=== PATIENT | male | born 1955 | race Caucasian/White ===

== ENCOUNTER → 2016-09-27 | Outpatient (CLI) | payer MEDICARE ==
[~2016-09-27] MED LIST: ALPR.5T PO; AMIT50TA3 PO; ASCO500T20 PO; ASP81CT PO; ASPI-479 PO; CARI350T PO; CEPH500C PO; CLOP75TA PO; CLPD75T PO; CYAN10007 PO; CYCL10TA45 PO; CYCL10TA9 PO; DIAZ5TAB3 PO; DOX10 PO; E400C PO; ESCT10T PO; FISH OIL 1,2001 EAC1 PO; FISH1CAP15 PO; GABA-486 PO; GABA800T2 PO; HYDR-2890 PO; HYDR-2997 PO; HYDR118S10 PO; HYDR1TAB3 PO; HYDR200T PO; LEVO500T69 PO; MECL25TA56 PO; METH4TAB PO; MUCUS RELIEF PO; MULT1CAP27 PO; NAPR-243 PO; OMEG1CAP51 PO; OXYC-464 PO; OXYC1TAB12 PO; POTA99TA7 PO; PROP20TA5 PO; SIMV40TA2 PO
[2016-09-27 10:26] LABS: BASOPHILS % (AUTO) 0 % (0-10); EOSINOPHILS # (AUTO) 0.1 10^3/uL (0.0-0.3); EOSINOPHILS % (AUTO) 2 % (0-10); LYMPHOCYTES # (AUTO) 1.6 X 10^3 (1.0-4.0); LYMPHOCYTES % (AUTO) 28 % (12-44); MEAN CORPUSCULAR HEMOGLOBIN 30 PG (25-34); MEAN CORPUSCULAR HGB CONC 33 G/DL (32-36); MEAN CORPUSCULAR VOLUME 90 FL (80-99); MEAN PLATELET VOLUME 9.1 FL (7.4-10.4); MONOCYTES # (AUTO) 0.5 X 10^3 (0.0-1.0); MONOCYTES % (AUTO) 8 % (0-12); NEUTROPHILS # (AUTO) 3.5 X 10^3 (1.8-7.8); NEUTROPHILS % (AUTO) 62 % (42-75); PLATELET COUNT 191 10^3/uL (130-400); RED BLOOD COUNT 5.23 10^6/uL (4.35-5.85); RED CELL DISTRIBUTION WIDTH 13.5 % (10.0-14.5); WHITE BLOOD COUNT 5.7 10^3/uL (4.3-11.0)
[2016-09-27 10:36] LABS: ALANINE AMINOTRANSFERASE 15 U/L (0-55); ANION GAP 11 MMOL/L (5-14); ASPARTATE AMINO TRANSFERASE 17 U/L (5-34); BILIRUBIN,TOTAL 0.5 MG/DL (0.1-1.0); BLOOD UREA NITROGEN 8 MG/DL (7-18); BUN/CREATININE RATIO 10; CARBON DIOXIDE 26 MMOL/L (21-32); CHLORIDE 101 MMOL/L (98-107); CREATININE SERUM 0.81 MG/DL (0.60-1.30); GFR ESTIMATED > 60; GLUCOSE 128 MG/DL (70-105); POTASSIUM 4.2 MMOL/L (3.6-5.0); SODIUM 138 MMOL/L (135-145); TOTAL PROTEIN 7.5 GM/DL (6.4-8.2)
== END ==
LOC: LAB 10:01
PROVIDERS: ATTEND Nurse Practitioner Family
DX: L93.0 Discoid lupus erythematosus (principal)
CPT/HCPCS: 36415; 80053; 85025

== ENCOUNTER → 2017-04-01 | Outpatient (CLI) | payer MEDICARE ==
[2017-04-01 10:24] LABS: BASOPHILS % (AUTO) 0 % (0-10); EOSINOPHILS # (AUTO) 0.1 10^3/uL (0.0-0.3); EOSINOPHILS % (AUTO) 2 % (0-10); HEMATOCRIT 45 % (40-54); HEMOGLOBIN 15.1 G/DL (13.3-17.7); LYMPHOCYTES # (AUTO) 1.2 X 10^3 (1.0-4.0); LYMPHOCYTES % (AUTO) 20 % (12-44); MEAN CORPUSCULAR HEMOGLOBIN 31 PG (25-34); MEAN CORPUSCULAR HGB CONC 33 G/DL (32-36); MEAN CORPUSCULAR VOLUME 92 FL (80-99); MEAN PLATELET VOLUME 8.9 FL (7.4-10.4); MONOCYTES # (AUTO) 0.7 X 10^3 (0.0-1.0); MONOCYTES % (AUTO) 11 % (0-12); NEUTROPHILS % (AUTO) 67 % (42-75); PLATELET COUNT 220 10^3/uL (130-400); RED BLOOD COUNT 4.89 10^6/uL (4.35-5.85); RED CELL DISTRIBUTION WIDTH 12.9 % (10.0-14.5)
[2017-04-01 10:43] LABS: ALANINE AMINOTRANSFERASE 16 U/L (0-55); ALBUMIN 4.1 GM/DL (3.2-4.5); ALKALINE PHOSPHATASE 69 U/L (40-136); BILIRUBIN,TOTAL 0.5 MG/DL (0.1-1.0); BUN/CREATININE RATIO 8; CALCIUM 9.4 MG/DL (8.5-10.1); CARBON DIOXIDE 27 MMOL/L (21-32); CHLORIDE 101 MMOL/L (98-107); CREATININE SERUM 0.86 MG/DL (0.60-1.30); GFR ESTIMATED > 60; GLUCOSE 97 MG/DL (70-105); POTASSIUM 4.5 MMOL/L (3.6-5.0); SODIUM 137 MMOL/L (135-145)
== END ==
LOC: LAB 10:06
PROVIDERS: ATTEND Nurse Practitioner Family
DX: L90.5 Scar conditions and fibrosis of skin (principal); B86 Scabies; L93.0 Discoid lupus erythematosus
CPT/HCPCS: 36415; 80053; 85025

== ENCOUNTER 2018-04-29 18:05 | Emergency (ER) | payer MEDICARE ==
[~2018-04-29] VITALS: Ht 180.3 cm; Wt 81.6 kg
[~2018-04-29 18:05] MED LIST changes: +GABA800T10 PO; -GABA800T2 PO; -HYDR200T PO; +HYDR200T78 PO
--- OUTSIDE RECORDS SUMMARY | 2018-04-29 18:12 | XMS REPORT ---
Author Author LIDIA DAHL Organization [facility] Address [address] [place] [address] Care Team Providers Care Modeling Manager Name Role Phone LIDIA DAHL Unavailable PROBLEMS Type Condition ICD9-CM Code UNC24-WU Code Onset Dates Condition Status SNOMED Code Problem Systemic lupus erythematosus, unspecified SLE type, unspecified organ involvement status M32.9 Active 32022984 Problem Primary insomnia F51.01 Active 5684072 Problem Tremor, essential G25.0 Active 472376396 Problem Neck pain M54.2 Active 81630719 Problem History of hepatitis C Z86.19 Active 88414157746769 Problem Skin cancer C44.90 Active 062196085 Problem 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 2387591 ALLERGIES No Information ENCOUNTERS Encounter Location Date Diagnosis [facility] [id number] [place] [address] 00087- 9530 Jan, 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 [facility] [id number] [place] [address] 05270- 5348 Jan, Tremor, essential G25.0 [facility] [id number] [place] [address] 19948- 5052 Jan, Tremor, essential G25.0 ; Cervicalgia M54.2 and Primary insomnia F51.01 [facility] [id number] [place] [address] 81976- 8850 Dec, 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 [facility] [id number] [place] [address] 33195- 4610 Nov, 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 [facility] [id number] [place] [address] 37357- 0468 Nov, 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 [facility] [address] [address] 42[address] Oct, Systemic lupus erythematosus, unspecified SLE type, unspecified organ involvement status M32.9 and 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 [facility] [id number] [address] 4266 Sep, 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 [facility] [id number] [place] [address] 38427- 1986 Aug, 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 [facility] [id number] [place] [address] 36145- 6085 Aug, [facility] [id number] [place] [address] 62906- 6065 Aug, Cervicalgia M54.2 and Skin cancer C44.90 [facility] [id number] [place] [address] 37437- 5768 Jul, Neck pain M54.2 [facility] [id number] [place] [address] 41119- 4248 June, Neck pain M54.2 [facility] [id number] [place] [address] 65667- 0595 May, Neck pain M54.2 [facility] [address] [address] 5115 May, Systemic lupus erythematosus, unspecified SLE type, unspecified organ involvement status M32.9 and Neck pain M54.2 [facility] [address] [address] 7701 Apr, Neck pain M54.2 [facility] [id number] [address]- 6276 Apr, Neck pain M54.2 [facility] [id number] [address]- 6716 Mar, Neck pain M54.2 [facility] [id number] [place] [address] 54782- 9834 Feb, Neck pain M54.2 [facility] [id number] [place] [address] 40117- 0814 Feb, Neck pain M54.2 [facility] [id number] [place] [address] 60833- 0046 Feb, [facility] [id number] [place] [address] 44095- 3666 Feb, Cervical neuritis M54.12 [facility] [id number] [place] [address] 25924- 0392 Jan, Cervical neuritis M54.12 [facility] [id number] [place] [address] 91341- 2987 Jan, Cervical neuritis M54.12 [facility] [id number] [place] [address] 17079- 8356 Nov, [facility] [id number] [place] [address] 30277- 9051 Nov, 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 and Neck pain M54.2 [facility] [id number] [place] [address] 92718- 5039 Nov, [facility] [id number] [place] [address] 98496- 4252 Nov, Neck pain M54.2 [facility] [id number] [place] [address] 91880- 8361 Nov, [facility] [id number] [place] [address] 32184- 4265 Oct, Neck pain M54.2 and Cervical vertebral fusion M43.22 [facility] [id number] [place] [address] 79222- 9247 Sep, [facility] [id number] [place] [address] 16415- 3009 Aug, Systemic lupus erythematosus, unspecified SLE type, unspecified organ involvement status M32.9 and Cervical neuritis M54.12 [facility] [id number] [place] [address] 94318- 1656 Jul, [facility] [id number] [place] [address] 59249- 2990 Jul, [facility] [address] 23669- 3116 June, Lupus M32.9 ; Encounter for screening for lipoid disorders Z13.220 and Neck pain M54.2 [facility] [address] 02521- 6365 June, [facility] [id number] [place] [address] 93104- 7881 Apr, History of hepatitis C Z86.19 [facility] [id number] [place] [address] 41049- 8317 Nov, [facility] [id number] [place] [address] 61721- 7016 June, Warts, genital A63.0 [facility] [id number] [place] [address] 96343- 6112 June, Occasional tremors R25.1 ; Systemic lupus M32.9 and Anxiety about health F41.8 [facility] [id number] [place] [address] 94354- 0071 June, Genital warts A63.0 [facility] [id number] [place] [address] 29668- 6005 May, Lupus M32.9 ; Polyneuropathy in diseases classified elsewhere G63 and Occasional tremors R25.1 [facility] [id number] [place] [address] 75450- 2102 May, Genital warts A63.0 [facility] [address] [place] [address]- 9305 Apr, [facility] [id number] [place] [address] 23540- 4470 Mar, [facility] [id number] [place] [address] 27692- 4153 Mar, [facility] [id number] [place] [address] 79368- 5954 Mar, Lupus M32.9 [facility] [id number] [place] [address] 11880- 7004 Mar, Systemic lupus M32.9 and Neck pain M54.2 [facility] [id number] [place] [address] 88850- 4143 Feb, Systemic lupus M32.9 [facility] [id number] [place] [address] 78378- 0532 Feb, Systemic lupus erythematosus, organ or system involvement unspecified M32.10 ; Polyneuropathy in diseases classified elsewhere G63 and Hyperpigmented skin lesion L81.9 [facility] [id number] [place] [address] 83503- 9801 Aug, Genital warts 078.11 [facility] [address] [place] [address] 10691- 0284 Jul, Genital warts 078.11 [facility] [address] [place] [address] 41970- 8481 Jul, [facility] [id number] [place] [address] 47082- 7654 May, [facility] [id number] [place] [address] 62169- 9412 May, [facility] [id number] [place] [address] 84279- 8426 Dec, [facility] [id number] [place] [address] 85013- 4323 Dec, [facility] [place] [facility] [address] [id number] [place] [address]- 3775 Sep, [facility] [place] [facility] [address] [id number] [place] [address]- 9473 Sep, [facility] [place] [facility] [address] [id number] [place] [address]- 4187 Sep, [facility] [place] [facility] [address] [id number] [place] [address]- 4805 Sep, [facility] [place] [facility] [address] [id number] [place] [address]- 5025 Sep, [facility] [place] [facility] [address] [id number] [place] [address]- 0280 Sep, [facility] [place] [facility] [address] [id number] [place] [address]- 4245 Aug, [facility] [place] [facility] [address] [id number] [place] [address]- 3369 Aug, [facility] [place] [facility] [address] [id number] [place] [address]- 2772 Aug, [facility] [place] [facility] [address] [id number] [place] [address]- 8528 Aug, [facility] [place] [facility] [address] [id number] [place] [address]- 1489 Aug, [facility] [place] [facility] [address] [id number] [place] [address]- 6856 Aug, [facility] [place] [facility] [address] [id number] [place] [address]- 0840 Jul, [facility] [place] [facility] [address] [id number] [place] [address]- 1171 Jul, [facility] [place] [facility] [address] [id number] [place] [address]- 5982 Jul, [facility] [place] [facility] [address] [id number] [place] [address]- 9575 16 Jul, 2013 [facility] [place] [facility] [address] [id number] [place] [address]- 5856 Jul, [facility] [place] [facility] [address] [id number] [place] [address]- 0274 Jul, [facility] [place] [facility] [address] [id number] [place] [address]- 6931 Jul, [facility] [place] [facility] [address] [id number] [place] [address]- 4397 Jul, [facility] [place] [facility] [address] [id number] [place] [address]- 0493 Jul, [facility] [place] [facility] [address] [id number] [place] [address]- 0658 Jul, [facility] [place] [facility] [address] [id number] [place] [address]- 2355 Jul, [facility] [place] [facility] [address] [id number] [place] [address]- 5200 Jul, [facility] [place] [facility] [address] [id number] [place] [address]- 5319 Jul, [facility] [place] [facility] [address] [id number] [place] [address]- 1071 Jul, [facility] [place] [facility] [address] [id number] [place] [address]- 8365 Jul, [facility] [place] [facility] [address] [id number] [place] [address]- 1104 Jul, [facility] [place] [facility] [address] [id number] [place] [address]- 7175 Jul, [facility] [place] [facility] [address] [id number] [place] [address]- 4294 Jul, [facility] [place] [facility] [address] [id number] [place] [address]- 4397 June, [facility] [place] [facility] [address] [id number] [place] [address]- 5404 June, [facility] [place] [facility] [address] [id number] [place] [address]- 2858 June, [facility] [place] [facility] [address] [id number] [place] [address]- 0986 June, [facility] [place] [facility] [address] [id number] [place] [address]- 7709 May, [facility] [place] [facility] [address] [id number] [place] [address]- 6330 May, [facility] [place] [facility] [address] [id number] [place] [address]- 0612 May, [facility] [place] [facility] [address] [id number] [place] [address]- 6651 May, [facility] [place] [facility] [address] [id number] [place] [address]- 3378 May, [facility] [place] [facility] [address] [id number] [place] [address]- 3209 May, [facility] [place] [facility] [address] [id number] [place] [address]- 3641 May, [facility] [place] [facility] [address] [id number] [place] [address]- 8522 May, [facility] [place] [facility] [address] [id number] [place] [address]- 1794 May, [facility] [place] [facility] [address] [id number] [place] [address]- 8683 May, [facility] [place] [facility] [address] [id number] [place] [address]- 9842 Apr, [facility] [place] [facility] [address] [id number] [place] [address]- 1842 Apr, [facility] [place] [facility] [address] [id number] [place] [address]- 5837 Apr, [facility] [place] [facility] [address] [id number] [place] [address]- 5935 Apr, [facility] [place] [facility] [address] [id number] [place] [address]- 7892 Apr, [facility] [place] [facility] [address] [id number] [place] [address]- 4002 Apr, [facility] [place] [facility] [address] [id number] [place] [address]- 6348 Mar, [facility] [place] [facility] [address] [id number] [place] [address]- 4746 Mar, [facility] [place] [facility] [address] [id number] [place] [address]- 6655 Mar, [facility] [place] [facility] [address] [id number] [place] [address]- 9596 Mar, [facility] [place] [facility] [address] [id number] [place] [address]- 2743 Mar, [facility] [place] [facility] [address] [id number] [place] [address]- 5536 Mar, [facility] [place] [facility] [address] [facility] [id number] [place] [address]- 3129 Mar, [facility] [place] [facility] [address] [id number] [place] [address]- 3484 Mar, [facility] [place] [facility] [address] [id number] [place] [address]- 3799 Feb, [facility] [place] [facility] [address] [id number] [place] [address]- 2193 Feb, [facility] [place] [facility] [address] [id number] [place] [address]- 7938 Feb, [facility] [place] [facility] [address] [id number] [place] [address]- 4407 Feb, [facility] [address] [id number] [place] [address]- 7691 Feb, [facility] [place] [facility] [address] [id number] [place] [address]- 4122 Feb, [facility] [place] [facility] [address] [id number] [place] [address]- 2329 Feb, [facility] [place] [facility] [address] [id number] [place] [address]- 1051 Feb, [facility] [place] [facility] [address] [id number] [place] [address]- 1637 Feb, [facility] [place] [facility] [address] [id number] [place] [address]- 4097 Feb, [facility] [place] [facility] [address] [id number] [place] [address]- 7056 Feb, [facility] [place] [facility] [address] [id number] [place] [address]- 6403 Feb, [facility] [place] [facility] [address] [id number] [place] [address]- 8623 Feb, [facility] [place] [facility] [address] [id number] [place] [address]- 2343 Feb, [facility] [place] [facility] [address] [id number] [place] [address]- 2501 Feb, [facility] [place] [facility] [address] [id number], [place] [address]- 1280 Jan, [facility] [place] [facility] [address] [id number] [place] [address]- 6674 Jan, [facility] [place] [facility] [address] [id number] [place] [address]- 8397 Jan, [facility] [place] [facility] [address] [id number] [place] [address]- 0654 Jan, [facility] [place] [facility] [address] [id number] [place] [address]- 3774 16 Jan, 2013 [facility] [address] [id number] [place] [address]- 3626 16 Jan, 2013 [facility] [place] [facility] [address] [id number] [place] [address]- 9365 Dec, [facility] [place] [facility] [address] [id number] [place] [address]- 6257 Dec, [facility] [place] [facility] [address] [id number] [place] [address]- 1499 Dec, [facility] [place] [facility] [address] [id number] [place] [address]- 4372 Dec, [facility] [place] [facility] [address] [id number] [place] [address]- 8735 18 Dec, 2012 [facility] [place] [facility] [address] [id number] [place] [address]- 6920 Dec, [facility] [place] [facility] [address] [id number] [place] [address]- 0022 Dec, [facility] [place] [facility] [address] [id number] [place] [address]- 1827 Dec, [facility] [place] [facility] [address] [facility] [id number] [place] [address]- 0075 Dec, [facility] [place] [facility] [address] [id number] [place] [address]- 2225 Dec, [facility] [place] [facility] [address] [id number], [place] [address]- 3164 Dec, [facility] [place] [facility] [address] [id number] [place] [address]- 4864 29 Nov, 2012 [facility] [place] [facility] [address] [id number] [place] [address]- 7893 Nov, [facility] [place] [facility] [address] [id number], [place] [address]- 6002 Nov, [facility] [place] [facility] [address] [id number] [place] [address]- 5828 Nov, 2012 [facility] [place] [facility] [address] [id number] [place] [address]- 0932 Nov, 2012 [facility] [place] [facility] [address] [id number] [place] [address]- 3863 Nov, 2012 [facility] [place] [facility] [address] [id number] [place] [address]- 4789 Nov, 2012 [facility] [place] [facility] [address] [id number] [place] [address]- 6756 Nov, 2012 [facility] [place] [facility] [address] [id number] [place] [address]- 3710 Nov, [facility] [place] [facility] [address] [id number] [place] [address]- 5841 Nov, [facility] [place] [facility] [address] [id number] [place] [address]- 8136 Nov, [facility] [place] [facility] [address] [id number] [place] [address]- 4155 Nov, [facility] [place] [facility] [address] [id number] [place] [address]- 5443 Nov, [facility] [place] [facility] [address] [id number] [place] [address]- 5096 Nov, [facility] [place] [facility] [address] [id number] [place] [address]- 8940 18 Oct, 2012 [facility] [place] [facility] [address] [id number] [place] [address]- 3117 17 Sep, 2012 [facility] [place] [facility] [address] [id number] [place] [address]- 9257 11 Oct, 2012 [facility] [place] [facility] [address] [id number] [place] [address]- 8208 03 Sep, 2012 [facility] [place] [facility] [address] [id number] [place] [address]- 9099 Sep, [facility] [place] [facility] [address] [id number] [place] [address]- 7513 Sep, [facility] [place] [facility] [address] [id number] [place] [address]- 9602 Sep, [facility] [place] [facility] [address] [id number] [place] [address]- 2335 Sep, [facility] [place] [facility] [address] [id number] [place] [address]- 6877 Sep, [facility] [place] [facility] [address] [id number] [place] [address] Sep, [facility] [place] [facility] [address] [id number] [place] [address] Sep, [facility] [place] [facility] [address] [id number] [place] [address] Aug, [facility] [place] [facility] [address] [id number] [place] [address] Aug, [facility] [place] [facility] [address] [id number] [place] [address] Jul, [facility] [place] [facility] [address] [id number] [place] [address] Jul, [facility] [place] [facility] [address] [id number] [place] [address] Jul, [facility] [place] [facility] [address] [id number] [place] [address] Jul, [facility] [place] [facility] [address] [id number] [place] [address] Jul, [facility] [place] [facility] [address] [id number] [place] [address] Jul, [facility] [place] [facility] [address] [id number] [place] [address] Jul, [facility] [place] [facility] [id number] [address] June, [facility] [address] [facility] [id number], [place] [address] June, [facility] [address] [facility] [id number], [place] [address] May, [facility] [id number], [place] [address] May, [facility] [address] [facility] [id number], [place] [address] May, [facility] [id number], [place] [address] May, [facility] [id number], [place] [address] May, [facility] [id number], [place] [address] May, [facility] [id number], [place] [address] 05 May, 2012 [facility] [id number], [place] [address] May, [facility] [id number], [place] [address] May, [facility] [address] [id number], [place] [address] 28 Apr, 2012 [facility] [address] [id number], [place] [address] 27 Apr, 2012 [facility] [address] [id number], [place] [address] 26 Apr, 2012 [facility] [address] [id number], [place] [address] 22 Apr, 2012 IMMUNIZATIONS No Known Immunizations SOCIAL HISTORY Never Assessed REASON FOR VISIT Requests return call PLAN OF CARE VITAL SIGNS MEDICATIONS Medication Instructions Dosage Frequency Start Date End Date Duration Status Percocet 7.5-325 MG Orally 4 times a day 1 tablet as needed 6h Jan, 28 days Active RESULTS No Results PROCEDURES No Known procedures INSTRUCTIONS MEDICATIONS ADMINISTERED No Known Medications MEDICAL (GENERAL) HISTORY Type Description Date Medical History hypertension Medical History neck pain - requires chronic pain management, on chronic narcotics Medical History lupus - 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 Sanchez, plates and prosthetic discs placed in spine ( unsucessful surgery) 09/27/2013 Surgical History internal bone stimulator, 2 rods 6 pins in neck, reattached plate on spine and fixed prosthetic plates; Dr. Britt 01/2014 Surgical History bone stimulator removed; Dr. Britt 06/[address]-scan and mylegram 03/2015 Hospitalization History surgeries
--- OUTSIDE RECORDS SUMMARY | 2018-04-29 18:12 | XMS REPORT ---
Author Author DANTE ALVAREZ Organization [facility] Address [address] [place] [address] Care Team Providers Care [employer] Project Manager Name Role Phone DANTE ALVAREZ Unavailable PROBLEMS Type Condition ICD9-CM Code XMO68-WQ Code Onset Dates Condition Status SNOMED Code Problem Systemic lupus erythematosus, unspecified SLE type, unspecified organ involvement status M32.9 Active 92867754 Problem Primary insomnia F51.01 Active 9820978 Problem Tremor, essential G25.0 Active 394494604 Problem Neck pain M54.2 Active 23038379 Problem History of hepatitis C Z86.19 Active 10690056411115 Problem Skin cancer C44.90 Active 163180134 Problem 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 1062889 ALLERGIES No Known Allergies ENCOUNTERS Encounter Location Date Diagnosis [place] [id number] [place] [address] 49623- 2374 Jan, Tremor, essential G25.0 [place] [id number] [place] [address] 36056- 8277 Jan, Tremor, essential G25.0 ; Cervicalgia M54.2 and Primary insomnia F51.01 [facility] [id number] [place] [address] 84091- 2837 Dec, 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 [facility] [id number] [place] [address] 44089- 7938 Nov, 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 [facility] [id number] [place] [address] 66721- 2654 Nov, 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 [facility] [id number] [place] [address] 48509- 5155 Oct, Systemic lupus erythematosus, unspecified SLE type, unspecified organ involvement status M32.9 and 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 [facility] [address] [address] 9116 Sep, 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 [facility] [address] [address]- 4166 Aug, 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 [facility] [id number] [place] [address] 88529- 6436 Aug, [facility] [id number] [place] [address] 01271- 6478 Aug, Cervicalgia M54.2 and Skin cancer C44.90 [facility] [id number] [place] [address] 70484- 3620 Jul, Neck pain M54.2 [facility] [id number] [place] [address] 56869- 3959 June, Neck pain M54.2 [facility] [id number] [place] [address] 81092- 2871 May, Neck pain M54.2 [facility] [id number] [place] [address] 63687- 8463 May, Systemic lupus erythematosus, unspecified SLE type, unspecified organ involvement status M32.9 and Neck pain M54.2 [facility] [address] [address]- 5186 Apr, Neck pain M54.2 [facility] [id number] [place] [address] 26162- 4446 Apr, Neck pain M54.2 [facility] [id number] [place] [address] 82727- 5186 Mar, Neck pain M54.2 [facility] [address] [address]- 9426 Feb, Neck pain M54.2 [facility] [id number] [place] [address] 75088- 6173 Feb, Neck pain M54.2 [facility] [id number] [place] [address] 19494- 8052 Feb, [facility] [id number] [place] [address] 77968- 7093 Feb, Cervical neuritis M54.12 [facility] [id number] [place] [address] 13429- 9388 Jan, Cervical neuritis M54.12 [facility] [id number] [place] [address] 11035- 8476 Jan, Cervical neuritis M54.12 [facility] [id number] [place] [address] 64263- 2106 Nov, [facility] [id number] [place] [address] 99980- 4259 Nov, 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 and Neck pain M54.2 [facility] [id number] [place] [address] 82918- 4534 Nov, [facility] [id number] [place] [address] 81922- 7460 Nov, Neck pain M54.2 [facility] [id number] [place] [address] 82393- 6852 Nov, [facility] [id number] [place] [address] 91035- 0325 Oct, Neck pain M54.2 and Cervical vertebral fusion M43.22 [facility] [id number] [place] [address] 13650- 9135 Sep, [facility] [id number] [place] [address] 17442- 0423 Aug, Systemic lupus erythematosus, unspecified SLE type, unspecified organ involvement status M32.9 and Cervical neuritis M54.12 [facility] [id number] [place] [address] 81819- 4431 Jul, [facility] [id number] [place] [address] 29287- 5192 Jul, [facility] [id number] [place] [address] 63502- 4577 June, Lupus M32.9 ; Encounter for screening for lipoid disorders Z13.220 and Neck pain M54.2 [place] [id number] [place] [address] 95973- 8424 June, [place] [address] 44691- 0901 Apr, History of hepatitis C Z86.19 [place] [address] 87187- 2942 Nov, [place] [address] 72225- 4486 June, Warts, genital A63.0 [place] [id number] [place] [address] 55712- 2889 June, Occasional tremors R25.1 ; Systemic lupus M32.9 and Anxiety about health F41.8 [place] [id number] [place] [address] 91670- 4969 June, Genital warts A63.0 [place] [id number] [place] [address] 74714- 0938 May, Lupus M32.9 ; Polyneuropathy in diseases classified elsewhere G63 and Occasional tremors R25.1 [place] [id number] [place] [address] 26994- 0190 May, Genital warts A63.0 [place] [id number] [place] [address] 53947- 7918 Apr, [place] [address] 15495- 8669 Mar, [facility] [address] [place] [address] 59321- 4040 Mar, [facility] [address] [place] [address] 70928- 4190 Mar, Lupus M32.9 [facility] [address] [place] [address] 52394- 2360 Mar, Systemic lupus M32.9 and Neck pain M54.2 [facility] [id number] [place] [address] 01440- 3370 Feb, Systemic lupus M32.9 [facility] [id number] [place] [address] 04270- 4297 Feb, Systemic lupus erythematosus, organ or system involvement unspecified M32.10 ; Polyneuropathy in diseases classified elsewhere G63 and Hyperpigmented skin lesion L81.9 [facility] [address] [place] [address] 70927- 9998 Aug, Genital warts 078.11 [facility] [id number] [place] [address] 57237- 7024 Jul, Genital warts 078.11 [facility] [id number] [place] [address] 47944- 0722 Jul, [facility] [address] [place] [address] 93594- 2659 May, [facility] [address] [place] [address] 73837- 1280 May, [facility] [id number] [place] [address] 74912- 0503 Dec, [facility] [id number] [place] [address] 73770- 4259 Dec, [facility] [id number] [place] [address] 50573- 9020 Sep, [facility] [place] [facility] [address] [id number] [place] [address]- 1099 Sep, [facility] [place] [facility] [address] [id number] [place] [address]- 2061 Sep, [facility] [place] [facility] [address] [id number] [place] [address]- 4833 Sep, [facility] [place] [facility] [address] [id number] [place] [address]- 4397 Sep, [facility] [place] [facility] [address] [id number] [place] [address]- 8474 Sep, [facility] [place] [facility] [address] [id number] [place] [address]- 5977 Aug, [facility] [place] [facility] [address] [id number] [place] [address]- 3880 Aug, [facility] [place] [facility] [address] [id number] [place] [address]- 6282 Aug, [facility] [place] [facility] [address] [id number] [place] [address]- 1195 Aug, [facility] [place] [facility] [address] [id number] [place] [address]- 8071 Aug, [facility] [place] [facility] [address] [id number] [place] [address]- 9091 Aug, [facility] [place] [facility] [address] [id number] [place] [address]- 1098 Jul, [facility] [place] [facility] [address] [id number] [place] [address]- 2120 Jul, [facility] [place] [facility] [address] [id number] [place] [address]- 7675 Jul, [facility] [place] [facility] [address] [id number] [place] [address]- 9078 Jul, [facility] [place] [facility] [address] [id number] [place] [address]- 7437 Jul, [facility] [place] [facility] [address] [id number] [place] [address]- 7985 Jul, [facility] [place] [facility] [address] [id number] [place] [address]- 0228 Jul, [facility] [place] [facility] [address] [id number] [place] [address]- 6341 Jul, [facility] [place] [facility] [address] [id number] [place] [address]- 5635 Jul, [facility] [place] [facility] [address] [id number] [place] [address]- 6842 Jul, [facility] [place] [facility] [address] [id number] [place] [address]- 6870 Jul, [facility] [place] [facility] [address] [id number] [place] [address]- 2413 Jul, [facility] [place] [facility] [address] [id number] [place] [address]- 2670 Jul, [facility] [place] [facility] [address] [id number] [place] [address]- 6290 Jul, [facility] [place] [facility] [address] [facility] [id number] [place] [address]- 3154 Jul, [facility] [place] [facility] [address] [id number] [place] [address]- 0579 Jul, [facility] [place] [facility] [address] [id number] [address]- 3647 Jul, [facility] [place] [facility] [address] [id number] [place] [address]- 6925 Jul, [facility] [place] [facility] [address] [id number] [place] [address]- 2074 June, [facility] [place] [facility] [address] [id number] [place] [address]- 8899 June, [facility] [place] [facility] [address] [id number] [place] [address]- 7151 June, [facility] [place] [facility] [address] [id number] [place] [address]- 5295 June, [facility] [place] [facility] [address] [id number] [place] [address]- 2352 May, [facility] [place] [facility] [address] [id number] [place] [address]- 6195 May, [facility] [place] [facility] [address] [id number] [place] [address]- 3920 May, [facility] [place] [facility] [address] [id number] [place] [address]- 0478 May, [facility] [place] [facility] [address] [id number] [place] [address]- 3016 May, [facility] [place] [facility] [address] [id number] [place] [address]- 1837 May, [facility] [place] [facility] [address] [id number] [place] [address]- 3539 May, [facility] [place] [facility] [address] [id number] [place] [address]- 8748 May, [facility] [place] [facility] [address] [id number] [place] [address]- 1890 May, [facility] [place] [facility] [address] [id number] [place] [address]- 2743 May, [facility] [place] [facility] [address] [id number] [place] [address]- 4938 Apr, [facility] [place] [facility] [address] [id number] [place] [address]- 0379 Apr, [facility] [place] [facility] [address] [id number] [place] [address]- 1374 Apr, [facility] [place] [facility] [address] [id number] [place] [address]- 9348 Apr, [facility] [place] [facility] [address] [id number] [place] [address]- 3381 Apr, [facility] [place] [facility] [address] [id number] [place] [address]- 0050 Apr, [facility] [place] [facility] [address] [facility] [id number] [place] [address]- 0131 Mar, [facility] [place] [facility] [address] [id number] [place] [address]- 9640 Mar, [facility] [place] [facility] [address] [id number] [place] [address]- 8624 Mar, [facility] [place] [facility] [address] [facility] [id number] [place] [address]- 1968 Mar, [facility] [place] [facility] [address] [facility] [id number] [place] [address]- 5425 Mar, [facility] [place] [facility] [address] [id number] [place] [address]- 5987 Mar, [facility] [place] [facility] [address] [facility] [id number] [place] [address]- 0809 Mar, [facility] [place] [facility] [address] [facility] [id number] [place] [address]- 7589 Mar, [facility] [place] [facility] [address] [facility] [id number] [place] [address]- 6413 Feb, [facility] [place] [facility] [address] [facility] [id number] [place] [address]- 9389 Feb, [facility] [place] [facility] [address] [id number] [place] [address]- 4725 Feb, [facility] [place] [facility] [address] [facility] [id number] [place] [address]- 7346 Feb, [facility] [place] [facility] [address] [facility] [id number] [place] [address]- 2011 Feb, [facility] [place] [facility] [address] [id number] [place] [address]- 8711 Feb, [facility] [place] [facility] [address] [id number] [place] [address]- 5978 Feb, [facility] [place] [facility] [address] [id number] [place] [address]- 3923 Feb, [facility] [place] [facility] [address] [id number] [place] [address]- 8185 Feb, [facility] [place] [facility] [address] [id number] [place] [address]- 6411 Feb, [facility] [place] [facility] [address] [id number] [place] [address]- 6588 Feb, [facility] [place] [facility] [address] [id number] [place] [address]- 7526 Feb, [facility] [place] [facility] [address] [id number] [place] [address]- 9691 Feb, [facility] [place] [facility] [address] [id number] [place] [address]- 9784 Feb, [facility] [place] [facility] [address] [id number] [place] [address]- 5867 Feb, [facility] [place] [facility] [address] [id number] [place] [address]- 2878 Jan, [facility] [place] [facility] [address] [id number] [place] [address]- 4623 31 Jan, 2013 [facility] [place] [facility] [address] [id number] [place] [address]- 2050 30 Jan, 2013 [facility] [place] [facility] [address] [id number] [place] [address]- 8846 30 Jan, 2013 [facility] [place] [facility] [address] [id number] [place] [address]- 5126 16 Jan, 2013 [facility] [place] [facility] [address] [id number] [place] [address]- 9617 Jan, [facility] [place] [facility] [address] [id number] [place] [address]- 5281 Dec, [facility] [place] [facility] [address] [id number] [place] [address]- 3710 Dec, [facility] [place] [facility] [address] [id number] [place] [address]- 7391 Dec, [facility] [place] [facility] [address] [id number] [address]- 8219 Dec, [facility] [place] [facility] [address] [id number] [place] [address]- 6083 Dec, [facility] [place] [facility] [address] [id number] [address]- 9158 Dec, [facility] [place] [facility] [address] [id number] [place] [address]- 3925 Dec, [facility] [place] [facility] [address] [id number] [place] [address]- 0427 Dec, [facility] [place] [facility] [address] [id number] [place] [address]- 2245 Dec, [facility] [place] [facility] [address] [id number] [place] [address]- 9690 Dec, [facility] [place] [facility] [address] [id number] [address]- 5070 Dec, [facility] [place] [facility] [address] [id number] [address]- 3579 Nov, [facility] [place] [facility] [address] [id number] [address]- 6991 Nov, [facility] [place] [facility] [address] [id number] [address]- 3897 Nov, [facility] [place] [facility] [address] [id number] [place] [address]- 1932 Nov, [facility] [place] [facility] [address] [id number] [place] [address]- 0196 Nov, 2012 [facility] [place] [facility] [address] [id number] [place] [address]- 2809 Nov, 2012 [facility] [place] [facility] [address] [id number] [place] [address]- 7369 Nov, [facility] [place] [facility] [address] [id number] [place] [address]- 2922 Nov, 2012 [facility] [place] [facility] [address] [id number] [place] [address]- 5082 Nov, [facility] [place] [facility] [address] [id number] [place] [address]- 9326 Nov, [facility] [place] [facility] [address] [id number] [place] [address]- 5163 Nov, [facility] [place] [facility] [address] [id number] [place] [address]- 6683 Nov, [facility] [place] [facility] [address] [id number] [place] [address]- 4337 Nov, [facility] [place] [facility] [address] [id number] [place] [address]- 1059 Nov, [facility] [place] [facility] [address] [id number] [place] [address]- 9863 18 Oct, 2012 [facility] [place] [facility] [address] [id number] [place] [address]- 1032 17 Oct, 2012 [facility] [place] [facility] [address] [id number] [place] [address]- 8552 11 Oct, 2012 [facility] [place] [facility] [address] [id number] [place] [address]- 0571 03 Oct, 2012 [facility] [place] [facility] [address] [id number] [place] [address]- 3958 Sep, [facility] [place] [facility] [address] [id number] [place] 7699 Sep, [facility] [place] [facility] [address] [id number] [place] [address]- 3398 Sep, [facility] [address] [id number] [place] [address]- 8718 Sep, [facility] [place] [facility] [address] [id number] [place] [address]- 2796 Sep, [facility] [place] [facility] [address] [id number] [place] [address]- 0112 Sep, [facility] [address] [id number] [place] [address]- 2268 Sep, [facility] [place] [facility] [address] [id number] [place] [address]- 2593 Aug, [facility] [address] [id number] [place] [address]- 2079 Aug, [facility] [place] [facility] [address] [id number] [place] [address] Jul, [facility] [place] [facility] [address] [id number] [place] [address] Jul, [facility] [place] [facility] [address] [id number] [place] [address] Jul, [facility] [place] [facility] [address] [id number] [place] [address] Jul, [facility] [place] [facility] [address] [id number] [place] [address] Jul, [facility] [place] [facility] [address] [id number] [place] [address] Jul, [facility] [place] [facility] [address] [id number] [place] [address] Jul, [facility] [place] [facility] [address] [id number] [place] [address] June, [facility] [place] [facility] [address] [id number] [address] June, [facility] [id number] [id number] May, [facility] [address] [id number] [address] May, [facility] [id number] [id number] May, [facility] [id number] [address] May, [facility] [id number] [address] May, [facility] [address] [id number] [address] May, [facility] [id number] [address] May, [facility] [id number] [address] May, [facility] [id number] [address] May, [facility] [id number] [id number] Apr, [facility] [id number] [address] Apr, [facility] [id number] [id number] Apr, [facility] [address] [id number] [address] Apr, IMMUNIZATIONS Vaccine Route Administration Date Status TORADOL (IM) 60 MG/2ML (UP TO 15 MG) IM Intramuscular Feb 04, 2018 Administered SOCIAL HISTORY Never Assessed REASON FOR VISIT Pain management (chronic), PT reports his neck has been acting up last few days. -Devante TRIVEDI PLAN OF CARE VITAL SIGNS Height 69 in 2018-02-04 Weight 188 lbs 2018-02-04 Temperature 98.1 degrees Fahrenheit 2018-02-04 Heart Rate 90 bpm 2018-02-04 Respiratory Rate 20 2018-02-04 Oximetry 98 % 2018-02-04 BMI 27.76 kg/m2 2018-02-04 Blood pressure systolic 140 mmHg 2018-02-04 Blood pressure diastolic 70 mmHg 2018-02-04 MEDICATIONS Medication Instructions Dosage Frequency Start Date End Date Duration Status Gabapentin 800 MG Orally Three times a day 1 tablet 8h Active Mens Multi Vitamin & Mineral Active Aspirin 81 MG Orally Once a day take 1 tablet (81 mg) by oral route once daily sun,tues,thur,& fri 24h Apr, Active Percocet 7.5-325 MG Orally 4 times a day 1 tablet as needed 6h Dec, 28 days Active Fish Oil Concentrate 1000 mg 1 Capsule by Oral route 1 time per day Apr, Active Nitroglycerin by Sublingual route Apr, Active Plaquenil 200 mg Orally 2 times a day 1 tablet with food or milk 12h Feb 90 days Active Rozerem 8 MG Orally Once a day 1 tablet at bedtime as needed 24h Jan, Active Lipitor 20 mg Orally Once a day 1 tablet 24h Jul, 30 day(s) Active Zanaflex 4 MG Orally Three times a day 1 tablet as needed 8h Jan, Active RESULTS No Results PROCEDURES Procedure Date Ordered Result Body Site TORADOL (IM) 60 MG/2ML (UP TO 15 MG) Feb 04, 2018 THER/PROPH/DIAG INJ, SC/IM Feb 04, 2018 INSTRUCTIONS MEDICATIONS ADMINISTERED No Known Medications MEDICAL (GENERAL) HISTORY Type Description Date Medical History hypertension Medical History neck pain - requires chronic pain management, on chronic narcotics Medical History lupus - 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
--- OUTSIDE RECORDS SUMMARY | 2018-04-29 18:13 | XMS REPORT ---
Author Author DANTE ALVAREZ Organization [facility] Address [address] [place] [address] Care Team Providers Care Sales Recruiting Coordinator Name Role Phone DANTE ALVAREZ Unavailable PROBLEMS Type Condition ICD9-CM Code IMV21-PK Code Onset Dates Condition Status SNOMED Code Problem Systemic lupus erythematosus, unspecified SLE type, unspecified organ involvement status M32.9 Active 90152198 Problem Primary insomnia F51.01 Active 1786719 Problem Tremor, essential G25.0 Active 783265800 Problem Neck pain M54.2 Active 32873653 Problem History of hepatitis C Z86.19 Active 89694743423523 Problem Skin cancer C44.90 Active 402655532 Problem 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 6467414 ALLERGIES No Information ENCOUNTERS Encounter Location Date Diagnosis [place] [id number] [place] [address] 26406- 9696 Jan, Tremor, essential G25.0 [place] [id number] [place] [address] 43140- 4663 Jan, Tremor, essential G25.0 ; Cervicalgia M54.2 and Primary insomnia F51.01 [facility] [id number] [place] [address] 11658- 0476 Dec, 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 [facility] [id number] [place] [address] 26830- 3079 Nov, 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 [facility] [id number] [place] [address] 91107- 6989 Nov, 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 [facility] [id number] [place] [address] 14641- 4593 Oct, Systemic lupus erythematosus, unspecified SLE type, unspecified organ involvement status M32.9 and 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 [facility] [address] [address] 6756 Sep, 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 [facility] [address] [address]- 5956 Aug, 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 [facility] [id number] [place] [address] 27827- 7046 Aug, [facility] [id number] [place] [address] 29188- 7519 Aug, Cervicalgia M54.2 and Skin cancer C44.90 [facility] [id number] [place] [address] 39430- 1186 Jul, Neck pain M54.2 [facility] [id number] [place] [address] 43622- 2484 June, Neck pain M54.2 [facility] [id number] [place] [address] 90448- 1654 May, Neck pain M54.2 [facility] [id number] [place] [address] 95076- 0520 May, Systemic lupus erythematosus, unspecified SLE type, unspecified organ involvement status M32.9 and Neck pain M54.2 [facility] [address], [place] [address] 8813 Apr, Neck pain M54.2 [facility] [id number] [address] 18674- 2516 Apr, Neck pain M54.2 [facility] [id number] [place] [address] 59552- 3806 Mar, Neck pain M54.2 [facility] [id number] [address] 94014- 8146 Feb, Neck pain M54.2 [facility] [id number] [address] 6334 Feb, Neck pain M54.2 [facility] [id number] [address] 44071- 1236 Feb, [facility] [id number] [place] [address] 53553- 3337 Feb, Cervical neuritis M54.12 [facility] [id number] [place] [address] 40433- 3710 Jan, Cervical neuritis M54.12 [facility] [id number] [place] [address] 47039- 0116 Jan, Cervical neuritis M54.12 [facility] [id number] [place] [address] 95707- 8049 Nov, [facility] [id number] [place] [address] 51433- 2757 Nov, 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 and Neck pain M54.2 [facility] [id number] [address] 12633- 4240 Nov, [facility] [id number] [place] [address] 28166- 9072 Nov, Neck pain M54.2 [facility] [id number] [place] [address] 20842- 0326 Nov, [facility] [id number] [place] [address] 71171- 6971 Oct, Neck pain M54.2 and Cervical vertebral fusion M43.22 [facility] [id number] [place] [address] 94645- 4084 Sep, [facility] [id number] [place] [address] 46145- 9027 Aug, Systemic lupus erythematosus, unspecified SLE type, unspecified organ involvement status M32.9 and Cervical neuritis M54.12 [facility] [id number] [place] [address] 81164- 2908 Jul, [facility] [id number] [place] [address] 28985- 5195 Jul, [facility] [id number] [address] 14518- 2686 June, Lupus M32.9 ; Encounter for screening for lipoid disorders Z13.220 and Neck pain M54.2 [facility] [id number] [address] 47139- 9078 June, [facility] [address] 16541- 0539 Apr, History of hepatitis C Z86.19 [place] [id number] [place] [address] 94705- 9634 Nov, [place] [address] 53177- 2347 June, Warts, genital A63.0 [place] [id number] [address] 71038- 7455 June, Occasional tremors R25.1 ; Systemic lupus M32.9 and Anxiety about health F41.8 [place] [id number] [address] 73413- 2547 June, Genital warts A63.0 [place] [id number] [place] [address] 87085- 0276 May, Lupus M32.9 ; Polyneuropathy in diseases classified elsewhere G63 and Occasional tremors R25.1 [place] [id number] [address] 51879- 4056 May, Genital warts A63.0 [facility] [id number] [place] [address] 06784- 5645 Apr, [facility] [address] 40783- 0893 Mar, [facility] [id number] [address] 23230- 6297 Mar, [facility] [id number] [place] [address] 68914- 1908 Mar, Lupus M32.9 [facility] [id number] [place] [address] 11679- 9694 Mar, Systemic lupus M32.9 and Neck pain M54.2 [facility] [id number] [place] [address] 42759- 8258 Feb, Systemic lupus M32.9 [facility] [id number] [address] 91738- 1751 Feb, Systemic lupus erythematosus, organ or system involvement unspecified M32.10 ; Polyneuropathy in diseases classified elsewhere G63 and Hyperpigmented skin lesion L81.9 [facility] [id number] [place] [address] 36184- 8884 Aug, Genital warts 078.11 [facility] [id number] [address] 54099- 4969 Jul, Genital warts 078.11 [facility] [id number] [place] [address] 62334- 0223 Jul, [facility] [id number] [place] [address] 85072- 5500 May, [facility] [id number] [address] 93192- 5069 May, [facility] [id number] [place] [address] 95348- 7034 Dec, [facility] [id number] [place] [address] 19151- 5603 Dec, [facility] [id number] [address] 86399- 2218 Sep, [facility] [place] [facility] [address] [id number] [place] [address]- 7313 Sep, [facility] [place] [facility] [address] [id number] [place] [address]- 9934 Sep, [facility] [place] [facility] [address] [id number] [place] [address]- 3829 Sep, [facility] [place] [facility] [address] [id number] [place] [address]- 5483 Sep, [facility] [place] [facility] [address] [id number] [place] [address]- 7866 Sep, [facility] [place] [facility] [address] [id number] [place] [address]- 6694 Aug, [facility] [place] [facility] [address] [id number] [place] [address]- 8640 Aug, [facility] [place] [facility] [address] [id number] [place] [address]- 2926 Aug, [facility] [place] [facility] [address] [id number] [place] [address]- 3237 Aug, [facility] [place] [facility] [address] [id number] [place] [address]- 3906 Aug, [facility] [place] [facility] [address] [id number] [place] [address]- 5277 Aug, [facility] [place] [facility] [address] [id number] [place] [address]- 3362 Jul, [facility] [place] [facility] [address] [id number] [place] [address]- 7246 Jul, [facility] [place] [facility] [address] [id number] [place] [address]- 9882 Jul, [facility] [place] [facility] [address] [id number] [place] [address]- 1503 Jul, [facility] [place] [facility] [address] [id number] [place] [address]- 8901 Jul, [facility] [place] [facility] [address] [id number] [place] [address]- 8514 Jul, [facility] [place] [facility] [address] [id number] [place] [address]- 7970 Jul, [facility] [place] [facility] [address] [id number] [place] [address]- 5106 Jul, [facility] [place] [facility] [address] [id number] [place] [address]- 5668 Jul, [facility] [place] [facility] [address] [id number] [place] [address]- 0613 Jul, [facility] [place] [facility] [address] [id number] [place] [address]- 3186 Jul, [facility] [place] [facility] [address] [id number] [place] [address]- 1631 Jul, [facility] [place] [facility] [address] [id number] [place] [address]- 1873 Jul, [facility] [place] [facility] [address] [id number] [place] [address]- 9143 Jul, [facility] [place] [facility] [address] [id number] [place] [address]- 2805 Jul, [facility] [place] [facility] [address] [id number] [place] [address]- 9820 Jul, [facility] [place] [facility] [address] [id number] [place] [address]- 4116 Jul, [facility] [place] [facility] [address] [id number] [place] [address]- 7235 Jul, [facility] [place] [facility] [address] [id number] [place] [address]- 6746 June, [facility] [place] [facility] [address] [id number] [place] [address]- 8772 June, [facility] [place] [facility] [address] [id number] [place] [address]- 1307 June, [facility] [place] [facility] [address] [id number] [place] [address]- 7918 June, [facility] [place] [facility] [address] [id number] [place] [address]- 0583 May, [facility] [place] [facility] [address] [id number] [place] [address]- 3590 May, [facility] [place] [facility] [address] [id number] [place] [address]- 0732 May, [facility] [place] [facility] [address] [id number] [place] [address]- 4585 May, [facility] [place] [facility] [address] [id number] [place] [address]- 0136 May, [facility] [place] [facility] [address] [id number] [place] [address]- 0574 May, [facility] [place] [facility] [address] [id number] [place] [address]- 0667 May, [facility] [place] [facility] [address] [id number] [place] [address]- 3479 May, [facility] [place] [facility] [address] [id number] [place] [address]- 6854 May, [facility] [place] [facility] [address] [id number] [place] [address]- 4095 May, [facility] [place] [facility] [address] [id number] [place] [address]- 8387 Apr, [facility] [place] [facility] [address] [id number] [place] [address]- 7267 Apr, [facility] [place] [facility] [address] [id number] [place] [address]- 3436 Apr, [facility] [place] [facility] [address] [id number] [place] [address]- 1310 Apr, [facility] [place] [facility] [address] [id number] [place] [address]- 0056 Apr, [facility] [place] [facility] [address] [id number] [place] [address]- 7896 Apr, [facility] [place] [facility] [address] [facility] [id number] [place] [address]- 7921 Mar, [facility] [place] [facility] [address] [id number] [place] [address]- 8264 Mar, [facility] [place] [facility] [address] [id number] [place] [address]- 0743 Mar, [facility] [place] [facility] [address] [id number] [place] [address]- 2884 Mar, [facility] [place] [facility] [address] [id number] [place] [address]- 0517 Mar, [facility] [place] [facility] [address] [id number] [place] [address]- 0809 Mar, [facility] [place] [facility] [address] [id number] [place] [address]- 8960 Mar, [facility] [place] [facility] [address] [facility] [id number] [place] [address]- 8987 Mar, [facility] [place] [facility] [address] [id number] [place] [address]- 1465 Feb, [facility] [place] [facility] [address] [id number] [place] [address]- 5148 Feb, [facility] [place] [facility] [address] [id number] [place] [address]- 3770 Feb, [facility] [place] [facility] [address] [id number] [place] [address]- 4676 Feb, [facility] [place] [facility] [address] [facility] [id number] [place] [address]- 7148 Feb, [facility] [place] [facility] [address] [id number] [place] [address]- 1989 Feb, [facility] [place] [facility] [address] [id number] [place] [address]- 0954 Feb, [facility] [place] [facility] [address] [id number] [place] [address]- 9925 Feb, [facility] [place] [facility] [address] [id number] [place] [address]- 7997 Feb, [facility] [place] [facility] [address] [id number] [place] [address]- 7570 Feb, [facility] [place] [facility] [address] [id number] [place] [address]- 6812 Feb, [facility] [place] [facility] [address] [id number] [place] [address]- 9823 Feb, [facility] [place] [facility] [address] [id number] [place] [address]- [address] Feb, [facility] [place] [facility] [address] [id number] [place] [address]- 1247 Feb, [facility] [place] [facility] [address] [id number] [place] [address]- 2059 Feb, [facility] [place] [facility] [address] [id number] [place] [address]- 8297 Jan, [facility] [place] [facility] [address] [id number] [place] [address]- 7785 31 Jan, 2013 [facility] [place] [facility] [address] [id number] [place] [address]- 3693 30 Jan, 2013 [facility] [place] [facility] [address] [id number] [place] [address]- 7296 30 Jan, 2013 [facility] [place] [facility] [address] [id number] [place] [address]- 9616 16 Jan, 2013 [facility] [place] [facility] [address] [id number] [place] [address]- 9746 Jan, [facility] [place] [facility] [address] [id number] [place] [address]- 6827 Dec, [facility] [place] [facility] [address] [id number] [place] [address]- 7596 Dec, [facility] [place] [facility] [address] [id number] [place] [address]- 6645 Dec, [facility] [place] [facility] [address] [id number], [place] [address]- 5236 Dec, [facility] [place] [facility] [address] [id number] [place] [address]- 3819 Dec, [facility] [place] [facility] [address] [id number], [place] [address]- 4165 Dec, [facility] [place] [facility] [address] [id number] [place] [address]- 1411 Dec, [facility] [place] [facility] [address] [id number], [place] [address]- 0778 Dec, [facility] [place] [facility] [address] [id number], [place] [address]- 9574 Dec, [facility] [place] [facility] [address] [id number], [place] [address]- 1252 Dec, [facility] [place] [facility] [address] [id number], [place] [address]- 4873 Dec, [facility] [place] [facility] [address] [id number], [place] [address]- 8189 Nov, [facility] [place] [facility] [address] [id number], [place] [address]- 0666 Nov, [facility] [place] [facility] [address] [id number], [place] [address]- 1257 Nov, [facility] [place] [facility] [address] [id number], [place] [address]- 2064 Nov, [facility] [place] [facility] [address] [id number] [place] [address]- 7332 Nov, [facility] [address] [id number] [place] [address]- 1930 Nov, 2012 [facility] [place] [facility] [address] [id number] [place] [address]- 7337 Nov, [facility] [place] [facility] [address] [id number] [place] [address]- 6651 Nov, 2012 [facility] [place] [facility] [address] [id number] [place] [address]- 5231 Nov, [facility] [place] [facility] [address] [id number] [place] [address]- 1809 Nov, [facility] [place] [facility] [address] [id number] [place] [address]- 9012 Nov, [facility] [place] [facility] [address] [id number] [place] [address]- 8696 Nov, [facility] [place] [facility] [address] [id number] [place] [address]- 0590 Nov, [facility] [place] [facility] [address] [id number] [place] [address]- 9337 Nov, [facility] [place] [facility] [address] [id number] [place] [address]- 5273 18 Oct, 2012 [facility] [place] [facility] [address] [id number] [place] [address] 17 Oct, 2012 [facility] [place] [facility] [address] [id number] [place] [address] 11 Oct, 2012 [facility] [place] [facility] [address] [id number] [place] [address] 03 Oct, 2012 [facility] [place] [facility] [address] [id number] [place] [address] Sep, [facility] [place] [facility] [address] [id number] [place] [address] Sep, [facility] [place] [facility] [address] [id number] [place] [address] Sep, [facility] [place] [facility] [address] [id number] [place] [address] Sep, [facility] [place] [facility] [address] [id number] [place] [address] Sep, [facility] [place] [facility] [address] [id number] [place] [address] Sep, [facility] [place] [facility] [address] [id number] [place] [address] Sep, [facility] [place] [facility] [address] [id number] [place] [address] Aug, [facility] [place] [facility] [address] [id number] [place] [address] Aug, [facility] [place] [facility] [address] [id number] [place] [address] Jul, [facility] [place] [facility] [address] [id number] [place] [address] Jul, [facility] [place] [facility] [address] [id number] [place] [address] Jul, [facility] [place] [facility] [address] [id number] [place] [address] Jul, [facility] [place] [facility] [address] [id number] [place] [address] Jul, [facility] [place] [facility] [address] [id number] [place] [address] Jul, [facility] [place] [facility] [address] [id number] [place] [address] Jul, [facility] [place] [facility] [address] [id number] [place] [address] June, [facility] [place] [facility] [address] [id number], [place] [address] June, [facility] [address] [id number] [address] May, [facility] [id number] [place] [address] May, [facility] [id number], [place] [address] May, [facility] [id number] [place] [address] May, [facility] [id number] [place] [address] May, [facility] [id number] [place] [address] May, [facility] [id number] [place] [address] May, [facility] [id number], [place] [address] May, [facility] [id number] [place] [address] May, [facility] [id number], [place] [address] Apr, [facility] [address] [id number], [place] [address] Apr, [facility] [id number] [place] [address] Apr, [facility] [address] [id number], [place] [address] Apr, IMMUNIZATIONS No Known Immunizations SOCIAL HISTORY Never Assessed REASON FOR VISIT Medication question PLAN OF CARE VITAL SIGNS MEDICATIONS Medication Instructions Dosage Frequency Start Date End Date Duration Status Rozerem 8 MG Orally Once a day 1 tablet at bedtime as needed 24h Jan, Active RESULTS No Results PROCEDURES No Known procedures INSTRUCTIONS MEDICATIONS ADMINISTERED No Known Medications MEDICAL (GENERAL) HISTORY Type Description Date Medical History hypertension Medical History neck pain - requires chronic pain management, on chronic narcotics Medical History lupus - sees decatizer in [place] Medical History Chronic HCV, successfully treated by [...]
--- OUTSIDE RECORDS SUMMARY | 2018-04-29 18:13 | XMS REPORT ---
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 0174951 Problem Systemic lupus erythematosus, unspecified SLE type, unspecified organ involvement status M32.9 Active 97325773 Problem Neck pain M54.2 Active 20235289 Problem History of hepatitis C Z86.19 Active [id number] ALLERGIES No Information ENCOUNTERS Encounter Location Date Diagnosis [facility] [id number] [place] [address] 16372- 6792 Jan, [facility] [id number] [place] [address] 29795- 3592 Dec, 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 [facility] [id number] [place] [address] 00190- 7684 Nov, 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 [facility] [id number] [place] [address] 32508- 6709 Nov, 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 [facility] [id number] [place] [address] 74156- 3755 Oct, Systemic lupus erythematosus, unspecified SLE type, unspecified organ involvement status M32.9 and 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 [facility] [id number] [place] [address] 18018- 0873 Sep, 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 [facility] [id number] [place] [address] 26954- 0288 Aug, 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 [facility] [id number] [place] [address] 94461- 6767 Aug, [facility] [id number] [place] [address] 73921- 9946 Aug, Cervicalgia M54.2 and Skin cancer C44.90 [facility] [id number] [place] [address] 17884- 3906 Jul, Neck pain M54.2 [facility] [id number] [place] [address] 13448- 7936 June, Neck pain M54.2 [facility] [id number] [place] [address] 08665- 0886 May, Neck pain M54.2 [facility] [id number] [place] [address] 76317- 6916 May, Systemic lupus erythematosus, unspecified SLE type, unspecified organ involvement status M32.9 and Neck pain M54.2 [facility] [id number] [place] [address] 39151- 3875 Apr, Neck pain M54.2 [facility] [id number] [place] [address] 77151- 6952 Apr, Neck pain M54.2 [facility] [id number] [place] [address] 86186- 5916 Mar, Neck pain M54.2 [facility] [id number] [place] [address] 20444- 7086 Feb, Neck pain M54.2 [facility] [id number] [place] [address] 67985- 0986 Feb, Neck pain M54.2 [facility] [id number] [place] [address] 21238- 8156 Feb, [facility] [id number] [place] [address] 66608- 2058 Feb, Cervical neuritis M54.12 [facility] [id number] [place] [address] 41091- 3538 Jan, Cervical neuritis M54.12 [facility] [id number] [place] [address] 05786- 7848 Jan, Cervical neuritis M54.12 [facility] [id number] [place] [address] 57947- 3107 Nov, [facility] [id number] [place] [address] 60897- 2793 Nov, 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 and Neck pain M54.2 [facility] [id number] [place] [address] 19889- 0861 Nov, [facility] [id number] [place] [address] 79244- 0680 Nov, Neck pain M54.2 [facility] [id number] [place] [address] 23322- 6367 Nov, [facility] [id number] [place] [address] 72764- 6209 Oct, Neck pain M54.2 and Cervical vertebral fusion M43.22 [facility] [id number] [place] [address] 89973- 0644 Sep, [facility] [id number] [place] [address] 50895- 2028 Aug, Systemic lupus erythematosus, unspecified SLE type, unspecified organ involvement status M32.9 and Cervical neuritis M54.12 [facility] [id number] [place] [address] 85446- 0755 Jul, [facility] [id number] [place] [address] 06186- 2510 Jul, [facility] [id number] [place] [address] 46730- 9933 June, Lupus M32.9 ; Encounter for screening for lipoid disorders Z13.220 and Neck pain M54.2 [facility] [address] 65992- 3998 June, [facility] [id number] [place] [address] 15748- 8672 Apr, History of hepatitis C Z86.19 [facility] [address] 45524- 6188 Nov, [facility] [address] 00465- 4560 June, Warts, genital A63.0 [address] [address] 55494- 5652 June, Occasional tremors R25.1 ; Systemic lupus M32.9 and Anxiety about health F41.8 [place] [address] 34147- 6960 June, Genital warts A63.0 [place] [id number] [place] [address] 62018- 5756 May, Lupus M32.9 ; Polyneuropathy in diseases classified elsewhere G63 and Occasional tremors R25.1 [place] [id number] [place] [address] 22726- 0302 May, Genital warts A63.0 [facility] [id number] [place] [address] 95552- 4880 Apr, [facility] [id number] [place] [address] 46597- 6087 Mar, [facility] [id number] [place] [address] 72432- 9392 Mar, [facility] [id number] [place] [address] 50621- 9565 Mar, Lupus M32.9 [place] [address] [address]- 2899 16 Mar, 2015 Systemic lupus M32.9 and Neck pain M54.2 [facility] [id number] [place] [address] 72098- 3199 Feb, Systemic lupus M32.9 [facility] [id number] [place] [address] 16270- 3607 Feb, Systemic lupus erythematosus, organ or system involvement unspecified M32.10 ; Polyneuropathy in diseases classified elsewhere G63 and Hyperpigmented skin lesion L81.9 [facility] [id number] [place] [address] 71573- 6142 Aug, Genital warts 078.11 [facility] [id number] [place] [address] 61972- 5125 Jul, Genital warts 078.11 [facility] [id number] [place] [address] 43065- 4838 Jul, [facility] [id number] [place] [address] 64264- 9552 May, [facility] [id number] [place] [address] 22763- 2651 May, [facility] [address] [address]- 2423 Dec, [facility] [id number] [place] [address] 78050- 0775 Dec, [facility] [id number] [place] [address] 09873- 9532 Sep, [facility] [id number] [place] [address] 73621- 7931 Sep, [facility] [address] [address]- 4944 Sep, [facility] [id number] [place] [address] 83155- 3387 Sep, [facility] [place] [facility] [address] [id number] [place] [address]- 5139 Sep, [facility] [place] [facility] [address] [id number] [place] [address]- 5095 Sep, [facility] [place] [facility] [address] [id number] [place] [address]- 8842 Aug, [facility] [place] [facility] [address] [id number] [place] [address]- 8993 Aug, [facility] [place] [facility] [address] [id number] [place] [address]- 7596 Aug, [facility] [place] [facility] [address] [id number] [place] [address]- 2485 Aug, [facility] [place] [facility] [address] [id number] [place] [address]- 1104 Aug, [facility] [place] [facility] [address] [id number] [place] [address]- 1646 Aug, [facility] [place] [facility] [address] [id number] [place] [address]- 7720 Jul, [facility] [place] [facility] [address] [id number] [place] [address]- 5905 Jul, [facility] [place] [facility] [address] [id number] [place] [address]- 2060 Jul, [facility] [place] [facility] [address] [id number] [place] [address]- 4829 Jul, [facility] [place] [facility] [address] [id number] [place] [address]- 3535 Jul, [facility] [place] [facility] [address] [id number] [place] [address]- 0381 Jul, [facility] [place] [facility] [address] [id number] [place] [address]- 0380 Jul, [facility] [place] [facility] [address] [id number] [place] [address]- 7458 16 Jul, 2013 [facility] [place] [facility] [address] [id number] [place] [address]- 6981 Jul, [facility] [place] [facility] [address] [id number] [place] [address]- 1501 Jul, [facility] [place] [facility] [address] [id number] [place] [address]- 2407 Jul, [facility] [place] [facility] [address] [id number] [place] [address]- 9821 Jul, [facility] [place] [facility] [address] [id number] [place] [address]- 8950 Jul, [facility] [place] [facility] [address] [id number] [place] [address]- 1448 Jul, [facility] [place] [facility] [address] [id number] [place] [address]- 2887 Jul, [facility] [place] [facility] [address] [id number] [place] [address]- 9843 Jul, [facility] [place] [facility] [address] [id number] [place] [address]- 1439 Jul, [facility] [place] [facility] [address] [id number] [place] [address]- 8138 Jul, [facility] [place] [facility] [address] [id number] [place] [address]- 1864 June, [facility] [place] [facility] [address] [id number] [place] [address]- 0344 June, [facility] [place] [facility] [address] [id number] [place] [address]- 4160 June, [facility] [place] [facility] [address] [id number] [place] [address]- 5895 June, [facility] [place] [facility] [address] [id number] [place] [address]- 6511 May, [facility] [place] [facility] [address] [id number] [place] [address]- 3410 May, [facility] [place] [facility] [address] [id number] [place] [address]- 9073 May, [facility] [place] [facility] [address] [id number] [place] [address]- 5017 May, [facility] [place] [facility] [address] [id number] [place] [address]- 9644 May, [facility] [place] [facility] [address] [id number] [place] [address]- 0642 May, [facility] [place] [facility] [address] [id number] [place] [address]- 5965 May, [facility] [place] [facility] [address] [id number] [place] [address]- 6000 May, [facility] [place] [facility] [address] [id number] [place] [address]- 2825 May, [facility] [place] [facility] [address] [id number] [place] [address]- 1144 May, [facility] [place] [facility] [address] [id number] [place] [address]- 9366 Apr, [facility] [place] [facility] [address] [id number] [place] [address]- 8356 Apr, [facility] [place] [facility] [address] [id number], [place] [address]- 0623 Apr, [facility] [place] [facility] [address] [id number] [place] [address]- 5333 Apr, [facility] [place] [facility] [address] [id number] [place] [address]- 2610 Apr, [facility] [place] [facility] [address] [id number] [place] [address]- 7642 Apr, [facility] [place] [facility] [address] [id number] [place] [address]- 9393 Mar, [facility] [place] [facility] [address] [id number] [place] [address]- 0836 Mar, [facility] [place] [facility] [address] [id number] [place] [address] 2546 Mar, [facility] [place] [facility] [address] [id number] [place] [address]- 5986 Mar, [facility] [place] [facility] [address] [id number] [place] [address]- 2546 Mar, [facility] [place] [facility] [address] [id number] [place] [address]- 2796 Mar, [facility] [place] [facility] [address] [facility] [id number] [place] [address]- 2546 Mar, [facility] [place] [facility] [address] [id number] [place] [address]- 2544 Mar, [facility] [place] [facility] [address] [id number] [place] [address]- 4758 Feb, [facility] [place] [facility] [address] [facility] [id number] [place] [address]- 0297 Feb, [facility] [place] [facility] [address] [facility] [id number] [place] [address]- 9042 Feb, [facility] [place] [facility] [address] [id number] [place] [address]- 2511 Feb, [facility] [place] [facility] [address] [id number] [place] [address] 254 Feb, [facility] [place] [facility] [address] [id number] [place] [address] 2546 Feb, [facility] [place] [facility] [address] [facility] [id number] [place] [address]- 2540 Feb, [facility] [place] [facility] [address] [id number] [place] [address]- 0226 Feb, [facility] [place] [facility] [address] [id number] [place] [address]- 3843 Feb, [facility] [place] [facility] [address] [id number] [place] [address]- 3000 Feb, [facility] [place] [facility] [address] [id number] [place] [address]- 2452 Feb, [facility] [place] [facility] [address] [id number] [place] [address]- 6603 Feb, [facility] [place] [facility] [address] [id number] [place] [address]- 8459 Feb, [facility] [place] [facility] [address] [id number] [place] [address]- 0375 Feb, [facility] [place] [facility] [address] [id number] [place] [address]- 1667 Feb, [facility] [place] [facility] [address] [id number] [place] [address]- 2456 Jan, [facility] [place] [facility] [address] [id number] [place] [address]- 3351 Jan, [facility] [place] [facility] [address] [id number] [place] [address]- 1608 Jan, [facility] [place] [facility] [address] [id number] [place] [address]- 0369 Jan, [facility] [place] [facility] [address] [id number], [place] [address]- 8023 Jan, [facility] [place] [facility] [address] [id number] [place] [address]- 4327 Jan, [facility] [place] [facility] [address] [id number] [place] [address]- 4756 Dec, [facility] [place] [facility] [address] [id number] [place] [address]- 7263 Dec, [facility] [place] [facility] [address] [id number] [place] [address]- 7688 19 Dec, 2012 [facility] [place] [facility] [address] [id number] [place] [address]- 8700 19 Dec, 2012 [facility] [place] [facility] [address] [id number] [place] [address]- 6835 18 Dec, 2012 [facility] [place] [facility] [address] [id number] [place] [address]- 7129 Dec, [facility] [place] [facility] [address] [id number] [place] [address]- 4346 Dec, [facility] [place] [facility] [address] [id number] [place] [address]- 9890 Dec, [facility] [place] [facility] [address] [id number] [place] [address]- 5974 Dec, [facility] [place] [facility] [address] [id number] [place] [address]- 3822 Dec, [facility] [place] [facility] [address] [id number] [place] [address]- 9511 Dec, [facility] [place] [facility] [address] [id number] [place] [address]- 6579 Nov, [facility] [place] [facility] [address] [id number] [place] [address]- 5019 Nov, [facility] [place] [facility] [address] [id number] [place] [address]- 7633 Nov, [facility] [place] [facility] [address] [id number], [place] [address]- 7973 Nov, [facility] [place] [facility] [address] [id number] [place] [address]- 1291 Nov, [facility] [place] [facility] [address] [id number] [place] [address] Nov, [facility] [place] [facility] [address] [id number], [place] [address] Nov, [facility] [place] [facility] [address] [id number] [place] [address] Nov, [facility] [place] [facility] [address] [id number] [place] [address] Nov, [facility] [place] [facility] [address] [id number] [place] [address] Nov, [facility] [place] [facility] [address] [id number] [place] [address] Nov, [facility] [place] [facility] [address] [id number] [place] [address] Nov, [facility] [place] [facility] [address] [id number] [place] [address] Nov, [facility] [place] [facility] [address] [id number] [place] [address] Nov, [facility] [place] [facility] [address] [id number] [place] [address] 18 Oct, 2012 [facility] [place] [facility] [address] [id number] [place] [address] 17 Oct, 2012 [facility] [place] [facility] [address] [id number] [place] [address] 11 Oct, 2012 [facility] [place] [facility] [address] [id number] [place] [address] Oct, [facility] [place] [facility] [address] [id number] [place] [address] 28 Sep, 2012 [facility] [place] [facility] [address] [id number] [place] [address] Sep, [facility] [place] [facility] [address] [id number] [place] [address] 22 Sep, 2012 [facility] [place] [facility] [address] [id number] [place] [address] 15 Sep, 2012 [facility] [place] [facility] [address] [id number] [place] [address] Sep, [facility] [place] [facility] [address] [id number] [place] [address] 1007 Sep, [facility] [place] [facility] [address] [id number] [place] [address] 1672 Sep, [facility] [place] [facility] [address] [id number] [place] [address] Aug, [facility] [place] [facility] [address] [id number] [place] [address] Aug, [facility] [place] [facility] [address] [id number] [place] [address] 3828 Jul, [facility] [place] [facility] [address] [id number] [place] [address]99 Jul, [facility] [place] [facility] [address] [id number] [place] [address] 88[address] Jul, [facility] [place] [facility] [address] [id number] [place] [address] Jul, [facility] [place] [facility] [address] [id number] [place] [address] Jul, [facility] [place] [facility] [address] [id number] [place] [address] Jul, [facility] [place] [facility] [address] [id number] [place] [address] Jul, [facility] [place] [facility] [address] [id number] [place] [address] June, [facility] [place] [facility] [address] [id number] [place] [address] June, [facility] [place] [facility] [address] [id number] [place] [address]163 May, [facility] [place] [facility] [address] [id number] [place] [address] May, [facility] [place] [facility] [id number], [place] [address] May, [facility] [place] [id number], [place] [address] May, [facility] [place] [id number], [place] [address] May, [facility] [place] [id number] [place] [address] May, [facility] [place] [id number] [place] [address] May, [facility] [place] [id number] [place] [address]- [address] May, [facility] [place] [id number] [place] [address]- [address] May, [facility] [place] [id number] [place] [address]- [address] Apr, [facility] [place] [id number], [place] [address] Apr, [facility] [place] [id number] [place] [address]- [address] Apr, [facility] [place] [id number], [place] [address] Apr, IMMUNIZATIONS No Known Immunizations SOCIAL HISTORY Never Assessed REASON FOR VISIT Controlled Med Refill PLAN OF CARE VITAL SIGNS MEDICATIONS Medication Instructions Dosage Frequency Start Date End Date Duration Status Percocet 7.5-325 MG Orally 4 times a day 1 tablet as needed Dec, 28 days Active RESULTS No Results PROCEDURES No Known procedures INSTRUCTIONS MEDICATIONS ADMINISTERED No Known Medications MEDICAL (GENERAL) HISTORY Type Description Date Medical History hypertension Medical History neck pain - requires chronic pain management, on chronic narcotics Medical History lupus - sees plug sorter in [place] Medical History Chronic HCV, successfully treated by Dr Barone in 2012 Medical History skin cancer Surgical History Dr. Sanchez, plates and prosthetic discs placed in spine ( unsucessful surgery) 09/27/2013 Surgical History internal bone stimulator, 2 rods 6 pins in neck, reattached plate on spine and fixed prosthetic plates; Dr. Britt 01/2014 Surgical History bone stimulator removed; Dr. rBitt 06/[address]-scan and mylegram 03/2015 Hospitalization History surgeries
--- OUTSIDE RECORDS SUMMARY | 2018-04-29 18:14 | XMS REPORT ---
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 4470951 Problem Systemic lupus erythematosus, unspecified SLE type, unspecified organ involvement status M32.9 Active 93442728 Problem Neck pain M54.2 Active 88656851 Problem History of hepatitis C Z86.19 Active [id number] ALLERGIES No Known Allergies ENCOUNTERS Encounter Location Date Diagnosis [place] [id number] [place] [address] 34425- 6180 Oct, Systemic lupus erythematosus, unspecified SLE type, unspecified organ involvement status M32.9 and 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 [place] [id number] [place] [address] 18721- 3874 Sep, 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 [place] [id number] [place] [address] 09230- 7796 Aug, 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 [facility] [id number] [place] [address] 60509- 1060 Aug, [place] [id number] [place] [address] 27161- 8249 Aug, Cervicalgia M54.2 and Skin cancer C44.90 [facility] [id number] [place] [address] 68505- 5180 Jul, Neck pain M54.2 [place] [id number] [place] [address] 36130- 0593 June, Neck pain M54.2 [facility] [id number] [place] [address] 05540- 7682 May, Neck pain M54.2 [facility] [id number] [place] [address] 41964- 5009 May, Systemic lupus erythematosus, unspecified SLE type, unspecified organ involvement status M32.9 and Neck pain M54.2 [facility] [id number] [place] [address] 28025- 2342 Apr, Neck pain M54.2 [facility] [id number] [place] [address] 26308- 5917 Apr, Neck pain M54.2 [facility] [id number] [place] [address] 42587- 0477 Mar, Neck pain M54.2 [facility] [id number] [place] [address] 12250- 5859 Feb, Neck pain M54.2 [facility] [id number] [place] [address] 34405- 7018 Feb, Neck pain M54.2 [facility] [id number] [place] [address] 85405- 2725 Feb, [facility] [id number] [place] [address] 93773- 5266 Feb, Cervical neuritis M54.12 [facility] [id number] [place] [address] 26336- 9679 Jan, Cervical neuritis M54.12 [facility] [id number] [place] [address] 75317- 6742 Jan, Cervical neuritis M54.12 [facility] [id number] [place] [address] 53216- 8831 Nov, [facility] [id number] [place] [address] 03920- 7840 Nov, 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 and Neck pain M54.2 [facility] [id number] [place] [address] 47314- 8182 Nov, [facility] [id number] [place] [address] 15348- 8587 Nov, Neck pain M54.2 [facility] [address] 02516- 1138 Nov, [facility] [address] 45594- 5660 Oct, Neck pain M54.2 and Cervical vertebral fusion M43.22 [facility] [address] 68690- 9474 Sep, [facility] [address] 88627- 7657 Aug, Systemic lupus erythematosus, unspecified SLE type, unspecified organ involvement status M32.9 and Cervical neuritis M54.12 [facility] [id number] [place] [address] 33222- 4068 Jul, [facility] [address] 07837- 4325 Jul, [facility] [id number] [place] [address] 82309- 3710 June, Lupus M32.9 ; Encounter for screening for lipoid disorders Z13.220 and Neck pain M54.2 [facility] [id number] [place] [address] 34734- 4451 June, [facility] [address] 16384- 1158 Apr, History of hepatitis C Z86.19 [facility] [id number] [place] [address] 75906- 2853 Nov, [facility] [address] [place] [address]- 8071 June, Warts, genital A63.0 [facility] [id number] [place] [address] 21762- 6635 June, Occasional tremors R25.1 ; Systemic lupus M32.9 and Anxiety about health F41.8 [facility] [id number] [place] [address] 17342- 5965 June, Genital warts A63.0 [facility] [id number] [place] [address] 30133- 5772 May, Lupus M32.9 ; Polyneuropathy in diseases classified elsewhere G63 and Occasional tremors R25.1 [facility] [id number] [place] [address] 26971- 3190 May, Genital warts A63.0 [facility] [address] 50623- 6206 Apr, [facility] [id number] [place] [address] 62688- 2919 Mar, [facility] [id number] [place] [address] 54870- 8250 Mar, [facility] [id number] [place] [address] 78486- 3461 Mar, Lupus M32.9 [facility] [id number] [place] [address] 94037- 3857 Mar, Systemic lupus M32.9 and Neck pain M54.2 [facility] [id number] [place] [address] 02785- 0049 Feb, Systemic lupus M32.9 [facility] [id number] [place] [address] 32351- 7303 Feb, Systemic lupus erythematosus, organ or system involvement unspecified M32.10 ; Polyneuropathy in diseases classified elsewhere G63 and Hyperpigmented skin lesion L81.9 [facility] [address] [id number] [place] [address]- 8602 Aug, Genital warts 078.11 [facility] [address] [facility] [id number] [place] [address]- 4312 Jul, Genital warts 078.11 [facility] [address] [facility] [id number] [place] [address]- 4032 Jul, [facility] [address] [facility] [id number] [place] [address]- 5468 May, [facility] [address] [facility] [id number] [place] [address], [place] [address]- 3865 May, [facility] [address] [facility] [id number] [place] [address]- 8087 Dec, [facility] [address] [facility] [id number] [place] [address]- 5576 Dec, [facility] [address] [facility] [id number] [place] [address]- 8388 Sep, [facility] [address] [facility] [id number] [place] [address]- 5007 Sep, [facility] [address] [facility] [id number] [place] [address]- 0826 Sep, [facility] [address] [facility] [id number] [address]- 7190 Sep, [facility] [address] [facility] [id number] [address]- 7112 Sep, [facility] [address] [facility] [id number] [place] [address]- 3109 Sep, [facility] [address] [facility] [id number] [place] [address]- 3808 Aug, [facility] [address] [facility] [id number] [place] [address]- 9821 Aug, [facility] [place] [facility] [address] [id number] [place] [address]- 7225 15 Aug, 2013 [facility] [place] [facility] [address] [id number] [place] [address]- 6253 15 Aug, 2013 [facility] [place] [facility] [address] [id number] [place] [address]- 5420 10 Aug, 2013 [facility] [place] [facility] [address] [id number] [place] [address]- 7374 10 Aug, 2013 [facility] [place] [facility] [address] [id number] [place] [address]- 3041 27 Jul, 2013 [facility] [place] [facility] [address] [id number] [place] [address]- 1680 27 Jul, 2013 [facility] [place] [facility] [address] [id number] [place] [address]- 7249 16 Jul, 2013 [facility] [place] [facility] [address] [id number] [place] [address]- 7138 16 Jul, 2013 [facility] [place] [facility] [address] [id number] [place] [address]- 7155 16 Jul, 2013 [facility] [place] [facility] [address] [id number] [place] [address]- 5663 16 Jul, 2013 [facility] [place] [facility] [address] [id number] [place] [address]- 0526 16 Jul, 2013 [facility] [place] [facility] [address] [id number] [place] [address]- 0637 16 Jul, 2013 [facility] [place] [facility] [address] [id number] [place] [address]- 9781 10 Jul, 2013 [facility] [place] [facility] [address] [id number] [place] [address]- 1608 Jul, [facility] [place] [facility] [address] [id number] [place] [address]- 1922 10 Jul, 2013 [facility] [place] [facility] [address] [id number] [place] [address]- 3848 Jul, [facility] [place] [facility] [address] [id number] [place] [address]- 0705 Jul, [facility] [place] [facility] [address] [id number] [place] [address]- 7552 Jul, [facility] [place] [facility] [address] [id number] [place] [address]- 6616 Jul, [facility] [place] [facility] [address] [id number] [place] [address]- 1186 Jul, [facility] [place] [facility] [address] [id number] [place] [address]- 7458 Jul, [facility] [place] [facility] [address] [id number] [place] [address]- 9869 Jul, [facility] [place] [facility] [address] [id number] [place] [address]- 3673 June, [facility] [place] [facility] [address] [id number] [place] [address]- 2535 June, [facility] [place] [facility] [address] [id number] [place] [address]- 6745 June, [facility] [place] [facility] [address] [id number] [place] [address]- 5757 June, [facility] [place] [facility] [address] [id number] [place] [address]- 5883 May, [facility] [place] [facility] [address] [id number] [place] [address]- 5096 30 May, 2013 [facility] [place] [facility] [address] [id number] [place] [address]- 2894 May, [facility] [place] [facility] [address] [id number] [place] [address]- 7678 May, [facility] [place] [facility] [address] [id number] [place] [address]- 1183 16 May, 2013 [facility] [place] [facility] [address] [id number] [place] [address]- 8351 16 May, 2013 [facility] [place] [facility] [address] [id number] [place] [address]- 2229 May, [facility] [place] [facility] [address] [id number] [place] [address]- 6528 May, [facility] [place] [facility] [address] [id number] [place] [address]- 8569 May, [facility] [place] [facility] [address] [id number] [place] [address]- 4914 May, [facility] [place] [facility] [address] [id number] [place] [address]- 4920 Apr, [facility] [place] [facility] [address] [id number] [place] [address]- 4397 Apr, [facility] [place] [facility] [address] [id number] [place] [address]- 2404 Apr, [facility] [place] [facility] [address] [id number] [place] [address]- 0545 Apr, [facility] [place] [facility] [address] [id number] [place] [address]- 8578 Apr, [facility] [place] [facility] [address] [facility] [id number] [place] [address]- 2520 Apr, [facility] [place] [facility] [address] [id number] [place] [address]- 5487 Mar, [facility] [place] [facility] [address] [id number] [place] [address]- 1341 Mar, [facility] [place] [facility] [address] [id number] [place] [address]- 3470 Mar, [facility] [place] [facility] [address] [id number] [place] [address]- 1259 Mar, [facility] [place] [facility] [address] [id number] [place] [address]- 6408 Mar, [facility] [place] [facility] [address] [id number] [place] [address]- 8446 Mar, [facility] [place] [facility] [address] [id number] [place] [address]- 7607 Mar, [facility] [place] [facility] [address] [id number] [place] [address]- 7804 Mar, [facility] [place] [facility] [address] [id number] [place] [address]- 8566 Feb, [facility] [place] [facility] [address] [id number] [place] [address]- 2950 Feb, [facility] [place] [facility] [address] [id number] [place] [address]- 0713 Feb, [facility] [place] [facility] [address] [id number] [place] [address]- 8588 Feb, [facility] [place] [facility] [address] [id number] [place] [address]- 4236 Feb, [facility] [place] [facility] [address] [id number] [place] [address]- 6305 Feb, [facility] [place] [facility] [address] [id number] [place] [address]- 7089 Feb, [facility] [place] [facility] [address] [id number] [place] [address]- 1730 Feb, [facility] [place] [facility] [address] [id number] [address]- 4775 Feb, [facility] [place] [facility] [address] [id number] [place] [address]- 7801 Feb, [facility] [place] [facility] [address] [id number] [place] [address]- 6159 Feb, [facility] [place] [facility] [address] [id number] [place] [address]- 3983 Feb, [facility] [place] [facility] [address] [id number] [place] [address]- 3135 Feb, [facility] [address] [id number] [place] [address]- 5929 Feb, [facility] [place] [facility] [address] [id number] [place] [address]- 8720 Feb, [facility] [address] [id number] [place] [address]- 8880 Jan, [facility] [place] [facility] [address] [id number] [place] [address]- 5463 Jan, [facility] [address] [id number] [place] [address]- 2498 Jan, [facility] [place] [facility] [address] [id number] [place] [address]- 6471 Jan, [facility] [address] [id number] [place] [address]- 7049 16 Jan, 2013 [facility] [place] [facility] [address] [id number] [place] [address]- 3910 16 Jan, 2013 [facility] [place] [facility] [address] [id number] [place] [address]- 7275 Dec, [facility] [address] [id number] [place] [address]- 5923 Dec, [facility] [place] [facility] [address] [id number] [place] [address]- 9348 Dec, [facility] [place] [facility] [address] [id number] [place] [address]- 0589 19 Dec, 2012 [facility] [place] [facility] [address] [id number] [place] [address]- 2813 18 Dec, 2012 [facility] [place] [facility] [address] [id number] [place] [address]- 2677 13 Dec, 2012 [facility] [place] [facility] [address] [id number] [address]- 1368 Dec, [facility] [place] [facility] [address] [id number] [place] [address]- 0998 Dec, [facility] [place] [facility] [address] [id number] [place] [address]- 8276 Dec, [facility] [place] [facility] [address] [id number] [place] [address]- 6539 Dec, [facility] [place] [facility] [address] [id number] [place] [address]- 1573 Dec, [facility] [place] [facility] [address] [id number] [place] [address]- 3243 Nov, [facility] [place] [facility] [address] [id number] [place] [address]- 1980 Nov, [facility] [place] [facility] [address] [id number] [place] [address]- 9617 Nov, [facility] [place] [facility] [address] [id number] [place] [address]- 4731 Nov, [facility] [place] [facility] [address] [id number] [place] [address]- 8224 Nov, [facility] [place] [facility] [address] [id number] [place] [address]- 0823 Nov, [facility] [place] [facility] [address] [id number] [place] [address]- 3262 Nov, [facility] [place] [facility] [address] [id number] [place] [address]- 4505 Nov, [facility] [place] [facility] [address] [id number] [place] [address]- 3549 Nov, [facility] [place] [facility] [address] [id number] [place] [address]- 4567 Nov, [facility] [place] [facility] [address] [id number] [place] [address]- 2760 Nov, [facility] [place] [facility] [address] [id number] [place] [address]- 4346 Nov, [facility] [place] [facility] [address] [id number] [place] 6856 Nov, [facility] [place] [facility] [address] [id number] [place] [address]- 0666 Nov, [facility] [place] [facility] [address] [id number] [place] [address]- 1007 18 Oct, 2012 [facility] [place] [facility] [address] [id number] [place] [address]- 3335 17 Oct, 2012 [facility] [place] [facility] [address] [id number] [place] [address]- 5016 Oct, [facility] [place] [facility] [address] [id number] [place] [address]- 0944 Oct, [facility] [place] [facility] [address] [id number] [place] [address]- 2274 Sep, [facility] [place] [facility] [address] [id number] [place] [address]- 3282 Sep, [facility] [place] [facility] [address] [id number] [place] [address]- 5208 Sep, [facility] [place] [facility] [address] [id number] [place] [address]- 3290 Sep, [facility] [place] [facility] [address] [id number] [place] [address]- 0431 Sep, [facility] [place] [facility] [address] [id number] [place] [address]- 5419 Sep, [facility] [place] [facility] [address] [id number] [place] [address]- 7097 Sep, [facility] [place] [facility] [address] [id number] [place] [address]- 2284 Aug, [facility] [place] [facility] [address] [id number] [place] [address]- 7834 Aug, [facility] [place] [facility] [address] [id number] [place] [address]- 2691 25 Jul, 2012 [facility] [address] [id number] [place] [address]- 5201 13 Jul, 2012 [facility] [address] [id number] [place] [address]- 6325 10 Jul, 2012 [facility] [address] [id number] [place] [address]- 3082 08 Jul, 2012 [facility] [address] [id number] [place] [address]- 4021 06 Jul, 2012 [facility] [address] [id number] [place] [address]- 3599 04 Jul, 2012 [facility] [address] [id number] [place] [address] Jul, [facility] [address] [id number] [place] [address] June, [facility] [address] [id number] [place] [address] 16 Jun, 2012 [facility] [address] [id number] [place] [address] 29 May, 2012 [facility] [address] [id number] [place] [address] 24 May, 2012 [facility] [address] [id number] [place] [address] 22 May, 2012 [facility] [address] [id number] [place] [address] 19 May, 2012 [facility] [place] [facility] [address] [id number] [place] [address] 10 May, 2012 [facility] [address] [id number] [place] [address] 08 May, 2012 [facility] [address] [id number] [place] [address] May, [facility] [address] [facility] [id number] [address] May, [facility] [address] [id number] [address] May, [facility] [address] [id number], [place] [address] Apr, [facility] [id number] [address] Apr, [facility] [address] [id number], [place] [address] Apr, [facility] [id number] [address] Apr, IMMUNIZATIONS Vaccine Route Administration Date Status TORADOL (IM) 60 MG/2ML (UP TO 15 MG) IM Intramuscular September 18, 2017 Administered SOCIAL HISTORY Never Assessed REASON FOR VISIT Pain management (chronic), PT would like to discuss medication and his insurance approval -[facility] PLAN OF CARE VITAL SIGNS Height 69 in 2017-09-18 Weight 182.3 lbs 2017-09-18 Temperature 97.7 degrees Fahrenheit 2017-09-18 Heart Rate 94 bpm 2017-09-18 Respiratory Rate 20 2017-09-18 Oximetry 96 % 2017-09-18 BMI 26.92 kg/m2 2017-09-18 Blood pressure systolic 130 mmHg 2017-09-18 Blood pressure diastolic 80 mmHg 2017-09-18 MEDICATIONS Medication Instructions Dosage Frequency Start Date End Date Duration Status Baclofen 10 MG Orally Three times a day 1 tablet with food or milk 8h Not-Taking Aspirin 81 MG Orally Once a day take 1 tablet (81 mg) by oral route once daily sun,tues,thur,& fri 24h Apr, Active Percocet 7.5-325 MG Orally 4 times a day 1 tablet as needed 6h Aug, Active Vitamin E 1000 UNIT Orally Once a day 1 capsule 24h Not-Taking Lipitor 20 mg Orally Once a day 1 tablet 24h Jul, 30 day(s) Active Cyclobenzaprine HCl 10 mg Orally 2 times a day 1 tablet as needed 12h Aug, Active Amitriptyline HCl 75 MG Orally Once a day at bedtime 1 tablet 30 days Active Fish Oil Concentrate 1000 mg 1 Capsule by Oral route 1 time per day Apr, Active Nitroglycerin by Sublingual route Apr, Active Mens Multi Vitamin & Mineral Active Plaquenil 200 mg Orally 2 times a day 1 tablet with food or milk 12h 26 Feb 90 days Active Gabapentin 800 MG Orally Three times a day 1 tablet 8h Active RESULTS No Results PROCEDURES Procedure Date Ordered Result Body Site TORADOL (IM) 60 MG/2ML (UP TO 15 MG) September 18, 2017 THER/PROPH/DIAG INJ, SC/IM September 18, 2017 INSTRUCTIONS MEDICATIONS ADMINISTERED No Known Medications MEDICAL (GENERAL) HISTORY Type Description Date Medical History hypertension Medical History neck pain - requires chronic pain management, on chronic narcotics 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
--- OUTSIDE RECORDS SUMMARY | 2018-04-29 18:14 | XMS REPORT ---
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 7755885 Problem Systemic lupus erythematosus, unspecified SLE type, unspecified organ involvement status M32.9 Active 76175579 Problem Neck pain M54.2 Active 83963918 Problem History of hepatitis C Z86.19 Active [id number] ALLERGIES No Information ENCOUNTERS Encounter Location Date Diagnosis [place] [id number] [place] [address] 51405- 4521 Oct, Systemic lupus erythematosus, unspecified SLE type, unspecified organ involvement status M32.9 and 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 [place] [address] 19265- 8335 Sep, 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 [place] [id number] [place] [address] 15709- 5646 Aug, 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 [facility] [id number] [place] [address] 61464- 5223 Aug, [facility] [id number] [place] [address] 18116- 0572 Aug, Cervicalgia M54.2 and Skin cancer C44.90 [facility] [id number] [place] [address] 67453- 2802 Jul, Neck pain M54.2 [place] [address] 09518- 5156 June, Neck pain M54.2 [facility] [id number] [place] [address] 10703- 0237 May, Neck pain M54.2 [facility] [id number] [place] [address] 17390- 9225 May, Systemic lupus erythematosus, unspecified SLE type, unspecified organ involvement status M32.9 and Neck pain M54.2 [facility] [id number] [place] [address] 60678- 1286 Apr, Neck pain M54.2 [facility] [id number] [place] [address] 49180- 4227 Apr, Neck pain M54.2 [facility] [id number] [place] [address] 07151- 5180 Mar, Neck pain M54.2 [facility] [id number] [place] [address] 52689- 4821 Feb, Neck pain M54.2 [facility] [id number] [place] [address] 04169- 9536 Feb, Neck pain M54.2 [facility] [id number] [place] [address] 51911- 0153 Feb, [facility] [id number] [place] [address] 45607- 9998 Feb, Cervical neuritis M54.12 [facility] [id number] [place] [address] 07959- 2645 Jan, Cervical neuritis M54.12 [facility] [id number] [place] [address] 55928- 1697 Jan, Cervical neuritis M54.12 [facility] [id number] [place] [address] 24465- 1860 Nov, [facility] [id number] [place] [address] 58051- 6688 Nov, 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 and Neck pain M54.2 [facility] [id number] [place] [address] 11288- 3016 Nov, [facility] [id number] [place] [address] 74936- 7800 Nov, Neck pain M54.2 [facility] [address] 91283- 7706 Nov, [facility] [id number] [place] [address] 68118- 3882 Oct, Neck pain M54.2 and Cervical vertebral fusion M43.22 [facility] [id number] [place] [address] 22205- 5380 Sep, [facility] [id number] [place] [address] 82724- 7501 Aug, Systemic lupus erythematosus, unspecified SLE type, unspecified organ involvement status M32.9 and Cervical neuritis M54.12 [facility] [id number] [place] [address] 89472- 3959 Jul, [facility] [id number] [place] [address] 97333- 3888 Jul, [facility] [id number] [place] [address] 01513- 7325 June, Lupus M32.9 ; Encounter for screening for lipoid disorders Z13.220 and Neck pain M54.2 [facility] [id number] [place] [address] 71437- 5835 June, [facility] [address] 74936- 3819 Apr, History of hepatitis C Z86.19 [facility] [id number] [place] [address] 24711- 2413 Nov, [facility] [address] [place] [address]- 7638 June, Warts, genital A63.0 [facility] [id number] [place] [address] 65445- 7359 June, Occasional tremors R25.1 ; Systemic lupus M32.9 and Anxiety about health F41.8 [facility] [id number] [place] [address] 35471- 0676 June, Genital warts A63.0 [facility] [id number] [place] [address] 20527- 0130 May, Lupus M32.9 ; Polyneuropathy in diseases classified elsewhere G63 and Occasional tremors R25.1 [facility] [id number] [place] [address] 52308- 2200 May, Genital warts A63.0 [facility] [address] 29853- 5407 Apr, [facility] [id number] [place] [address] 38774- 0064 Mar, [facility] [address] 33082- 7194 Mar, [facility] [id number] [place] [address] 98855- 9238 Mar, Lupus M32.9 [facility] [id number] [place] [address] 43167- 3097 Mar, Systemic lupus M32.9 and Neck pain M54.2 [facility] [id number] [place] [address] 13413- 8715 Feb, Systemic lupus M32.9 [facility] [id number] [place] [address] 88100- 7883 Feb, Systemic lupus erythematosus, organ or system involvement unspecified M32.10 ; Polyneuropathy in diseases classified elsewhere G63 and Hyperpigmented skin lesion L81.9 [facility] [address] [id number] [place] [address]- 4499 Aug, Genital warts 078.11 [facility] [address] [id number] [place] [address]- 1182 Jul, Genital warts 078.11 [facility] [address] [facility] [id number] [place] [address]- 4468 Jul, [facility] [address] [id number] [place] [address]- 6712 May, [facility] [address] [id number] [place] [address]- 9168 May, [facility] [address] [id number] [place] [address]- 1880 Dec, [facility] [address] [facility] [id number] [place] [address]- 4986 Dec, [facility] [address] [id number] [place] [address]- 4590 Sep, [facility] [address] [id number] [place] [address]- 3952 Sep, [facility] [address] [facility] [id number] [place] [address]- 3463 Sep, [facility] [address] [id number] [place] [address]- 6424 Sep, [facility] [address] [facility] [id number] [place] [address]- 7004 Sep, [facility] [address] [id number] [place] [address]- 3684 Sep, [facility] [address] [facility] [id number] [place] [address]- 9859 Aug, [facility] [address] [facility] [id number] [place] [address]- 1894 Aug, [facility] [place] [facility] [address] [id number] [place] [address]- 9202 15 Aug, 2013 [facility] [place] [facility] [address] [id number] [place] [address]- 8068 15 Aug, 2013 [facility] [place] [facility] [address] [id number] [place] [address]- 3305 10 Aug, 2013 [facility] [place] [facility] [address] [id number] [place] [address]- 2266 Aug, [facility] [place] [facility] [address] [id number] [place] [address]- 5315 27 Jul, 2013 [facility] [place] [facility] [address] [id number] [place] [address]- 3831 27 Jul, 2013 [facility] [place] [facility] [address] [id number] [place] [address]- 5330 16 Jul, 2013 [facility] [place] [facility] [address] [id number] [place] [address]- 9147 16 Jul, 2013 [facility] [place] [facility] [address] [id number] [place] [address]- 6583 16 Jul, 2013 [facility] [place] [facility] [address] [id number] [place] [address]- 2291 Jul, [facility] [place] [facility] [address] [id number] [place] [address]- 2777 16 Jul, 2013 [facility] [place] [facility] [address] [id number] [place] [address]- 0076 16 Jul, 2013 [facility] [place] [facility] [address] [id number] [place] [address]- 4138 10 Jul, 2013 [facility] [place] [facility] [address] [id number] [place] [address]- 6927 Jul, [facility] [place] [facility] [address] [id number] [place] [address]- 1976 Jul, [facility] [place] [facility] [address] [id number] [place] [address]- 0779 Jul, [facility] [place] [facility] [address] [id number] [place] [address]- 1138 Jul, [facility] [place] [facility] [address] [id number] [place] [address]- 3646 Jul, [facility] [place] [facility] [address] [id number] [place] [address]- 0099 Jul, [facility] [place] [facility] [address] [id number] [place] [address]- 3861 Jul, [facility] [place] [facility] [address] [id number] [place] [address]- 2539 Jul, [facility] [place] [facility] [address] [id number] [place] [address]- 8046 Jul, [facility] [place] [facility] [address] [id number] [place] [address]- 7770 June, [facility] [place] [facility] [address] [id number] [place] [address]- 4194 June, [facility] [place] [facility] [address] [id number] [place] [address]- 0078 June, [facility] [place] [facility] [address] [id number] [place] [address]- 4399 June, [facility] [place] [facility] [address] [id number] [place] [address]- 7281 May, [facility] [place] [facility] [address] [id number] [place] [address]- 2853 30 May, 2013 [facility] [place] [facility] [address] [id number] [place] [address]- 8944 May, [facility] [place] [facility] [address] [id number] [place] [address]- 5748 May, [facility] [place] [facility] [address] [id number] [place] [address]- 1245 16 May, 2013 [facility] [place] [facility] [address] [id number] [place] [address]- 5721 16 May, 2013 [facility] [place] [facility] [address] [id number] [place] [address]- 7729 May, [facility] [place] [facility] [address] [id number] [place] [address]- 5895 May, [facility] [place] [facility] [address] [id number] [place] [address]- 3846 May, [facility] [place] [facility] [address] [id number] [place] [address]- 5849 May, [facility] [place] [facility] [address] [id number] [place] [address]- 1477 Apr, [facility] [place] [facility] [address] [id number] [place] [address]- 0565 Apr, [facility] [place] [facility] [address] [id number] [place] [address]- 8660 Apr, [facility] [place] [facility] [address] [id number] [place] [address]- 0800 Apr, [facility] [place] [facility] [address] [id number] [place] [address]- 8724 Apr, [facility] [place] [facility] [address] [facility] [id number] [place] [address]- 2620 Apr, [facility] [place] [facility] [address] [id number] [place] [address]- 4030 Mar, [facility] [place] [facility] [address] [id number] [place] [address]- 5166 Mar, [facility] [place] [facility] [address] [id number] [place] [address]- 5158 Mar, [facility] [place] [facility] [address] [id number] [place] [address]- 7618 Mar, [facility] [place] [facility] [address] [id number] [place] [address]- 7624 Mar, [facility] [address] [id number] [place] [address]- 6300 Mar, [facility] [place] [facility] [address] [id number] [place] [address]- 1280 Mar, [facility] [place] [facility] [address] [id number] [place] [address]- 2726 Mar, [facility] [place] [facility] [address] [id number] [place] [address]- 2447 Feb, [facility] [place] [facility] [address] [id number] [place] [address]- 0460 Feb, [facility] [place] [facility] [address] [id number] [place] [address]- 1138 Feb, [facility] [place] [facility] [address] [id number] [place] [address]- 6538 Feb, [facility] [place] [facility] [address] [id number] [place] [address]- 9100 Feb, [facility] [place] [facility] [address] [id number] [place] [address]- 9718 Feb, [facility] [place] [facility] [address] [id number] [place] [address]- 9238 Feb, [facility] [place] [facility] [address] [id number] [place] [address]- 6958 Feb, [facility] [place] [facility] [address] [id number] [place] [address]- 7934 Feb, [facility] [place] [facility] [address] [id number] [place] [address]- 9066 Feb, [facility] [place] [facility] [address] [id number] [place] [address]- 6809 Feb, [facility] [place] [facility] [address] [id number] [place] [address]- 5199 Feb, [facility] [place] [facility] [address] [id number] [place] [address]- 9841 Feb, [facility] [address] [id number] [place] [address]- 4829 Feb, [facility] [place] [facility] [address] [id number] [place] [address]- 0062 Feb, [facility] [address] [id number] [place] [address]- 6529 Jan, [facility] [place] [facility] [address] [id number] [place] [address]- 1411 Jan, [facility] [place] [facility] [address] [id number] [place] [address]- 0800 Jan, [facility] [place] [facility] [address] [id number] [place] [address]- 1212 Jan, [facility] [address] [id number] [place] [address]- 3801 Jan, [facility] [place] [facility] [address] [id number] [place] [address]- 6426 Jan, [facility] [place] [facility] [address] [id number] [place] [address]- 0598 Dec, [facility] [place] [facility] [address] [facility] [id number] [place] [address]- 1423 Dec, [facility] [place] [facility] [address] [id number] [place] [address]- 0003 Dec, [facility] [place] [facility] [address] [id number] [place] [address]- 4686 19 Dec, 2012 [facility] [place] [facility] [address] [id number] [place] [address]- 4858 18 Dec, 2012 [facility] [place] [facility] [address] [id number] [place] [address]- 5846 13 Dec, 2012 [facility] [place] [facility] [address] [facility] [id number] [place] [address]- 5151 Dec, [facility] [place] [facility] [address] [id number] [place] [address]- 6063 Dec, [facility] [place] [facility] [address] [id number] [place] [address]- 9441 Dec, [facility] [place] [facility] [address] [id number] [place] [address]- 2105 Dec, [facility] [place] [facility] [address] [id number] [place] [address]- 3122 Dec, [facility] [place] [facility] [address] [id number] [place] [address]- 2660 Nov, [facility] [place] [facility] [address] [id number] [place] [address]- 4800 Nov, [facility] [place] [facility] [address] [id number] [place] [address]- 1521 Nov, [facility] [place] [facility] [address] [id number] [place] [address]- 7247 Nov, [facility] [place] [facility] [address] [id number] [place] [address]- 8266 Nov, [facility] [place] [facility] [address] [id number] [place] [address]- 5277 Nov, [facility] [place] [facility] [address] [id number] [place] [address]- 0801 Nov, [facility] [place] [facility] [address] [id number] [place] [address]- 5037 Nov, [facility] [place] [facility] [address] [id number] [place] [address]- 5752 Nov, [facility] [place] [facility] [address] [id number] [place] [address]- 0512 Nov, [facility] [place] [facility] [address] [id number] [place] [address]- 1249 Nov, [facility] [place] [facility] [address] [id number] [place] [address]- 3661 Nov, [facility] [place] [facility] [address] [id number] [place] [address]- 8289 Nov, [facility] [place] [facility] [address] [id number] [place] [address]- 3509 Nov, [facility] [place] [facility] [address] [id number] [place] [address]- 7483 18 Oct, 2012 [facility] [place] [facility] [address] [id number] [place] [address]- 1512 17 Oct, 2012 [facility] [place] [facility] [address] [id number] [place] [address]- 4243 Oct, [facility] [place] [facility] [address] [id number] [place] [address]- 9045 Oct, [facility] [place] [facility] [address] [id number] [place] [address]- 9136 Sep, [facility] [place] [facility] [address] [id number] [place] [address]- 0668 Sep, [facility] [place] [facility] [address] [id number] [place] [address]- 7115 Sep, [facility] [place] [facility] [address] [id number] [place] [address]- 8746 Sep, [facility] [place] [facility] [address] [id number] [place] [address]- 6429 Sep, [facility] [place] [facility] [address] [id number] [place] [address]- 1994 Sep, [facility] [place] [facility] [address] [id number] [place] [address]- 7611 Sep, [facility] [place] [facility] [address] [id number] [place] [address]- 4359 Aug, [facility] [place] [facility] [address] [id number] [place] [address]- 5279 Aug, [facility] [place] [facility] [address] [id number] [place] [address]- 6829 25 Jul, 2012 [facility] [address] [id number] [place] [address]- 6343 13 Jul, 2012 [facility] [address] [id number] [place] [address]- 9948 10 Jul, 2012 [facility] [address] [id number] [place] [address]- 6954 08 Jul, 2012 [facility] [address] [id number] [place] [address]- 6225 06 Jul, 2012 [facility] [address] [id number] [place] [address]- 2432 04 Jul, 2012 [facility] [address] [id number] [place] [address]- 5338 Jul, [facility] [address] [id number] [place] [address] June, [facility] [address] [id number] [place] [address] 16 Jun, 2012 [facility] [address] [id number] [place] [address] 29 May, 2012 [facility] [address] [id number] [place] [address] 24 May, 2012 [facility] [address] [id number] [place] [address] 22 May, 2012 [facility] [address] [id number] [place] [address] 19 May, 2012 [facility] [address] [id number] [place] [address] 10 May, 2012 [facility] [address] [id number] [place] [address] 08 May, 2012 [facility] [address] [id number] [place] [address] May, [facility] [address] [facility] [id number] [address] May, [facility] [address] [id number] [address] May, [facility] [address] [id number] [address] Apr, [facility] [id number] [address] Apr, [facility] [address] [id number] [address] Apr, [facility] [id number] [address] Apr, IMMUNIZATIONS No Known Immunizations SOCIAL HISTORY Never Assessed REASON FOR VISIT Controlled Med Refill 10/01/17 PLAN OF CARE VITAL SIGNS MEDICATIONS Medication Instructions Dosage Frequency Start Date End Date Duration Status Percocet 7.5-325 MG Orally 4 times a day 1 tablet as needed 6h Sep, 28 days Active RESULTS No Results PROCEDURES No Known procedures INSTRUCTIONS MEDICATIONS ADMINISTERED No Known Medications MEDICAL (GENERAL) HISTORY Type Description Date Medical History hypertension Medical History neck pain - requires chronic pain management, on chronic narcotics Medical History lupus - sees flotation tender in [place] Medical History Chronic HCV, successfully treated by [...]
--- OUTSIDE RECORDS SUMMARY | 2018-04-29 18:14 | XMS REPORT ---
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 1284056 Problem Systemic lupus erythematosus, unspecified SLE type, unspecified organ involvement status M32.9 Active [id number] Problem Neck pain M54.2 Active 13907324 Problem History of hepatitis C Z86.19 Active [id number] ALLERGIES No Information ENCOUNTERS Encounter Location Date Diagnosis [place] [id number] [place] [address] 21100- 3298 Nov, 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 [facility] [id number] [place] [address] 14056- 8338 Nov, 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 [place] [id number] [place] [address] 65549- 4050 Oct, Systemic lupus erythematosus, unspecified SLE type, unspecified organ involvement status M32.9 and 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 [facility] [id number] [place] [address] 88228- 7632 Sep, 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 [facility] [id number] [place] [address] 77012- 4135 Aug, 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 [facility] [id number] [place] [address] 02425- 0025 Aug, [facility] [id number] [place] [address] 00617- 7448 Aug, Cervicalgia M54.2 and Skin cancer C44.90 [facility] [id number] [place] [address] 13951- 7146 Jul, Neck pain M54.2 [facility] [id number] [place] [address] 42706- 9036 June, Neck pain M54.2 [facility] [id number] [place] [address] 29248- 0786 May, Neck pain M54.2 [facility] [id number] [place] [address] 78198- 2014 May, Systemic lupus erythematosus, unspecified SLE type, unspecified organ involvement status M32.9 and Neck pain M54.2 [facility] [id number] [place] [address] 70873- 3304 Apr, Neck pain M54.2 [facility] [id number] [place] [address] 13017- 4733 Apr, Neck pain M54.2 [facility] [id number] [place] [address] 15945- 1161 Mar, Neck pain M54.2 [facility] [id number] [place] [address] 45939- 5126 Feb, Neck pain M54.2 [facility] [id number] [place] [address] 73718- 5606 Feb, Neck pain M54.2 [facility] [id number] [place] [address] 28436- 2937 Feb, [facility] [id number] [place] [address] 46734- 3986 Feb, Cervical neuritis M54.12 [facility] [id number] [place] [address] 52605- 7136 Jan, Cervical neuritis M54.12 [facility] [id number] [place] [address] 27785- 1896 Jan, Cervical neuritis M54.12 [facility] [id number] [place] [address] 19162- 8766 Nov, [facility] [id number] [place] [address] 81623- 7527 Nov, 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 and Neck pain M54.2 [facility] [id number] [place] [address] 13837- 3525 Nov, [facility] [id number] [place] [address] 29543- 2613 Nov, Neck pain M54.2 [facility] [id number] [place] [address] 23837- 0455 Nov, [facility] [id number] [place] [address] 08925- 0283 Oct, Neck pain M54.2 and Cervical vertebral fusion M43.22 [facility] [id number] [place] [address] 85885- 5219 Sep, [facility] [id number] [place] [address] 22101- 4650 Aug, Systemic lupus erythematosus, unspecified SLE type, unspecified organ involvement status M32.9 and Cervical neuritis M54.12 [facility] [id number] [place] [address] 46004- 3321 Jul, [facility] [id number] [place] [address] 84071- 1585 Jul, [facility] [id number] [place] [address] 42740- 7184 June, Lupus M32.9 ; Encounter for screening for lipoid disorders Z13.220 and Neck pain M54.2 [facility] [address] [address]- 8308 June, [facility] [id number] [place] [address] 78908- 8351 Apr, History of hepatitis C Z86.19 [facility] [address] 34416- 6780 Nov, [facility] [address] 44388- 8955 June, Warts, genital A63.0 [facility] [address] 54999- 9826 June, Occasional tremors R25.1 ; Systemic lupus M32.9 and Anxiety about health F41.8 [place] [address] 23603- 8849 June, Genital warts A63.0 [place] [address] 60647- 4974 May, Lupus M32.9 ; Polyneuropathy in diseases classified elsewhere G63 and Occasional tremors R25.1 [facility] [id number] [place] [address] 88604- 7363 May, Genital warts A63.0 [facility] [address] 64727- 2352 Apr, [facility] [id number] [place] [address] 12886- 3381 Mar, [facility] [id number] [place] [address] 16128- 3868 Mar, [facility] [id number] [place] [address] 20380- 1277 Mar, Lupus M32.9 [facility] [id number] [place] [address] 26927- 3076 Mar, Systemic lupus M32.9 and Neck pain M54.2 [facility] [address] 83090- 6416 Feb, Systemic lupus M32.9 [facility] [address] [facility] [id number], [place] [address]- 3975 Feb, Systemic lupus erythematosus, organ or system involvement unspecified M32.10 ; Polyneuropathy in diseases classified elsewhere G63 and Hyperpigmented skin lesion L81.9 [facility] [address] [facility] [id number] [place] [address]- 6746 Aug, Genital warts 078.11 [facility] [address] [facility] [id number] [place] [address]- 2642 Jul, Genital warts 078.11 [facility] [id number] [place] [address], [place] [address]- 1881 Jul, [facility] [address] [facility] [id number], [place] [address]- 8138 May, [facility] [id number] [address]- 7843 May, [facility] [address] [address]- 5737 Dec, [facility] [address] [address]- 9118 Dec, [facility] [address] [address]- 4621 Sep, [facility] [address] [address]- 4689 Sep, [facility] [address] [facility] [id number], [place] [address]- 7095 Sep, [facility] [address], [place] [address]- 2369 Sep, [facility] [address] [facility] [id number], [place] [address]- 0573 Sep, [facility] [address], [place] [address]- 3926 Sep, [facility] [place] [facility] [address] [id number] [place] [address]- 5549 Aug, [facility] [place] [facility] [address] [id number] [place] [address]- 8380 Aug, [facility] [place] [facility] [address] [id number] [place] [address]- 6430 Aug, [facility] [place] [facility] [address] [id number] [place] [address]- 2679 Aug, [facility] [place] [facility] [address] [id number] [place] [address]- 0030 Aug, [facility] [place] [facility] [address] [id number] [place] [address]- 8328 Aug, [facility] [place] [facility] [address] [id number] [place] [address]- 8190 Jul, [facility] [place] [facility] [address] [id number] [place] [address]- 4789 Jul, [facility] [place] [facility] [address] [id number] [place] [address]- 1079 Jul, [facility] [place] [facility] [address] [id number] [place] [address]- 3277 Jul, [facility] [place] [facility] [address] [id number] [place] [address]- 7727 Jul, [facility] [place] [facility] [address] [id number] [place] [address]- 7402 Jul, [facility] [place] [facility] [address] [id number] [place] [address]- 5298 Jul, [facility] [place] [facility] [address] [id number] [place] [address]- 0673 Jul, [facility] [place] [facility] [address] [id number] [place] [address]- 8124 Jul, [facility] [place] [facility] [address] [id number] [place] [address]- 4023 Jul, [facility] [place] [facility] [address] [id number] [place] [address]- 0921 Jul, [facility] [place] [facility] [address] [id number] [place] [address]- 9807 Jul, [facility] [place] [facility] [address] [id number] [place] [address]- 5792 Jul, [facility] [place] [facility] [address] [id number] [place] [address]- 5911 Jul, [facility] [place] [facility] [address] [id number] [place] [address]- 8571 Jul, [facility] [place] [facility] [address] [id number] [place] [address]- 3765 Jul, [facility] [place] [facility] [address] [id number] [place] [address]- 4381 Jul, [facility] [place] [facility] [address] [id number] [place] [address]- 0818 Jul, [facility] [place] [facility] [address] [id number] [place] [address]- 6235 June, [facility] [place] [facility] [address] [id number] [place] [address]- 6751 June, [facility] [place] [facility] [address] [id number] [place] [address]- 8426 June, [facility] [place] [facility] [address] [id number] [place] [address]- 3776 June, [facility] [place] [facility] [address] [id number] [place] [address]- 1134 May, [facility] [place] [facility] [address] [id number] [place] [address]- 0301 May, [facility] [place] [facility] [address] [id number] [place] [address]- 0477 May, [facility] [place] [facility] [address] [id number] [place] [address]- 3225 May, [facility] [place] [facility] [address] [id number] [place] [address]- 2126 May, [facility] [place] [facility] [address] [id number] [place] 4152 May, [facility] [place] [facility] [address] [id number] [place] [address]- 7746 May, [facility] [place] [facility] [address] [id number] [place] [address]- 0742 May, [facility] [place] [facility] [address] [id number] [place] [address]- 2506 May, [facility] [place] [facility] [address] [id number] [place] [address]- 0440 May, [facility] [place] [facility] [address] [id number] [place] [address]- 6232 Apr, [facility] [place] [facility] [address] [id number] [place] [address]- 4248 Apr, [facility] [place] [facility] [address] [id number] [place] [address]- 9574 Apr, [facility] [place] [facility] [address] [id number] [place] [address]- 5808 Apr, [facility] [place] [facility] [address] [id number] [place] [address]- 2601 Apr, [facility] [place] [facility] [address] [id number] [place] [address]- 2919 Apr, [facility] [place] [facility] [address] [id number] [place] [address]- 3990 Mar, [facility] [place] [facility] [address] [id number] [place] [address]- 6069 Mar, [facility] [place] [facility] [address] [id number] [place] [address]- 2674 Mar, [facility] [place] [facility] [address] [id number] [place] [address]- 2736 Mar, [facility] [place] [facility] [address] [id number] [place] [address]- 1446 Mar, [facility] [place] [facility] [address] [id number] [place] [address]- 4866 Mar, [facility] [place] [facility] [address] [id number] [place] [address]- 8903 Mar, [facility] [place] [facility] [address] [id number] [place] [address]- 1546 Mar, [facility] [place] [facility] [address] [id number] [place] [address]- 1710 Feb, [facility] [place] [facility] [address] [id number] [place] [address]- 6027 Feb, [facility] [place] [facility] [address] [id number] [place] [address]- 7114 Feb, [facility] [place] [facility] [address] [id number] [place] [address]- 3481 Feb, [facility] [place] [facility] [address] [id number] [place] [address]- 2112 Feb, [facility] [place] [facility] [address] [id number] [place] [address]- 2079 Feb, [facility] [place] [facility] [address] [id number] [place] [address]- 9405 Feb, [facility] [place] [facility] [address] [id number] [place] [address]- 6880 Feb, [facility] [place] [facility] [address] [id number] [place] [address]- 7738 Feb, [facility] [place] [facility] [address] [id number] [place] [address]- 8186 Feb, [facility] [place] [facility] [address] [id number] [place] [address]- 2612 Feb, [facility] [address] [id number] [place] [address]- 3806 Feb, [facility] [address] [id number] [place] [address]- 2669 Feb, [facility] [address] [id number] [place] [address]- 0680 Feb, [facility] [address] [id number] [place] [address]- 2282 Feb, [facility] [address] [id number] [place] [address]- 2110 Jan, [facility] [address] [id number] [place] [address]- 6002 Jan, [facility] [address] [id number] [place] [address]- 5815 Jan, [facility] [address] [id number] [place] [address]- 4300 Jan, [facility] [address] [id number] [place] [address]- 4782 Jan, [facility] [address] [id number] [place] [address]- 1165 Jan, [facility] [address] [id number] [place] [address]- 2746 Dec, [facility] [place] [facility] [address] [id number] [place] [address]- 9658 Dec, [facility] [place] [facility] [address] [id number] [place] [address]- 6210 Dec, [facility] [place] [facility] [address] [id number] [place] [address]- 2840 Dec, [facility] [place] [facility] [address] [id number] [place] [address]- 9839 Dec, [facility] [place] [facility] [address] [id number] [place] [address]- 2357 Dec, [facility] [place] [facility] [address] [id number] [place] [address]- 3998 Dec, [facility] [place] [facility] [address] [id number] [place] [address]- 4370 Dec, [facility] [place] [facility] [address] [id number] [place] [address]- 4864 Dec, [facility] [place] [facility] [address] [id number] [place] [address]- 1125 Dec, [facility] [place] [facility] [address] [id number] [place] [address]- 8136 Dec, [facility] [place] [facility] [address] [id number] [place] [address]- 8149 Nov, [facility] [place] [facility] [address] [id number], [place] [address]- 1729 Nov, [facility] [place] [facility] [address] [id number] [place] [address]- 0906 Nov, [facility] [place] [facility] [address] [id number] [place] [address]- 7412 Nov, [facility] [place] [facility] [address] [id number], [place] [address]- 0025 Nov, [facility] [place] [facility] [address] [id number], [place] [address]- 3075 Nov, [facility] [place] [facility] [address] [id number] [place] [address]- 7006 Nov, [facility] [place] [facility] [address] [id number], [place] [address]- 9806 Nov, [facility] [place] [facility] [address] [id number], [place] [address]- 8900 Nov, [facility] [place] [facility] [address] [id number] [place] [address]- 8290 Nov, [facility] [address] [id number] [place] [address]- 0494 Nov, [facility] [place] [facility] [address] [id number] [place] [address]- 1249 Nov, [facility] [address] [id number] [place] [address]- 4189 Nov, [facility] [place] [facility] [address] [id number] [place] [address]- 7162 04 Nov, 2012 [facility] [address] [id number] [place] [address]- 5018 18 Oct, 2012 [facility] [place] [facility] [address] [id number] [place] [address]- 3533 17 Oct, 2012 [facility] [place] [facility] [address] [id number] [place] [address]- 6900 Oct, [facility] [address] [id number] [place] [address]- 5091 Oct, [facility] [place] [facility] [address] [id number] [place] [address]- 6918 Sep, [facility] [address] [id number] [place] [address]- 6563 Sep, [facility] [place] [facility] [address] [id number] [place] [address]- 4109 Sep, [facility] [place] [facility] [address] [id number] [place] [address]- 4721 15 Sep, 2012 [facility] [place] [facility] [address] [id number] [place] [address]- 1534 14 Sep, 2012 [facility] [place] [facility] [address] [id number] [place] [address]- 8858 Sep, [facility] [place] [facility] [address] [id number] [place] [address]- 9584 Sep, [facility] [address] [id number] [place] [address]- 0575 Aug, [facility] [place] [facility] [address] [id number] [place] [address]- 4620 Aug, [facility] [place] [facility] [address] [id number] [place] [address]- 5669 Jul, [facility] [place] [facility] [address] [id number] [place] [address] Jul, [facility] [place] [facility] [address] [id number] [place] [address] Jul, [facility] [place] [facility] [address] [id number] [place] [address] Jul, [facility] [place] [facility] [address] [id number] [place] [address] Jul, [facility] [place] [facility] [address] [id number] [place] [address] Jul, [facility] [place] [facility] [address] [id number] [place] [address] Jul, [facility] [place] [facility] [address] [id number] [place] [address] June, [facility] [place] [facility] [address] [id number] [place] [address] June, [facility] [place] [facility] [address] [id number], [place] [address] 29 May, 2012 [facility] [place] [facility] [address] [id number] [place] [address] May, [facility] [place] [facility] [address] [id number] [place] [address] May, [facility] [place] [facility] [address] [id number] [place] [address] May, [facility] [place] [facility] [address] [id number], [place] [address] 10 May, 2012 [facility] [id number] [address] 08 May, 2012 [facility] [id number] [address] May, [facility] [id number], [place] [address] May, [facility] [id number] [place] [address] May, [facility] [id number] [place] [address] Apr, [facility] [id number] [address] Apr, [facility] [id number] [address] Apr, [facility] [id number] [address] Apr, IMMUNIZATIONS No Known Immunizations SOCIAL HISTORY Never Assessed REASON FOR VISIT Medication Refill Request PLAN OF CARE VITAL SIGNS MEDICATIONS Medication Instructions Dosage Frequency Start Date End Date Duration Status Percocet 7.5-325 MG Orally 4 times a day 1 tablet as needed Nov, 28 days Active RESULTS No Results PROCEDURES No Known procedures INSTRUCTIONS MEDICATIONS ADMINISTERED No Known Medications MEDICAL (GENERAL) HISTORY Type Description Date Medical History hypertension Medical History neck pain - requires chronic pain management, on chronic narcotics Medical History lupus - sees quill machine tender in [place] Medical History Chronic HCV, successfully treated by [...]
--- OUTSIDE RECORDS SUMMARY | 2018-04-29 18:15 | XMS REPORT ---
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 6839958 Problem Systemic lupus erythematosus, unspecified SLE type, unspecified organ involvement status M32.9 Active 71489666 Problem Neck pain M54.2 Active 19902072 Problem History of hepatitis C Z86.19 Active [id number] ALLERGIES No Information ENCOUNTERS Encounter Location Date Diagnosis [place] [id number] [place] [address] 65172- 1217 Oct, Systemic lupus erythematosus, unspecified SLE type, unspecified organ involvement status M32.9 and 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 [place] [address] 32435- 8397 Sep, 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 [facility] [place] [id number] [place] [address] 83825- 5055 Aug, 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 [facility] [id number] [place] [address] 54294- 1312 Aug, [facility] [id number] [place] [address] 24610- 9787 Aug, Cervicalgia M54.2 and Skin cancer C44.90 [facility] [id number] [place] [address] 50413- 0331 Jul, Neck pain M54.2 [place] [address] 44567- 3758 June, Neck pain M54.2 [facility] [id number] [place] [address] 97921- 8391 May, Neck pain M54.2 [facility] [id number] [place] [address] 14687- 2929 May, Systemic lupus erythematosus, unspecified SLE type, unspecified organ involvement status M32.9 and Neck pain M54.2 [facility] [id number] [place] [address] 48007- 9010 Apr, Neck pain M54.2 [facility] [id number] [place] [address] 97515- 4801 Apr, Neck pain M54.2 [facility] [id number] [place] [address] 93080- 1147 Mar, Neck pain M54.2 [facility] [id number] [place] [address] 81188- 7060 Feb, Neck pain M54.2 [facility] [id number] [place] [address] 25690- 7828 Feb, Neck pain M54.2 [facility] [id number] [place] [address] 38116- 5983 Feb, [facility] [id number] [place] [address] 45005- 0021 Feb, Cervical neuritis M54.12 [facility] [id number] [place] [address] 70975- 0148 Jan, Cervical neuritis M54.12 [facility] [id number] [place] [address] 29034- 5174 Jan, Cervical neuritis M54.12 [facility] [id number] [place] [address] 63343- 1798 Nov, [facility] [id number] [place] [address] 99521- 5769 Nov, 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 and Neck pain M54.2 [facility] [id number] [place] [address] 72844- 2070 Nov, [facility] [id number] [place] [address] 98876- 0597 Nov, Neck pain M54.2 [facility] [address] 83165- 2999 Nov, [facility] [id number] [place] [address] 04352- 7705 Oct, Neck pain M54.2 and Cervical vertebral fusion M43.22 [facility] [id number] [place] [address] 86520- 8827 Sep, [facility] [id number] [place] [address] 98855- 5992 Aug, Systemic lupus erythematosus, unspecified SLE type, unspecified organ involvement status M32.9 and Cervical neuritis M54.12 [facility] [id number] [place] [address] 48302- 1532 Jul, [facility] [id number] [place] [address] 29770- 7415 Jul, [facility] [id number] [place] [address] 93197- 7607 June, Lupus M32.9 ; Encounter for screening for lipoid disorders Z13.220 and Neck pain M54.2 [facility] [id number] [place] [address] 38577- 1416 June, [facility] [address] 02235- 2706 Apr, History of hepatitis C Z86.19 [facility] [id number] [place] [address] 69331- 0141 Nov, [facility] [address] [place] [address]- 8409 June, Warts, genital A63.0 [facility] [id number] [place] [address] 71487- 3057 June, Occasional tremors R25.1 ; Systemic lupus M32.9 and Anxiety about health F41.8 [facility] [id number] [place] [address] 48575- 3971 June, Genital warts A63.0 [facility] [id number] [place] [address] 58423- 2131 May, Lupus M32.9 ; Polyneuropathy in diseases classified elsewhere G63 and Occasional tremors R25.1 [facility] [id number] [place] [address] 46234- 8763 May, Genital warts A63.0 [facility] [address] 74776- 4880 Apr, [facility] [id number] [place] [address] 47911- 1294 Mar, [facility] [address] 95239- 5458 Mar, [facility] [id number] [place] [address] 49956- 9184 Mar, Lupus M32.9 [facility] [id number] [place] [address] 63167- 9885 Mar, Systemic lupus M32.9 and Neck pain M54.2 [facility] [id number] [place] [address] 09852- 7750 Feb, Systemic lupus M32.9 [facility] [id number] [place] [address] 22406- 1093 Feb, Systemic lupus erythematosus, organ or system involvement unspecified M32.10 ; Polyneuropathy in diseases classified elsewhere G63 and Hyperpigmented skin lesion L81.9 [facility] [address] [id number] [place] [address]- 9773 Aug, Genital warts 078.11 [facility] [address] [id number] [place] [address]- 8565 Jul, Genital warts 078.11 [facility] [address] [facility] [id number] [place] [address]- 0607 Jul, [facility] [address] [id number] [place] [address]- 4395 May, [facility] [address] [id number] [place] [address]- 9034 May, [facility] [address] [id number] [place] [address]- 8924 Dec, [facility] [address] [facility] [id number] [place] [address]- 6675 Dec, [facility] [address] [id number] [place] [address]- 2159 Sep, [facility] [address] [id number] [place] [address]- 8789 Sep, [facility] [address] [facility] [id number] [place] [address]- 8472 Sep, [facility] [address] [id number] [place] [address]- 8432 Sep, [facility] [address] [facility] [id number] [place] [address]- 1161 Sep, [facility] [address] [id number] [place] [address]- 1315 Sep, [facility] [address] [facility] [id number] [place] [address]- 2598 Aug, [facility] [address] [facility] [id number] [place] [address]- 7262 Aug, [facility] [place] [facility] [address] [id number] [place] [address]- 4157 15 Aug, 2013 [facility] [place] [facility] [address] [id number] [place] [address]- 0728 15 Aug, 2013 [facility] [place] [facility] [address] [id number] [place] [address]- 7674 10 Aug, 2013 [facility] [place] [facility] [address] [id number] [place] [address]- 8487 Aug, [facility] [place] [facility] [address] [id number] [place] [address]- 6045 27 Jul, 2013 [facility] [place] [facility] [address] [id number] [place] [address]- 3486 27 Jul, 2013 [facility] [place] [facility] [address] [id number] [place] [address]- 0187 16 Jul, 2013 [facility] [place] [facility] [address] [id number] [place] [address]- 1819 16 Jul, 2013 [facility] [place] [facility] [address] [id number] [place] [address]- 7542 16 Jul, 2013 [facility] [place] [facility] [address] [id number] [place] [address]- 6676 Jul, [facility] [place] [facility] [address] [id number] [place] [address]- 3340 16 Jul, 2013 [facility] [place] [facility] [address] [id number] [place] [address]- 1578 16 Jul, 2013 [facility] [place] [facility] [address] [id number] [place] [address]- 2526 10 Jul, 2013 [facility] [place] [facility] [address] [id number] [place] [address]- 7121 Jul, [facility] [place] [facility] [address] [id number] [place] [address]- 1363 Jul, [facility] [place] [facility] [address] [id number] [place] [address]- 9015 Jul, [facility] [place] [facility] [address] [id number] [place] [address]- 6256 Jul, [facility] [place] [facility] [address] [id number] [place] [address]- 8421 Jul, [facility] [place] [facility] [address] [id number] [place] [address]- 1106 Jul, [facility] [place] [facility] [address] [id number] [place] [address]- 0754 Jul, [facility] [place] [facility] [address] [id number] [place] [address]- 8866 Jul, [facility] [place] [facility] [address] [id number] [place] [address]- 9030 Jul, [facility] [place] [facility] [address] [id number] [place] [address]- 5193 June, [facility] [place] [facility] [address] [id number] [place] [address]- 6164 June, [facility] [place] [facility] [address] [id number] [place] [address]- 3331 June, [facility] [place] [facility] [address] [id number] [place] [address]- 9777 June, [facility] [place] [facility] [address] [id number] [place] [address]- 3523 May, [facility] [place] [facility] [address] [id number] [place] [address]- 7122 30 May, 2013 [facility] [place] [facility] [address] [id number] [place] [address]- 4710 May, [facility] [place] [facility] [address] [id number] [place] [address]- 7816 May, [facility] [place] [facility] [address] [id number] [place] [address]- 8446 16 May, 2013 [facility] [place] [facility] [address] [id number] [place] [address]- 9502 16 May, 2013 [facility] [place] [facility] [address] [id number] [place] [address]- 4908 May, [facility] [place] [facility] [address] [id number] [place] [address]- 6509 May, [facility] [place] [facility] [address] [id number] [place] [address]- 2103 May, [facility] [place] [facility] [address] [id number] [place] [address]- 3090 May, [facility] [place] [facility] [address] [id number] [place] [address]- 3880 Apr, [facility] [place] [facility] [address] [id number] [place] [address]- 0462 Apr, [facility] [place] [facility] [address] [id number] [place] [address]- 8097 Apr, [facility] [place] [facility] [address] [id number] [place] [address]- 8345 Apr, [facility] [place] [facility] [address] [id number] [place] [address]- 1058 Apr, [facility] [place] [facility] [address] [facility] [id number] [place] [address]- 2184 Apr, [facility] [place] [facility] [address] [id number] [place] [address]- 5284 Mar, [facility] [place] [facility] [address] [id number] [place] [address]- 4899 Mar, [facility] [place] [facility] [address] [id number] [place] [address]- 6229 Mar, [facility] [place] [facility] [address] [id number] [place] [address]- 8861 Mar, [facility] [place] [facility] [address] [id number] [place] [address]- 5112 Mar, [facility] [address] [id number] [place] [address]- 2577 Mar, [facility] [place] [facility] [address] [id number] [place] [address]- 6859 Mar, [facility] [place] [facility] [address] [id number] [place] [address]- 4434 Mar, [facility] [place] [facility] [address] [id number] [place] [address]- 0704 Feb, [facility] [place] [facility] [address] [id number] [place] [address]- 3554 Feb, [facility] [place] [facility] [address] [id number] [place] [address]- 4929 Feb, [facility] [place] [facility] [address] [id number] [place] [address]- 4730 Feb, [facility] [place] [facility] [address] [id number] [place] [address]- 0625 Feb, [facility] [place] [facility] [address] [id number] [place] [address]- 8807 Feb, [facility] [place] [facility] [address] [id number] [place] [address]- 2803 Feb, [facility] [place] [facility] [address] [id number] [place] [address]- 3951 Feb, [facility] [place] [facility] [address] [id number] [place] [address]- 9586 Feb, [facility] [place] [facility] [address] [id number] [place] [address]- 4850 Feb, [facility] [place] [facility] [address] [id number] [place] [address]- 9249 Feb, [facility] [place] [facility] [address] [id number] [place] [address]- 4875 Feb, [facility] [place] [facility] [address] [id number] [place] [address]- 0758 Feb, [facility] [address] [id number] [place] [address]- 5223 Feb, [facility] [place] [facility] [address] [id number] [place] [address]- 9721 Feb, [facility] [address] [id number] [place] [address]- 7860 Jan, [facility] [place] [facility] [address] [id number] [place] [address]- 3106 Jan, [facility] [place] [facility] [address] [id number] [place] [address]- 4806 Jan, [facility] [place] [facility] [address] [id number] [place] [address]- 5374 Jan, [facility] [address] [id number] [place] [address]- 1514 Jan, [facility] [place] [facility] [address] [id number] [place] [address]- 1114 Jan, [facility] [place] [facility] [address] [id number] [place] [address]- 7550 Dec, [facility] [place] [facility] [address] [facility] [id number] [place] [address]- 0597 Dec, [facility] [place] [facility] [address] [id number] [place] [address]- 7084 Dec, [facility] [place] [facility] [address] [id number] [place] [address]- 0817 19 Dec, 2012 [facility] [place] [facility] [address] [id number] [place] [address]- 2892 18 Dec, 2012 [facility] [place] [facility] [address] [id number] [place] [address]- 1830 13 Dec, 2012 [facility] [place] [facility] [address] [facility] [id number] [place] [address]- 4242 Dec, [facility] [place] [facility] [address] [id number] [place] [address]- 1829 Dec, [facility] [place] [facility] [address] [id number] [place] [address]- 0080 Dec, [facility] [place] [facility] [address] [id number] [place] [address]- 3967 Dec, [facility] [place] [facility] [address] [id number] [place] [address]- 8790 Dec, [facility] [place] [facility] [address] [id number] [place] [address]- 2197 Nov, [facility] [place] [facility] [address] [id number] [place] [address]- 9554 Nov, [facility] [place] [facility] [address] [id number] [place] [address]- 0660 Nov, [facility] [place] [facility] [address] [id number] [place] [address]- 4920 Nov, [facility] [place] [facility] [address] [id number] [place] [address]- 0730 Nov, [facility] [place] [facility] [address] [id number] [place] [address]- 0248 Nov, [facility] [place] [facility] [address] [id number] [place] [address]- 6588 Nov, [facility] [place] [facility] [address] [id number] [place] [address]- 1703 Nov, [facility] [place] [facility] [address] [id number] [place] [address]- 4240 Nov, [facility] [place] [facility] [address] [id number] [place] [address]- 9544 Nov, [facility] [place] [facility] [address] [id number] [place] [address]- 0987 Nov, [facility] [place] [facility] [address] [id number] [place] [address]- 7186 Nov, [facility] [place] [facility] [address] [id number] [place] [address]- 5016 Nov, [facility] [place] [facility] [address] [id number] [place] [address]- 1882 Nov, [facility] [place] [facility] [address] [id number] [place] [address]- 9141 18 Oct, 2012 [facility] [place] [facility] [address] [id number] [place] [address]- 5050 17 Oct, 2012 [facility] [place] [facility] [address] [id number] [place] [address]- 3363 Oct, [facility] [place] [facility] [address] [id number] [place] [address]- 5786 Oct, [facility] [place] [facility] [address] [id number] [place] [address]- 8979 Sep, [facility] [place] [facility] [address] [id number] [place] [address]- 7364 Sep, [facility] [place] [facility] [address] [id number] [place] [address]- 0729 Sep, [facility] [place] [facility] [address] [id number] [place] [address]- 4450 Sep, [facility] [place] [facility] [address] [id number] [place] [address]- 3890 Sep, [facility] [place] [facility] [address] [id number] [place] [address]- 0328 Sep, [facility] [place] [facility] [address] [id number] [place] [address]- 7589 Sep, [facility] [place] [facility] [address] [id number] [place] [address]- 8710 Aug, [facility] [place] [facility] [address] [id number] [place] [address]- 8024 Aug, [facility] [place] [facility] [address] [id number] [place] [address]- 1274 25 Jul, 2012 [facility] [address] [id number] [place] [address]- 3103 13 Jul, 2012 [facility] [address] [id number] [place] [address]- 5852 10 Jul, 2012 [facility] [address] [id number] [place] [address]- 5248 08 Jul, 2012 [facility] [address] [id number] [place] [address]- 7416 06 Jul, 2012 [facility] [address] [id number] [place] [address]- 6328 04 Jul, 2012 [facility] [address] [id number] [place] [address]- 0553 Jul, [facility] [address] [id number] [place] [address] June, [facility] [address] [id number] [place] [address] 16 Jun, 2012 [facility] [address] [id number] [place] [address] 29 May, 2012 [facility] [address] [id number] [place] [address] 24 May, 2012 [facility] [address] [id number] [place] [address] 22 May, 2012 [facility] [address] [id number] [place] [address] 19 May, 2012 [facility] [address] [id number] [place] [address] 10 May, 2012 [facility] [address] [id number] [place] [address] 08 May, 2012 [facility] [address] [id number] [place] [address] May, [facility] [address] [facility] [id number], [place] [address] May, [facility] [address] [id number], [place] [address] May, [facility] [address] [id number], [place] [address] Apr, [facility] [id number], [place] [address] Apr, [facility] [address] [id number], [place] [address] Apr, [facility] [id number], [place] [address] Apr, IMMUNIZATIONS No Known Immunizations SOCIAL HISTORY Never Assessed REASON FOR VISIT Requests return call PLAN OF CARE VITAL SIGNS MEDICATIONS Unknown Medications RESULTS No Results PROCEDURES No Known procedures INSTRUCTIONS MEDICATIONS ADMINISTERED No Known Medications MEDICAL (GENERAL) HISTORY Type Description Date Medical History hypertension Medical History neck pain - requires chronic pain management, on chronic narcotics Medical History lupus - sees digital sales manager in [place] Medical History Chronic HCV, successfully treated by [...]
--- OUTSIDE RECORDS SUMMARY | 2018-04-29 18:15 | XMS REPORT ---
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 7022575 Problem Systemic lupus erythematosus, unspecified SLE type, unspecified organ involvement status M32.9 Active [id number] Problem Neck pain M54.2 Active 50901457 Problem History of hepatitis C Z86.19 Active [id number] ALLERGIES No Information ENCOUNTERS Encounter Location Date Diagnosis [facility] [id number] [place] [address] 43282- 8307 Sep, 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 [facility] [id number] [place] [address] 33300- 9122 Aug, 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 [facility] [id number] [place] [address] 17059- 2676 Aug, [facility] [id number] [place] [address] 12672- 1828 Aug, Cervicalgia M54.2 and Skin cancer C44.90 [facility] [id number] [place] [address] 42769- 5042 Jul, Neck pain M54.2 [facility] [id number] [place] [address] 88324- 3947 June, Neck pain M54.2 [facility] [id number] [place] [address] 65145- 4046 May, Neck pain M54.2 [facility] [id number] [place] [address] 39087- 9645 May, Systemic lupus erythematosus, unspecified SLE type, unspecified organ involvement status M32.9 and Neck pain M54.2 [facility] [id number] [place] [address] 30927- 9594 Apr, Neck pain M54.2 [facility] [id number] [place] [address] 43869- 5105 Apr, Neck pain M54.2 [facility] [id number] [place] [address] 51490- 3229 Mar, Neck pain M54.2 [facility] [id number] [place] [address] 00312- 0327 Feb, Neck pain M54.2 [facility] [id number] [place] [address] 62760- 7101 Feb, Neck pain M54.2 [facility] [id number] [place] [address] 91720- 1581 Feb, [facility] [id number] [place] [address] 07424- 7198 Feb, Cervical neuritis M54.12 [facility] [id number] [place] [address] 76472- 9602 Jan, Cervical neuritis M54.12 [facility] [id number] [place] [address] 70829- 6573 Jan, Cervical neuritis M54.12 [facility] [id number] [place] [address] 73574- 7628 Nov, [facility] [id number] [place] [address] 30302- 7601 Nov, 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 and Neck pain M54.2 [facility] [id number] [place] [address] 00271- 2180 Nov, [facility] [id number] [place] [address] 74270- 8745 Nov, Neck pain M54.2 [facility] [id number] [place] [address] 85461- 2305 Nov, [facility] [id number] [place] [address] 84053- 3688 Oct, Neck pain M54.2 and Cervical vertebral fusion M43.22 [facility] [facility] [id number] [place] [address] 20548- 2848 Sep, [place] [id number] [place] [address] 38279- 7180 Aug, Systemic lupus erythematosus, unspecified SLE type, unspecified organ involvement status M32.9 and Cervical neuritis M54.12 [place] [id number] [place] [address] 95660- 7465 Jul, [place] [id number] [place] [address] 25505- 4866 Jul, [place] [id number] [place] [address] 44358- 0663 June, Lupus M32.9 ; Encounter for screening for lipoid disorders Z13.220 and Neck pain M54.2 [place] [id number] [place] [address] 94436- 8606 June, [place] [id number] [place] [address] 24838- 9842 Apr, History of hepatitis C Z86.19 [place] [id number] [place] [address] 38370- 0784 Nov, [place] [id number] [place] [address] 61563- 5794 June, Warts, genital A63.0 [place] [id number] [place] [address] 24807- 2737 June, Occasional tremors R25.1 ; Systemic lupus M32.9 and Anxiety about health F41.8 [facility] [id number] [place] [address] 19561- 8844 June, Genital warts A63.0 [facility] [id number] [place] [address] 54210- 5050 May, Lupus M32.9 ; Polyneuropathy in diseases classified elsewhere G63 and Occasional tremors R25.1 [facility] [id number] [place] [address] 12684- 2130 May, Genital warts A63.0 [facility] [id number] [place] [address] 03955- 9719 Apr, [facility] [id number] [place] [address] 80213- 7875 Mar, [facility] [id number] [place] [address] 29308- 6282 Mar, [facility] [id number] [place] [address] 05415- 5116 Mar, Lupus M32.9 [facility] [id number] [place] [address] 54994- 9923 Mar, Systemic lupus M32.9 and Neck pain M54.2 [facility] [id number] [place] [address] 79411- 2811 Feb, Systemic lupus M32.9 [facility] [id number] [place] [address] 81139- 8378 Feb, Systemic lupus erythematosus, organ or system involvement unspecified M32.10 ; Polyneuropathy in diseases classified elsewhere G63 and Hyperpigmented skin lesion L81.9 [facility] [id number] [place] [address] 34049- 3863 Aug, Genital warts 078.11 [facility] [id number] [place] [address] 43870- 9442 Jul, Genital warts 078.11 [facility] [address] [id number] [place] [address]- 6662 Jul, [facility] [place] [facility] [address] [id number] [place] [address]- 9184 May, [facility] [address] [id number] [place] [address]- 5584 May, [facility] [place] [facility] [address] [id number] [place] [address]- 8478 Dec, [facility] [place] [facility] [address] [id number] [place] [address]- 2041 Dec, [facility] [place] [facility] [address] [id number] [place] [address]- 4658 Sep, [facility] [address] [id number] [place] [address]- 5438 Sep, [facility] [place] [facility] [address] [id number] [place] [address]- 2304 Sep, [facility] [place] [facility] [address] [id number] [place] [address]- 4179 Sep, [facility] [place] [facility] [address] [facility] [id number] [place] [address]- 6969 Sep, [facility] [place] [facility] [address] [id number] [place] [address]- 8508 Sep, [facility] [place] [facility] [address] [id number] [place] [address]- 2210 Aug, [facility] [place] [facility] [address] [id number] [place] [address]- 3716 Aug, [facility] [place] [facility] [address] [id number] [place] [address]- 1938 Aug, [facility] [place] [facility] [address] [id number] [place] [address]- 0550 Aug, [facility] [place] [facility] [address] [id number] [place] [address]- 7241 Aug, [facility] [place] [facility] [address] [id number] [place] [address]- 3584 Aug, [facility] [place] [facility] [address] [id number] [place] [address]- 1763 27 Jul, 2013 [facility] [place] [facility] [address] [id number] [place] [address]- 0566 27 Jul, 2013 [facility] [place] [facility] [address] [id number] [place] [address]- 4653 16 Jul, 2013 [facility] [place] [facility] [address] [id number] [place] [address]- 2419 Jul, [facility] [place] [facility] [address] [id number] [place] [address]- 5590 Jul, [facility] [place] [facility] [address] [id number] [place] [address]- 0963 Jul, [facility] [place] [facility] [address] [id number] [place] [address]- 3375 Jul, [facility] [place] [facility] [address] [id number] [place] [address]- 2862 Jul, [facility] [place] [facility] [address] [id number] [place] [address]- 5511 Jul, [facility] [place] [facility] [address] [id number] [place] [address]- 7877 Jul, [facility] [place] [facility] [address] [id number] [place] [address]- 9584 Jul, [facility] [place] [facility] [address] [id number] [place] [address]- 4429 Jul, [facility] [place] [facility] [address] [id number] [place] [address]- 3096 05 Jul, 2013 [facility] [place] [facility] [address] [id number] [place] [address]- 0954 Jul, [facility] [place] [facility] [address] [id number] [place] [address]- 3797 Jul, [facility] [place] [facility] [address] [id number] [place] [address]- 8850 Jul, [facility] [place] [facility] [address] [id number] [place] [address]- 3815 Jul, [facility] [place] [facility] [address] [id number] [place] [address]- 3121 Jul, [facility] [place] [facility] [address] [id number] [place] [address]- 6894 June, [facility] [place] [facility] [address] [id number] [place] [address]- 5081 June, [facility] [place] [facility] [address] [id number] [place] [address]- 4704 June, [facility] [place] [facility] [address] [id number] [place] [address]- 2390 June, [facility] [place] [facility] [address] [id number] [place] [address]- 7036 May, [facility] [place] [facility] [address] [id number] [place] [address]- 9759 May, [facility] [place] [facility] [address] [id number] [place] [address]- 7197 May, [facility] [place] [facility] [address] [id number] [place] [address]- 8359 May, [facility] [place] [facility] [address] [id number] [place] [address]- 1732 May, [facility] [place] [facility] [address] [id number] [place] [address]- 4892 May, [facility] [place] [facility] [address] [id number] [place] [address]- 5033 May, [facility] [place] [facility] [address] [id number] [place] [address]- 8793 16 May, 2013 [facility] [place] [facility] [address] [id number] [place] [address]- 8931 May, [facility] [place] [facility] [address] [id number] [place] [address]- 3882 May, [facility] [place] [facility] [address] [id number] [place] [address]- 7971 Apr, [facility] [place] [facility] [address] [id number] [place] [address]- 2438 Apr, [facility] [place] [facility] [address] [id number] [place] [address]- 7529 Apr, [facility] [place] [facility] [address] [facility] [id number] [place] [address]- 1616 Apr, [facility] [place] [facility] [address] [id number] [place] [address]- 9210 Apr, [facility] [place] [facility] [address] [id number] [place] [address]- 5700 Apr, [facility] [place] [facility] [address] [id number] [place] [address]- 2386 Mar, [facility] [place] [facility] [address] [facility] [id number] [place] [address]- 8977 Mar, [facility] [place] [facility] [address] [id number] [place] [address]- 9090 Mar, [facility] [place] [facility] [address] [id number] [place] [address]- 4880 Mar, [facility] [place] [facility] [address] [id number] [place] [address]- 3612 Mar, [facility] [place] [facility] [address] [id number] [place] [address]- 0357 Mar, [facility] [place] [facility] [address] [id number] [place] [address]- 1288 Mar, [facility] [place] [facility] [address] [id number] [place] [address]- 7807 Mar, [facility] [place] [facility] [address] [id number] [place] [address]- 5176 Feb, [facility] [place] [facility] [address] [id number] [place] [address]- 6745 Feb, [facility] [place] [facility] [address] [id number] [place] [address]- 9551 Feb, [facility] [place] [facility] [address] [id number] [place] [address]- 8371 Feb, [facility] [place] [facility] [address] [id number] [place] [address]- 5904 Feb, [facility] [place] [facility] [address] [id number] [place] [address]- 6030 Feb, [facility] [place] [facility] [address] [id number] [place] [address]- 5637 Feb, [facility] [place] [facility] [address] [id number] [place] [address]- 5615 Feb, [facility] [place] [facility] [address] [id number] [place] [address]- 3512 Feb, [facility] [place] [facility] [address] [id number] [place] [address]- 5444 Feb, [facility] [place] [facility] [address] [id number] [place] [address]- 9542 Feb, [facility] [place] [facility] [address] [id number] [place] [address]- 5417 Feb, [facility] [place] [facility] [address] [id number] [place] [address]- 9062 Feb, [facility] [place] [facility] [address] [id number] [place] [address]- 7476 Feb, [facility] [place] [facility] [address] [id number] [place] [address]- 0033 Feb, [facility] [address] [id number] [place] [address]- 2216 Jan, [facility] [address] [id number] [place] 5088 Jan, [facility] [address] [id number] [place] [address]- 4309 Jan, [facility] [address] [id number] [place] [address]- 8184 Jan, [facility] [address] [id number] [place] 4973 Jan, [facility] [address] [id number] [place] [address]- 2868 Jan, [facility] [address] [id number] [place] [address]- 6799 Dec, [facility] [address] [id number] [place] [address]- 7731 Dec, [facility] [address] [id number] [place] [address]- 0379 Dec, [facility] [address] [id number] [place] [address]- 3934 Dec, [facility] [address] [id number] [place] [address]- 5305 18 Dec, 2012 [facility] [address] [id number] [place] [address]- 8029 Dec, [facility] [place] [facility] [address] [id number] [place]- 2002 Dec, [facility] [address] [id number] [place] [address]- 5805 Dec, [facility] [address] [id number] [place] [address]- 1095 Dec, [facility] [place] [facility] [address] [id number] [place] [address]- 3759 Dec, [facility] [place] [facility] [address] [id number] [place] [address]- 1065 Dec, [facility] [place] [facility] [address] [id number] [place] [address]- 1173 Nov, [facility] [place] [facility] [address] [id number] [place] [address]- 2325 Nov, [facility] [place] [facility] [address] [id number] [place] [address]- 9192 Nov, [facility] [place] [facility] [address] [id number] [place] [address]- 8009 Nov, [facility] [place] [facility] [address] [id number] [place] [address]- 9399 Nov, [facility] [place] [facility] [address] [id number] [address]- 5090 Nov, [facility] [place] [facility] [address] [id number], [place] [address]- 9946 Nov, [facility] [place] [facility] [address] [id number], [place] [address]- 0645 Nov, [facility] [place] [facility] [address] [id number], [place] [address]- 4797 Nov, [facility] [place] [facility] [address] [id number], [place] [address]- 3737 Nov, [facility] [place] [facility] [address] [id number], [place] [address]- 5130 Nov, [facility] [place] [facility] [address] [id number], [place] [address]- 6127 Nov, [facility] [place] [facility] [address] [id number], [place] [address]- 6145 Nov, [facility] [place] [facility] [address] [id number], [place] [address]- 9165 04 Nov, 2012 [facility] [address] [id number] [place] [address]- 4554 18 Oct, 2012 [facility] [place] [facility] [address] [id number] [place] [address]- 3335 17 Oct, 2012 [facility] [place] [facility] [address] [id number] [place] [address]- 1031 11 Oct, 2012 [facility] [place] [facility] [address] [id number] [place] [address]- 2648 03 Oct, 2012 [facility] [place] [facility] [address] [id number] [place] [address]- 8118 Sep, [facility] [place] [facility] [address] [id number] [place] [address]- 9428 Sep, [facility] [address] [id number] [place] [address]- 1165 Sep, [facility] [place] [facility] [address] [id number] [place] [address]- 2847 Sep, [facility] [place] [facility] [address] [id number] [place] [address] Sep, [facility] [place] [facility] [address] [id number] [place] [address] Sep, [facility] [place] [facility] [address] [id number] [place] [address] Sep, [facility] [place] [facility] [address] [id number] [place] [address] Aug, [facility] [place] [facility] [address] [id number] [place] [address] Aug, [facility] [place] [facility] [address] [id number] [place] [address] Jul, [facility] [place] [facility] [address] [id number] [place] [address] Jul, [facility] [place] [facility] [address] [id number] [place] [address] 10 Jul, 2012 [facility] [place] [facility] [address] [id number] [place] [address] 08 Jul, 2012 [facility] [place] [facility] [address] [id number] [place] [address] 06 Jul, 2012 [facility] [place] [facility] [address] [id number] [place] [address] 04 Jul, 2012 [facility] [place] [facility] [address] [id number] [place] [address] Jul, [facility] [place] [facility] [address] [id number] [place] [address] June, [facility] [place] [facility] [address] [id number] [place] [address] June, [facility] [place] [facility] [address] [id number] [place] [address] 29 May, 2012 [facility] [place] [facility] [address] [id number] [place] [address] 24 May, 2012 [facility] [place] [facility] [address] [id number] [place] [address] May, [facility] [place] [facility] [address] [id number] [place] [address] May, [facility] [place] [facility] [address] [id number] [place] [address] 10 May, 2012 [facility] [place] [facility] [address] [id number] [place] [address] 08 May, 2012 [facility] [place] [facility] [address] [id number] [place] [address] 05 May, 2012 [facility] [place] [facility] [address] [id number] [place] [address] 03 May, 2012 [facility] [place] [facility] [address] [id number] [place] [address] May, [facility] [address] [facility] [id number] [address] Apr, [facility] [address] [facility] [id number], [place] [address] Apr, [facility] [address] [facility] [id number], [place] [address] Apr, [facility] [address] [facility] [id number], [place] [address] Apr, IMMUNIZATIONS No Known Immunizations SOCIAL HISTORY Never Assessed REASON FOR VISIT Controlled refill request PLAN OF CARE VITAL SIGNS MEDICATIONS Medication Instructions Dosage Frequency Start Date End Date Duration Status Percocet 7.5-325 MG Orally every 4 hours 1 tablet as needed 4h Jul, 28 days Active RESULTS No Results PROCEDURES No Known procedures INSTRUCTIONS MEDICATIONS ADMINISTERED No Known Medications MEDICAL (GENERAL) HISTORY Type Description Date Medical History hypertension Medical History neck pain - requires chronic pain management, on chronic narcotics Medical History lupus - sees cutch cleaner in [place] Medical History Chronic HCV, successfully treated by [...]
--- OUTSIDE RECORDS SUMMARY | 2018-04-29 18:15 | XMS REPORT ---
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 2419645 Problem Systemic lupus erythematosus, unspecified SLE type, unspecified organ involvement status M32.9 Active 45433673 Problem Neck pain M54.2 Active 35813406 Problem History of hepatitis C Z86.19 Active [id number] ALLERGIES No Known Allergies ENCOUNTERS Encounter Location Date Diagnosis [place] [id number] [place] [address] 83829- 0893 Oct, Systemic lupus erythematosus, unspecified SLE type, unspecified organ involvement status M32.9 and 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 [place] [id number] [place] [address] 22582- 2907 Sep, 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 [place] [id number] [place] [address] 96602- 1317 Aug, 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 [place] [id number] [place] [address] 18321- 1589 Aug, [place] [id number] [place] [address] 69930- 7281 Aug, Cervicalgia M54.2 and Skin cancer C44.90 [facility] [id number] [place] [address] 88510- 7806 Jul, Neck pain M54.2 [place] [id number] [place] [address] 31808- 6531 June, Neck pain M54.2 [facility] [id number] [place] [address] 49345- 1409 May, Neck pain M54.2 [facility] [id number] [place] [address] 81486- 5721 May, Systemic lupus erythematosus, unspecified SLE type, unspecified organ involvement status M32.9 and Neck pain M54.2 [facility] [id number] [place] [address] 97876- 6762 Apr, Neck pain M54.2 [facility] [id number] [place] [address] 13604- 1478 Apr, Neck pain M54.2 [facility] [id number] [place] [address] 74714- 1160 Mar, Neck pain M54.2 [facility] [id number] [place] [address] 91142- 2264 Feb, Neck pain M54.2 [facility] [id number] [place] [address] 32579- 9515 Feb, Neck pain M54.2 [facility] [id number] [place] [address] 83374- 5949 Feb, [facility] [id number] [place] [address] 65813- 0854 Feb, Cervical neuritis M54.12 [facility] [id number] [place] [address] 43851- 8927 Jan, Cervical neuritis M54.12 [facility] [id number] [place] [address] 78842- 3239 Jan, Cervical neuritis M54.12 [facility] [id number] [place] [address] 21057- 5429 Nov, [facility] [id number] [place] [address] 68625- 2365 Nov, 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 and Neck pain M54.2 [facility] [id number] [place] [address] 28286- 0906 Nov, [facility] [id number] [place] [address] 50152- 0552 Nov, Neck pain M54.2 [facility] [address] 51936- 8276 Nov, [facility] [address] 20326- 6393 Oct, Neck pain M54.2 and Cervical vertebral fusion M43.22 [facility] [address] 28252- 1928 Sep, [facility] [address] 69121- 5545 Aug, Systemic lupus erythematosus, unspecified SLE type, unspecified organ involvement status M32.9 and Cervical neuritis M54.12 [facility] [id number] [place] [address] 62980- 7128 Jul, [facility] [address] 25639- 7932 Jul, [facility] [id number] [place] [address] 01517- 5800 June, Lupus M32.9 ; Encounter for screening for lipoid disorders Z13.220 and Neck pain M54.2 [facility] [id number] [place] [address] 52744- 0378 June, [facility] [address] 31887- 1514 Apr, History of hepatitis C Z86.19 [facility] [id number] [place] [address] 34594- 1476 Nov, [facility] [address] [place] [address]- 8996 June, Warts, genital A63.0 [facility] [id number] [place] [address] 81140- 0017 June, Occasional tremors R25.1 ; Systemic lupus M32.9 and Anxiety about health F41.8 [facility] [id number] [place] [address] 49185- 7972 June, Genital warts A63.0 [facility] [id number] [place] [address] 18718- 0216 May, Lupus M32.9 ; Polyneuropathy in diseases classified elsewhere G63 and Occasional tremors R25.1 [facility] [id number] [place] [address] 40859- 0536 May, Genital warts A63.0 [facility] [address] 92282- 5665 Apr, [facility] [id number] [place] [address] 55739- 0532 Mar, [facility] [id number] [place] [address] 66121- 0339 Mar, [facility] [id number] [place] [address] 56297- 3043 Mar, Lupus M32.9 [facility] [id number] [place] [address] 02102- 2357 Mar, Systemic lupus M32.9 and Neck pain M54.2 [facility] [id number] [place] [address] 61416- 9811 Feb, Systemic lupus M32.9 [facility] [id number] [place] [address] 61192- 9365 Feb, Systemic lupus erythematosus, organ or system involvement unspecified M32.10 ; Polyneuropathy in diseases classified elsewhere G63 and Hyperpigmented skin lesion L81.9 [facility] [address] [id number] [place] [address]- 8336 Aug, Genital warts [facility] [address] [facility] [id number] [place] [address]- 7424 Jul, Genital warts [facility] [address] [facility] [id number] [place] [address]- 9756 Jul, [facility] [address] [facility] [id number] [place] [address]- 3920 May, [facility] [address] [facility] [id number] [place] [address], [place] [address]- 8141 May, [facility] [address] [facility] [id number] [place] [address]- 1152 Dec, [facility] [address] [facility] [id number] [place] [address]- 7073 Dec, [facility] [address] [facility] [id number] [place] [address]- 3111 Sep, [facility] [address] [facility] [id number] [place] [address]- 5129 Sep, [facility] [address] [facility] [id number] [place] [address]- 7497 Sep, [facility] [address] [facility] [id number], [place] [address]- 1302 Sep, [facility] [address] [facility] [id number] [address]- 5360 Sep, [facility] [address] [facility] [id number] [place] [address]- 3236 Sep, [facility] [address] [facility] [id number] [place] [address]- 3094 Aug, [facility] [address] [facility] [id number] [place] [address]- 2804 Aug, [facility] [place] [facility] [address] [id number] [place] [address]- 5358 15 Aug, 2013 [facility] [place] [facility] [address] [id number] [place] [address]- 3749 15 Aug, 2013 [facility] [place] [facility] [address] [id number] [place] [address]- 4771 10 Aug, 2013 [facility] [place] [facility] [address] [id number] [place] [address]- 4860 10 Aug, 2013 [facility] [place] [facility] [address] [id number] [place] [address]- 2750 27 Jul, 2013 [facility] [place] [facility] [address] [id number] [place] [address]- 2550 27 Jul, 2013 [facility] [place] [facility] [address] [id number] [place] [address]- 9715 16 Jul, 2013 [facility] [place] [facility] [address] [id number] [place] [address]- 6448 16 Jul, 2013 [facility] [place] [facility] [address] [id number] [place] [address]- 5352 16 Jul, 2013 [facility] [place] [facility] [address] [id number] [place] [address]- 8461 16 Jul, 2013 [facility] [place] [facility] [address] [id number] [place] [address]- 5823 16 Jul, 2013 [facility] [place] [facility] [address] [id number] [place] [address]- 5336 16 Jul, 2013 [facility] [place] [facility] [address] [id number] [place] [address]- 6036 10 Jul, 2013 [facility] [place] [facility] [address] [id number] [place] [address]- 3784 Jul, [facility] [place] [facility] [address] [id number] [place] [address]- 5683 10 Jul, 2013 [facility] [place] [facility] [address] [id number] [place] [address]- 2240 Jul, [facility] [place] [facility] [address] [id number] [place] [address]- 8116 Jul, [facility] [place] [facility] [address] [id number] [place] [address]- 1592 Jul, [facility] [place] [facility] [address] [id number] [place] [address]- 1948 Jul, [facility] [place] [facility] [address] [id number] [place] [address]- 5153 Jul, [facility] [place] [facility] [address] [id number] [place] [address]- 1653 Jul, [facility] [place] [facility] [address] [id number] [place] [address]- 3469 Jul, [facility] [place] [facility] [address] [id number] [place] [address]- 0637 June, [facility] [place] [facility] [address] [id number] [place] [address]- 7347 June, [facility] [place] [facility] [address] [id number] [place] [address]- 0853 June, [facility] [place] [facility] [address] [id number] [place] [address]- 5845 June, [facility] [place] [facility] [address] [id number] [place] [address]- 3562 May, [facility] [place] [facility] [address] [id number] [place] [address]- 4762 30 May, 2013 [facility] [place] [facility] [address] [id number] [place] [address]- 4459 May, [facility] [place] [facility] [address] [id number] [place] [address]- 1882 May, [facility] [place] [facility] [address] [id number] [place] [address]- 9726 16 May, 2013 [facility] [place] [facility] [address] [id number] [place] [address]- 8323 16 May, 2013 [facility] [place] [facility] [address] [id number] [place] [address]- 4710 May, [facility] [place] [facility] [address] [id number] [place] [address]- 0173 May, [facility] [place] [facility] [address] [id number] [place] [address]- 7035 May, [facility] [place] [facility] [address] [id number] [place] [address]- 9456 May, [facility] [place] [facility] [address] [id number] [place] [address]- 0332 Apr, [facility] [place] [facility] [address] [id number] [place] [address]- 2660 Apr, [facility] [place] [facility] [address] [id number] [place] [address]- 0819 Apr, [facility] [place] [facility] [address] [id number] [place] [address]- 0971 Apr, [facility] [place] [facility] [address] [id number] [place] [address]- 2363 Apr, [facility] [place] [facility] [address] [facility] [id number] [place] [address]- 5811 Apr, [facility] [place] [facility] [address] [id number] [place] [address]- 2609 Mar, [facility] [place] [facility] [address] [id number] [place] [address]- 7394 Mar, [facility] [place] [facility] [address] [id number] [place] [address]- 7283 Mar, [facility] [place] [facility] [address] [id number] [place] [address]- 6606 Mar, [facility] [place] [facility] [address] [id number] [place] [address]- 9588 Mar, [facility] [place] [facility] [address] [id number] [place] [address]- 1257 Mar, [facility] [place] [facility] [address] [id number] [place] [address]- 4873 Mar, [facility] [place] [facility] [address] [id number] [place] [address]- 2782 Mar, [facility] [place] [facility] [address] [id number] [place] [address]- 4915 Feb, [facility] [place] [facility] [address] [id number] [place] [address]- 6301 Feb, [facility] [place] [facility] [address] [id number] [place] [address]- 9585 Feb, [facility] [place] [facility] [address] [id number] [place] [address]- 2045 Feb, [facility] [place] [facility] [address] [id number] [place] [address]- 3857 Feb, [facility] [place] [facility] [address] [id number] [place] [address]- 3485 Feb, [facility] [place] [facility] [address] [id number] [place] [address]- 3117 Feb, [facility] [place] [facility] [address] [id number] [place] [address]- 0548 Feb, [facility] [place] [facility] [address] [id number], [place] [address]- 2064 Feb, [facility] [place] [facility] [address] [id number] [place] [address]- 4539 Feb, [facility] [place] [facility] [address] [id number] [place] [address]- 9256 Feb, [facility] [place] [facility] [address] [id number] [place] [address]- 3797 Feb, [facility] [place] [facility] [address] [id number] [place] [address]- 0957 Feb, [facility] [address] [id number] [place] [address]- 4898 Feb, [facility] [place] [facility] [address] [id number] [place] [address]- 2483 Feb, [facility] [address] [id number] [place] [address]- 9934 Jan, [facility] [place] [facility] [address] [id number] [place] [address]- 9423 Jan, [facility] [address] [id number] [place] [address]- 4553 Jan, [facility] [place] [facility] [address] [id number] [place] [address]- 3083 Jan, [facility] [address] [id number] [place] [address]- 5075 16 Jan, 2013 [facility] [place] [facility] [address] [id number] [place] [address]- 6944 16 Jan, 2013 [facility] [place] [facility] [address] [id number] [place] [address]- 3714 Dec, [facility] [address] [id number] [place] [address]- 4293 Dec, [facility] [place] [facility] [address] [id number] [place] [address]- 2228 Dec, [facility] [place] [facility] [address] [id number] [place] [address]- 4122 19 Dec, 2012 [facility] [place] [facility] [address] [id number] [place] [address]- 5076 18 Dec, 2012 [facility] [place] [facility] [address] [id number] [place] [address]- 8438 13 Dec, 2012 [facility] [place] [facility] [address] [id number], [place] [address]- 4385 Dec, [facility] [place] [facility] [address] [id number] [place] [address]- 5072 Dec, [facility] [place] [facility] [address] [id number] [place] [address]- 5541 Dec, [facility] [place] [facility] [address] [id number] [place] [address]- 6951 Dec, [facility] [place] [facility] [address] [id number] [place] [address]- 9117 Dec, [facility] [place] [facility] [address] [id number] [place] [address]- 0258 Nov, [facility] [place] [facility] [address] [id number] [place] [address]- 9854 Nov, [facility] [place] [facility] [address] [id number] [place] [address]- 4739 Nov, [facility] [place] [facility] [address] [id number] [place] [address]- 3570 Nov, [facility] [place] [facility] [address] [id number] [place] [address]- 0616 Nov, [facility] [place] [facility] [address] [id number] [place] [address]- 5509 Nov, [facility] [place] [facility] [address] [id number] [place] [address]- 4901 Nov, [facility] [place] [facility] [address] [id number] [place] [address]- 7214 Nov, [facility] [place] [facility] [address] [id number] [place] [address]- 2269 Nov, [facility] [place] [facility] [address] [id number] [place] [address]- 1825 Nov, [facility] [place] [facility] [address] [id number] [place] [address]- 3061 Nov, [facility] [place] [facility] [address] [id number] [place] [address]- 6446 Nov, [facility] [place] [facility] [address] [id number] [place] 7880 Nov, [facility] [place] [facility] [address] [id number] [place] [address]- 1434 Nov, [facility] [place] [facility] [address] [id number] [place] [address]- 9172 18 Oct, 2012 [facility] [place] [facility] [address] [id number] [place] [address]- 8453 17 Oct, 2012 [facility] [place] [facility] [address] [id number] [place] [address]- 2833 Oct, [facility] [place] [facility] [address] [id number] [place] [address]- 7727 Oct, [facility] [place] [facility] [address] [id number] [place] [address]- 6856 Sep, [facility] [place] [facility] [address] [id number] [place] [address]- 3075 Sep, [facility] [place] [facility] [address] [id number] [place] [address]- 5098 Sep, [facility] [place] [facility] [address] [id number] [place] [address]- 8316 Sep, [facility] [place] [facility] [address] [id number] [place] [address]- 1859 Sep, [facility] [place] [facility] [address] [id number] [place] [address]- 8748 Sep, [facility] [place] [facility] [address] [id number] [place] [address]- 1310 Sep, [facility] [place] [facility] [address] [id number] [place] [address]- 5887 Aug, [facility] [place] [facility] [address] [id number] [place] [address]- 6071 Aug, [facility] [place] [facility] [address] [id number] [place] [address]- 2073 25 Jul, 2012 [facility] [address] [id number] [place] [address]- 2931 13 Jul, 2012 [facility] [address] [id number] [place] [address]- 0452 10 Jul, 2012 [facility] [address] [id number] [place] [address]- 7035 08 Jul, 2012 [facility] [address] [id number] [place] [address]- 9683 06 Jul, 2012 [facility] [address] [id number] [place] [address]- 3078 04 Jul, 2012 [facility] [address] [id number] [place] [address]- 1461 Jul, [facility] [address] [id number] [place] [address]- 9375 June, [facility] [address] [id number] [place] [address]- 6376 16 Jun, 2012 [facility] [address] [id number] [place] [address]- 5417 29 May, 2012 [facility] [address] [id number] [place] [address] 24 May, 2012 [facility] [address] [id number] [place] [address] 22 May, 2012 [facility] [address] [id number] [place] [address] 19 May, 2012 [facility] [place] [facility] [address] [id number] [place] [address] 10 May, 2012 [facility] [address] [id number] [place] [address] 08 May, 2012 [facility] [address] [id number] [place] [address] May, [facility] [address] [facility] [id number] [address] May, [facility] [address] [id number] [id number] May, [facility] [address] [facility] [id number] [address] Apr, [facility] [id number], [place] [address] Apr, [facility] [address] [facility] [id number], [place] [address] Apr, [facility] [id number] [address] Apr, IMMUNIZATIONS No Known Immunizations SOCIAL HISTORY Never Assessed REASON FOR VISIT Pain management (chronic)----DBclairettDAVID PLAN OF CARE VITAL SIGNS Height 69 in 2017-09-03 Weight 179 lbs 2017-09-03 Temperature 98.0 degrees Fahrenheit 2017-09-03 Heart Rate 90 bpm 2017-09-03 Respiratory Rate 20 2017-09-03 BMI 26.43 kg/m2 2017-09-03 Blood pressure systolic 118 mmHg 2017-09-03 Blood pressure diastolic 76 mmHg 2017-09-03 MEDICATIONS Medication Instructions Dosage Frequency Start Date End Date Duration Status Amitriptyline HCl 75 MG Orally Once a day at bedtime 1 tablet 30 days Active Percocet 7.5-325 MG Orally every 4 hours 1 tablet as needed 4h Aug, 28 days Active Baclofen 10 MG Orally Three times a day 1 tablet with food or milk 8h Not-Taking Nitroglycerin by Sublingual route Apr, Active Fish Oil Concentrate 1000 mg 1 Capsule by Oral route 1 time per day Apr, Active Lipitor 20 mg Orally Once a day 1 tablet 24h Jul, 30 day(s) Active Plaquenil 200 mg Orally 2 times a day 1 tablet with food or milk 12h Feb 90 days Active Vitamin E 1000 UNIT Orally Once a day 1 capsule 24h Not-Taking Cyclobenzaprine HCl 10 mg Orally 2 times a day 1 tablet as needed 12h Aug, Active Gabapentin 800 MG Orally Three times a day 1 tablet 8h Active Mens Multi Vitamin & Mineral Active Aspirin 81 MG Orally Once a day take 1 tablet (81 mg) by oral route once daily sun,tues,,& fri 24h Apr, Active RESULTS No Results PROCEDURES No Known procedures INSTRUCTIONS MEDICATIONS ADMINISTERED No Known Medications MEDICAL (GENERAL) HISTORY Type Description Date Medical History hypertension Medical History neck pain - requires chronic pain management, on chronic narcotics Medical History lupus - sees [facility] specialist in [place] Medical History Chronic HCV, successfully treated by [...]
--- OUTSIDE RECORDS SUMMARY | 2018-04-29 18:16 | XMS REPORT ---
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 9225072 Problem Systemic lupus erythematosus, unspecified SLE type, unspecified organ involvement status M32.9 Active 10257657 Problem Neck pain M54.2 Active 50023675 Problem History of hepatitis C Z86.19 Active [id number] ALLERGIES No Known Allergies ENCOUNTERS Encounter Location Date Diagnosis [facility] [facility] [id number] [place] [address] 98471- 6192 Aug, 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 [facility] [facility] [id number] [place] [address] 70803- 4448 Aug, [facility] [id number] [place] [address] 78643- 4535 Aug, Cervicalgia M54.2 and Skin cancer C44.90 [facility] [facility] [id number] [place] [address] 93551- 8911 Jul, Neck pain M54.2 [facility] [id number] [place] [address] 83488- 3267 June, Neck pain M54.2 [facility] [id number] [place] [address] 85543- 1471 May, Neck pain M54.2 [facility] [id number] [place] [address] 46747- 9704 May, Systemic lupus erythematosus, unspecified SLE type, unspecified organ involvement status M32.9 and Neck pain M54.2 [facility] [id number] [place] [address] 27964- 4074 Apr, Neck pain M54.2 [facility] [id number] [place] [address] 57088- 9297 Apr, Neck pain M54.2 [facility] [id number] [place] [address] 43017- 4549 Mar, Neck pain M54.2 [facility] [id number] [place] [address] 53756- 6504 Feb, Neck pain M54.2 [facility] [id number] [place] [address] 21497- 5189 Feb, Neck pain M54.2 [facility] [id number] [place] [address] 18623- 4993 Feb, [facility] [id number] [place] [address] 92159- 7019 Feb, Cervical neuritis M54.12 [facility] [id number] [place] [address] 33515- 4759 Jan, Cervical neuritis M54.12 [facility] [id number] [place] [address] 32979- 5949 Jan, Cervical neuritis M54.12 [facility] [id number] [place] [address] 69691- 8120 Nov, [facility] [id number] [place] [address] 34175- 8957 Nov, 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 and Neck pain M54.2 [facility] [id number] [place] [address] 55463- 6986 Nov, [facility] [id number] [place] [address] 43126- 0402 Nov, Neck pain M54.2 [place] [id number] [place] [address] 72318- 8446 Nov, [place] [address] 08785- 3242 Oct, Neck pain M54.2 and Cervical vertebral fusion M43.22 [place] [address] 08273- 8049 Sep, [place] [address] 89454- 7518 Aug, Systemic lupus erythematosus, unspecified SLE type, unspecified organ involvement status M32.9 and Cervical neuritis M54.12 [facility] [address] 49467- 5045 Jul, [place] [address] 77838- 2616 Jul, [place] [address] 88909- 7473 June, Lupus M32.9 ; Encounter for screening for lipoid disorders Z13.220 and Neck pain M54.2 [place] [address] 80337- 6882 June, [place] [address] 65684- 9896 Apr, History of hepatitis C Z86.19 [place] [id number] [place] [address] 12077- 5355 Nov, [place] [address] 11176- 3786 June, Warts, genital A63.0 [place] [id number] [place] [address] 53728- 5244 June, Occasional tremors R25.1 ; Systemic lupus M32.9 and Anxiety about health F41.8 [place] [address] 36542- 0658 June, Genital warts A63.0 [facility] [id number] [place] [address] 03512- 0128 May, Lupus M32.9 ; Polyneuropathy in diseases classified elsewhere G63 and Occasional tremors R25.1 [facility] [id number] [place] [address] 56762- 4332 May, Genital warts A63.0 [facility] [id number] [place] [address] 57141- 5920 Apr, [facility] [id number] [place] [address] 06604- 0590 Mar, [facility] [id number] [place] [address] 48559- 8545 Mar, [facility] [id number] [place] [address] 90976- 5640 Mar, Lupus M32.9 [facility] [id number] [place] [address] 22898- 6315 Mar, Systemic lupus M32.9 and Neck pain M54.2 [facility] [id number] [place] [address] 23624- 6087 Feb, Systemic lupus M32.9 [facility] [id number] [place] [address] 93620- 0059 Feb, Systemic lupus erythematosus, organ or system involvement unspecified M32.10 ; Polyneuropathy in diseases classified elsewhere G63 and Hyperpigmented skin lesion L81.9 [facility] [address] [place] [address] 37723- 0640 Aug, Genital warts 078.11 [facility] [address] [place] [address] 71577- 5240 Jul, Genital warts 078.11 [facility] [id number] [place] [address] 64010- 8102 Jul, [facility] [place] [facility] [address] [id number] [place] [address]- 6405 May, [facility] [place] [facility] [address] [id number] [place] [address]- 8815 May, [facility] [place] [facility] [address] [id number] [place] [address]- 5123 Dec, [facility] [place] [facility] [address] [id number] [place] [address]- 0073 Dec, [facility] [place] [facility] [address] [id number] [place] [address]- 1815 Sep, [facility] [place] [facility] [address] [id number] [place] [address]- 3297 Sep, [facility] [place] [facility] [address] [id number] [place] [address]- 4483 Sep, [facility] [place] [facility] [address] [id number] [place] [address]- 0949 Sep, [facility] [place] [facility] [address] [id number] [place] [address]- 1881 Sep, [facility] [place] [facility] [address] [id number] [place] [address]- 7732 Sep, [facility] [place] [facility] [address] [id number] [place] [address]- 4557 Aug, [facility] [place] [facility] [address] [id number] [place] [address]- 3985 Aug, [facility] [place] [facility] [address] [id number] [place] [address]- 5439 Aug, [facility] [place] [facility] [address] [id number] [place] [address]- 1269 Aug, [facility] [place] [facility] [address] [id number] [place] [address]- 4950 Aug, [facility] [place] [facility] [address] [id number] [place] [address]- 6923 Aug, [facility] [place] [facility] [address] [id number] [place] [address]- 4999 Jul, [facility] [place] [facility] [address] [id number] [place] [address]- 2238 Jul, [facility] [place] [facility] [address] [id number] [place] [address]- 1498 Jul, [facility] [place] [facility] [address] [id number] [place] [address]- 2972 Jul, [facility] [place] [facility] [address] [id number] [place] [address]- 7130 Jul, [facility] [place] [facility] [address] [id number] [place] [address]- 3911 Jul, [facility] [place] [facility] [address] [id number] [place] [address]- 7734 Jul, [facility] [place] [facility] [address] [id number] [place] [address]- 4419 Jul, [facility] [place] [facility] [address] [id number] [place] [address]- 4840 Jul, [facility] [place] [facility] [address] [id number] [place] [address]- 6275 Jul, [facility] [place] [facility] [address] [id number] [place] [address]- 7840 Jul, [facility] [place] [facility] [address] [id number] [place] [address]- 2851 Jul, [facility] [place] [facility] [address] [id number] [place] [address]- 5181 Jul, [facility] [place] [facility] [address] [id number] [place] [address]- 6402 Jul, [facility] [place] [facility] [address] [id number] [place] [address]- 9107 Jul, [facility] [place] [facility] [address] [id number] [place] [address]- 5718 Jul, [facility] [place] [facility] [address] [id number] [place] [address]- 5088 Jul, [facility] [place] [facility] [address] [id number] [place] [address]- 4825 Jul, [facility] [place] [facility] [address] [id number] [place] [address]- 6733 June, [facility] [place] [facility] [address] [id number] [place] [address]- 6210 June, [facility] [place] [facility] [address] [id number] [place] [address]- 3971 June, [facility] [place] [facility] [address] [id number] [place] [address]- 8016 June, [facility] [place] [facility] [address] [id number] [place] [address]- 6972 May, [facility] [place] [facility] [address] [id number] [place] [address]- 6529 May, [facility] [place] [facility] [address] [id number] [place] [address]- 6370 May, [facility] [place] [facility] [address] [id number] [place] [address]- 5213 May, [facility] [place] [facility] [address] [id number] [place] [address]- 8849 May, [facility] [place] [facility] [address] [id number] [place] [address]- 8135 May, [facility] [place] [facility] [address] [id number] [place] [address]- 6763 May, [facility] [place] [facility] [address] [id number] [place] [address]- 7242 May, [facility] [place] [facility] [address] [id number] [place] [address]- 1009 May, [facility] [place] [facility] [address] [id number] [place] [address]- 1684 May, [facility] [place] [facility] [address] [facility] [id number] [place] [address]- 0802 Apr, [facility] [place] [facility] [address] [facility] [id number] [place] [address]- 8415 Apr, [facility] [place] [facility] [address] [id number] [place] [address]- 5003 Apr, [facility] [place] [facility] [address] [id number] [place] [address]- 3379 Apr, [facility] [place] [facility] [address] [facility] [id number] [place] [address]- 0262 Apr, [facility] [place] [facility] [address] [facility] [id number] [place] [address]- 1366 Apr, [facility] [place] [facility] [address] [facility] [id number] [place] [address]- 2202 Mar, [facility] [place] [facility] [address] [facility] [id number] [place] [address]- 9944 Mar, [facility] [place] [facility] [address] [facility] [id number] [place] [address]- 4948 Mar, [facility] [place] [facility] [address] [facility] [id number] [place] [address]- 6649 Mar, [facility] [place] [facility] [address] [facility] [id number] [place] [address]- 0183 Mar, [facility] [place] [facility] [address] [facility] [id number] [place] [address]- 9622 Mar, [facility] [place] [facility] [address] [facility] [id number] [place] [address]- 7092 Mar, [facility] [place] [facility] [address] [facility] [id number] [place] [address]- 5433 Mar, [facility] [place] [facility] [address] [id number] [place] [address]- 0000 Feb, [facility] [place] [facility] [address] [id number] [place] [address]- 3901 Feb, [facility] [place] [facility] [address] [id number] [place] [address]- 3434 Feb, [facility] [place] [facility] [address] [id number] [place] [address]- 7887 Feb, [facility] [place] [facility] [address] [id number] [place] [address]- 9710 Feb, [facility] [place] [facility] [address] [id number] [place] [address]- 1160 Feb, [facility] [place] [facility] [address] [id number] [place] [address]- 6582 Feb, [facility] [place] [facility] [address] [id number] [place] [address]- 2691 Feb, [facility] [place] [facility] [address] [id number] [place] [address]- 0329 Feb, [facility] [place] [facility] [address] [id number] [place] [address]- 4769 Feb, [facility] [place] [facility] [address] [id number] [place] [address]- 4455 Feb, [facility] [place] [facility] [address] [id number] [place] [address]- 0081 Feb, [facility] [place] [facility] [address] [id number] [place] [address]- 1988 Feb, [facility] [place] [facility] [address] [id number] [place] [address]- 6376 Feb, [facility] [place] [facility] [address] [id number] [place] [address]- 2382 Feb, [facility] [place] [facility] [address] [id number] [place] [address]- 8679 31 Jan, 2013 [facility] [address] [id number] [place] [address]- 9006 31 Jan, 2013 [facility] [place] [facility] [address] [id number] [place] [address]- 3333 30 Jan, 2013 [facility] [address] [id number] [place] [address]- 8624 30 Jan, 2013 [facility] [place] [facility] [address] [id number] [place] [address]- 0356 16 Jan, 2013 [facility] [place] [facility] [address] [id number] [place] [address]- 3797 16 Jan, 2013 [facility] [place] [facility] [address] [id number] [place] [address]- 2284 Dec, [facility] [address] [id number] [place] [address]- 5981 25 Dec, 2012 [facility] [place] [facility] [address] [id number] [place] [address]- 0591 Dec, [facility] [place] [facility] [address] [id number] [place] [address]- 3817 19 Dec, 2012 [facility] [place] [facility] [address] [facility] [id number] [place] [address]- 8815 18 Dec, 2012 [facility] [place] [facility] [address] [id number] [place] [address]- 3576 13 Dec, 2012 [facility] [place] [facility] [address] [id number] [address]- 7034 13 Dec, 2012 [facility] [place] [facility] [address] [id number] [place] [address]- 5100 12 Dec, 2012 [facility] [place] [facility] [address] [id number] [place] [address]- 0319 12 Dec, 2012 [facility] [place] [facility] [address] [id number][place] [address]- 0766 11 Dec, 2012 [facility] [place] [facility] [address] [id number] [place] [address]- 6365 Dec, [facility] [place] [facility] [address] [id number] [place] [address]- 9466 Nov, [facility] [place] [facility] [address] [id number] [place] [address]- 1803 Nov, [facility] [place] [facility] [address] [id number] [place] [address]- 3799 Nov, [facility] [place] [facility] [address] [id number] [place] [address]- 0997 Nov, [facility] [place] [facility] [address] [id number] [place] [address]- 6435 Nov, [facility] [place] [facility] [address] [id number] [place] [address]- 1714 Nov, [facility] [place] [facility] [address] [id number] [place] [address]- 5688 Nov, [facility] [place] [facility] [address] [id number] [place] [address]- 3299 Nov, [facility] [place] [facility] [address] [id number] [place] [address]- 3503 Nov, [facility] [place] [facility] [address] [id number] [place] [address]- 1698 Nov, [facility] [place] [facility] [address] [id number] [place] [address]- 7418 Nov, [facility] [place] [facility] [address] [id number] [place] [address]- 1365 Nov, [facility] [place] [facility] [address] [id number] [place] [address]- 7708 Nov, [facility] [place] [facility] [address] [id number] [place] [address]- 4260 Nov, [facility] [place] [facility] [address] [id number] [place] [address]- 8766 18 Oct, 2012 [facility] [place] [facility] [address] [id number] [place] [address]- 0761 17 Oct, 2012 [facility] [place] [facility] [address] [id number] [place] [address]- 4190 11 Oct, 2012 [facility] [place] [facility] [address] [id number] [place] [address]- 5322 Oct, [facility] [place] [facility] [address] [id number] [place] [address]- 8631 Sep, [facility] [place] [facility] [address] [id number] [place] [address]- 3748 Sep, [facility] [place] [facility] [address] [id number] [place] [address]- 5615 Sep, [facility] [place] [facility] [address] [id number] [place] [address]- 8465 Sep, [facility] [place] [facility] [address] [id number] [place] [address]- 7463 Sep, [facility] [place] [facility] [address] [id number] [place] [address]- 1243 Sep, [facility] [place] [facility] [address] [id number] [place] [address]- 7518 Sep, [facility] [place] [facility] [address] [id number] [place] [address]- 8917 Aug, [facility] [place] [facility] [address] [id number] [place] [address]- 6039 Aug, [facility] [place] [facility] [address] [id number] [place] [address]- 2535 Jul, [facility] [place] [facility] [address] [id number] [place] [address]- 3625 Jul, [facility] [place] [facility] [address] [id number] [place] [address]- 5977 Jul, [facility] [place] [facility] [address] [id number] [place] [address]- 5423 08 Jul, 2012 [facility] [address] [id number] [place] [address]- 5855 06 Jul, [address] [facility] [address] [id number] [place] [address]- 4472 Jul, [facility] [address] [id number] [place] [address]- 8840 Jul, [facility] [address] [id number] [place] [address]- [address]574 June, [facility] [address] [id number] [place] [address]- 9057 June, [facility] [address] [id number] [place] [address]- 5954 May, [facility] [address] [id number] [place] [address]- 9512 24 May, 2012 [facility] [address] [id number] [place] [address]- 5723 May, [facility] [address] [id number] [place] [address] May, [facility] [address] [id number] [place] [address] 10 May, [address] [facility] [address] [id number] [place] [address] 08 May, 2012 [facility] [address] [id number] [place] [address] 05 May, 2012 [facility] [address] [id number] [place] [address] May, [facility] [address] [id number] [place] [address] May, [facility] [address] [id number] [place] [address] Apr, [facility] [address] [facility] [id number] [place] [address] Apr, [facility] [address] [facility] [id number] [place] [address] Apr, [facility] [address] [facility] [id number] [place] [address] Apr, IMMUNIZATIONS No Known Immunizations SOCIAL HISTORY Never Assessed REASON FOR VISIT Pain management (chronic) PLAN OF CARE VITAL SIGNS Height 69 in 2017-06-05 Weight 182 lbs 2017-06-05 Temperature 98 degrees Fahrenheit 2017-06-05 Heart Rate 90 bpm 2017-06-05 Respiratory Rate 18 2017-06-05 BMI 26.87 kg/m2 2017-06-05 Blood pressure systolic 128 mmHg 2017-06-05 Blood pressure diastolic 78 mmHg 2017-06-05 MEDICATIONS Medication Instructions Dosage Frequency Start Date End Date Duration Status Nitroglycerin by Sublingual route Apr, Active Lipitor 20 mg Orally Once a day 1 tablet 24h Jul, 30 day(s) Active Gabapentin 800 MG Orally Three times a day 1 tablet 8h Active Fish Oil Concentrate 1000 mg 1 Capsule by Oral route 1 time per day Apr, Active Baclofen 10 MG Orally Three times a day 1 tablet with food or milk 8h Not-Taking Vitamin E 1000 UNIT Orally Once a day 1 capsule 24h Active Amitriptyline HCl 75 MG Orally Once a day at bedtime 1 tablet 30 days Active Percocet 7.5-325 MG Orally every 4 hours 1 tablet as needed 4h Apr, 28 days Active PredniSONE 10 MG Orally Once a day 1 tablet 24h Active Plaquenil 200 mg Orally 2 times a day 1 tablet with food or milk 12h Feb 90 days Active Mens Multi Vitamin & Mineral Active Aspirin 81 MG Orally Once a day take 1 tablet (81 mg) by oral route once daily sun,tues,thur,& fri 24h Apr, Active RESULTS No Results PROCEDURES Procedure Date Ordered Result Body Site [facility] VISIT ESTABLISHED PATIENT June 05, 2017 INSTRUCTIONS MEDICATIONS ADMINISTERED No Known Medications MEDICAL (GENERAL) HISTORY Type Description Date Medical History hypertension Medical History neck pain - requires chronic pain management, on chronic narcotics Medical 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
--- OUTSIDE RECORDS SUMMARY | 2018-04-29 18:16 | XMS REPORT ---
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 7003006 Problem Systemic lupus erythematosus, unspecified SLE type, unspecified organ involvement status M32.9 Active 20811102 Problem Neck pain M54.2 Active 66075975 Problem History of hepatitis C Z86.19 Active [id number] ALLERGIES No Information ENCOUNTERS Encounter Location Date Diagnosis [facility] [id number] [place] [address] 17452- 8205 Aug, 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 [facility] [id number] [place] [address] 06402- 6823 Aug, [facility] [id number] [place] [address] 99153- 3616 Aug, Cervicalgia M54.2 and Skin cancer C44.90 [facility] [id number] [place] [address] 13784- 2048 Jul, Neck pain M54.2 [facility] [id number] [place] [address] 15799- 6272 June, Neck pain M54.2 [facility] [id number] [place] [address] 05835- 5068 May, Neck pain M54.2 [facility] [id number] [place] [address] 70521- 7306 May, Systemic lupus erythematosus, unspecified SLE type, unspecified organ involvement status M32.9 and Neck pain M54.2 [facility] [address] [address] 0322 Apr, Neck pain M54.2 [facility] [id number] [place] [address] 84066- 9397 Apr, Neck pain M54.2 [facility] [id number] [place] [address] 20192- 2786 Mar, Neck pain M54.2 [facility] [id number] [place] [address] 79983- 5745 Feb, Neck pain M54.2 [facility] [id number] [place] [address] 96740- 2414 Feb, Neck pain M54.2 [facility] [id number] [place] [address] 48475- 2578 Feb, [facility] [id number] [place] [address] 79528- 7267 Feb, Cervical neuritis M54.12 [facility] [id number] [place] [address] 44892- 6069 Jan, Cervical neuritis M54.12 [facility] [id number] [place] [address] 79858- 9000 Jan, Cervical neuritis M54.12 [facility] [id number] [place] [address] 90254- 8801 Nov, [facility] [id number] [place] [address] 11954- 6971 Nov, 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 and Neck pain M54.2 [facility] [id number] [place] [address] 22795- 0195 Nov, [facility] [id number] [place] [address] 01696- 2997 Nov, Neck pain M54.2 [facility] [place] [id number] [place] [address] 85200- 3282 Nov, [facility] [address] 55859- 2353 Oct, Neck pain M54.2 and Cervical vertebral fusion M43.22 [facility] [address] 56101- 2609 Sep, [facility] [address] 12498- 1635 Aug, Systemic lupus erythematosus, unspecified SLE type, unspecified organ involvement status M32.9 and Cervical neuritis M54.12 [facility] [address] 81390- 7658 Jul, [facility] [address] 42022- 3859 Jul, [facility] [address] 24124- 3378 June, Lupus M32.9 ; Encounter for screening for lipoid disorders Z13.220 and Neck pain M54.2 [facility] [address] 79319- 3036 June, [facility] [id number] [place] [address] 97383- 5881 Apr, History of hepatitis C Z86.19 [facility] [id number] [place] [address] 30842- 8741 Nov, [facility] [address] 82278- 9329 June, Warts, genital A63.0 [facility] [place] [id number] [place] [address] 83820- 0454 June, Occasional tremors R25.1 ; Systemic lupus M32.9 and Anxiety about health F41.8 [facility] [address] 78207- 5620 June, Genital warts A63.0 [facility] [id number] [place] [address] 02720- 1384 May, Lupus M32.9 ; Polyneuropathy in diseases classified elsewhere G63 and Occasional tremors R25.1 [facility] [id number] [place] [address] 55650- 7770 May, Genital warts A63.0 [facility] [id number] [place] [address] 29602- 3994 Apr, [facility] [id number] [place] [address] 60743- 9613 Mar, [facility] [id number] [place] [address] 14858- 0254 Mar, [facility] [id number] [place] [address] 72362- 1652 Mar, Lupus M32.9 [facility] [id number] [place] [address] 69851- 4540 Mar, Systemic lupus M32.9 and Neck pain M54.2 [facility] [id number] [place] [address] 68807- 5842 Feb, Systemic lupus M32.9 [facility] [id number] [place] [address] 27966- 6400 Feb, Systemic lupus erythematosus, organ or system involvement unspecified M32.10 ; Polyneuropathy in diseases classified elsewhere G63 and Hyperpigmented skin lesion L81.9 [facility] [address] [place] [address] 26326- 1009 Aug, Genital warts 078.11 [facility] [id number] [place] [address] 86593- 3177 Jul, Genital warts 078.11 [facility] [id number] [place] [address] 31941- 2003 Jul, [facility] [place] [facility] [address] [id number] [place] [address]- 5993 May, [facility] [place] [facility] [address] [id number] [place] [address]- 7474 May, [facility] [place] [facility] [address] [id number] [place] [address]- 8239 Dec, [facility] [place] [facility] [address] [id number] [place] [address]- 6782 Dec, [facility] [place] [facility] [address] [id number] [place] [address]- 0157 Sep, [facility] [place] [facility] [address] [id number] [place] [address]- 8466 Sep, [facility] [place] [facility] [address] [id number] [place] [address]- 2123 Sep, [facility] [place] [facility] [address] [id number] [place] [address]- 9160 Sep, [facility] [place] [facility] [address] [id number] [place] [address]- 9348 Sep, [facility] [place] [facility] [address] [id number] [place] [address]- 1590 Sep, [facility] [place] [facility] [address] [id number] [place] [address]- 1297 Aug, [facility] [place] [facility] [address] [id number] [place] [address]- 3083 Aug, [facility] [place] [facility] [address] [id number] [place] [address]- 2356 Aug, [facility] [place] [facility] [address] [id number] [place] [address]- 3162 Aug, [facility] [place] [facility] [address] [id number] [place] [address]- 1120 Aug, [facility] [place] [facility] [address] [id number] [place] [address]- 9981 10 Aug, 2013 [facility] [place] [facility] [address] [id number] [place] [address]- 2279 Jul, [facility] [place] [facility] [address] [id number] [place] [address]- 2707 Jul, [facility] [place] [facility] [address] [id number] [place] [address]- 8073 Jul, [facility] [place] [facility] [address] [id number] [place] [address]- 5314 Jul, [facility] [place] [facility] [address] [id number] [place] [address]- 1585 Jul, [facility] [place] [facility] [address] [id number] [place] [address]- 1981 Jul, [facility] [place] [facility] [address] [id number] [place] [address]- 7915 Jul, [facility] [place] [facility] [address] [id number] [place] [address]- 6563 Jul, [facility] [place] [facility] [address] [id number] [place] [address]- 6860 Jul, [facility] [place] [facility] [address] [id number] [place] [address]- 5812 Jul, [facility] [place] [facility] [address] [id number] [place] [address]- 6454 Jul, [facility] [place] [facility] [address] [id number] [place] [address]- 0610 Jul, [facility] [place] [facility] [address] [id number] [place] [address]- 0685 05 Jul, 2013 [facility] [place] [facility] [address] [id number] [place] [address]- 5712 05 Jul, 2013 [facility] [place] [facility] [address] [id number] [place] [address]- 8326 Jul, [facility] [place] [facility] [address] [id number] [place] [address]- 2850 Jul, [facility] [place] [facility] [address] [id number] [place] [address]- 4602 Jul, [facility] [place] [facility] [address] [id number] [place] [address]- 0128 Jul, [facility] [place] [facility] [address] [id number] [place] [address]- 0086 June, [facility] [place] [facility] [address] [id number] [place] [address]- 8828 June, [facility] [place] [facility] [address] [id number] [place] [address]- 3335 June, [facility] [place] [facility] [address] [id number] [place] [address]- 5016 June, [facility] [place] [facility] [address] [id number] [place] [address]- 2252 May, [facility] [place] [facility] [address] [id number] [place] [address]- 0816 May, [facility] [place] [facility] [address] [id number] [place] [address]- 5476 May, [facility] [place] [facility] [address] [id number] [place] [address]- 4707 May, [facility] [place] [facility] [address] [id number] [place] [address]- 1771 May, [facility] [place] [facility] [address] [id number] [place] [address]- 2390 May, [facility] [place] [facility] [address] [id number] [place] [address]- 0285 May, [facility] [place] [facility] [address] [id number] [place] [address]- 9176 May, [facility] [place] [facility] [address] [id number] [place] [address]- 1488 May, [facility] [place] [facility] [address] [id number] [place] [address]- 7944 May, [facility] [place] [facility] [address] [facility] [id number] [place] [address]- 6854 Apr, [facility] [place] [facility] [address] [facility] [id number] [place] [address]- 9886 Apr, [facility] [place] [facility] [address] [id number] [place] [address]- 2496 Apr, [facility] [place] [facility] [address] [id number] [place] [address]- 7744 Apr, [facility] [place] [facility] [address] [facility] [id number] [place] [address]- 0438 Apr, [facility] [place] [facility] [address] [facility] [id number] [place] [address]- 5672 Apr, [facility] [place] [facility] [address] [facility] [id number] [place] [address]- 5022 Mar, [facility] [place] [facility] [address] [facility] [id number] [place] [address]- 2630 Mar, [facility] [place] [facility] [address] [facility] [id number] [place] [address]- 4594 Mar, [facility] [place] [facility] [id number] [place] [address]- 4636 Mar, [facility] [place] [facility] [address] [facility] [id number] [place] [address]- 5157 Mar, [facility] [place] [facility] [address] [facility] [id number] [place] [address]- 6269 Mar, [facility] [place] [facility] [address] [facility] [id number] [place] [address]- 1542 Mar, [facility] [place] [facility] [id number] [place] [address]- 4234 Mar, [facility] [place] [facility] [address] [id number] [place] [address]- 7595 Feb, [facility] [place] [facility] [address] [id number] [place] [address]- 5484 Feb, [facility] [place] [facility] [address] [id number] [place] [address]- 5693 Feb, [facility] [place] [facility] [address] [id number] [place] [address]- 8182 Feb, [facility] [place] [facility] [address] [id number] [place] [address]- 5733 Feb, [facility] [place] [facility] [address] [id number] [place] [address]- 6722 Feb, [facility] [place] [facility] [address] [id number] [place] [address]- 4576 Feb, [facility] [place] [facility] [address] [id number] [place] [address]- 6302 Feb, [facility] [place] [facility] [address] [id number] [place] [address]- 7910 Feb, [facility] [place] [facility] [address] [id number] [place] [address]- 7205 Feb, [facility] [place] [facility] [address] [id number] [place] [address]- 3334 Feb, [facility] [place] [facility] [address] [id number] [place] [address]- 4277 Feb, [facility] [place] [facility] [address] [id number] [place] [address]- 4834 Feb, [facility] [place] [facility] [address] [id number] [place] [address]- 3702 Feb, [facility] [place] [facility] [address] [id number] [place] [address]- 4668 Feb, [facility] [place] [facility] [address] [id number] [place] [address]- 3232 31 Jan, 2013 [facility] [address] [id number] [place] [address]- 6845 31 Jan, 2013 [facility] [place] [facility] [address] [id number] [place] [address]- 8228 30 Jan, 2013 [facility] [address] [id number] [place] [address]- 8316 30 Jan, 2013 [facility] [place] [facility] [address] [id number] [place] [address]- 5398 16 Jan, 2013 [facility] [address] [id number] [place] [address]- 2337 16 Jan, 2013 [facility] [place] [facility] [address] [id number] [place] [address]- 3696 Dec, [facility] [address] [id number] [address]- 0137 Dec, [facility] [place] [facility] [address] [id number] [place] [address]- 1379 Dec, [facility] [address] [id number] [place] [address]- 4139 19 Dec, 2012 [facility] [place] [facility] [address] [id number] [place] [address]- 5201 18 Dec, 2012 [facility] [address] [id number] [address]- 6111 Dec, [facility] [place] [facility] [address] [id number] [address]- 7966 13 Dec, 2012 [facility] [place] [facility] [address] [id number] [address]- 9762 12 Dec, 2012 [facility] [place] [facility] [address] [id number] [place] [address]- 0243 12 Dec, 2012 [facility] [place] [facility] [address] [id number] [place] [address]- 4551 11 Dec, 2012 [facility] [place] [facility] [address] [id number] [place] [address]- 1031 Dec, [facility] [place] [facility] [address] [id number] [place] [address]- 3962 Nov, [facility] [place] [facility] [address] [id number] [place] [address]- 2595 Nov, [facility] [place] [facility] [address] [id number] [place] [address]- 5534 Nov, [facility] [place] [facility] [address] [id number] [place] [address]- 7258 Nov, [facility] [place] [facility] [address] [id number] [place] [address]- 3465 Nov, [facility] [place] [facility] [address] [id number] [place] [address]- 4556 Nov, [facility] [place] [facility] [address] [id number] [place] [address]- 0878 Nov, [facility] [place] [facility] [address] [id number] [place] [address]- 6875 Nov, [facility] [place] [facility] [address] [id number] [place] [address]- 5170 Nov, [facility] [place] [facility] [address] [id number] [place] [address]- 4933 Nov, [facility] [place] [facility] [address] [id number] [place] [address]- 1230 Nov, [facility] [place] [facility] [address] [id number] [place] [address]- 1895 Nov, [facility] [place] [facility] [address] [id number] [place] [address]- 3356 Nov, [facility] [place] [facility] [address] [id number] [place] 4251 Nov, [facility] [place] [facility] [address] [id number] [place] [address]- 9032 18 Oct, 2012 [facility] [place] [facility] [address] [id number] [place] [address]- 7755 17 Oct, 2012 [facility] [place] [facility] [address] [id number] [place] [address]- 4237 11 Oct, 2012 [facility] [place] [facility] [address] [id number] [place] [address]- 8433 Oct, [facility] [place] [facility] [address] [id number] [place] [address]- 5299 Sep, [facility] [place] [facility] [address] [id number] [place] [address]- 4953 Sep, [facility] [place] [facility] [address] [id number] [place] [address]- 0504 Sep, [facility] [place] [facility] [address] [id number] [place] [address]- 0588 Sep, [facility] [place] [facility] [address] [id number] [place] [address]- 4837 Sep, [facility] [place] [facility] [address] [id number] [place] [address]- 3203 Sep, [facility] [place] [facility] [address] [id number] [place] [address]- 4139 Sep, [facility] [place] [facility] [address] [id number] [address]- 4423 Aug, [facility] [place] [facility] [address] [id number] [place] [address]- 3635 Aug, [facility] [place] [facility] [address] [id number] [place] [address]- 4367 Jul, [facility] [place] [facility] [address] [id number] [place] [address]- 5339 Jul, [facility] [place] [facility] [address] [id number] [place] [address]- 8027 Jul, [facility] [place] [facility] [address] [id number] [place] [address]- 7495 08 Jul, 2012 [facility] [address] [id number] [place] [address]- 8356 06 Jul, 2012 [facility] [address] [id number] [place] [address]- 7750 Jul, [facility] [address] [id number] [place] [address]- 4185 Jul, [facility] [address] [id number] [place] [address]- 4733 June, [facility] [address] [id number] [place] [address]- 3893 June, [facility] [address] [id number] [place] [address]- 8208 May, [facility] [address] [id number] [place] [address]- 3609 24 May, 2012 [facility] [address] [id number] [place] [address]- 4991 May, [facility] [address] [id number] [place] [address]- 2040 May, [facility] [address] [id number] [place] [address]- 1540 May, [facility] [address] [id number] [place] [address]- 1115 08 May, 2012 [facility] [address] [id number] [place] [address]- 1651 05 May, 2012 [facility] [place] [facility] [address] [id number] [place] [address]- 5347 May, [facility] [place] [facility] [address] [id number] [place] [address]- 2159 May, [facility] [address] [id number] [place] [address]- 5127 Apr, [facility] [address] [facility] [id number] [place] [address]- 7727 Apr, [facility] [address] [facility] [id number] [place] [address] Apr, [facility] [address] [facility] [id number] [place] [address] Apr, IMMUNIZATIONS No Known Immunizations SOCIAL HISTORY Never Assessed REASON FOR VISIT Controlled Med Refill PLAN OF CARE VITAL SIGNS MEDICATIONS Medication Instructions Dosage Frequency Start Date End Date Duration Status Percocet 7.5-325 MG Orally every 4 hours 1 tablet as needed 4h May, 28 days Active RESULTS No Results PROCEDURES No Known procedures INSTRUCTIONS MEDICATIONS ADMINISTERED No Known Medications MEDICAL (GENERAL) HISTORY Type Description Date Medical History hypertension Medical History neck pain - requires chronic pain management, on chronic narcotics 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
--- OUTSIDE RECORDS SUMMARY | 2018-04-29 18:16 | XMS REPORT ---
Author Author DANTE ALVAREZ Organization 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 [id number] [place] [address] 67236- 0431 Sep, 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 [facility] [id number] [place] [address] 88543- 3446 Aug, 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 [facility] [id number] [place] [address] 61253- 4512 Aug, [facility] [id number] [place] [address] 76623- 2320 Aug, Cervicalgia M54.[address]90 [facility] [id number] [place] [address] 40496- 8554 Jul, Neck pain M54.2 [facility] [id number] [place] [address] 99346- 6724 June, Neck pain M54.2 [facility] [id number] [place] [address] 41931- 3205 May, Neck pain M54.2 [facility] [id number] [place] [address] 37096- 3511 May, Systemic lupus erythematosus, unspecified SLE type, unspecified organ involvement status M32.[address]54.2 [facility] [id number] [place] [address] 70586- 2140 Apr, Neck pain M54.2 [facility] [id number] [place] [address] 04011- 7277 Apr, Neck pain M54.2 [facility] [id number] [place] [address] 77184- 8084 Mar, Neck pain M54.2 [facility] [id number] [place] [address] 97620- 8758 Feb, Neck pain M54.2 [facility] [id number] [place] [address] 19070- 6450 Feb, Neck pain M54.2 [facility] [id number] [place] [address] 08099- 6576 Feb, [facility] [id number] [place] [address] 67573- 1760 Feb, Cervical neuritis M54.12 [facility] [id number] [place] [address] 01236- 9217 Jan, Cervical neuritis M54.12 [facility] [id number] [place] [address] 60967- 6157 Jan, Cervical neuritis M54.12 [facility] [id number] [place] [address] 05493- 3612 Nov, [facility] [id number] [place] [address] 13670- 0753 Nov, 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54.2 [facility] [id number] [place] [address] 40024- 8215 Nov, [facility] [id number] [place] [address] 49676- 0709 Nov, Neck pain M54.2 [facility] [id number] [place] [address] 58159- 1064 Nov, [facility] [id number] [place] [address] 28184- 1237 Oct, Neck pain M54.2 and Cervical vertebral fusion M43.22 [facility] [id number] [place] [address] 57492- 8492 Sep, [facility] [id number] [place] [address] 58332- 6945 Aug, Systemic lupus erythematosus, unspecified SLE type, unspecified organ involvement status M32.9 and Cervical neuritis M54.12 [facility] [id number] [place] [address] 40274- 5619 Jul, [facility] [id number] [place] [address] 97421- 9865 Jul, [facility] [id number] [place] [address] 76906- 5014 June, Lupus M32.9 ; Encounter for screening for lipoid disorders Z13.220 and Neck pain M54.2 [facility] [id number] [place] [address] 09678- 8198 June, [facility] [id number] [place] [address] 01188- 8449 Apr, History of hepatitis C Z86.19 [facility] [id number] [place] [address] 05175- 3874 Nov, [facility] [id number] [place] [address] 05867- 3221 June, Warts, genital A63.0 [facility] [id number] [place] [address] 04597- 8813 June, Occasional tremors R25.1 ; Systemic lupus M32.9 and Anxiety about health F41.8 [facility] [id number] [place] [address] 57644- 6771 June, Genital warts A63.0 [facility] [id number] [place] [address] 22430- 6783 May, Lupus M32.9 ; Polyneuropathy in diseases classified elsewhere G63 and Occasional tremors R25.1 [facility] [id number] [place] [address] 15100- 3820 May, Genital warts A63.0 [facility] [id number] [place] [address] 86074- 5944 Apr, [facility] [id number] [place] [address] 70416- 9871 Mar, [facility] [id number] [place] [address] 68938- 9026 Mar, [facility] [id number] [place] [address] 72724- 3258 Mar, Lupus M32.9 [facility] [id number] [place] [address] 82539- 9508 Mar, Systemic lupus M32.[address] [facility] [id number] [place] [address] 11149- 7466 Feb, Systemic lupus M32.9 [facility] [id number] [place] [address] 92162- 7163 Feb, Systemic lupus erythematosus, organ or system involvement unspecified M32.10 ; Polyneuropathy in diseases classified elsewhere G63 and Hyperpigmented skin lesion L81.9 [facility] [id number] [place] [address] 09031- 3283 Aug, Genital warts 078.11 [facility] [id number] [place] [address] 91596- 3004 Jul, Genital warts 078.11 [facility] [address] [id number] [place] [address]- 7684 Jul, [facility] [place] [facility] [address] [id number] [place] [address]- 0118 May, [facility] [address] [id number] [place] [address]- 7909 May, [facility] [place] [facility] [address] [id number] [place] [address]- 6333 Dec, [facility] [place] [facility] [address] [id number] [place] [address]- 0807 Dec, [facility] [place] [facility] [address] [id number] [place] [address]- 1501 Sep, [facility] [address] [id number] [place] [address]- 3664 Sep, [facility] [place] [facility] [address] [id number] [place] [address]- 3593 Sep, [facility] [place] [facility] [address] [id number] [place] [address]- 8659 Sep, [facility] [place] [facility] [address] [facility] [id number] [place] [address]- 8949 Sep, [facility] [place] [facility] [address] [id number] [place] [address]- 3319 Sep, [facility] [place] [facility] [address] [id number] [place] [address]- 6627 Aug, [facility] [place] [facility] [address] [id number] [place] [address]- 4169 Aug, [facility] [place] [facility] [address] [id number] [place] [address]- 8851 Aug, [facility] [place] [facility] [address] [id number] [place] [address]- 6048 Aug, [facility] [place] [facility] [address] [id number] [place] [address]- 0297 Aug, [facility] [place] [facility] [address] [id number] [place] [address]- 9150 Aug, [facility] [place] [facility] [address] [id number] [place] [address]- 6505 27 Jul, 2013 [facility] [place] [facility] [address] [id number] [place] [address]- 5201 27 Jul, 2013 [facility] [place] [facility] [address] [id number] [place] [address]- 8588 16 Jul, 2013 [facility] [place] [facility] [address] [id number] [place] [address]- 5437 Jul, [facility] [place] [facility] [address] [id number] [place] [address]- 4409 Jul, [facility] [place] [facility] [address] [id number] [place] [address]- 4730 Jul, [facility] [place] [facility] [address] [id number] [place] [address]- 7219 Jul, [facility] [place] [facility] [address] [id number] [place] [address]- 0033 Jul, [facility] [place] [facility] [address] [id number] [place] [address]- 1034 Jul, [facility] [place] [facility] [address] [id number] [place] [address]- 7399 Jul, [facility] [place] [facility] [address] [id number] [place] [address]- 6265 Jul, [facility] [place] [facility] [address] [id number] [place] [address]- 0198 Jul, [facility] [place] [facility] [address] [id number] [place] [address]- 8879 05 Jul, 2013 [facility] [place] [facility] [address] [id number] [place] [address]- 7566 Jul, [facility] [place] [facility] [address] [id number] [place] [address]- 2547 Jul, [facility] [place] [facility] [address] [id number] [place] [address]- 6841 Jul, [facility] [place] [facility] [address] [id number] [place] [address]- 1070 Jul, [facility] [place] [facility] [address] [id number] [place] [address]- 6921 Jul, [facility] [place] [facility] [address] [id number] [place] [address]- 8212 June, [facility] [place] [facility] [address] [id number] [place] [address]- 8593 June, [facility] [place] [facility] [address] [id number] [place] [address]- 9481 June, [facility] [place] [facility] [address] [id number] [place] [address]- 5342 June, [facility] [place] [facility] [address] [id number] [place] [address]- 0464 May, [facility] [place] [facility] [address] [id number] [place] [address]- 0042 May, [facility] [place] [facility] [address] [id number] [place] [address]- 8367 May, [facility] [place] [facility] [address] [id number] [place] [address]- 6409 May, [facility] [place] [facility] [address] [id number] [place] [address]- 2476 May, [facility] [place] [facility] [address] [id number] [place] [address]- 0273 May, [facility] [place] [facility] [address] [id number] [place] [address]- 8166 May, [facility] [place] [facility] [address] [id number] [place] [address]- 3636 16 May, 2013 [facility] [place] [facility] [address] [id number] [place] [address]- 9905 May, [facility] [place] [facility] [address] [id number] [place] [address]- 9638 May, [facility] [place] [facility] [address] [id number] [place] [address]- 3810 Apr, [facility] [place] [facility] [address] [id number] [place] [address]- 6126 Apr, [facility] [place] [facility] [address] [id number] [place] [address]- 2650 Apr, [facility] [place] [facility] [address] [facility] [id number] [place] [address]- 1610 Apr, [facility] [place] [facility] [address] [id number] [place] [address]- 3465 Apr, [facility] [place] [facility] [address] [id number] [place] [address]- 9457 Apr, [facility] [place] [facility] [address] [id number] [place] [address]- 8739 Mar, [facility] [place] [facility] [address] [facility] [id number] [place] [address]- 1511 Mar, [facility] [place] [facility] [address] [id number] [place] [address]- 3892 Mar, [facility] [place] [facility] [address] [id number] [place] [address]- 3887 Mar, [facility] [place] [facility] [address] [id number] [place] [address]- 1077 Mar, [facility] [place] [facility] [address] [id number] [place] [address]- 9361 Mar, [facility] [place] [facility] [address] [id number] [place] [address]- 8083 Mar, [facility] [place] [facility] [address] [id number] [place] [address]- 7005 Mar, [facility] [place] [facility] [address] [id number] [place] [address]- 4163 Feb, [facility] [place] [facility] [address] [id number] [place] [address]- 7643 Feb, [facility] [place] [facility] [address] [id number] [place] [address]- 9858 Feb, [facility] [place] [facility] [address] [id number] [place] [address]- 4874 Feb, [facility] [place] [facility] [address] [id number] [place] [address]- 4552 Feb, [facility] [place] [facility] [address] [id number] [place] [address]- 1274 Feb, [facility] [place] [facility] [address] [id number] [place] [address]- 3829 Feb, [facility] [place] [facility] [address] [id number] [place] [address]- 5949 Feb, [facility] [place] [facility] [address] [id number] [place] [address]- 8664 Feb, [facility] [place] [facility] [address] [id number] [place] [address]- 0958 Feb, [facility] [place] [facility] [address] [id number] [place] [address]- 2355 Feb, [facility] [place] [facility] [address] [id number] [place] [address]- 3895 Feb, [facility] [place] [facility] [address] [id number] [place] [address]- 7214 Feb, [facility] [place] [facility] [address] [id number] [place] [address]- 0408 Feb, [facility] [place] [facility] [address] [id number] [place] [address]- 9276 Feb, [facility] [address] [id number] [place] [address]- 2143 Jan, [facility] [address] [id number] [place] 1115 Jan, [facility] [address] [id number] [place] [address]- 4501 Jan, [facility] [address] [id number] [place] [address]- 2152 Jan, [facility] [address] [id number] [place] 8992 Jan, [facility] [address] [id number] [place] [address]- 0042 Jan, [facility] [address] [id number] [place] [address]- 6934 Dec, [facility] [address] [id number] [place] [address]- 7990 Dec, [facility] [address] [id number] [place] [address]- 5213 Dec, [facility] [address] [id number] [place] [address]- 5323 Dec, [facility] [address] [id number] [place] [address]- 3476 18 Dec, 2012 [facility] [address] [id number] [place] [address]- 8502 Dec, [facility] [place] [facility] [address] [id number] [place]- 6645 Dec, [facility] [address] [id number] [place] [address]- 7639 Dec, [facility] [address] [id number] [place] [address]- 8609 Dec, [facility] [place] [facility] [address] [id number] [place] [address]- 8837 Dec, [facility] [place] [facility] [address] [id number] [place] [address]- 9902 Dec, [facility] [place] [facility] [address] [id number] [place] [address]- 1608 Nov, [facility] [place] [facility] [address] [id number] [place] [address]- 1039 Nov, [facility] [place] [facility] [address] [id number] [place] [address]- 9519 Nov, [facility] [place] [facility] [address] [id number] [place] [address]- 8627 Nov, [facility] [place] [facility] [address] [id number] [place] [address]- 4508 Nov, [facility] [place] [facility] [address] [id number] [address]- 8192 Nov, [facility] [place] [facility] [address] [id number] [address]- 9988 Nov, [facility] [place] [facility] [address] [id number] [place] [address]- 1321 Nov, [facility] [place] [facility] [address] [id number] [place] [address]- 1500 Nov, [facility] [place] [facility] [address] [id number] [place] [address]- 2878 Nov, [facility] [place] [facility] [address] [id number] [place] [address]- 8459 Nov, [facility] [place] [facility] [address] [id number] [place] [address]- 5569 Nov, [facility] [place] [facility] [address] [id number] [place] [address]- 9096 Nov, [facility] [place] [facility] [address] [id number] [address]- 3983 04 Nov, 2012 [facility] [address] [id number] [place] [address]- 9844 18 Oct, 2012 [facility] [place] [facility] [address] [id number] [place] [address]- 8620 17 Oct, 2012 [facility] [place] [facility] [address] [id number] [place] [address]- 5057 11 Oct, 2012 [facility] [place] [facility] [address] [id number] [place] [address]- 3764 03 Oct, 2012 [facility] [place] [facility] [address] [id number] [place] [address]- 3925 Sep, [facility] [place] [facility] [address] [id number] [place] [address]- 0197 Sep, [facility] [address] [id number] [place] [address]- 8621 Sep, [facility] [place] [facility] [address] [id number] [place] [address]- 1989 Sep, [facility] [place] [facility] [address] [id number] [place] [address]- 7253 Sep, [facility] [place] [facility] [address] [id number] [place] [address]- 9693 Sep, [facility] [place] [facility] [address] [id number] [place] [address]- 7484 Sep, [facility] [place] [facility] [address] [id number] [place] [address]- 2587 Aug, [facility] [place] [facility] [address] [id number] [place] [address]- 1595 Aug, [facility] [place] [facility] [address] [id number] [place] [address]- 2462 Jul, [facility] [place] [facility] [address] [id number] [place] [address]- 6936 Jul, [facility] [place] [facility] [address] [id number] [place] [address] 10 Jul, 2012 [facility] [place] [facility] [address] [id number] [place] [address] 08 Jul, 2012 [facility] [place] [facility] [address] [id number] [place] [address]- 2018 06 Jul, 2012 [facility] [place] [facility] [address] [id number] [place] [address] 04 Jul, 2012 [facility] [place] [facility] [address] [id number] [place] [address] Jul, [facility] [place] [facility] [address] [id number] [place] [address] June, [facility] [place] [facility] [address] [id number] [place] [address] June, [facility] [place] [facility] [address] [id number] [place] [address] 29 May, 2012 [facility] [place] [facility] [address] [id number] [place] [address] 24 May, 2012 [facility] [place] [facility] [address] [id number] [place] [address] May, [facility] [place] [facility] [address] [id number] [place] [address] May, [facility] [place] [facility] [address] [id number] [place] [address] 10 May, 2012 [facility] [place] [facility] [address] [id number] [place] [address] 08 May, 2012 [facility] [place] [facility] [address] [id number] [place] [address] 05 May, 2012 [facility] [place] [facility] [address] [id number] [place] [address] 03 May, 2012 [facility] [place] [facility] [address] [id number] [place] [address] May, [facility] [address] [facility] [id number] [address] Apr, [facility] [address] [facility] [id number] [address] Apr, [facility] [address] [facility] [id number] [address] Apr, [facility] [address] [facility] [id number] [address] Apr, IMMUNIZATIONS No Known Immunizations SOCIAL HISTORY Never Assessed REASON FOR VISIT Controlled Med Refill PLAN OF CARE VITAL SIGNS MEDICATIONS Medication Instructions Dosage Frequency Start Date End Date Duration Status Percocet 7.5-325 MG Orally every 4 hours 1 tablet as needed 4h June, 28 days Active RESULTS No Results PROCEDURES No Known procedures INSTRUCTIONS MEDICATIONS ADMINISTERED No Known Medications MEDICAL (GENERAL) HISTORY Type Description Date Medical History hypertension Medical History neck pain - requires chronic pain management, on chronic narcotics Medical History lupus - sees tableau analyst in [place] Medical History Chronic HCV, successfully treated by [...]
--- OUTSIDE RECORDS SUMMARY | 2018-04-29 18:17 | XMS REPORT ---
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 9845324 Problem Neck pain M54.2 Active 78927867 Problem History of hepatitis C Z86.19 Active 76857635210321 Problem Systemic lupus erythematosus, unspecified SLE type, unspecified organ involvement status M32.9 Active [id number] ALLERGIES No Known Allergies SOCIAL HISTORY Never Assessed PLAN OF CARE Activity Details Follow Up 3 Months Reason: VITAL SIGNS Height 69 in 2016-07-23 Weight 182.4 lbs 2016-07-23 Temperature 97.7 degrees Fahrenheit 2016-07-23 Heart Rate 80 bpm 2016-07-23 Respiratory Rate 22 2016-07-23 BMI 26.93 kg/m2 2016-07-23 Blood pressure systolic 120 mmHg 2016-07-23 Blood pressure diastolic 72 mmHg 2016-07-23 MEDICATIONS Medication Instructions Dosage Frequency Start Date End Date Duration Status Fish Oil Concentrate 1000 mg 1 Capsule by Oral route 1 time per day Apr, Active Aspirin 81 MG Orally Once a day take 1 tablet (81 mg) by oral route once daily sun,tues,thur,& fri 24h Apr, Active Gabapentin 800 MG Orally Three times a day 1 tablet 8h Active Baclofen 10 MG Orally Three times a day 1 tablet with food or milk 8h Active Plaquenil 200 MG Orally 2 times a day 1 tablet with food or milk 12h Feb Active Mens Multi Vitamin & Mineral Active Percocet 7.5-500 MG Orally every 4 hrs 1 tablet as needed 4h Active Amitriptyline HCl 75 MG Orally Once a day at bedtime 1 tablet Active Vitamin E 1000 UNIT Orally Once a day 1 capsule 24h Active RESULTS Name Result Date Reference Range TSH 2016-07-23 TSH 3.050 0.450-4.500 CBC 2016-07-23 WBC 8.8 3.4-10.8 RBC 5.45 4.14-5.80 Hemoglobin 16.1 12.6-17.7 Hematocrit 47.9 37.5-51.0 MCV 88 79-97 MCH 29.5 26.6-33.0 MCHC 33.6 31.5-35.7 RDW 13.5 12.3-15.4 Platelets 240 150-379 Neutrophils 75 Lymphs 17 Monocytes 7 Eos 1 Basos 0 Neutrophils (Absolute) 6.6 1.4-7.0 Lymphs (Absolute) 1.5 0.7-3.1 Monocytes(Absolute) 0.6 0.1-0.9 Eos (Absolute) 0.1 0.0-0.4 Baso (Absolute) 0.0 0.0-0.2 Immature Granulocytes 0 Immature Grans (Abs) 0.0 0.0-0.1 ESR/SED RATE 2016-07-23 Sedimentation Rate-Westergren 10 0-30 CRP 2016-07-23 C-Reactive Protein, Quant 10.7 0.0-4.9 LIPID PANEL 2016-07-23 Cholesterol, Total 187 100-199 Triglycerides 149 0-149 HDL Cholesterol 28 >39 VLDL Cholesterol Bertrand 30 5-40 LDL Cholesterol Calc 129 0-99 CMP 2016-07-23 Glucose, Serum 88 65-99 BUN 8 8-27 Creatinine, Serum 0.93 0.76-1.27 eGFR If NonAfricn Am 88 >59 eGFR If Africn Am 102 >59 BUN/Creatinine Ratio 9 10-24 Sodium, Serum 137 134-144 Potassium, Serum 4.8 3.5-5.2 Chloride, Serum 96 96-106 Carbon Dioxide, Total 22 18-29 Calcium, Serum 9.1 8.6-10.2 Protein, Total, Serum 8.2 6.0-8.5 Albumin, Serum 4.9 3.6-4.8 Globulin, Total 3.3 1.5-4.5 A/G Ratio 1.5 1.2-2.2 Bilirubin, Total 0.6 0.0-1.2 Alkaline Phosphatase, S 96 39-117 AST (SGOT) 20 0-40 ALT (SGPT) 18 0-44 PROCEDURES Procedure Date Ordered Result Body Site LAB NOT BILLED BY [facility] July 23, 2016 VENIPUNCT, ROUTINE* July 23, 2016 [facility] VISIT ESTABLISHED PATIENT July 23, 2016 IMMUNIZATIONS No Known Immunizations MEDICAL (GENERAL) HISTORY Type Description Date Medical History hypertension Medical History neck pain - requires chronic pain management, on chronic narcotics Medical History lupus - 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 Sanchez, plates and prosthetic discs placed in spine ( unsucessful surgery) 09/27/2013 Surgical History internal bone stimulator, 2 rods 6 pins in neck, reattached plate on spine and fixed prosthetic plates; Dr. Britt 01/2014 Surgical History bone stimulator removed; Dr. Britt 06/[address]-scan and mylegram 03/2015 Hospitalization History surgeries
--- OUTSIDE RECORDS SUMMARY | 2018-04-29 18:17 | XMS REPORT ---
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 5389539 Problem Systemic lupus erythematosus, unspecified SLE type, unspecified organ involvement status M32.9 Active 87026258 Problem Neck pain M54.2 Active 30717808 Problem History of hepatitis C Z86.19 Active [id number] ALLERGIES No Information ENCOUNTERS Encounter Location Date Diagnosis [place] [id number] [place] [address] 98557- 3958 Aug, Cervicalgia M54.2 and Skin cancer C44.90 [place] [id number] [place] [address] 64827- 2949 Jul, Neck pain M54.2 [place] [id number] [place] [address] 76845- 1823 June, Neck pain M54.2 [facility] [id number] [place] [address] 75694- 3490 May, Neck pain M54.2 [facility] [id number] [place] [address] 34446- 3391 May, Systemic lupus erythematosus, unspecified SLE type, unspecified organ involvement status M32.9 and Neck pain M54.2 [facility] [id number] [place] [address] 96713- 3039 Apr, Neck pain M54.2 [place] [id number] [place] [address] 39217- 9160 Apr, Neck pain M54.2 [facility] [id number] [place] [address] 95091- 9996 Mar, Neck pain M54.2 [facility] [id number] [place] [address] 56887- 8646 Feb, Neck pain M54.2 [facility] [id number] [place] [address] 86185- 6906 Feb, Neck pain M54.2 [facility] [id number] [place] [address] 46961- 2522 Feb, [facility] [id number] [place] [address] 50997- 8361 Feb, Cervical neuritis M54.12 [facility] [id number] [place] [address] 50348- 6851 Jan, Cervical neuritis M54.12 [facility] [id number] [place] [address] 38479- 6517 Jan, Cervical neuritis M54.12 [facility] [id number] [place] [address] 51718- 6807 Nov, [facility] [id number] [place] [address] 06880- 1020 Nov, 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 and Neck pain M54.2 [facility] [id number] [place] [address] 84181- 8604 Nov, [facility] [id number] [place] [address] 13775- 4603 Nov, Neck pain M54.2 [facility] [id number] [place] [address] 85667- 6666 Nov, [facility] [id number] [address]- 4216 Oct, Neck pain M54.2 and Cervical vertebral fusion M43.22 [place] [id number] [place] [address] 72949- 5304 Sep, [place] [id number] [place] [address] 88312- 2471 Aug, Systemic lupus erythematosus, unspecified SLE type, unspecified organ involvement status M32.9 and Cervical neuritis M54.12 [place] [address] 52372- 8700 Jul, [place] [address] 87131- 5430 Jul, [place] [address] 37091- 7021 June, Lupus M32.9 ; Encounter for screening for lipoid disorders Z13.220 and Neck pain M54.2 [place] [address] 52702- 0440 June, [place] [address] 16498- 2874 Apr, History of hepatitis C Z86.19 [place] [id number] [place] [address] 19387- 0647 Nov, [place] [id number] [place] [address] 81777- 9773 June, Warts, genital A63.0 [place] [id number] [place] [address] 66633- 2181 June, Occasional tremors R25.1 ; Systemic lupus M32.9 and Anxiety about health F41.8 [place] [id number] [place] [address] 33675- 0783 June, Genital warts A63.0 [place] [id number] [place] [address] 03848- 0042 May, Lupus M32.9 ; Polyneuropathy in diseases classified elsewhere G63 and Occasional tremors R25.1 [facility] [id number] [place] [address] 29379- 9002 May, Genital warts A63.0 [facility] [id number] [place] [address] 62122- 2247 Apr, [facility] [id number] [place] [address] 39437- 1748 Mar, [facility] [id number] [place] [address] 03414- 1683 Mar, [facility] [id number] [place] [address] 06236- 1018 Mar, Lupus M32.9 [facility] [id number] [place] [address] 70205- 6106 Mar, Systemic lupus M32.9 and Neck pain M54.2 [facility] [id number] [place] [address] 39796- 6138 Feb, Systemic lupus M32.9 [facility] [id number] [place] [address] 17772- 2052 Feb, Systemic lupus erythematosus, organ or system involvement unspecified M32.10 ; Polyneuropathy in diseases classified elsewhere G63 and Hyperpigmented skin lesion L81.9 [facility] [id number] [place] [address] 86933- 4988 Aug, Genital warts 078.11 [facility] [id number] [place] [address] 50403- 7715 05 Jul, 2014 Genital warts 078.11 [facility] [id number] [place] [address] 17561- 3623 Jul, [facility] [id number] [place] [address] 22489- 7309 14 May, 2014 [facility] [id number] [place] [address] 04330- 6880 May, [facility] [place] [facility] [address] [id number] [place] [address]- 4181 Dec, [facility] [place] [facility] [address] [id number] [place] [address]- 2088 Dec, [facility] [place] [facility] [address] [id number] [place] [address]- 4572 Sep, [facility] [place] [facility] [address] [id number] [place] [address]- 4945 Sep, [facility] [place] [facility] [address] [id number] [place] [address]- 3027 Sep, [facility] [place] [facility] [address] [id number] [place] [address]- 9815 Sep, [facility] [place] [facility] [address] [id number] [place] [address]- 3831 Sep, [facility] [place] [facility] [address] [id number] [place] [address]- 2995 Sep, [facility] [place] [facility] [address] [id number] [place] [address]- 5171 Aug, [facility] [place] [facility] [address] [id number] [place] [address]- 3175 Aug, [facility] [place] [facility] [address] [id number] [place] [address]- 9217 Aug, [facility] [place] [facility] [address] [id number] [place] [address]- 5308 Aug, [facility] [place] [facility] [address] [id number] [place] [address]- 8273 Aug, [facility] [place] [facility] [address] [id number] [place] [address]- 6824 Aug, [facility] [place] [facility] [address] [id number] [place] [address]- 1090 Jul, [facility] [place] [facility] [address] [id number] [place] [address]- 3536 27 Jul, 2013 [facility] [place] [facility] [address] [id number] [place] [address]- 2615 16 Jul, 2013 [facility] [place] [facility] [address] [id number] [place] [address]- 2855 16 Jul, 2013 [facility] [place] [facility] [address] [id number] [place] [address]- 3371 Jul, [facility] [place] [facility] [address] [id number] [place] [address]- 0537 Jul, [facility] [place] [facility] [address] [id number] [place] [address]- 9436 Jul, [facility] [place] [facility] [address] [id number] [place] [address]- 9741 Jul, [facility] [place] [facility] [address] [id number] [place] [address]- 3712 Jul, [facility] [place] [facility] [address] [id number] [place] [address]- 4693 Jul, [facility] [place] [facility] [address] [id number] [place] [address]- 0972 Jul, [facility] [place] [facility] [address] [id number] [place] [address]- 7790 Jul, [facility] [place] [facility] [address] [id number] [place] [address]- 2939 05 Jul, 2013 [facility] [place] [facility] [address] [id number] [place] [address]- 9307 05 Jul, 2013 [facility] [place] [facility] [address] [id number] [place] [address]- 6090 05 Jul, 2013 [facility] [place] [facility] [address] [id number] [place] [address]- 9725 05 Jul, 2013 [facility] [place] [facility] [address] [id number] [place] [address]- 8678 04 Jul, 2013 [facility] [place] [facility] [address] [id number] [place] [address]- 2506 Jul, [facility] [place] [facility] [address] [id number] [place] [address]- 7255 June, [facility] [place] [facility] [address] [id number] [place] [address]- 8852 June, [facility] [place] [facility] [address] [id number] [place] [address]- 0165 June, [facility] [place] [facility] [address] [id number] [place] [address]- 6946 June, [facility] [place] [facility] [address] [id number] [place] [address]- 1077 May, [facility] [place] [facility] [address] [id number] [place] [address]- 6922 May, [facility] [place] [facility] [address] [id number] [place] [address]- 5557 May, [facility] [place] [facility] [address] [id number] [place] [address]- 6908 May, [facility] [place] [facility] [address] [id number] [place] [address]- 7733 May, [facility] [place] [facility] [address] [id number] [place] [address]- 7918 May, [facility] [place] [facility] [address] [id number] [place] [address]- 6328 May, [facility] [place] [facility] [address] [id number] [place] [address]- 1837 May, [facility] [place] [facility] [address] [id number] [place] [address]- 3521 May, [facility] [place] [facility] [address] [id number] [place] [address]- 4241 May, [facility] [place] [facility] [address] [id number] [place] [address]- 3437 Apr, [facility] [place] [facility] [address] [id number] [place] [address]- 0294 Apr, [facility] [place] [facility] [address] [id number] [place] [address]- 5747 Apr, [facility] [place] [facility] [address] [facility] [id number] [place] [address]- 9360 Apr, [facility] [place] [facility] [address] [id number] [place] [address]- 5443 Apr, [facility] [place] [facility] [address] [id number] [place] [address]- 7526 Apr, [facility] [place] [facility] [address] [facility] [id number] [place] [address]- 0919 Mar, [facility] [place] [facility] [address] [facility] [id number] [place] [address]- 3995 Mar, [facility] [place] [facility] [address] [id number] [place] [address]- 8721 Mar, [facility] [place] [facility] [address] [id number] [place] [address]- 6335 Mar, [facility] [place] [facility] [address] [facility] [id number] [place] [address]- 8544 Mar, [facility] [place] [facility] [address] [facility] [id number] [place] [address]- 6663 Mar, [facility] [place] [facility] [address] [facility] [id number] [address]- 9878 Mar, [facility] [place] [facility] [address] [id number] [place] [address]- 3871 Mar, [facility] [place] [facility] [address] [facility] [id number] [place] [address]- 9844 Feb, [facility] [place] [facility] [address] [facility] [id number] [address]- 9779 Feb, [facility] [place] [facility] [address] [id number] [place] [address]- 1852 Feb, [facility] [place] [facility] [address] [id number] [place] [address]- 4754 Feb, [facility] [place] [facility] [address] [id number] [place] [address]- 3214 Feb, [facility] [place] [facility] [address] [id number] [place] [address]- 3514 Feb, [facility] [place] [facility] [address] [id number] [place] [address]- 3385 Feb, [facility] [place] [facility] [address] [id number] [place] [address]- 2380 Feb, [facility] [place] [facility] [address] [id number] [place] [address]- 7960 Feb, [facility] [place] [facility] [address] [id number] [place] [address]- 2955 Feb, [facility] [place] [facility] [address] [id number] [place] [address]- 9577 Feb, [facility] [place] [facility] [address] [id number] [place] [address]- 0080 Feb, [facility] [place] [facility] [address] [id number] [place] [address]- 6033 Feb, [facility] [place] [facility] [address] [id number] [place] [address]- 7903 Feb, [facility] [place] [facility] [address] [id number] [place] [address]- 7722 Feb, [facility] [place] [facility] [address] [id number] [place] [address]- 4716 Jan, [facility] [place] [facility] [address] [id number] [place] [address]- 3159 Jan, [facility] [place] [facility] [address] [id number] [place] [address]- 8822 30 Jan, 2013 [facility] [place] [facility] [address] [id number] [place] [address]- 5067 30 Jan, 2013 [facility] [place] [facility] [address] [id number] [place] [address]- 3046 16 Jan, 2013 [facility] [place] [facility] [address] [id number] [place] [address]- 5467 Jan, [facility] [place] [facility] [address] [id number], [place] [address]- 0529 Dec, [facility] [place] [facility] [address] [id number] [place] [address]- 7099 Dec, [facility] [place] [facility] [address] [id number], [place] [address]- 1587 Dec, [facility] [place] [facility] [address] [id number], [place] [address]- 5553 Dec, [facility] [place] [facility] [address] [id number], [place] [address]- 7152 18 Dec, 2012 [facility] [place] [facility] [address] [id number], [place] [address]- 7603 Dec, [facility] [place] [facility] [address] [id number], [place] [address]- 0490 Dec, [facility] [place] [facility] [address] [id number], [place] [address]- 3554 Dec, [facility] [place] [facility] [address] [id number], [place] [address]- 6847 Dec, [facility] [place] [facility] [address] [id number], [place] [address]- 4883 Dec, [facility] [place] [facility] [address] [id number], [place] [address]- 0674 Dec, [facility] [place] [facility] [address] [id number][place] [address]- 4862 29 Nov, 2012 [facility] [place] [facility] [address] [id number] [place] [address]- 1700 Nov, 2012 [facility] [address] [id number] [place] [address]- 7646 Nov, 2012 [facility] [place] [facility] [address] [id number] [place] [address]- 6258 Nov, 2012 [facility] [address] [id number] [place] [address]- 3554 Nov, 2012 [facility] [place] [facility] [address] [id number] [place] [address]- 1193 Nov, 2012 [facility] [address] [id number] [place] [address]- 6739 Nov, 2012 [facility] [address] [id number] [place] [address]- 2809 Nov, [facility] [address] [id number] [place] [address]- 3431 Nov, [facility] [address] [id number] [place] [address]- 1454 Nov, [facility] [place] [facility] [address] [id number] [place] [address]- 7925 Nov, [facility] [address] [id number] [place] [address]- 8983 Nov, [facility] [place] [facility] [address] [id number] [place] [address]- 6019 Nov, [facility] [place] [facility] [address] [id number] [place] [address]- 4619 Nov, [facility] [place] [facility] [address] [id number] [place] 7630 18 Oct, 2012 [facility] [place] [facility] [address] [id number] [place] [address]- 1182 17 Sep, 2012 [facility] [place] [facility] [address] [id number] [place] [address]- 7566 Oct, [facility] [place] [facility] [address] [id number] [place] [address]- 4400 Oct, [facility] [place] [facility] [address] [id number] [place] [address]- 5753 Sep, [facility] [place] [facility] [address] [id number] [place] [address]- 6366 Sep, [facility] [place] [facility] [address] [id number] [place] [address]- 0780 Sep, [facility] [place] [facility] [address] [id number] [place] [address]- 7327 Sep, [facility] [place] [facility] [address] [id number] [place] [address]- 8660 Sep, [facility] [place] [facility] [address] [id number] [place] [address]- 0317 Sep, [facility] [place] [facility] [address] [id number] [place] [address]- 9298 Sep, [facility] [place] [facility] [address] [id number] [place] [address]- 2101 Aug, [facility] [place] [facility] [address] [id number] [place] [address]- 0146 Aug, [facility] [place] [facility] [address] [id number] [place] [address]- 6537 Jul, [facility] [place] [facility] [address] [id number] [place] [address]- 3133 Jul, [facility] [place] [facility] [address] [id number] [place] [address]- 1548 Jul, [facility] [place] [facility] [address] [id number] [place] [address]- 7907 Jul, [facility] [place] [facility] [address] [id number] [place] [address]- 1450 Jul, [facility] [place] [facility] [address] [id number] [place] [address]- 4478 Jul, [facility] [address] [id number] [place] [address]- 3792 Jul, [facility] [address] [id number] [place] [address]- 6390 June, [facility] [address] [id number] [place] [address]- 3922 June, [facility] [address] [id number] [place] [address]- 5348 29 May, 2012 [facility] [address] [id number] [place] [address]- 7352 24 May, 2012 [facility] [address] [id number] [place] [address]- 4863 May, [facility] [address] [id number] [place] [address]- 4299 May, [facility] [address] [id number] [place] [address] May, [facility] [address] [id number] [place] [address] 08 May, 2012 [facility] [address] [id number] [place] [address] 05 May, 2012 [facility] [address] [id number] [place] [address] May, [facility] [place] [facility] [address] [id number] [place] [address] May, [facility] [place] [facility] [address] [id number] [place] [address] 28 Apr, 2012 [facility] [place] [facility] [address] [id number] [place] [address] Apr, [facility] [place] [facility] [address] [id number] [place] [address] Apr, [facility] [place] [facility] [address] [id number] [place] [address] Apr, IMMUNIZATIONS No Known Immunizations SOCIAL HISTORY Never Assessed REASON FOR VISIT Refill request PLAN OF CARE VITAL SIGNS MEDICATIONS Medication Instructions Dosage Frequency Start Date End Date Duration Status Amitriptyline HCl 75 MG Orally Once a day at bedtime 1 tablet 30 days Active RESULTS No Results PROCEDURES No Known procedures INSTRUCTIONS MEDICATIONS ADMINISTERED No Known Medications MEDICAL (GENERAL) HISTORY Type Description Date Medical History hypertension Medical History neck pain - requires chronic pain management, on chronic narcotics Medical History lupus - sees [facility] hand in [place] Medical History Chronic HCV, successfully treated by Dr Barone in 2012 Medical History skin cancer Surgical History Dr. aSnchez, plates and prosthetic discs placed in spine ( unsucessful surgery) 09/27/2013 Surgical History internal bone stimulator, 2 rods 6 pins in neck, reattached plate on spine and fixed prosthetic plates; Dr. Britt 01/2014 Surgical History bone stimulator removed; Dr. Britt 06/[address]-scan and mylegram 03/2015 Hospitalization History surgeries
--- OUTSIDE RECORDS SUMMARY | 2018-04-29 18:17 | XMS REPORT ---
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 0823203 Problem Systemic lupus erythematosus, unspecified SLE type, unspecified organ involvement status M32.9 Active 04059189 Problem Neck pain M54.2 Active 46842139 Problem History of hepatitis C Z86.19 Active [id number] ALLERGIES No Information ENCOUNTERS Encounter Location Date Diagnosis [place] [id number] [place] [address] 22528- 2650 Aug, Cervicalgia M54.2 and Skin cancer C44.90 [place] [address] 19782- 0901 Jul, Neck pain M54.2 [place] [id number] [place] [address] 80552- 7828 June, Neck pain M54.2 [place] [id number] [place] [address] 22233- 6390 May, Neck pain M54.2 [place] [id number] [place] [address] 91681- 6447 May, Systemic lupus erythematosus, unspecified SLE type, unspecified organ involvement status M32.9 and Neck pain M54.2 [facility] [id number] [place] [address] 73550- 1843 Apr, Neck pain M54.2 [place] [address] 26744- 5043 Apr, Neck pain M54.2 [facility] [id number] [place] [address] 37269- 7186 Mar, Neck pain M54.2 [facility] [id number] [place] [address] 35302- 1076 Feb, Neck pain M54.2 [facility] [id number] [place] [address] 59702- 4407 Feb, Neck pain M54.2 [facility] [id number] [place] [address] 79219- 4069 Feb, [facility] [id number] [place] [address] 09180- 1014 Feb, Cervical neuritis M54.12 [facility] [id number] [place] [address] 21419- 2677 Jan, Cervical neuritis M54.12 [facility] [id number] [place] [address] 46207- 1426 Jan, Cervical neuritis M54.12 [facility] [id number] [place] [address] 29452- 7977 Nov, [facility] [id number] [place] [address] 83999- 2231 Nov, 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 and Neck pain M54.2 [facility] [id number] [place] [address] 47576- 9595 Nov, [facility] [id number] [place] [address] 28288- 6083 Nov, Neck pain M54.2 [facility] [address] [id number] [place] [address] 56337- 1396 Nov, [facility] [id number] [place] [address] 83020- 5744 Oct, Neck pain M54.2 and Cervical vertebral fusion M43.22 [place] [id number] [place] [address] 33027- 2364 Sep, [place] [id number] [place] [address] 27709- 0278 Aug, Systemic lupus erythematosus, unspecified SLE type, unspecified organ involvement status M32.9 and Cervical neuritis M54.12 [place] [address] 07095- 5518 Jul, [place] [id number] [place] [address] 86128- 5488 Jul, [place] [address] 72084- 0662 June, Lupus M32.9 ; Encounter for screening for lipoid disorders Z13.220 and Neck pain M54.2 [place] [address] 76498- 2007 June, [place] [id number] [place] [address] 36055- 8727 Apr, History of hepatitis C Z86.19 [place] [id number] [place] [address] 61477- 4594 Nov, [place] [id number] [place] [address] 28323- 7478 June, Warts, genital A63.0 [place] [id number] [place] [address] 95087- 3789 June, Occasional tremors R25.1 ; Systemic lupus M32.9 and Anxiety about health F41.8 [place] [id number] [place] [address] 96401- 1100 June, Genital warts A63.0 [place] [id number] [place] [address] 94967- 3229 May, Lupus M32.9 ; Polyneuropathy in diseases classified elsewhere G63 and Occasional tremors R25.1 [facility] [id number] [place] [address] 31011- 3176 May, Genital warts A63.0 [facility] [id number] [place] [address] 12726- 9753 Apr, [facility] [id number] [place] [address] 01764- 6486 Mar, [facility] [id number] [place] [address] 79236- 3213 Mar, [facility] [id number] [place] [address] 19918- 2697 Mar, Lupus M32.9 [facility] [id number] [place] [address] 04264- 6604 Mar, Systemic lupus M32.9 and Neck pain M54.2 [facility] [id number] [place] [address] 82359- 6772 Feb, Systemic lupus M32.9 [facility] [id number] [place] [address] 04636- 6507 Feb, Systemic lupus erythematosus, organ or system involvement unspecified M32.10 ; Polyneuropathy in diseases classified elsewhere G63 and Hyperpigmented skin lesion L81.9 [facility] [id number] [place] [address] 33336- 1049 Aug, Genital warts 078.11 [facility] [id number] [place] [address] 43424- 8737 Jul, Genital warts 078.11 [facility] [id number] [place] [address] 98250- 3772 Jul, [facility] [id number] [place] [address] 78140- 6351 14 May, 2014 [facility] [id number] [place] [address] 97213- 2758 May, [facility] [place] [facility] [address] [id number] [place] [address]- 2073 Dec, [facility] [place] [facility] [address] [id number] [place] [address]- 2555 Dec, [facility] [place] [facility] [address] [id number] [place] [address]- 4441 Sep, [facility] [place] [facility] [address] [id number] [place] [address]- 9745 Sep, [facility] [place] [facility] [address] [id number] [place] [address]- 5378 Sep, [facility] [place] [facility] [address] [id number] [place] [address]- 9929 Sep, [facility] [place] [facility] [address] [id number] [place] [address]- 9464 Sep, [facility] [place] [facility] [address] [id number] [place] [address]- 9229 Sep, [facility] [place] [facility] [address] [id number] [place] [address]- 9327 Aug, [facility] [place] [facility] [address] [id number] [place] [address]- 1654 Aug, [facility] [place] [facility] [address] [id number] [place] [address]- 7793 Aug, [facility] [place] [facility] [address] [id number] [place] [address]- 4708 Aug, [facility] [place] [facility] [address] [id number] [place] [address]- 3753 Aug, [facility] [place] [facility] [address] [id number] [place] [address]- 0947 Aug, [facility] [place] [facility] [address] [id number] [place] [address]- 7307 Jul, [facility] [place] [facility] [address] [id number] [place] [address]- 8490 27 Jul, 2013 [facility] [place] [facility] [address] [id number] [place] [address]- 2331 Jul, [facility] [place] [facility] [address] [id number] [place] [address]- 6722 16 Jul, 2013 [facility] [place] [facility] [address] [id number] [place] [address]- 4466 Jul, [facility] [place] [facility] [address] [id number] [place] [address]- 2211 Jul, [facility] [place] [facility] [address] [id number] [place] [address]- 0718 Jul, [facility] [place] [facility] [address] [id number] [place] [address]- 9670 Jul, [facility] [place] [facility] [address] [id number] [place] [address]- 1436 Jul, [facility] [place] [facility] [address] [id number] [place] [address]- 2768 Jul, [facility] [place] [facility] [address] [id number] [place] [address]- 9151 Jul, [facility] [place] [facility] [address] [id number] [place] [address]- 6342 Jul, [facility] [place] [facility] [address] [id number] [place] [address]- 0369 Jul, [facility] [place] [facility] [address] [id number] [place] [address]- 5976 05 Jul, 2013 [facility] [place] [facility] [address] [id number] [place] [address]- 1154 05 Jul, 2013 [facility] [place] [facility] [address] [id number] [place] [address]- 5241 05 Jul, 2013 [facility] [place] [facility] [address] [id number] [place] [address]- 2343 Jul, [facility] [place] [facility] [address] [id number] [place] [address]- 8640 Jul, [facility] [place] [facility] [address] [id number] [place] [address]- 3437 June, [facility] [place] [facility] [address] [id number] [place] [address]- 5160 June, [facility] [place] [facility] [address] [id number] [place] [address]- 6685 June, [facility] [place] [facility] [address] [id number] [place] [address]- 9693 June, [facility] [place] [facility] [address] [id number] [place] [address]- 1485 May, [facility] [place] [facility] [address] [id number] [place] [address]- 8437 May, [facility] [place] [facility] [address] [id number] [place] [address]- 5102 May, [facility] [place] [facility] [address] [id number] [place] [address]- 7557 May, [facility] [place] [facility] [address] [id number] [place] [address]- 0077 May, [facility] [place] [facility] [address] [id number] [place] [address]- 8810 May, [facility] [place] [facility] [address] [id number] [place] [address]- 9687 May, [facility] [place] [facility] [address] [id number] [place] [address]- 6822 May, [facility] [place] [facility] [address] [id number] [place] [address]- 3181 May, [facility] [place] [facility] [address] [id number] [place] 0648 May, [facility] [place] [facility] [address] [id number] [place] [address]- 9661 Apr, [facility] [place] [facility] [address] [id number] [place] [address]- 2312 Apr, [facility] [place] [facility] [address] [id number] [place] [address]- 9975 Apr, [facility] [place] [facility] [address] [facility] [id number] [place] [address]- 6235 Apr, [facility] [place] [facility] [address] [id number] [place] [address]- 6321 Apr, [facility] [place] [facility] [address] [id number] [place] [address]- 2714 Apr, [facility] [place] [facility] [address] [id number] [place] [address]- 5885 Mar, [facility] [place] [facility] [address] [facility] [id number] [place] [address]- 4146 Mar, [facility] [place] [facility] [address] [facility] [id number] [place] [address]- 7592 Mar, [facility] [place] [facility] [address] [facility] [id number] [place] [address]- 0537 Mar, [facility] [place] [facility] [address] [facility] [id number] [place] [address]- 8730 Mar, [facility] [place] [facility] [address] [facility] [id number] [place] [address]- 9870 Mar, [facility] [place] [facility] [address] [facility] [id number] [place] [address]- 6480 Mar, [facility] [place] [facility] [address] [id number] [place] [address]- 6038 Mar, [facility] [place] [facility] [address] [facility] [id number] [place] [address]- 9721 Feb, [facility] [place] [facility] [address] [facility] [id number] [place] [address]- 9921 Feb, [facility] [place] [facility] [address] [id number] [place] [address]- 8264 Feb, [facility] [place] [facility] [address] [id number] [place] [address]- 3330 Feb, [facility] [place] [facility] [address] [id number] [place] [address]- 3333 Feb, [facility] [place] [facility] [address] [id number] [place] [address]- 1049 Feb, [facility] [place] [facility] [address] [id number] [place] [address]- 6700 Feb, [facility] [place] [facility] [address] [id number] [place] [address]- 8720 Feb, [facility] [place] [facility] [address] [id number] [place] [address]- 1327 Feb, [facility] [place] [facility] [address] [id number] [place] [address]- 6799 Feb, [facility] [place] [facility] [address] [id number] [place] [address]- 5316 Feb, [facility] [place] [facility] [address] [id number] [place] [address]- 5782 Feb, [facility] [place] [facility] [address] [id number] [place] [address]- 1882 Feb, [facility] [place] [facility] [address] [id number] [place] [address]- 9939 Feb, [facility] [place] [facility] [address] [id number] [place] [address]- 2753 Feb, [facility] [place] [facility] [address] [id number] [place] [address]- 1733 Jan, [facility] [place] [facility] [address] [id number] [place] [address]- 1679 Jan, [facility] [place] [facility] [address] [id number], [place] [address]- 6561 30 Jan, 2013 [facility] [address] [id number] [place] [address]- 8233 30 Jan, 2013 [facility] [place] [facility] [address] [id number], [place] [address]- 6452 16 Jan, 2013 [facility] [place] [facility] [address] [id number] [place] [address]- 5926 Jan, [facility] [place] [facility] [address] [id number], [place] [address]- 5553 Dec, [facility] [place] [facility] [address] [id number] [place] [address]- 4899 Dec, [facility] [place] [facility] [address] [id number] [place] [address]- 2588 Dec, [facility] [place] [facility] [address] [id number], [place] [address]- 7118 Dec, [facility] [place] [facility] [address] [id number] [place] [address]- 4431 18 Dec, 2012 [facility] [place] [facility] [address] [id number], [place] [address]- 4726 Dec, [facility] [place] [facility] [address] [id number], [place] [address]- 4748 Dec, [facility] [place] [facility] [address] [id number], [place] [address]- 7054 Dec, [facility] [place] [facility] [address] [id number], [place] [address]- 3696 Dec, [facility] [place] [facility] [address] [id number], [place] [address]- 6171 Dec, [facility] [place] [facility] [address] [id number], [place] [address]- 0729 Dec, [facility] [place] [facility] [address] [id number] [place] [address]- 1484 29 Nov, 2012 [facility] [place] [facility] [address] [id number] [place] [address]- 6726 Nov, 2012 [facility] [place] [facility] [address] [id number] [place] [address]- 3162 Nov, 2012 [facility] [place] [facility] [address] [id number] [place] [address]- 1541 Nov, 2012 [facility] [place] [facility] [address] [id number] [place] [address]- 7532 Nov, 2012 [facility] [place] [facility] [address] [id number] [place] [address]- 8360 Nov, 2012 [facility] [place] [facility] [address] [id number] [place] [address]- 0176 Nov, 2012 [facility] [place] [facility] [address] [id number] [place] [address]- 0410 Nov, 2012 [facility] [place] [facility] [address] [id number] [place] [address]- 7168 Nov, 2012 [facility] [place] [facility] [address] [id number] [place] [address]- 8428 Nov, [facility] [place] [facility] [address] [id number] [place] [address]- 9311 Nov, [facility] [place] [facility] [address] [id number] [place] [address]- 5919 Nov, [facility] [place] [facility] [address] [id number] [place] [address]- 6904 Nov, [facility] [place] [facility] [address] [id number] [place] 4185 Nov, [facility] [place] [facility] [address] [id number] [place] [address]- 5628 18 Oct, 2012 [facility] [place] [facility] [address] [id number] [place] [address] 2546 17 Oct, 2012 [facility] [place] [facility] [address] [id number] [place] [address]- 1527 Oct, [facility] [place] [facility] [address] [id number] [place] [address]- 4019 Oct, [facility] [place] [facility] [address] [id number] [place] [address]- 8341 Sep, [facility] [place] [facility] [address] [id number] [place] [address]- 4183 Sep, [facility] [place] [facility] [address] [id number] [place] [address]- 9761 Sep, [facility] [place] [facility] [address] [id number] [place] [address]- 6006 Sep, [facility] [place] [facility] [address] [id number] [place] [address]- 7937 Sep, [facility] [place] [facility] [address] [id number] [place] [address]- 1094 Sep, [facility] [place] [facility] [address] [id number] [place] [address]- 9694 Sep, [facility] [place] [facility] [address] [id number] [place] [address]- 4533 Aug, [facility] [place] [facility] [address] [id number] [place] [address]- 9921 Aug, [facility] [place] [facility] [address] [id number] [place] [address]- 1739 Jul, [facility] [place] [facility] [address] [id number] [place] [address]- 4951 Jul, [facility] [place] [facility] [address] [id number] [place] [address]- 6970 Jul, [facility] [place] [facility] [address] [id number] [place] [address]- 8479 Jul, [facility] [place] [facility] [address] [id number] [place] [address]- 2704 Jul, [facility] [place] [facility] [address] [id number] [place] [address]- 7655 04 Jul, 2012 [facility] [address] [id number] [place] [address]- 2123 Jul, [facility] [address] [id number] [place] [address]- 2031 June, [facility] [address] [id number] [place] [address]- 0514 June, [facility] [address] [id number] [place] [address]- 0118 29 May, 2012 [facility] [address] [id number] [place] [address]- 5028 24 May, 2012 [facility] [address] [id number] [place] [address]- 1096 May, [facility] [address] [id number] [place] [address]- 2857 May, [facility] [address] [id number] [place] [address] May, [facility] [address] [id number] [place] [address] 08 May, 2012 [facility] [address] [id number] [place] [address] 05 May, 2012 [facility] [address] [id number] [place] [address] May, [facility] [place] [facility] [address] [id number] [place] [address] May, [facility] [place] [facility] [address] [id number] [place] [address] 28 Apr, 2012 [facility] [place] [facility] [address] [id number] [place] [address] Apr, [facility] [address] [id number] [place] [address] Apr, [facility] [address] [facility] [id number] [place] [address] Apr, IMMUNIZATIONS No Known Immunizations SOCIAL HISTORY Never Assessed REASON FOR VISIT Refill request PLAN OF CARE VITAL SIGNS MEDICATIONS Medication Instructions Dosage Frequency Start Date End Date Duration Status Percocet 7.5-325 MG Orally every 4 hours 1 tablet as needed 4h Apr, 28 days Active RESULTS No Results PROCEDURES No Known procedures INSTRUCTIONS MEDICATIONS ADMINISTERED No Known Medications MEDICAL (GENERAL) HISTORY Type Description Date Medical History hypertension Medical History neck pain - requires chronic pain management, on chronic narcotics Medical History lupus - sees test grader in [place] Medical History Chronic HCV, successfully treated by [...]
--- OUTSIDE RECORDS SUMMARY | 2018-04-29 18:18 | XMS REPORT ---
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 4558976 Problem Neck pain M54.2 Active 93358066 Problem History of hepatitis C Z86.19 Active [id number] Problem Systemic lupus erythematosus, unspecified SLE type, unspecified organ involvement status M32.9 Active [id number] ALLERGIES No Information ENCOUNTERS Encounter Location Date Diagnosis [place] [id number] [place] [address] 80597- 4564 Aug, [facility] [id number] [place] [address] 92644- 9723 Jul, Neck pain M54.2 [facility] [id number] [place] [address] 90414- 3677 June, Neck pain M54.2 [facility] [id number] [place] [address] 60166- 3254 May, Neck pain M54.2 [facility] [id number] [place] [address] 16257- 4816 May, Systemic lupus erythematosus, unspecified SLE type, unspecified organ involvement status M32.9 and Neck pain M54.2 [facility] [id number] [place] [address] 48652- 6269 Apr, Neck pain M54.2 [facility] [id number] [place] [address] 20731- 4455 Apr, Neck pain M54.2 [facility] [id number] [place] [address] 48208- 8195 Mar, Neck pain M54.2 [facility] [id number] [place] [address] 12698- 8946 Feb, Neck pain M54.2 [facility] [id number] [place] [address] 82793- 4583 Feb, Neck pain M54.2 [facility] [id number] [place] [address] 66635- 5734 Feb, [facility] [id number] [place] [address] 61883- 4199 Feb, Cervical neuritis M54.12 [facility] [id number] [place] [address] 78133- 4488 Jan, Cervical neuritis M54.12 [facility] [id number] [place] [address] 86098- 2314 Jan, Cervical neuritis M54.12 [facility] [id number] [place] [address] 93840- 6022 Nov, [facility] [id number] [place] [address] 81216- 6612 Nov, 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 and Neck pain M54.2 [facility] [id number] [place] [address] 89404- 4687 Nov, [facility] [id number] [place] [address] 24254- 0316 Nov, Neck pain M54.2 [facility] [id number] [place] [address] 15225- 4225 Nov, [facility] [id number] [place] [address] 25399- 9556 Oct, Neck pain M54.2 and Cervical vertebral fusion M43.22 [facility] [id number] [place] [address] 54180- 6186 Sep, [place] [id number] [place] [address] 54739- 9053 Aug, Systemic lupus erythematosus, unspecified SLE type, unspecified organ involvement status M32.9 and Cervical neuritis M54.12 [place] [id number] [place] [address] 28837- 0070 Jul, [place] [address] 08741- 0767 Jul, [place] [id number] [place] [address] 08093- 3828 June, Lupus M32.9 ; Encounter for screening for lipoid disorders Z13.220 and Neck pain M54.2 [place] [id number] [place] [address] 60454- 4762 June, [place] [address] 72416- 5588 Apr, History of hepatitis C Z86.19 [place] [id number] [place] [address] 40988- 5328 Nov, [place] [id number] [place] [address] 62039- 7829 June, Warts, genital A63.0 [place] [id number] [place] [address] 60748- 7106 June, Occasional tremors R25.1 ; Systemic lupus M32.9 and Anxiety about health F41.8 [place] [id number] [place] [address] 50092- 7859 June, Genital warts A63.0 [place] [id number] [place] [address] 52894- 3151 May, Lupus M32.9 ; Polyneuropathy in diseases classified elsewhere G63 and Occasional tremors R25.1 [place] [id number] [place] [address] 90603- 0914 May, Genital warts A63.0 [facility] [id number] [place] [address] 42597- 5254 Apr, [facility] [id number] [place] [address] 14533- 7272 Mar, [facility] [id number] [place] [address] 31367- 2663 Mar, [facility] [id number] [place] [address] 17117- 6054 Mar, Lupus M32.9 [facility] [id number] [place] [address] 32846- 4506 Mar, Systemic lupus M32.9 and Neck pain M54.2 [facility] [id number] [place] [address] 18182- 5589 Feb, Systemic lupus M32.9 [facility] [id number] [place] [address] 53197- 7346 Feb, Systemic lupus erythematosus, organ or system involvement unspecified M32.10 ; Polyneuropathy in diseases classified elsewhere G63 and Hyperpigmented skin lesion L81.9 [facility] [address] [address]- 1348 Aug, Genital warts 078.11 [facility] [id number] [place] [address] 60792- 6518 05 Jul, 2014 Genital warts 078.11 [facility] [id number] [place] [address] 95100- 7071 Jul, [facility] [id number] [place] [address] 64156- 5605 14 May, 2014 [facility] [id number] [place] [address] 82718- 5700 13 May, 2014 [facility] [id number] [place] [address] 28987- 8449 Dec, [facility] [place] [facility] [address] [id number] [place] [address]- 4016 Dec, [facility] [place] [facility] [address] [id number] [place] [address]- 2218 Sep, [facility] [place] [facility] [address] [id number] [place] [address]- 1122 Sep, [facility] [place] [facility] [address] [id number] [place] [address]- 3595 Sep, [facility] [place] [facility] [address] [id number] [place] [address]- 7311 Sep, [facility] [place] [facility] [address] [id number] [place] [address]- 4185 Sep, [facility] [place] [facility] [address] [id number] [place] [address]- 6551 Sep, [facility] [place] [facility] [address] [id number] [place] [address]- 1039 Aug, [facility] [place] [facility] [address] [id number] [place] [address]- 3942 Aug, [facility] [place] [facility] [address] [id number] [place] [address]- 1813 Aug, [facility] [place] [facility] [address] [id number] [place] [address]- 0023 Aug, [facility] [place] [facility] [address] [id number] [place] [address]- 0286 Aug, [facility] [place] [facility] [address] [id number] [place] [address]- 4927 Aug, [facility] [place] [facility] [address] [id number] [place] [address]- 9133 Jul, [facility] [place] [facility] [address] [id number] [place] [address]- 5656 Jul, [facility] [place] [facility] [address] [id number] [place] [address]- 8844 16 Jul, 2013 [facility] [place] [facility] [address] [id number] [place] [address]- 7378 16 Jul, 2013 [facility] [place] [facility] [address] [id number] [place] [address]- 3060 16 Jul, 2013 [facility] [place] [facility] [address] [id number] [place] [address]- 2460 Jul, [facility] [place] [facility] [address] [id number] [place] [address]- 2821 Jul, [facility] [place] [facility] [address] [id number] [place] [address]- 2040 Jul, [facility] [place] [facility] [address] [id number] [place] [address]- 5796 Jul, [facility] [place] [facility] [address] [id number] [place] [address]- 5578 Jul, [facility] [place] [facility] [address] [id number] [place] [address]- 4520 Jul, [facility] [place] [facility] [address] [id number] [place] [address]- 6609 Jul, [facility] [place] [facility] [address] [id number] [place] [address]- 0479 05 Jul, 2013 [facility] [place] [facility] [address] [id number] [place] [address]- 8958 Jul, [facility] [place] [facility] [address] [id number] [place] [address]- 3422 05 Jul, 2013 [facility] [place] [facility] [address] [id number] [place] [address]- 5108 Jul, [facility] [place] [facility] [address] [id number] [place] [address]- 8945 04 Jul, 2013 [facility] [place] [facility] [address] [id number] [place] [address]- 5522 Jul, [facility] [place] [facility] [address] [id number] [place] [address]- 1913 June, [facility] [place] [facility] [address] [id number] [place] [address]- 2801 June, [facility] [place] [facility] [address] [id number] [place] [address]- 3429 June, [facility] [place] [facility] [address] [id number] [place] [address]- 9148 June, [facility] [place] [facility] [address] [id number] [place] [address]- 7395 May, [facility] [place] [facility] [address] [id number] [place] [address]- 5791 May, [facility] [place] [facility] [address] [id number] [place] [address]- 5977 May, [facility] [place] [facility] [address] [id number] [place] [address]- 0574 May, [facility] [place] [facility] [address] [id number] [place] [address]- 7989 May, [facility] [place] [facility] [address] [id number] [place] [address]- 8746 May, [facility] [place] [facility] [address] [id number] [place] [address]- 7384 May, [facility] [place] [facility] [address] [id number] [place] [address]- 5710 May, [facility] [place] [facility] [address] [id number] [place] [address]- 5956 May, [facility] [place] [facility] [address] [id number] [place] [address]- 2738 May, [facility] [place] [facility] [address] [id number] [place] [address]- 0787 Apr, [facility] [place] [facility] [address] [id number] [place] [address]- 2804 Apr, [facility] [place] [facility] [address] [id number] [place] [address]- 2892 Apr, [facility] [place] [facility] [address] [id number] [place] [address]- 9511 Apr, [facility] [place] [facility] [address] [id number] [place] [address]- 3934 Apr, [facility] [place] [facility] [address] [id number] [place] [address]- 0894 Apr, [facility] [place] [facility] [address] [id number] [place] [address]- 5607 Mar, [facility] [place] [facility] [address] [id number] [place] [address]- 1457 Mar, [facility] [place] [facility] [address] [id number] [place] [address]- 9748 Mar, [facility] [place] [facility] [address] [id number] [place] [address]- 6934 Mar, [facility] [place] [facility] [address] [id number] [place] [address]- 0566 Mar, [facility] [place] [facility] [address] [id number] [place] [address]- 3411 Mar, [facility] [place] [facility] [address] [id number] [place] [address]- 3430 Mar, [facility] [place] [facility] [address] [id number] [place] [address]- 3763 Mar, [facility] [place] [facility] [address] [id number] [place] 7245 Feb, [facility] [place] [facility] [address] [id number] [place] 3254 Feb, [facility] [place] [facility] [address] [id number] [place] [address]- 1012 Feb, [facility] [address] [id number] [place] [address]- 1263 Feb, [facility] [place] [facility] [address] [id number] [place] [address]- 4292 Feb, [facility] [place] [facility] [address] [id number] [place] [address]- 4442 Feb, [facility] [place] [facility] [address] [id number] [place] [address]- 4223 Feb, [facility] [place] [facility] [address] [id number] [place] [address]- 7722 Feb, [facility] [place] [facility] [address] [id number] [place] [address]- 8204 Feb, [facility] [place] [facility] [address] [id number] [place] [address]- 7250 Feb, [facility] [place] [facility] [address] [id number] [place] [address]- 5190 Feb, [facility] [place] [facility] [address] [id number] [place] [address]- 7544 Feb, [facility] [place] [facility] [address] [id number] [place] [address]- 4915 Feb, [facility] [place] [facility] [address] [id number] [place] [address]- 6462 Feb, [facility] [place] [facility] [address] [id number] [place] [address]- 6262 Feb, [facility] [place] [facility] [address] [id number] [place] [address]- 5062 Jan, [facility] [place] [facility] [address] [id number] [place] [address]- 1505 Jan, [facility] [place] [facility] [address] [id number] [place] [address]- 8534 Jan, [facility] [place] [facility] [address] [id number] [place] [address]- 9337 30 Jan, 2013 [facility] [address] [id number] [place] [address]- 2360 16 Jan, 2013 [facility] [place] [facility] [address] [id number] [place] [address]- 2439 16 Jan, 2013 [facility] [place] [facility] [address] [id number] [place] [address]- 4602 Dec, [facility] [place] [facility] [address] [id number] [place] [address]- 8702 Dec, [facility] [place] [facility] [address] [id number] [place] [address]- 8005 Dec, [facility] [place] [facility] [address] [id number] [place] [address]- 1924 Dec, [facility] [place] [facility] [address] [id number] [place] [address]- 0801 18 Dec, 2012 [facility] [place] [facility] [address] [id number] [place] [address]- 5657 Dec, [facility] [place] [facility] [address] [id number] [place] [address]- 8245 Dec, [facility] [place] [facility] [address] [facility] [id number] [place] [address]- 4518 Dec, [facility] [place] [facility] [address] [id number] [place] [address]- 1193 Dec, [facility] [place] [facility] [address] [id number], [place] [address]- 9752 Dec, [facility] [place] [facility] [address] [id number] [place] [address]- 9420 Dec, [facility] [place] [facility] [address] [id number] [place] [address]- 5258 29 Nov, 2012 [facility] [place] [facility] [address] [id number] [address]- 9680 28 Nov, 2012 [facility] [place] [facility] [address] [id number] [place] [address]- 0373 Nov, [facility] [place] [facility] [address] [id number] [place] [address]- 7528 Nov, [facility] [place] [facility] [address] [id number] [place] [address]- 9388 Nov, [facility] [place] [facility] [address] [id number] [place] [address]- 4670 Nov, [facility] [place] [facility] [address] [id number] [place] [address]- 2087 Nov, [facility] [place] [facility] [address] [id number] [place] [address]- 7554 Nov, [facility] [place] [facility] [address] [id number] [place] [address]- 0665 Nov, [facility] [place] [facility] [address] [id number] [place] [address]- 5638 Nov, [facility] [place] [facility] [address] [id number] [place] [address]- 8419 Nov, [facility] [place] [facility] [address] [id number] [place] [address]- 4805 Nov, [facility] [place] [facility] [address] [id number] [place] [address]- 7134 Nov, [facility] [place] [facility] [address] [id number] [place] [address]- 6116 Nov, [facility] [place] [facility] [address] [id number] [place] [address]- 7473 18 Oct, 2012 [facility] [place] [facility] [address] [id number] [place] [address]- 0671 17 Sep2012 [facility] [place] [facility] [address] [id number] [place] [address]- 9080 11 Oct, 2012 [facility] [place] [facility] [address] [id number] [place] [address]- 7696 Oct, [facility] [place] [facility] [address] [id number] [place] [address]- 0219 Sep, [facility] [place] [facility] [address] [id number] [place] [address]- 8043 Sep, [facility] [place] [facility] [address] [id number] [place] [address]- 3089 Sep, [facility] [place] [facility] [address] [id number] [place] [address]- 3978 Sep, [facility] [place] [facility] [address] [id number] [place] [address]- 0614 Sep, [facility] [place] [facility] [address] [id number] [place] [address]- 7697 Sep, [facility] [place] [facility] [address] [id number] [place] [address]- 1865 Sep, [facility] [place] [facility] [address] [id number] [place] [address]- 2442 Aug, [facility] [place] [facility] [address] [id number] [place] [address]- 9677 Aug, [facility] [place] [facility] [address] [id number] [place] [address]- 7740 Jul, [facility] [place] [facility] [address] [id number] [place] [address]- 9295 Jul, [facility] [place] [facility] [address] [id number] [place] [address]- 0877 Jul, [facility] [place] [facility] [address] [id number] [place] [address]- 2317 Jul, [facility] [place] [facility] [address] [id number] [place] [address]- 9618 Jul, [facility] [place] [facility] [address] [id number] [place] [address]- 4117 Jul, [facility] [place] [facility] [address] [id number] [place] [address]- 6746 Jul, [facility] [address] [id number] [place] [address]- 0188 June, [facility] [address] [id number] [place] [address]- 0282 June, [facility] [address] [id number] [place] [address]- 2202 29 May, 2012 [facility] [address] [id number] [place] [address]- 5355 24 May, 2012 [facility] [address] [id number] [place] [address] May, [facility] [address] [id number] [place] [address] May, [facility] [address] [facility] [id number] [place] [address] May, [facility] [address] [id number] [place] [address] 08 May, 2012 [facility] [address] [id number] [place] [address] 05 May, 2012 [facility] [address] [facility] [id number] [place] [address] May, [facility] [address] [id number] [place] [address] May, [facility] [address] [id number] [place] [address] Apr, [facility] [address] [id number] [place] [address] 27 Apr, 2012 [facility] [address] [facility] [id number] [place] [address] Apr, [facility] [address] [id number] [place] [address] Apr, IMMUNIZATIONS No Known Immunizations SOCIAL HISTORY Never Assessed REASON FOR VISIT Controlled Med Refill 04/17/17 PLAN OF CARE VITAL SIGNS MEDICATIONS Medication Instructions Dosage Frequency Start Date End Date Duration Status Percocet 7.5-325 MG Orally every 4 hours 1 tablet as needed 4h Mar, Apr, 28 days Active RESULTS No Results PROCEDURES No Known procedures INSTRUCTIONS MEDICATIONS ADMINISTERED No Known Medications MEDICAL (GENERAL) HISTORY Type Description Date Medical History hypertension Medical History neck pain - requires chronic pain management, on chronic narcotics Medical History lupus - 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
--- OUTSIDE RECORDS SUMMARY | 2018-04-29 18:18 | XMS REPORT ---
Author Author DONNA OGLESBY Organization [facility] Address [address] 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 3003379 Problem Neck pain M54.2 Active 40604083 Problem History of hepatitis C Z86.19 Active [id number] Problem Systemic lupus erythematosus, unspecified SLE type, unspecified organ involvement status M32.9 Active [id number] ALLERGIES No Information ENCOUNTERS Encounter Location Date Diagnosis [facility] [id number] [place] [address] 01625- 3928 May, Neck pain M54.2 [facility] [id number] [place] [address] 72005- 8510 May, Systemic lupus erythematosus, unspecified SLE type, unspecified organ involvement status M32.9 and Neck pain M54.2 [facility] [id number] [place] [address] 25810- 2764 Apr, Neck pain M54.2 [facility] [id number] [place] [address] 68981- 6640 Apr, Neck pain M54.2 [facility] [id number] [place] [address] 03841- 4686 Mar, Neck pain M54.2 [facility] [id number] [place] [address] 00603- 3810 Feb, Neck pain M54.2 [facility] [id number] [place] [address] 92578- 3263 Feb, Neck pain M54.2 [facility] [id number] [place] [address] 29898- 6927 Feb, [facility] [id number] [place] [address] 44571- 1061 Feb, Cervical neuritis M54.12 [facility] [id number] [place] [address] 79316- 4283 Jan, Cervical neuritis M54.12 [facility] [id number] [place] [address] 63851- 4299 Jan, Cervical neuritis M54.12 [facility] [id number] [place] [address] 68107- 1649 Nov, [facility] [id number] [place] [address] 52947- 1533 Nov, 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 and Neck pain M54.2 [facility] [id number] [place] [address] 09628- 7987 Nov, [facility] [id number] [place] [address] 46525- 1456 Nov, Neck pain M54.2 [facility] [id number] [place] [address] 51918- 8852 Nov, [facility] [id number] [place] [address] 83771- 2460 Oct, Neck pain M54.2 and Cervical vertebral fusion M43.22 [facility] [id number] [place] [address] 17240- 9319 Sep, [facility] [id number] [place] [address] 69210- 5207 Aug, Systemic lupus erythematosus, unspecified SLE type, unspecified organ involvement status M32.9 and Cervical neuritis M54.12 [facility] [id number] [place] [address] 12924- 8938 Jul, [facility] [id number] [place] [address] 21365- 5974 Jul, [facility] [address] 15404- 1519 June, Lupus M32.9 ; Encounter for screening for lipoid disorders Z13.220 and Neck pain M54.2 [place] [address] 31367- 4344 June, [facility] [address] 88576- 6346 Apr, History of hepatitis C Z86.19 [place] [address] 55335- 9437 Nov, [place] [address] 32620- 2433 June, Warts, genital A63.0 [place] [address] 71204- 1666 June, Occasional tremors R25.1 ; Systemic lupus M32.9 and Anxiety about health F41.8 [facility] [id number] [place] [address] 27065- 1929 June, Genital warts A63.0 [facility] [id number] [place] [address] 68911- 6829 May, Lupus M32.9 ; Polyneuropathy in diseases classified elsewhere G63 and Occasional tremors R25.1 [facility] [id number] [place] [address] 03604- 1693 May, Genital warts A63.0 [facility] [id number] [place] [address] 77847- 3464 Apr, [facility] [place] [id number] [place] [address] 74477- 9253 Mar, [facility] [address] 90483- 0591 Mar, [facility] [address] [address]- 7339 Mar, Lupus M32.9 [facility] [address] [address]- 2856 16 Mar, 2015 Systemic lupus M32.9 and Neck pain M54.2 [facility] [id number] [place] [address] 69513- 4077 Feb, Systemic lupus M32.9 [facility] [id number] [place] [address] 39711- 7495 Feb, Systemic lupus erythematosus, organ or system involvement unspecified M32.10 ; Polyneuropathy in diseases classified elsewhere G63 and Hyperpigmented skin lesion L81.9 [facility] [id number] [place] [address] 42260- 3164 Aug, Genital warts 078.11 [facility] [id number] [place] [address] 32997- 1105 Jul, Genital warts 078.11 [facility] [id number] [place] [address] 25346- 9711 Jul, [facility] [address] [address]- 6684 May, [facility] [address] [address]- 2095 May, [facility] [address] [address]- 2466 Dec, [facility] [id number] [place] [address] 87800- 8133 Dec, [facility] [address] [address]- 2610 Sep, [facility] [address] [address]- 6121 Sep, [facility] [place] [facility] [address] [id number] [place] [address]- 3528 Sep, [facility] [place] [facility] [address] [id number] [place] [address]- 1168 Sep, [facility] [place] [facility] [address] [id number] [place] [address]- 0595 Sep, [facility] [place] [facility] [address] [id number] [place] [address]- 4709 Sep, [facility] [place] [facility] [address] [id number] [place] [address]- 8743 Aug, [facility] [place] [facility] [address] [id number] [place] [address]- 8175 Aug, [facility] [place] [facility] [address] [id number] [place] [address]- 7614 Aug, [facility] [place] [facility] [address] [id number] [place] [address]- 4409 Aug, [facility] [place] [facility] [address] [id number] [place] [address]- 3167 Aug, [facility] [place] [facility] [address] [id number] [place] [address]- 4209 Aug, [facility] [place] [facility] [address] [id number] [place] [address]- 6054 Jul, [facility] [place] [facility] [address] [id number] [place] [address]- 3960 Jul, [facility] [place] [facility] [address] [id number] [place] [address]- 4952 Jul, [facility] [place] [facility] [address] [id number] [place] [address]- 6274 Jul, [facility] [place] [facility] [address] [id number] [place] [address]- 7278 Jul, [facility] [place] [facility] [address] [id number] [place] [address]- 8813 Jul, [facility] [place] [facility] [address] [id number] [place] [address]- 5655 Jul, [facility] [place] [facility] [address] [id number] [place] [address]- 4380 Jul, [facility] [place] [facility] [address] [id number] [place] [address]- 3621 Jul, [facility] [place] [facility] [address] [id number] [place] [address]- 7311 Jul, [facility] [place] [facility] [address] [id number] [place] [address]- 4998 Jul, [facility] [place] [facility] [address] [id number] [place] [address]- 9976 Jul, [facility] [place] [facility] [address] [id number] [place] [address]- 9035 Jul, [facility] [place] [facility] [address] [id number] [place] [address]- 4493 Jul, [facility] [place] [facility] [address] [id number] [place] [address]- 4575 Jul, [facility] [place] [facility] [address] [id number] [place] [address]- 8797 Jul, [facility] [place] [facility] [address] [id number] [place] [address]- 1924 Jul, [facility] [place] [facility] [address] [id number] [place] [address]- 1423 Jul, [facility] [place] [facility] [address] [id number] [place] [address]- 6040 June, [facility] [place] [facility] [address] [id number] [place] [address]- 8679 June, [facility] [place] [facility] [address] [id number] [place] [address]- 3690 June, [facility] [place] [facility] [address] [id number] [place] [address]- 9285 June, [facility] [place] [facility] [address] [id number] [place] [address]- 2071 May, [facility] [place] [facility] [address] [id number] [place] [address]- 4860 May, [facility] [place] [facility] [address] [id number] [place] [address]- 9326 May, [facility] [place] [facility] [address] [id number] [place] [address]- 1180 May, [facility] [place] [facility] [address] [id number] [place] [address]- 1691 May, [facility] [place] [facility] [address] [id number] [place] [address]- 8264 May, [facility] [place] [facility] [address] [id number] [place] [address]- 0025 May, [facility] [place] [facility] [address] [id number] [place] [address]- 5166 May, [facility] [place] [facility] [address] [id number] [place] [address]- 0060 May, [facility] [place] [facility] [address] [id number] [place] [address]- 5020 May, [facility] [place] [facility] [address] [id number] [place] [address]- 5707 Apr, [facility] [place] [facility] [address] [id number] [place] [address]- 7982 Apr, [facility] [place] [facility] [address] [id number] [place] [address]- 9559 Apr, [facility] [place] [facility] [address] [id number] [place] [address]- 1542 Apr, [facility] [place] [facility] [address] [id number] [place] [address]- 4635 Apr, [facility] [place] [facility] [address] [id number] [place] [address]- 6064 Apr, [facility] [place] [facility] [address] [facility] [id number] [place] [address]- 1440 Mar, [facility] [place] [facility] [address] [facility] [id number] [place] [address]- 9290 Mar, [facility] [place] [facility] [address] [id number] [place] [address]- 0190 Mar, [facility] [place] [facility] [address] [id number] [place] [address]- 6820 Mar, [facility] [place] [facility] [address] [facility] [id number] [place] [address]- 0319 Mar, [facility] [place] [facility] [address] [facility] [id number] [place] [address]- 1914 Mar, [facility] [place] [facility] [address] [facility] [id number] [place] [address]- 9191 Mar, [facility] [place] [facility] [address] [facility] [id number] [place] [address]- 7342 Mar, [facility] [place] [facility] [address] [facility] [id number] [place] [address]- 5402 Feb, [facility] [place] [facility] [address] [facility] [id number] [place] [address]- 5154 Feb, [facility] [place] [facility] [address] [facility] [id number] [place] [address]- 8587 Feb, [facility] [place] [facility] [address] [id number] [place] [address]- 5961 Feb, [facility] [place] [facility] [address] [facility] [id number] [place] [address]- 6095 Feb, [facility] [place] [facility] [address] [facility] [id number] [place] [address]- 7645 Feb, [facility] [place] [facility] [address] [id number] [place] [address]- 2776 Feb, [facility] [place] [facility] [address] [id number] [place] [address]- 9136 Feb, [facility] [place] [facility] [address] [id number] [place] [address]- 1739 Feb, [facility] [place] [facility] [address] [id number] [place] [address]- 0153 Feb, [facility] [place] [facility] [address] [id number] [place] [address]- 9626 Feb, [facility] [place] [facility] [address] [id number] [place] [address]- 8223 Feb, [facility] [place] [facility] [address] [id number] [place] [address]- 1458 Feb, [facility] [place] [facility] [address] [id number] [place] [address]- 7837 Feb, [facility] [place] [facility] [address] [id number] [place] [address]- 6821 Feb, [facility] [place] [facility] [address] [id number] [place] [address]- 7572 Jan, [facility] [place] [facility] [address] [id number] [place] [address]- 3347 31 Jan, 2013 [facility] [place] [facility] [address] [id number] [place] [address]- 1151 30 Jan, 2013 [facility] [place] [facility] [address] [id number] [place] [address]- 0598 30 Jan, 2013 [facility] [place] [facility] [address] [id number] [place] [address]- 5296 16 Jan, 2013 [facility] [place] [facility] [address] [id number] [place] [address]- 6372 16 Jan, 2013 [facility] [place] [facility] [address] [id number] [place] [address]- 7076 Dec, [facility] [place] [facility] [address] [id number] [place] [address]- 5468 Dec, [facility] [place] [facility] [address] [id number], [place] [address]- 9927 Dec, [facility] [place] [facility] [address] [id number], [place] [address]- 8783 Dec, [facility] [place] [facility] [address] [id number], [place] [address]- 6059 Dec, [facility] [place] [facility] [address] [id number] [place] [address]- 1281 Dec, [facility] [place] [facility] [address] [id number], [place] [address]- 1944 Dec, [facility] [place] [facility] [address] [id number], [place] [address]- 4696 Dec, [facility] [place] [facility] [address] [id number], [place] [address]- 5920 Dec, [facility] [place] [facility] [address] [id number], [place] [address]- 8945 Dec, [facility] [place] [facility] [address] [id number], [place] [address]- 8519 Dec, [facility] [place] [facility] [address] [id number], [place] [address]- 2126 Nov, [facility] [place] [facility] [address] [id number], [place] [address]- 0743 Nov, [facility] [place] [facility] [address] [id number], [place] [address]- 0099 Nov, [facility] [place] [facility] [address] [id number], [place] [address]- 1745 Nov, [facility] [place] [facility] [address] [id number], [place] [address]- 7325 Nov, [facility] [place] [facility] [address] [id number] [place] [address]- 8403 Nov, [facility] [place] [facility] [address] [id number] [place] [address]- 7886 Nov, [facility] [place] [facility] [address] [id number] [place] [address]- 8750 Nov, [facility] [place] [facility] [address] [id number] [place] [address]- 2673 Nov, [facility] [place] [facility] [address] [id number] [place] [address]- 9420 Nov, [facility] [place] [facility] [address] [id number] [place] [address]- 9252 Nov, [facility] [place] [facility] [address] [id number] [place] [address]- 1395 Nov, [facility] [place] [facility] [address] [id number] [place] [address]- 7267 Nov, [facility] [place] [facility] [address] [id number] [place] [address]- 9970 Nov, [facility] [place] [facility] [address] [id number] [place] [address]- 7751 18 Oct, 2012 [facility] [place] [facility] [address] [id number] [place] [address]- 5692 17 Oct, 2012 [facility] [place] [facility] [address] [id number] [place] [address]- 1223 11 Oct, 2012 [facility] [place] [facility] [address] [id number] [place] [address]- 2040 Oct, [facility] [place] [facility] [address] [id number] [place] [address]- 5020 Sep, [facility] [place] [facility] [address] [id number] [place] [address]- 2649 Sep, [facility] [place] [facility] [address] [id number] [place] [address]- 8330 Sep, [facility] [place] [facility] [address] [id number] [place] [address]- 1948 Sep, [facility] [address] [id number] [place] [address]- 0051 Sep, [facility] [place] [facility] [address] [id number] [place] [address]- 4453 Sep, [facility] [place] [facility] [address] [id number] [place] [address]- 8624 Sep, [facility] [address] [id number] [place] [address]- 8635 Aug, [facility] [place] [facility] [address] [id number] [place] [address]- 2435 Aug, [facility] [address] [id number] [place] [address]- 9303 Jul, [facility] [address] [id number] [place] [address]- 6674 Jul, [facility] [place] [facility] [address] [id number] [place] [address]- 5035 Jul, [facility] [place] [facility] [address] [id number] [place] [address]- 3058 Jul, [facility] [place] [facility] [address] [id number] [place] [address]- 1511 Jul, [facility] [place] [facility] [address] [id number] [place] [address]- 9298 Jul, [facility] [place] [facility] [address] [id number] [place] [address]- 8351 Jul, [facility] [place] [facility] [address] [id number] [place] [address]- 0360 June, [facility] [place] [facility] [address] [id number] [place] [address]- 9377 June, [facility] [place] [facility] [address] [id number], [place] [address]- 6297 May, [facility] [address], [place] [address]- 8020 May, [facility] [address], [place] [address]- 5600 May, [facility] [address], [place] [address]- 4193 May, [facility] [address], [place] [address]- 8897 May, [facility] [address], [place] [address]- 5795 May, [facility] [address], [place] [address]- 7078 May, [facility] [address], [place] [address]- 8432 May, [facility] [address], [place] [address]- 1845 May, [facility] [address], [place] [address]- 6807 Apr, [facility] [address], [place] [address]- 8096 Apr, [facility] [address] [place] [address]- 9981 Apr, [facility] [address] [place] [address]- 4261 Apr, IMMUNIZATIONS No Known Immunizations SOCIAL HISTORY Never Assessed REASON FOR VISIT PLAN OF CARE VITAL SIGNS MEDICATIONS Unknown Medications RESULTS No Results PROCEDURES No Known procedures INSTRUCTIONS MEDICATIONS ADMINISTERED No Known Medications MEDICAL (GENERAL) HISTORY Type Description Date Medical History hypertension Medical History neck pain - requires chronic pain management, on chronic narcotics Medical History lupus - sees manager personnel selection in [place] Medical History Chronic HCV, successfully treated by [...]
--- OUTSIDE RECORDS SUMMARY | 2018-04-29 18:19 | XMS REPORT ---
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 0258465 Problem Neck pain M54.2 Active 00302152 Problem History of hepatitis C Z86.19 Active 86082455413234 Problem Systemic lupus erythematosus, unspecified SLE type, unspecified organ involvement status M32.9 Active [id number] ALLERGIES No Known Allergies SOCIAL HISTORY Never Assessed PLAN OF CARE VITAL SIGNS MEDICATIONS Medication Instructions Dosage Frequency Start Date End Date Duration Status Amitriptyline HCl 75 MG Orally Once a day at bedtime 1 tablet Active Plaquenil 200 MG Orally 2 times a day 1 tablet with food or milk 12h Feb Active Mometasone Furoate 0.1 % Externally Once a day 1 application to affected area 24h Active Mens Multi Vitamin & Mineral Active Vitamin E 1000 UNIT Orally Once a day 1 capsule 24h Active Fish Oil Concentrate 1000 mg 1 Capsule by Oral route 1 time per day Apr, Active Gabapentin 800 MG Orally Three times a day 1 tablet 8h Active Baclofen 10 MG Orally Three times a day 1 tablet with food or milk 8h Active Percocet 7.5-500 MG Orally every 4 hrs 1 tablet as needed 4h Active Aspirin 81 MG Orally Once a day take 1 tablet (81 mg) by oral route once daily sun,tues,thur,& fri 24h Apr, Active RESULTS No Results PROCEDURES No Known procedures IMMUNIZATIONS No Known Immunizations MEDICAL (GENERAL) HISTORY Type Description Date Medical History hypertension Medical History neck pain - requires chronic pain management, on chronic narcotics Medical History lupus - sees research manager in [place] Medical History Chronic HCV, successfully treated by [...]
--- OUTSIDE RECORDS SUMMARY | 2018-04-29 18:19 | XMS REPORT ---
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 2796171 Problem Neck pain M54.2 Active 83295155 Problem History of hepatitis C Z86.19 Active [id number] Problem Systemic lupus erythematosus, unspecified SLE type, unspecified organ involvement status M32.9 Active [id number] ALLERGIES No Information ENCOUNTERS Encounter Location Date Diagnosis [facility] [id number] [place] [address] 29088- 3253 Jul, [facility] [id number] [place] [address] 27890- 3113 June, Neck pain M54.2 [facility] [id number] [place] [address] 29650- 0547 May, Neck pain M54.2 [facility] [id number] [place] [address] 37199- 1412 May, Systemic lupus erythematosus, unspecified SLE type, unspecified organ involvement status M32.9 and Neck pain M54.2 [facility] [id number] [place] [address] 52188- 2136 Apr, Neck pain M54.2 [facility] [id number] [place] [address] 79113- 8013 Apr, Neck pain M54.2 [facility] [id number] [place] [address] 96518- 5816 Mar, Neck pain M54.2 [facility] [id number] [address] 4191 Feb, Neck pain M54.2 [facility] [id number] [place] [address] 13430- 4526 Feb, Neck pain M54.2 [facility] [id number] [place] [address] 00403- 9366 Feb, [facility] [id number] [place] [address] 07468- 1452 Feb, Cervical neuritis M54.12 [facility] [id number] [place] [address] 26003- 6206 Jan, Cervical neuritis M54.12 [facility] [id number] [place] [address] 53167- 1448 Jan, Cervical neuritis M54.12 [facility] [id number] [place] [address] 56643- 5909 Nov, [facility] [id number] [place] [address] 78710- 3559 Nov, 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 and Neck pain M54.2 [facility] [id number] [place] [address] 71861- 3987 Nov, [facility] [id number] [place] [address] 70436- 1124 Nov, Neck pain M54.2 [facility] [id number] [place] [address] 39696- 8321 Nov, [facility] [id number] [place] [address] 47220- 1496 Oct, Neck pain M54.2 and Cervical vertebral fusion M43.22 [facility] [id number] [address] 7816 Sep, [facility] [id number] [place] [address] 03256- 7193 Aug, Systemic lupus erythematosus, unspecified SLE type, unspecified organ involvement status M32.9 and Cervical neuritis M54.12 [facility] [id number] [place] [address] 96142- 8630 Jul, [facility] [id number] [place] [address] 53998- 7583 Jul, [facility] [address] 04245- 6326 June, Lupus M32.9 ; Encounter for screening for lipoid disorders Z13.220 and Neck pain M54.2 [facility] [address] 32890- 6369 June, [facility] [address] 74356- 1714 Apr, History of hepatitis C Z86.19 [facility] [id number] [place] [address] 83467- 6262 Nov, [facility] [id number] [place] [address] 19605- 5066 June, Warts, genital A63.0 [facility] [id number] [place] [address] 20496- 4476 June, Occasional tremors R25.1 ; Systemic lupus M32.9 and Anxiety about health F41.8 [facility] [id number] [place] [address] 36371- 5835 June, Genital warts A63.0 [facility] [id number] [place] [address] 38843- 9190 May, Lupus M32.9 ; Polyneuropathy in diseases classified elsewhere G63 and Occasional tremors R25.1 [facility] [id number] [place] [address] 33340- 6208 May, Genital warts A63.0 [facility] [id number] [place] [address] 33761- 3857 Apr, [facility] [id number] [place] [address] 74452- 5688 Mar, [facility] [id number] [place] [address] 41489- 9953 Mar, [facility] [id number] [place] [address] 66508- 5660 Mar, Lupus M32.9 [facility] [id number] [place] [address] 35382- 8949 Mar, Systemic lupus M32.9 and Neck pain M54.2 [facility] [id number] [place] [address] 59748- 8239 Feb, Systemic lupus M32.9 [facility] [id number] [place] [address] 55154- 4288 Feb, Systemic lupus erythematosus, organ or system involvement unspecified M32.10 ; Polyneuropathy in diseases classified elsewhere G63 and Hyperpigmented skin lesion L81.9 [facility] [id number] [place] [address] 06016- 4193 Aug, Genital warts 078.11 [facility] [id number] [place] [address] 57267- 7429 Jul, Genital warts 078.11 [facility] [id number] [place] [address] 06508- 9037 Jul, [facility] [id number] [place] [address] 08035- 4015 May, [facility] [id number] [place] [address] 29669- 3380 May, [facility] [id number] [place] [address] 90915- 6810 Dec, [facility] [id number] [place] [address] 40776- 4140 Dec, [facility] [place] [facility] [address] [id number] [place] [address]- 2046 Sep, [facility] [place] [facility] [address] [id number] [place] [address]- 4393 Sep, [facility] [place] [facility] [address] [id number] [place] [address]- 9351 Sep, [facility] [place] [facility] [address] [id number] [place] [address]- 2158 Sep, [facility] [place] [facility] [address] [id number] [place] [address]- 6642 Sep, [facility] [place] [facility] [address] [id number] [place] [address]- 3818 Sep, [facility] [place] [facility] [address] [id number] [place] [address]- 3521 Aug, [facility] [place] [facility] [address] [id number] [place] [address]- 3889 Aug, [facility] [place] [facility] [address] [id number] [place] [address]- 6740 Aug, [facility] [place] [facility] [address] [id number] [place] [address]- 8209 Aug, [facility] [place] [facility] [address] [id number] [place] [address]- 5570 Aug, [facility] [place] [facility] [address] [id number] [place] [address]- 9889 Aug, [facility] [place] [facility] [address] [id number] [place] [address]- 6408 Jul, [facility] [place] [facility] [address] [id number] [place] [address]- 4901 Jul, [facility] [place] [facility] [address] [id number] [place] [address]- 4315 Jul, [facility] [place] [facility] [address] [id number] [place] [address]- 5545 16 Jul, 2013 [facility] [place] [facility] [address] [id number] [place] [address]- 9353 Jul, [facility] [place] [facility] [address] [id number] [place] [address]- 1860 Jul, [facility] [place] [facility] [address] [id number] [place] [address]- 2598 Jul, [facility] [place] [facility] [address] [id number] [place] [address]- 8151 Jul, [facility] [place] [facility] [address] [id number] [place] [address]- 4656 Jul, [facility] [place] [facility] [address] [id number] [place] [address]- 4256 Jul, [facility] [place] [facility] [address] [id number] [place] [address]- 2529 Jul, [facility] [place] [facility] [address] [id number] [place] [address]- 4586 Jul, [facility] [place] [facility] [address] [id number] [place] [address]- 0816 Jul, [facility] [place] [facility] [address] [facility] [id number] [place] [address]- 9985 Jul, [facility] [place] [facility] [address] [id number] [place] [address]- 2302 Jul, [facility] [place] [facility] [address] [id number] [place] [address]- 3805 Jul, [facility] [place] [facility] [address] [id number] [place] [address]- 8995 Jul, [facility] [place] [facility] [address] [id number] [place] [address]- 4388 Jul, [facility] [place] [facility] [address] [id number] [place] [address]- 2744 June, [facility] [place] [facility] [address] [id number] [place] [address]- 2529 June, [facility] [place] [facility] [address] [id number] [place] [address]- 6457 June, [facility] [place] [facility] [address] [id number] [place] [address]- 6677 June, [facility] [place] [facility] [address] [id number] [place] [address]- 9447 May, [facility] [place] [facility] [address] [id number] [place] [address]- 2033 May, [facility] [place] [facility] [address] [id number] [place] [address]- 3092 May, [facility] [place] [facility] [address] [id number] [place] [address]- 2610 May, [facility] [place] [facility] [address] [id number] [place] [address]- 5940 May, [facility] [place] [facility] [address] [id number] [place] [address]- 7334 May, [facility] [place] [facility] [address] [id number] [place] [address]- 8394 May, [facility] [place] [facility] [address] [id number] [place] [address]- 5644 May, [facility] [place] [facility] [address] [id number] [place] [address]- 7828 May, [facility] [place] [facility] [address] [id number] [place] [address]- 0542 May, [facility] [place] [facility] [address] [id number] [place] [address]- 3794 Apr, [facility] [place] [facility] [address] [id number] [place] [address]- 4738 Apr, [facility] [place] [facility] [address] [id number] [place] [address]- 1618 Apr, [facility] [place] [facility] [address] [id number] [place] [address]- 0178 Apr, [facility] [place] [facility] [address] [id number] [place] [address]- 3966 Apr, [facility] [place] [facility] [address] [facility] [id number] [place] [address]- 5365 Apr, [facility] [place] [facility] [address] [id number] [place] [address]- 3945 Mar, [facility] [place] [facility] [address] [id number] [place] [address]- 3615 Mar, [facility] [place] [facility] [address] [id number] [place] [address]- 3940 Mar, [facility] [place] [facility] [address] [facility] [id number] [place] [address]- 3277 Mar, [facility] [place] [facility] [address] [facility] [id number] [place] [address]- 5469 Mar, [facility] [place] [facility] [address] [facility] [id number] [place] [address]- 0919 Mar, [facility] [place] [facility] [address] [facility] [id number] [place] [address]- 2843 Mar, [facility] [place] [facility] [address] [facility] [id number] [place] [address]- 2788 Mar, [facility] [place] [facility] [address] [facility] [id number] [place] [address]- 5696 Feb, [facility] [place] [facility] [address] [id number] [place] [address]- 8050 Feb, [facility] [place] [facility] [address] [facility] [id number] [place] [address]- 2520 Feb, [facility] [place] [facility] [address] [facility] [id number] [place] [address]- 8871 Feb, [facility] [place] [facility] [address] [id number] [place] [address]- 1519 Feb, [facility] [address] [id number] [place] [address]- 2096 Feb, [facility] [place] [facility] [address] [id number] [place] [address]- 8651 Feb, [facility] [address] [id number] [place] [address]- 3332 Feb, [facility] [address] [id number] [place] [address]- 2888 Feb, [facility] [address] [id number] [place] [address]- 1009 Feb, [facility] [address] [id number] [place] [address]- 4855 Feb, [facility] [address] [id number] [place] [address]- 4255 Feb, [facility] [address] [id number] [place] [address]- 9711 Feb, [facility] [address] [id number] [place] [address]- 7383 Feb, [facility] [place] [facility] [address] [id number] [place] [address]- 1950 Feb, [facility] [address] [id number] [place] [address]- 1205 Jan, [facility] [place] [facility] [address] [id number] [place] [address]- 1316 Jan, [facility] [place] [facility] [address] [id number] [place] [address]- 4262 Jan, [facility] [place] [facility] [address] [id number] [place] [address]- 6836 Jan, [facility] [place] [facility] [address] [id number] [place] [address]- 0476 16 Jan, 2013 [facility] [place] [facility] [address] [id number] [place] [address]- 3052 16 Jan, 2013 [facility] [place] [facility] [address] [id number] [address]- 8242 Dec, [facility] [place] [facility] [address] [id number] [place] [address]- 9587 Dec, [facility] [place] [facility] [address] [id number] [address]- 0904 Dec, [facility] [place] [facility] [address] [id number] [place] [address]- 7001 Dec, [facility] [place] [facility] [address] [id number] [place] [address]- 5401 18 Dec, 2012 [facility] [place] [facility] [address] [id number] [address]- 6293 Dec, [facility] [place] [facility] [address] [id number] [address]- 4677 Dec, [facility] [place] [facility] [address] [id number] [address]- 0363 Dec, [facility] [place] [facility] [address] [id number] [address]- 2942 Dec, [facility] [place] [facility] [address] [id number] [address]- 6974 Dec, [facility] [place] [facility] [address] [id number] [address]- 9173 Dec, [facility] [place] [facility] [address] [id number] [address]- 4121 29 Nov, 2012 [facility] [place] [facility] [address] [id number] [address]- 7183 Nov, [facility] [place] [facility] [address] [id number] [address]- 5812 Nov, [facility] [place] [facility] [address] [id number] [place] [address]- 9992 Nov, 2012 [facility] [address] [id number] [place] [address]- 6156 Nov, 2012 [facility] [place] [facility] [address] [id number] [place] [address]- 6478 Nov, 2012 [facility] [address] [id number] [place] [address]- 4230 Nov, 2012 [facility] [place] [facility] [address] [id number] [place] [address]- 0415 Nov, 2012 [facility] [address] [id number] [place] [address]- 8525 Nov, [facility] [address] [id number] [place] [address]- 1104 Nov, [facility] [place] [facility] [address] [id number] [place] [address]- 7463 Nov, [facility] [address] [id number] [place] [address]- 2097 Nov, [facility] [place] [facility] [address] [id number] [place] [address]- 6456 Nov, [facility] [address] [id number] [place] [address]- 6311 Nov, [facility] [place] [facility] [address] [id number] [place] [address]- 3749 18 Oct, 2012 [facility] [place] [facility] [address] [id number] [place] [address]- 5145 17 Oct, 2012 [facility] [place] [facility] [address] [id number] [place] 4643 11 Oct, 2012 [facility] [place] [facility] [address] [id number] [place] [address]- 9004 03 Oct, 2012 [facility] [place] [facility] [address] [id number] [place] [address]- 7085 Sep, [facility] [place] [facility] [address] [id number] [place] [address]- 7520 Sep, [facility] [place] [facility] [address] [id number] [place] [address]- 2454 Sep, [facility] [place] [facility] [address] [id number] [place] [address]- 3062 Sep, [facility] [place] [facility] [address] [id number] [place] [address]- 9106 Sep, [facility] [place] [facility] [address] [id number] [place] [address]- 4924 Sep, [facility] [place] [facility] [address] [id number] [place] [address]- 2074 Sep, [facility] [place] [facility] [address] [id number] [place] [address]- 0357 Aug, [facility] [place] [facility] [address] [id number] [place] [address]- 7957 Aug, [facility] [place] [facility] [address] [id number] [place] [address]- 6174 Jul, [facility] [place] [facility] [address] [id number] [place] [address]- 1937 Jul, [facility] [place] [facility] [address] [id number] [place] [address]- 1610 Jul, [facility] [place] [facility] [address] [id number] [address]- 8869 Jul, [facility] [place] [facility] [address] [id number] [place] [address]- 7816 Jul, [facility] [place] [facility] [address] [id number] [place] [address]- 5879 Jul, [facility] [place] [facility] [address] [id number] [address]- 2356 Jul, [facility] [place] [facility] [address] [id number] [address]- 0987 June, [facility] [address] [address]- 9142 June, [facility] [id number] [address]- 4764 May, [facility] [address] [address]- 1672 May, [facility] [id number] [address]- 7611 May, [facility] [id number] [address]- 1204 May, [facility] [id number] [address]- 0350 May, [facility] [id number] [address]- 7019 May, [facility] [address] [address] May, [facility] [id number] [address] May, [facility] [id number] [address] May, [facility] [id number] [address] Apr, [facility] [id number] [address] Apr, [facility] [id number] [address] Apr, [facility] [id number] [address] Apr, IMMUNIZATIONS No Known Immunizations SOCIAL HISTORY Never Assessed REASON FOR VISIT Controlled Refill Request PLAN OF CARE VITAL SIGNS MEDICATIONS Medication Instructions Dosage Frequency Start Date End Date Duration Status Percocet 7.5-325 MG Orally every 4 hours 1 tablet as needed 4h Feb, 28 days Active RESULTS No Results PROCEDURES No Known procedures INSTRUCTIONS MEDICATIONS ADMINISTERED No Known Medications MEDICAL (GENERAL) HISTORY Type Description Date Medical History hypertension Medical History neck pain - requires chronic pain management, on chronic narcotics 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
--- OUTSIDE RECORDS SUMMARY | 2018-04-29 18:19 | XMS REPORT ---
Author Author DANTE ALVAREZ Organization 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 [id number] [place] [address] 26073- 3447 May, Neck pain M54.2 [facility] [id number] [place] [address] 75979- 1707 May, Systemic lupus erythematosus, unspecified SLE type, unspecified organ involvement status M32.9 [address]54[address]2 [facility] [id number] [place] [address] 37023- 8075 Apr, Neck pain M54.2 [facility] [id number] [place] [address] 51157- 1925 Apr, Neck pain M54.2 [facility] [id number] [place] [address] 54703- 0472 Mar, Neck pain M54.2 [facility] [id number] [place] [address] 44954- 7993 Feb, Neck pain M54.2 [facility] [id number] [place] [address] 28554- 0508 Feb, Neck pain M54.2 [facility] [address] [address] 7573 Feb, [facility] [id number] [place] [address] 37936- 7759 Feb, Cervical neuritis M54.12 [facility] [id number] [place] [address] 85627- 8258 Jan, Cervical neuritis M54.12 [facility] [id number] [place] [address] 49868- 6526 Jan, Cervical neuritis M54.12 [facility] [id number] [place] [address] 46640- 2117 Nov, [facility] [id number] [place] [address] 12178- 5985 Nov, 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2 [facility] [id number] [place] [address] 82954- 2832 Nov, [facility] [id number] [place] [address] 17563- 8500 Nov, Neck pain M54.2 [facility] [id number] [place] [address] 75857- 9980 Nov, [facility] [address] [place] [address] 33061- 0061 Oct, Neck pain M54.2 and Cervical vertebral fusion M43.22 [facility] [address], [place] [address]- 9328 Sep, [facility] [id number] [place] [address] 22043- 4842 Aug, Systemic lupus erythematosus, unspecified SLE type, unspecified organ involvement status M32.9 and Cervical neuritis M54.12 [facility] [address], [place] [address]- 4949 Jul, [facility] [id number] [place] [address] 39254- 8423 Jul, [place] [address] 93739- 7803 June, Lupus M32.9 ; Encounter for screening for lipoid disorders Z13.220 and Neck pain M54.2 [place] [address] 97466- 8424 June, [place] [address] 74672- 9979 Apr, History of hepatitis C Z86.19 [place] [address] 23901- 4515 Nov, [place] [address] 60202- 2699 June, Warts, genital A63.0 [place] [address] 49240- 4695 June, Occasional tremors R25.1 ; Systemic lupus M32.9 and Anxiety about health F41.8 [place] [address] 13286- 7315 June, Genital warts A63.0 [place] [id number] [place] [address] 32388- 8903 May, Lupus M32.9 ; Polyneuropathy in diseases classified elsewhere G63 and Occasional tremors R25.1 [place] [id number] [place] [address] 75294- 6833 May, Genital warts A63.0 [place] [id number] [place] [address] 91902- 5143 Apr, [place] [id number] [place] [address] 42223- 3484 Mar, [place] [address] 54146- 9119 Mar, [facility] [address], [place] [address]- 3524 Mar, Lupus M32.9 [facility] [address] [place] [address] 48940- 1991 Mar, Systemic lupus M32.[address]2 [facility] [id number] [place] [address] 72313- 8476 Feb, Systemic lupus M32.9 [facility] [address] [place] [address] 09071- 3967 Feb, Systemic lupus erythematosus, organ or system involvement unspecified M32.10 ; Polyneuropathy in diseases classified elsewhere G63 and Hyperpigmented skin lesion L81.9 [facility] [id number] [place] [address] 49057- 3208 Aug, Genital warts 078.11 [facility] [id number] [place] [address] 94358- 8115 Jul, Genital warts 078.11 [facility] [id number] [place] [address] 28314- 8857 Jul, [facility] [address] [place] [address] 44466- 3361 May, [facility] [address] [place] [address] 15870- 5495 May, [facility] [address] [place] [address] 88898- 4940 Dec, [facility] [id number] [place] [address] 56009- 5362 Dec, [facility] [address] [address]- 3763 Sep, [facility] [address] [place] [address] 52422- 5084 Sep, [facility] [place] [facility] [address] [id number] [place] [address]- 0141 Sep, [facility] [place] [facility] [address] [id number] [place] [address]- 5338 Sep, [facility] [place] [facility] [address] [id number] [place] [address]- 9961 Sep, [facility] [place] [facility] [address] [id number] [place] [address]- 1440 Sep, [facility] [place] [facility] [address] [id number] [place] [address]- 9027 Aug, [facility] [place] [facility] [address] [id number] [place] [address]- 2821 Aug, [facility] [place] [facility] [address] [id number] [place] [address]- 3676 Aug, [facility] [place] [facility] [address] [id number] [place] [address]- 1425 Aug, [facility] [place] [facility] [address] [id number] [place] [address]- 5748 Aug, [facility] [place] [facility] [address] [id number] [place] [address]- 7716 Aug, [facility] [place] [facility] [address] [id number] [place] [address]- 7923 Jul, [facility] [place] [facility] [address] [id number] [place] [address]- 9642 Jul, [facility] [place] [facility] [address] [id number] [place] [address]- 4054 Jul, [facility] [place] [facility] [address] [id number] [place] [address]- 0377 Jul, [facility] [place] [facility] [address] [id number] [place] 3279 Jul, [facility] [place] [facility] [address] [id number] [place] [address]- 3605 Jul, [facility] [place] [facility] [address] [id number] [place] [address]- 5621 Jul, [facility] [place] [facility] [address] [id number] [place] [address]- 8468 Jul, [facility] [place] [facility] [address] [id number] [place] [address]- 8371 Jul, [facility] [place] [facility] [address] [id number] [place] [address]- 6266 Jul, [facility] [place] [facility] [address] [id number] [place] [address]- 1501 Jul, [facility] [place] [facility] [address] [id number] [place] [address]- 5833 Jul, [facility] [place] [facility] [address] [id number] [place] [address]- 9767 Jul, [facility] [place] [facility] [address] [id number] [place] [address]- 2425 Jul, [facility] [place] [facility] [address] [id number] [place] [address]- 9830 Jul, [facility] [place] [facility] [address] [id number] [place] [address]- 5202 Jul, [facility] [place] [facility] [address] [id number] [place] [address]- 4544 Jul, [facility] [place] [facility] [address] [id number] [place] [address]- 5941 Jul, [facility] [place] [facility] [address] [id number] [place] [address]- 1271 June, [facility] [place] [facility] [address] [id number] [place] [address]- 6938 June, [facility] [place] [facility] [address] [id number] [place] [address]- 4874 June, [facility] [place] [facility] [address] [id number] [place] [address]- 8437 June, [facility] [place] [facility] [address] [id number] [place] [address]- 3681 May, [facility] [place] [facility] [address] [id number] [place] [address]- 3217 May, [facility] [place] [facility] [address] [id number] [place] [address]- 5742 May, [facility] [place] [facility] [address] [id number] [place] [address]- 8795 May, [facility] [place] [facility] [address] [id number] [place] [address]- 7149 May, [facility] [place] [facility] [address] [id number] [place] [address]- 6530 May, [facility] [place] [facility] [address] [id number] [place] [address]- 8194 May, [facility] [place] [facility] [address] [id number] [place] [address]- 9711 May, [facility] [place] [facility] [address] [id number] [place] [address]- 5301 May, [facility] [place] [facility] [address] [id number] [place] [address]- 9486 May, [facility] [place] [facility] [address] [id number] [place] [address]- 4489 Apr, [facility] [place] [facility] [address] [id number] [place] [address]- 5589 Apr, [facility] [place] [facility] [address] [id number] [place] [address]- 4177 Apr, [facility] [place] [facility] [address] [id number] [place] [address]- 5052 Apr, [facility] [place] [facility] [address] [id number] [place] [address]- 2808 Apr, [facility] [place] [facility] [address] [id number] [place] [address]- 6896 Apr, [facility] [place] [facility] [address] [id number] [place] [address]- 5742 Mar, [facility] [place] [facility] [address] [id number] [place] [address]- 9514 Mar, [facility] [place] [facility] [address] [id number] [place] [address]- 0425 Mar, [facility] [place] [facility] [address] [id number] [place] [address]- 7642 Mar, [facility] [place] [facility] [address] [id number] [place] [address]- 1043 Mar, [facility] [place] [facility] [address] [id number] [place] [address]- 5750 Mar, [facility] [place] [facility] [address] [id number] [place] [address]- 1481 Mar, [facility] [place] [facility] [address] [id number] [place] [address]- 8834 Mar, [facility] [place] [facility] [address] [id number] [place] [address]- 4315 Feb, [facility] [place] [facility] [address] [id number] [place] [address]- 4437 Feb, [facility] [place] [facility] [address] [id number] [place] [address]- 6815 Feb, [facility] [place] [facility] [address] [id number] [place] [address]- 1317 Feb, [facility] [place] [facility] [address] [id number] [place] [address]- 3123 Feb, [facility] [place] [facility] [address] [id number] [place] [address]- 1275 Feb, [facility] [place] [facility] [address] [id number] [place] [address]- 5314 Feb, [facility] [address] [id number] [place] [address]- 5412 Feb, [facility] [place] [facility] [address] [id number] [place] [address]- 9168 Feb, [facility] [address] [id number] [place] [address]- 9846 Feb, [facility] [place] [facility] [address] [id number] [place] [address]- 3736 Feb, [facility] [address] [id number] [place] [address]- 7106 Feb, [facility] [address] [id number] [place] [address]- 4091 Feb, [facility] [address] [id number] [place] [address]- 5040 Feb, [facility] [address] [id number] [place] [address]- 6927 Feb, [facility] [address] [id number] [place] [address]- 6377 Jan, [facility] [address] [id number] [place] [address]- 1812 31 Jan, 2013 [facility] [place] [facility] [address] [id number] [place] [address]- 8560 30 Jan, 2013 [facility] [place] [facility] [address] [id number] [place] [address]- 0176 30 Jan, 2013 [facility] [place] [facility] [address] [id number] [place] [address]- 1356 Jan, [facility] [place] [facility] [address] [id number] [place] [address]- 1876 Jan, [facility] [place] [facility] [address] [id number] [place] [address]- 6502 Dec, [facility] [place] [facility] [address] [id number] [place] [address]- 7428 Dec, [facility] [place] [facility] [address] [id number] [place] [address]- 9602 Dec, [facility] [place] [facility] [address] [id number] [place] [address]- 0255 Dec, [facility] [place] [facility] [address] [id number] [place] [address]- 0846 Dec, [facility] [place] [facility] [address] [id number] [place] [address]- 9772 Dec, [facility] [place] [facility] [address] [id number], [place] [address]- 2822 Dec, [facility] [place] [facility] [address] [id number] [place] [address]- 1913 Dec, [facility] [place] [facility] [address] [id number], [place] [address]- 2727 Dec, [facility] [place] [facility] [address] [id number] [place] [address]- 6791 Dec, [facility] [place] [facility] [address] [id number], [place] [address]- 1142 Dec, [facility] [place] [facility] [address] [id number], [place] [address]- 7641 Nov, [facility] [place] [facility] [address] [id number], [place] [address]- 0972 Nov, [facility] [place] [facility] [address] [id number], [place] [address]- 6561 Nov, [facility] [place] [facility] [address] [id number], [place] [address]- 3306 Nov, [facility] [place] [facility] [address] [id number], [place] [address]- 5337 Nov, [facility] [place] [facility] [address] [id number] [place] [address]- 4846 Nov, [facility] [place] [facility] [address] [id number] [place] [address]- 1671 Nov, [facility] [place] [facility] [address] [id number] [place] [address]- 5983 Nov, [facility] [place] [facility] [address] [id number] [place] [address]- 8570 Nov, [facility] [place] [facility] [address] [id number] [place] [address]- 1894 Nov, [facility] [place] [facility] [address] [id number] [place] [address]- 2900 Nov, [facility] [place] [facility] [address] [id number] [place] [address]- 0215 Nov, [facility] [place] [facility] [address] [id number] [place] [address]- 1963 Nov, [facility] [place] [facility] [address] [id number] [place] [address]- 5501 Nov, [facility] [place] [facility] [address] [id number] [place] [address]- 3684 18 Oct, 2012 [facility] [place] [facility] [address] [id number] [place] [address]- 8634 17 Oct, 2012 [facility] [place] [facility] [address] [id number] [place] [address]- 2545 11 Oct, 2012 [facility] [place] [facility] [address] [id number] [place] [address]- 7447 Oct, [facility] [place] [facility] [address] [id number] [place] [address]- 7625 Sep, [facility] [place] [facility] [address] [id number] [place] [address]- 9295 Sep, [facility] [place] [facility] [address] [id number] [place] [address]- 8857 Sep, [facility] [place] [facility] [address] [id number] [place] [address]- 0863 Sep, [facility] [place] [facility] [address] [id number] [place] [address]- 5027 Sep, [facility] [place] [facility] [address] [id number] [place] [address]- 0871 Sep, [facility] [place] [facility] [address] [id number] [place] [address]- 9147 Sep, [facility] [place] [facility] [address] [id number] [place] [address]- 4241 Aug, [facility] [place] [facility] [address] [id number] [place] [address]- 3745 Aug, [facility] [place] [facility] [address] [id number] [place] [address]- 1572 Jul, [facility] [place] [facility] [address] [id number] [place] [address]- 0367 Jul, [facility] [place] [facility] [address] [id number] [place] [address]- 6553 Jul, [facility] [place] [facility] [address] [id number] [place] [address]- 9033 Jul, [facility] [place] [facility] [address] [id number] [place] [address]- 0594 Jul, [facility] [place] [facility] [address] [id number] [place] [address]- 2163 Jul, [facility] [place] [facility] [address] [id number] [place] [address]- 0352 Jul, [facility] [place] [facility] [address] [id number] [place] [address]- 3222 June, [facility] [place] [facility] [address] [id number] [place] [address]- 6025 June, [facility] [place] [facility] [address] [id number] [place] [address]- 6366 May, [facility] [address] [address] 4392 May, [facility] [address] [address] 4236 May, [facility] [address] [address]- 4448 May, [facility] [id number] [place] [address]83- 7603 May, [facility] [address], [place] [address]- 0852 May, [facility] [id number] [place] [address] 34563- [address] May, [facility] [id number] [place] [address] 17231- 6933 May, [facility] [id number] [place] [address] 89566- 3050 May, [facility] [address] [place] [address] 29581- 2691 Apr, [facility] [address] [address]- 0289 Apr, [facility] [address], [place] [address]- 9297 Apr, 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
--- OUTSIDE RECORDS SUMMARY | 2018-04-29 18:20 | XMS REPORT ---
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 4118527 Problem Neck pain M54.2 Active 45281800 Problem History of hepatitis C Z86.19 Active [id number] Problem Systemic lupus erythematosus, unspecified SLE type, unspecified organ involvement status M32.9 Active [id number] ALLERGIES No Information SOCIAL HISTORY Never Assessed PLAN OF CARE VITAL SIGNS MEDICATIONS Medication Instructions Dosage Frequency Start Date End Date Duration Status Percocet 7.5-325 mg Orally twice a day 1 tablet as needed 12h Jul, 18 days Active RESULTS No Results PROCEDURES No Known procedures IMMUNIZATIONS No Known Immunizations MEDICAL (GENERAL) HISTORY Type Description Date Medical History hypertension Medical History neck pain - requires chronic pain management, on chronic narcotics Medical 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
--- OUTSIDE RECORDS SUMMARY | 2018-04-29 18:20 | XMS REPORT ---
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 9583078 Problem Neck pain M54.2 Active 48856645 Problem History of hepatitis C Z86.19 Active 13811709683146 Problem Systemic lupus erythematosus, unspecified SLE type, unspecified organ involvement status M32.9 Active [id number] ALLERGIES No Information ENCOUNTERS Encounter Location Date Diagnosis [place] [id number] [place] [address] 72770- 3008 May, Systemic lupus erythematosus, unspecified SLE type, unspecified organ involvement status M32.9 and Neck pain M54.2 [facility] [id number] [place] [address] 40484- 0644 Apr, Neck pain M54.2 [facility] [id number] [place] [address] 39868- 6331 Apr, Neck pain M54.2 [facility] [id number] [place] [address] 08128- 4672 Mar, Neck pain M54.2 [facility] [id number] [place] [address] 81473- 0967 Feb, Neck pain M54.2 [facility] [id number] [place] [address] 76325- 8487 Feb, Neck pain M54.2 [facility] [id number] [place] [address] 95299- 5130 Feb, [facility] [id number] [address]- 8192 Feb, Cervical neuritis M54.12 [facility] [id number] [place] [address] 93446- 7259 Jan, Cervical neuritis M54.12 [facility] [id number] [place] [address] 00462- 1583 Jan, Cervical neuritis M54.12 [facility] [id number] [place] [address] 36882- 2428 Nov, [facility] [id number] [place] [address] 03721- 5690 Nov, 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 and Neck pain M54.2 [facility] [id number] [place] [address] 98299- 5331 Nov, [facility] [id number] [place] [address] 96866- 4631 Nov, Neck pain M54.2 [facility] [id number] [place] [address] 09856- 7753 Nov, [facility] [id number] [place] [address] 24066- 8728 Oct, Neck pain M54.2 and Cervical vertebral fusion M43.22 [facility] [address] [address]- 5310 Sep, [facility] [id number] [place] [address] 98953- 6075 Aug, Systemic lupus erythematosus, unspecified SLE type, unspecified organ involvement status M32.9 and Cervical neuritis M54.12 [facility] [id number] [place] [address] 93809- 0259 Jul, [facility] [address] [place] [address]- 6349 Jul, [facility] [id number] [place] [address] 40612- 6112 June, Lupus M32.9 ; Encounter for screening for lipoid disorders Z13.220 and Neck pain M54.2 [facility] [id number] [place] [address] 48619- 4062 June, [facility] [id number] [place] [address] 36035- 9286 Apr, History of hepatitis C Z86.19 [facility] [id number] [place] [address] 55476- 7616 Nov, [facility] [address] 35879- 4301 June, Warts, genital A63.0 [facility] [id number] [place] [address] 84185- 9658 June, Occasional tremors R25.1 ; Systemic lupus M32.9 and Anxiety about health F41.8 [facility] [id number] [place] [address] 29902- 1575 June, Genital warts A63.0 [facility] [id number] [place] [address] 73204- 6964 May, Lupus M32.9 ; Polyneuropathy in diseases classified elsewhere G63 and Occasional tremors R25.1 [facility] [id number] [place] [address] 08452- 2689 May, Genital warts A63.0 [facility] [id number] [place] [address] 38958- 9709 Apr, [facility] [id number] [place] [address] 74462- 5883 Mar, [facility] [id number] [place] [address] 58589- 0961 Mar, [facility] [id number] [place] [address] 72906- 5882 Mar, Lupus M32.9 [facility] [id number] [place] [address] 41501- 9904 16 Mar, 2015 Systemic lupus M32.9 and Neck pain M54.2 [facility] [id number] [place] [address] 29054- 0011 Feb, Systemic lupus M32.9 [facility] [id number] [place] [address] 18044- 2980 Feb, Systemic lupus erythematosus, organ or system involvement unspecified M32.10 ; Polyneuropathy in diseases classified elsewhere G63 and Hyperpigmented skin lesion L81.9 [facility] [id number] [place] [address] 59217- 4456 Aug, Genital warts 078.11 [facility] [id number] [place] [address] 36496- 9262 Jul, Genital warts 078.11 [facility] [id number] [place] [address] 44401- 0117 Jul, [facility] [id number] [place] [address] 21934- 5005 May, [facility] [id number] [place] [address] 53467- 9559 May, [facility] [id number] [place] [address] 80789- 4161 Dec, [facility] [id number] [place] [address] 98762- 4582 Dec, [facility] [id number] [place] [address] 31017- 4417 Sep, [facility] [id number] [place] [address] 58154- 9329 Sep, [facility] [id number] [place] [address] 16612- 0733 Sep, [facility] [place] [facility] [address] [id number] [place] [address]- 2998 Sep, [facility] [place] [facility] [address] [id number] [place] [address]- 7150 Sep, [facility] [place] [facility] [address] [id number] [place] [address]- 8816 Sep, [facility] [place] [facility] [address] [id number] [place] [address]- 4709 Aug, [facility] [place] [facility] [address] [id number] [place] [address]- 9109 Aug, [facility] [place] [facility] [address] [id number] [place] [address]- 9320 Aug, [facility] [place] [facility] [address] [id number] [place] [address]- 4851 Aug, [facility] [place] [facility] [address] [id number] [place] [address]- 6965 Aug, [facility] [place] [facility] [address] [id number] [place] [address]- 0696 Aug, [facility] [place] [facility] [address] [id number] [place] [address]- 3533 Jul, [facility] [place] [facility] [address] [id number] [place] [address]- 3793 Jul, [facility] [place] [facility] [address] [id number] [place] [address]- 6262 Jul, [facility] [place] [facility] [address] [id number] [place] [address]- 2276 Jul, [facility] [place] [facility] [address] [id number] [place] [address]- 0786 Jul, [facility] [place] [facility] [address] [id number] [place] [address]- 0698 Jul, [facility] [place] [facility] [address] [id number] [place] [address]- 6334 Jul, [facility] [place] [facility] [address] [id number] [place] [address]- 0420 Jul, [facility] [place] [facility] [address] [id number] [place] [address]- 8132 Jul, [facility] [place] [facility] [address] [id number] [place] [address]- 1072 Jul, [facility] [place] [facility] [address] [id number] [place] [address]- 7222 Jul, [facility] [place] [facility] [address] [id number] [place] [address]- 0418 Jul, [facility] [place] [facility] [address] [id number] [place] [address]- 4326 Jul, [facility] [place] [facility] [address] [id number] [place] [address]- 2703 Jul, [facility] [place] [facility] [address] [id number] [place] [address]- 8260 Jul, [facility] [place] [facility] [address] [id number] [place] [address]- 0515 Jul, [facility] [place] [facility] [address] [id number] [place] [address]- 6292 Jul, [facility] [place] [facility] [address] [id number] [place] [address]- 4327 Jul, [facility] [place] [facility] [address] [id number] [address]- 6570 June, [facility] [place] [facility] [address] [id number] [place] [address]- 4492 June, [facility] [place] [facility] [address] [id number] [place] [address]- 2128 June, [facility] [place] [facility] [address] [id number] [place] [address]- 4142 June, [facility] [place] [facility] [address] [id number] [place] [address]- 3458 30 May, 2013 [facility] [place] [facility] [address] [id number] [place] [address]- 9046 30 May, 2013 [facility] [place] [facility] [address] [id number] [place] [address]- 3576 May, [facility] [place] [facility] [address] [id number] [place] [address]- 4523 May, [facility] [place] [facility] [address] [id number] [place] [address]- 4926 May, [facility] [place] [facility] [address] [id number] [place] [address]- 2054 May, [facility] [place] [facility] [address] [id number] [place] [address]- 6756 May, [facility] [place] [facility] [address] [id number] [place] [address]- 0180 May, [facility] [place] [facility] [address] [id number] [place] [address]- 5099 May, [facility] [place] [facility] [address] [id number] [place] [address]- 6822 May, [facility] [place] [facility] [address] [id number] [place] [address]- 9620 Apr, [facility] [place] [facility] [address] [id number] [place] [address]- 0221 Apr, [facility] [place] [facility] [address] [id number] [place] [address]- 7985 Apr, [facility] [place] [facility] [address] [id number] [place] [address]- 1105 Apr, [facility] [place] [facility] [address] [id number] [place] [address]- 7602 Apr, [facility] [place] [facility] [address] [id number] [place] 5197 Apr, [facility] [place] [facility] [address] [id number] [place] [address]- 4945 Mar, [facility] [place] [facility] [address] [id number] [place] [address]- 3626 Mar, [facility] [place] [facility] [address] [id number] [place] [address]- 0946 Mar, [facility] [place] [facility] [address] [id number] [place] [address]- 0506 Mar, [facility] [place] [facility] [address] [id number] [place] [address]- 6723 Mar, [facility] [place] [facility] [address] [id number] [place] [address]- 7326 Mar, [facility] [place] [facility] [address] [id number] [place] [address]- 7136 Mar, [facility] [place] [facility] [address] [id number] [place] [address]- 1824 Mar, [facility] [place] [facility] [address] [id number] [place] [address]- 0756 Feb, [facility] [place] [facility] [address] [id number] [place] [address]- 6904 Feb, [facility] [place] [facility] [address] [id number] [place] [address]- 6421 Feb, [facility] [place] [facility] [address] [id number] [place] [address]- 9454 Feb, [facility] [place] [facility] [address] [id number] [place] [address]- 6253 Feb, [facility] [place] [facility] [address] [id number] [place] [address]- 7448 Feb, [facility] [place] [facility] [address] [id number] [place] [address]- 3430 Feb, [facility] [place] [facility] [address] [id number] [place] [address]- 5086 Feb, [facility] [address] [id number] [place] [address]- 2342 Feb, [facility] [place] [facility] [address] [id number] [place] [address]- 4538 Feb, [facility] [address] [id number] [place] [address]- 4874 Feb, [facility] [place] [facility] [address] [id number] [place] [address]- 9921 Feb, [facility] [place] [facility] [address] [id number] [place] [address]- 9962 Feb, [facility] [place] [facility] [address] [id number] [place] [address]- 2876 Feb, [facility] [address] [id number] [place] [address]- 0436 Feb, [facility] [place] [facility] [address] [id number] [place] [address]- 4648 Jan, [facility] [place] [facility] [address] [id number] [place] [address]- 3747 Jan, [facility] [place] [facility] [address] [id number] [place] [address]- 1362 Jan, [facility] [place] [facility] [address] [id number] [place] [address]- 7901 30 Jan, 2013 [facility] [place] [facility] [address] [id number] [place] [address]- 7120 16 Jan, 2013 [facility] [place] [facility] [address] [id number] [place] [address]- 8772 Jan, [facility] [place] [facility] [address] [id number] [place] [address]- 3160 Dec, [facility] [place] [facility] [address] [id number] [place] [address]- 7730 Dec, [facility] [place] [facility] [address] [id number] [place] [address]- 3410 Dec, [facility] [place] [facility] [address] [id number] [place] [address]- 7218 Dec, [facility] [place] [facility] [address] [id number] [place] [address]- 6756 Dec, [facility] [place] [facility] [address] [id number] [place] [address]- 1261 Dec, [facility] [place] [facility] [address] [id number] [place] [address]- 4118 Dec, [facility] [place] [facility] [address] [id number] [place] [address]- 3721 Dec, [facility] [place] [facility] [address] [id number] [place] [address]- 7730 Dec, [facility] [place] [facility] [address] [id number] [place] [address]- 2443 Dec, [facility] [place] [facility] [address] [id number] [place] [address]- 8379 Dec, [facility] [place] [facility] [address] [id number] [place] [address]- 7852 Nov, [facility] [place] [facility] [address] [id number] [place] [address]- 6881 Nov, [facility] [place] [facility] [address] [id number], [place] [address]- 1834 Nov, [facility] [place] [facility] [address] [id number] [place] [address]- 3351 Nov, [facility] [place] [facility] [address] [id number] [place] [address]- 3221 Nov, [facility] [place] [facility] [address] [id number] [place] [address]- 4855 Nov, [facility] [place] [facility] [address] [id number], [place] [address]- 6849 Nov, [facility] [place] [facility] [address] [id number] [place] [address]- 2076 Nov, [facility] [place] [facility] [address] [id number] [place] 6744 Nov, [facility] [place] [facility] [address] [id number] [place] [address]- 5933 Nov, [facility] [place] [facility] [address] [id number] [place] [address]- 9418 Nov, [facility] [place] [facility] [address] [id number] [place] [address]- 7812 Nov, [facility] [place] [facility] [address] [id number] [place] [address]- 5145 Nov, [facility] [place] [facility] [address] [id number] [place] [address]- 1649 Nov, [facility] [place] [facility] [address] [id number] [place] [address]- 0116 18 Oct, 2012 [facility] [place] [facility] [address] [id number] [place] [address]- 5675 17 Oct, 2012 [facility] [place] [facility] [address] [id number] [place] [address]- 9819 Oct, [facility] [place] [facility] [address] [id number] [place] [address]- 3897 Oct, [facility] [place] [facility] [address] [id number] [place] [address]- 7121 28 Sep, 2012 [facility] [place] [facility] [address] [id number] [place] [address]- 8361 Sep, [facility] [place] [facility] [address] [id number] [place] [address]- 0244 Sep, [facility] [place] [facility] [address] [id number] [place] [address]- 4811 15 Sep, 2012 [facility] [place] [facility] [address] [id number] [place] [address]- 4215 Sep, [facility] [address] [id number] [place] [address]- 5516 Sep, [facility] [address] [id number] [place] [address]- 1011 Sep, [facility] [address] [id number] [place] [address]- 1609 Aug, [facility] [address] [id number] [place] [address]- 3207 Aug, [facility] [address] [id number] [place] [address]- 0019 Jul, [facility] [address] [id number] [place] [address]- 9312 Jul, [facility] [address] [id number] [place] [address]- 6254 Jul, [facility] [address] [id number] [place] [address]- 2359 Jul, [facility] [address] [id number] [place] [address]- 7271 Jul, [facility] [address] [id number] [place] [address]- 7718 Jul, [facility] [address] [id number] [place] [address]- 3143 Jul, [facility] [address] [id number] [place] [address]- 7453 June, [facility] [place] [facility] [address] [id number] [place] [address]- 9254 June, [facility] [address] [id number] [place] [address]- 8464 May, [facility] [address] [id number] [place] 8590 May, [facility] [id number] [place] [address]- 1922 May, [facility] [id number] [place] [address]- 4286 May, [facility] [id number], [place] [address]- 6696 May, [facility] [id number], [place] [address]- 0497 May, [facility] [id number], [place] [address]- 2217 May, [facility] [id number] [place] [address] 91094- 4735 May, [facility] [id number], [place] [address] May, [facility] [id number] [place] [id number] Apr, [facility] [id number], [place] [address] Apr, [facility] [id number], [place] [address] Apr, [facility] [id number], [place] [address] Apr, IMMUNIZATIONS No Known Immunizations SOCIAL HISTORY Never Assessed REASON FOR VISIT Med Refils PLAN OF CARE VITAL SIGNS MEDICATIONS No Known Medications RESULTS No Results PROCEDURES No Known procedures INSTRUCTIONS MEDICATIONS ADMINISTERED No Known Medications MEDICAL (GENERAL) HISTORY Type Description Date Medical History hypertension Medical History neck pain - requires chronic pain management, on chronic narcotics Medical History lupus - sees 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
--- OUTSIDE RECORDS SUMMARY | 2018-04-29 18:20 | XMS REPORT ---
Author DONNA Robin [facility] eClinicalWorks Address Unknown Phone Unavailable Care Team Providers Care Hr Clerk Name Role Phone DONNA LIN CP Unavailable Allergies, Adverse Reactions, Alerts Substance Reaction Event Type N.K.D.A. Info Not Available Non Drug Allergy Problems Problem Type Condition Code Onset Dates Condition Status Assessment Systemic lupus M32.9 Active Problem Cervicalgia 723.1 Active Assessment Occasional tremors R25.1 Active Assessment Anxiety about health F41.8 Active Problem Essential hypertension, benign 401.1 Active Problem Essential and other specified forms of tremor 333.1 Active Problem Lupus erythematosus 695.4 Active Problem Unspecified disorder of skin and subcutaneous tissue 709.9 Active Problem Chronic hepatitis C without mention of hepatic coma 070.54 Active Problem Coronary atherosclerosis of unspecified type of vessel, [facility] or graft 414.00 Active Problem Condyloma acuminatum 078.11 Active Medications Medication Code System Code Instructions Start Date End Date Status Dosage Propranolol HCl [facility] [address]-50 10 mg Orally Twice a day July 05, 2015 1 tablet Mometasone Furoate [facility] [address]-23 0.1 % Externally Once a day 1 application to affected area Amitriptyline HCl [facility] [address]-61 50 MG Orally Once a day 1 tablet Mens Multi Vitamin & Mineral [facility] [address] Orally not defined Nitroglycerin [facility] [address]-15 May 15, 2012 by Sublingual route Baclofen [facility] [address]-03 10 MG Orally Three times a day 1 tablet with food or milk Fish Oil Concentrate [facility] [address] 1000 mg May 15, 2012 1 Capsule by Oral route 1 time per day Aspirin [facility] [address]-07 81 MG Orally Once a day May 15, 2012 take 1 tablet (81 mg) by oral route once daily sun,tues,thur,& fri Percocet [facility] [address]-97 7.5-500 MG Orally every 6 hrs 1 tablet as needed Vitamin E [facility] [address]-71 1000 UNIT Orally Once a day 1 capsule Zoloft [facility] [address]-67 50 mg Orally Once a day July 05, 2015 1 tablet Plaquenil [facility] [address]-06 200 MG Orally 2 times a day Mar 21, 2015 1 tablet with food or milk Gabapentin [facility] [address]-72 800 MG Orally Three times a day 1 tablet Procedures Procedure Coding System Code Date Office Visit, Est Pt., Level 4 CPT-4 94109 July 05, 2015 [facility] V[facility] ESTABLISHED PATIENT CPT-4 G0467 July 05, 2015 Vital Signs Date/Time: July 05, 2015 Cardiac Monitoring Heart Rate 88 bpm Weight 181.1 lbs Height 69 in Blood Pressure Diastolic 70 mmHg Blood Pressure Systolic 118 mmHg Results No Known Results Summary Purpose eClinicalWorks Submission
--- OUTSIDE RECORDS SUMMARY | 2018-04-29 18:20 | XMS REPORT ---
Author Author DONNA OGLESBY Organization [facility] [place] Address [address] 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 3970220 Problem Neck pain M54.2 Active 74735145 Problem History of hepatitis C Z86.19 Active 87711572688246 Problem Systemic lupus erythematosus, unspecified SLE type, unspecified organ involvement status M32.9 Active [id number] ALLERGIES No Information ENCOUNTERS Encounter Location Date Diagnosis [facility] [place] [id number] [place] [address] 35423- 5219 May, Neck pain M54.2 [facility] [place] [id number] [place] [address] 47245- 6524 May, Systemic lupus erythematosus, unspecified SLE type, unspecified organ involvement status M32.9 and Neck pain M54.2 [facility] [place] [id number] [place] [address] 85477- 9322 Apr, Neck pain M54.2 [facility] [place] [id number] [place] [address] 77452- 9065 Apr, Neck pain M54.2 [facility] [place] [id number] [place] [address] 82595- 2070 Mar, Neck pain M54.2 [facility] [place] [id number] [place] [address] 68807- 5532 Feb, Neck pain M54.2 [facility] [place] [id number] [place] [address] 33919- 8137 Feb, Neck pain M54.2 [facility] [place] [id number] [place] [address] 46264- 9592 Feb, [facility] [place] [id number] [place] [address] 16905- 6383 Feb, Cervical neuritis M54.12 [facility] [place] [id number] [place] [address] 54341- 2868 Jan, Cervical neuritis M54.12 [facility] [place] [id number] [place] [address] 84858- 4667 Jan, Cervical neuritis M54.12 [facility] [place] [id number] [place] [address] 37963- 1666 Nov, [facility] [place] [id number] [place] [address] 58100- 1012 Nov, 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 and Neck pain M54.2 [facility] [place] [id number] [place] [address] 46862- 8819 Nov, [facility] [place] [id number] [place] [address] 89948- 3555 Nov, Neck pain M54.2 [facility] [place] [id number] [place] [address] 77783- 3854 Nov, [facility] [place] [id number] [place] [address] 22819- 2616 Oct, Neck pain M54.2 and Cervical vertebral fusion M43.22 [facility] [place] [id number] [place] [address] 39963- 1760 Sep, [facility] [place] [id number] [place] [address] 29967- 5311 Aug, Systemic lupus erythematosus, unspecified SLE type, unspecified organ involvement status M32.9 and Cervical neuritis M54.12 [facility] [place] [id number] [place] [address] 04513- 5710 Jul, [facility] [place] [id number] [place] [address] 15086- 7844 Jul, [facility] [place] [address] 27637- 3130 June, Lupus M32.9 ; Encounter for screening for lipoid disorders Z13.220 and Neck pain M54.2 [place] [address] [address]- 1978 June, [facility] [place] [address] 03903- 1081 Apr, History of hepatitis C Z86.19 [place] [address] [address]647- 1985 Nov, [place] [address] 71448- 2997 June, Warts, genital A63.0 [place] [address] 10300- 7215 June, Occasional tremors R25.1 ; Systemic lupus M32.9 and Anxiety about health F41.8 [place] [id number] [place] [address] 57174- 5755 June, Genital warts A63.0 [place] [id number] [place] [address] 58081- 8001 May, Lupus M32.9 ; Polyneuropathy in diseases classified elsewhere G63 and Occasional tremors R25.1 [place] [id number] [place] [address] 43808- 9787 May, Genital warts A63.0 [place] [id number] [place] [address] 27341- 8363 Apr, [place] [id number] [place] [address] 20216- 1214 Mar, [facility] [place] [address] 11089- 1604 Mar, [facility] [place] [address] [address]- 0457 Mar, Lupus M32.9 [facility] [place] [address] [address]- 8756 16 Mar, 2015 Systemic lupus M32.9 and Neck pain M54.2 [facility] [place] [id number] [place] [address] 32501- 5863 Feb, Systemic lupus M32.9 [facility] [place] [id number] [place] [address] 33882- 7986 Feb, Systemic lupus erythematosus, organ or system involvement unspecified M32.10 ; Polyneuropathy in diseases classified elsewhere G63 and Hyperpigmented skin lesion L81.9 [facility] [place] [id number] [place] [address] 62356- 9653 Aug, Genital warts 078.11 [facility] [place] [id number] [place] [address] 41214- 8971 Jul, Genital warts 078.11 [facility] [place] [id number] [place] [address] 67575- 8664 Jul, [facility] [place] [address] [address]- 9971 May, [facility] [place] [address] [address]- 0844 May, [facility] [place] [address] [address]- 2167 Dec, [facility] [place] [id number] [place] [address] 76473- 6191 Dec, [facility] [place] [address] [address]- 3793 Sep, [facility] [place] [address] [address]- 2109 Sep, [facility] [place] [facility] [address] [id number] [place] [address]- 7307 Sep, [facility] [place] [facility] [address] [id number] [place] [address]- 5418 Sep, [facility] [place] [facility] [address] [id number] [place] [address]- 3138 Sep, [facility] [place] [facility] [address] [id number] [place] [address]- 0938 Sep, [facility] [place] [facility] [address] [id number] [place] [address]- 6329 Aug, [facility] [place] [facility] [address] [id number] [place] [address]- 4807 Aug, [facility] [place] [facility] [address] [id number] [place] [address]- 7002 Aug, [facility] [place] [facility] [address] [id number] [place] [address]- 7966 Aug, [facility] [place] [facility] [address] [id number] [place] [address]- 6512 Aug, [facility] [place] [facility] [address] [id number] [place] [address]- 6158 Aug, [facility] [place] [facility] [address] [id number] [place] [address]- 7819 Jul, [facility] [place] [facility] [address] [id number] [place] [address]- 2905 Jul, [facility] [place] [facility] [address] [id number] [place] [address]- 9360 Jul, [facility] [place] [facility] [address] [id number] [place] [address]- 4876 Jul, [facility] [place] [facility] [address] [id number] [place] [address]- 2508 Jul, [facility] [place] [facility] [address] [id number] [place] [address]- 4010 Jul, [facility] [place] [facility] [address] [id number] [place] [address]- 6033 Jul, [facility] [place] [facility] [address] [id number] [place] [address]- 2637 Jul, [facility] [place] [facility] [address] [id number] [place] [address]- 1868 Jul, [facility] [place] [facility] [address] [id number] [place] [address]- 6136 Jul, [facility] [place] [facility] [address] [id number] [place] [address]- 9225 Jul, [facility] [place] [facility] [address] [id number] [place] [address]- 2303 Jul, [facility] [place] [facility] [address] [id number] [place] [address]- 3844 Jul, [facility] [place] [facility] [address] [id number] [place] [address]- 3894 Jul, [facility] [place] [facility] [address] [id number] [place] [address]- 5476 Jul, [facility] [place] [facility] [address] [id number] [place] [address]- 0236 Jul, [facility] [place] [facility] [address] [id number] [place] [address]- 7797 Jul, [facility] [place] [facility] [address] [id number] [place] [address]- 6137 Jul, [facility] [place] [facility] [address] [id number] [place] [address]- 3858 June, [facility] [place] [facility] [address] [id number] [place] [address]- 5611 June, [facility] [place] [facility] [address] [id number] [place] [address]- 5707 June, [facility] [place] [facility] [address] [id number] [place] [address]- 7678 June, [facility] [place] [facility] [address] [id number] [place] [address]- 3868 May, [facility] [place] [facility] [address] [id number] [place] [address]- 1243 May, [facility] [place] [facility] [address] [id number] [place] [address]- 8414 May, [facility] [place] [facility] [address] [id number] [place] [address]- 4764 May, [facility] [place] [facility] [address] [id number] [place] [address]- 4506 May, [facility] [place] [facility] [address] [id number] [place] [address]- 2520 May, [facility] [place] [facility] [address] [id number] [place] [address]- 4299 May, [facility] [place] [facility] [address] [id number] [place] [address]- 5533 May, [facility] [place] [facility] [address] [id number] [place] [address]- 0076 May, [facility] [place] [facility] [address] [id number] [place] [address]- 6809 May, [facility] [place] [facility] [address] [id number] [place] [address]- 1279 Apr, [facility] [place] [facility] [address] [id number] [place] [address]- 1236 Apr, [facility] [place] [facility] [address] [id number] [place] [address]- 3695 Apr, [facility] [place] [facility] [address] [id number] [place] [address]- 3039 Apr, [facility] [place] [facility] [address] [id number] [place] [address]- 6188 Apr, [facility] [place] [facility] [address] [id number] [place] [address]- 8980 Apr, [facility] [place] [facility] [address] [facility] [id number] [place] [address]- 3112 Mar, [facility] [place] [facility] [address] [facility] [id number] [place] [address]- 8652 Mar, [facility] [place] [facility] [address] [id number] [place] [address]- 0146 Mar, [facility] [place] [facility] [address] [id number] [place] [address]- 3907 Mar, [facility] [place] [facility] [address] [facility] [id number] [place] [address]- 1188 Mar, [facility] [place] [facility] [address] [facility] [id number] [place] [address]- 6933 Mar, [facility] [place] [facility] [address] [facility] [id number] [place] [address]- 7737 Mar, [facility] [place] [facility] [address] [facility] [id number] [place] [address]- 0884 Mar, [facility] [place] [facility] [address] [facility] [id number] [place] [address]- 8709 Feb, [facility] [place] [facility] [address] [facility] [id number] [place] [address]- 9798 Feb, [facility] [place] [facility] [address] [facility] [id number] [place] [address]- 5255 Feb, [facility] [place] [facility] [address] [id number] [place] [address]- 6017 Feb, [facility] [place] [facility] [address] [facility] [id number] [place] [address]- 6087 Feb, [facility] [place] [facility] [address] [facility] [id number] [place] [address]- 2578 Feb, [facility] [place] [facility] [address] [id number] [place] [address]- 9105 Feb, [facility] [place] [facility] [address] [id number] [place] [address]- 5834 Feb, [facility] [place] [facility] [address] [id number] [place] [address]- 5269 Feb, [facility] [place] [facility] [address] [id number] [place] [address]- 9729 Feb, [facility] [place] [facility] [address] [id number] [place] [address]- 1722 Feb, [facility] [place] [facility] [address] [id number] [place] [address]- 8164 Feb, [facility] [place] [facility] [address] [id number] [place] [address]- 1174 Feb, [facility] [place] [facility] [address] [id number] [place] [address]- 8541 Feb, [facility] [place] [facility] [address] [id number] [place] [address]- 3590 Feb, [facility] [place] [facility] [address] [id number] [place] [address]- 8195 Jan, [facility] [place] [facility] [address] [id number] [place] [address]- 4170 31 Jan, 2013 [facility] [place] [facility] [address] [id number] [place] [address]- 0755 30 Jan, 2013 [facility] [place] [facility] [address] [id number] [place] [address]- 3445 30 Jan, 2013 [facility] [place] [facility] [address] [id number] [place] [address]- 3446 16 Jan, 2013 [facility] [place] [facility] [address] [id number] [place] [address]- 6275 16 Jan, 2013 [facility] [place] [facility] [address] [id number] [place] [address]- 8269 Dec, [facility] [place] [facility] [address] [id number] [place] [address]- 5865 Dec, [facility] [place] [facility] [address] [id number], [place] [address]- 4053 Dec, [facility] [place] [facility] [address] [id number], [place] [address]- 9488 Dec, [facility] [place] [facility] [address] [id number], [place] [address]- 3119 Dec, [facility] [place] [facility] [address] [id number] [place] [address]- 5379 Dec, [facility] [place] [facility] [address] [id number], [place] [address]- 8601 Dec, [facility] [place] [facility] [address] [id number], [place] [address]- 8772 Dec, [facility] [place] [facility] [address] [id number], [place] [address]- 1431 Dec, [facility] [place] [facility] [address] [id number], [place] [address]- 3237 Dec, [facility] [place] [facility] [address] [id number], [place] [address]- 3931 Dec, [facility] [place] [facility] [address] [id number], [place] [address]- 2585 Nov, [facility] [place] [facility] [address] [id number], [place] [address]- 0776 Nov, [facility] [place] [facility] [address] [id number], [place] [address]- 4149 Nov, [facility] [place] [facility] [address] [id number], [place] [address]- 1813 Nov, [facility] [place] [facility] [address] [id number], [place] [address]- 8093 Nov, [facility] [place] [facility] [address] [id number] [place] [address]- 2069 Nov, [facility] [place] [facility] [address] [id number] [place] [address]- 3193 Nov, [facility] [place] [facility] [address] [id number] [place] [address]- 5604 Nov, [facility] [place] [facility] [address] [id number] [place] [address]- 6841 Nov, [facility] [place] [facility] [address] [id number] [place] [address]- 8425 Nov, [facility] [place] [facility] [address] [id number] [place] [address]- 9668 Nov, [facility] [place] [facility] [address] [id number] [place] [address]- 7552 Nov, [facility] [place] [facility] [address] [id number] [place] [address]- 4761 Nov, [facility] [place] [facility] [address] [id number] [place] [address]- 5420 Nov, [facility] [place] [facility] [address] [id number] [place] [address]- 6744 18 Oct, 2012 [facility] [place] [facility] [address] [id number] [place] [address]- 5275 17 Oct, 2012 [facility] [place] [facility] [address] [id number] [place] [address]- 7081 11 Oct, 2012 [facility] [place] [facility] [address] [id number] [place] [address]- 3119 Oct, [facility] [place] [facility] [address] [id number] [place] [address]- 1341 Sep, [facility] [place] [facility] [address] [id number] [place] [address]- 8266 Sep, [facility] [place] [facility] [address] [id number] [place] [address]- 4487 Sep, [facility] [place] [facility] [address] [id number] [place] [address]- 0720 Sep, [facility] [address] [id number] [place] [address]- 9026 Sep, [facility] [place] [facility] [address] [id number] [place] [address]- 8350 Sep, [facility] [place] [facility] [address] [id number] [place] [address]- 2874 Sep, [facility] [address] [id number] [place] [address]- 3030 Aug, [facility] [place] [facility] [address] [id number] [place] [address]- 5211 Aug, [facility] [address] [id number] [place] [address]- 5067 Jul, [facility] [address] [id number] [place] [address]- 2489 Jul, [facility] [place] [facility] [address] [id number] [place] [address]- 3122 Jul, [facility] [place] [facility] [address] [id number] [place] [address]- 1098 Jul, [facility] [place] [facility] [address] [id number] [place] [address]- 0990 Jul, [facility] [place] [facility] [address] [id number] [place] [address]- 1184 Jul, [facility] [place] [facility] [address] [id number] [place] [address]- 1303 Jul, [facility] [place] [facility] [address] [id number] [place] [address]- 7583 June, [facility] [place] [facility] [address] [id number] [place] [address] June, [facility] [place] [facility] [address] [id number], [place] [address] May, [facility] [place] [id number] [address] May, [facility] [place], [facility] [id number] [address] May, [facility] [place], [facility] [id number] [address] May, [facility] [place], [facility] [id number], [place] [address] May, [facility] [place], [facility] [id number], [place] [address] May, [facility] [place], [facility] [id number], [place] [address] May, [facility] [place], [facility] [id number], [place] [address] May, [facility] [place], [facility] [id number], [place] [address] May, [facility] [place], [facility] [id number], [place] [address] Apr, [facility] [place], [facility] [id number], [place] [address] Apr, [facility] [place], [facility] [id number], [place] [address] Apr, [facility] [place], [facility] [id number], [place] [address] Apr, IMMUNIZATIONS No Known Immunizations SOCIAL HISTORY Never Assessed REASON FOR VISIT NARCOTICS VIOLATION PLAN OF CARE VITAL SIGNS MEDICATIONS Unknown Medications RESULTS No Results PROCEDURES No Known procedures INSTRUCTIONS MEDICATIONS ADMINISTERED No Known Medications MEDICAL (GENERAL) HISTORY Type Description Date Medical History hypertension Medical History neck pain - requires chronic pain management, on chronic narcotics Medical History lupus - 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
--- OUTSIDE RECORDS SUMMARY | 2018-04-29 18:20 | XMS REPORT ---
Author Author DONNA OGLESBY [facility] eClinical[employer] Address Unknown Phone Unavailable Care Team Providers Care Ip/Mosaic Technician Name Role Phone DONNA OGLESBY CP Unavailable Allergies No Known Allergies Problems Problem Type Condition Code Onset Dates Condition Status Problem Cervicalgia 723.1 Active Problem Essential hypertension, benign 401.1 Active Problem Essential and other specified forms of tremor 333.1 Active Problem Lupus erythematosus 695.4 Active Problem Unspecified disorder of skin and subcutaneous tissue 709.9 Active Problem Chronic hepatitis C without mention of hepatic coma 070.54 Active Problem Coronary atherosclerosis of unspecified type of vessel, [place] or graft 414.00 Active Problem 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 [id number] TAKE ONE TABLET BY MOUTH TWICE A DAY WITH FOOD OR MILK Results No Known Results Summary Purpose eClinicalWorks Submission
--- OUTSIDE RECORDS SUMMARY | 2018-04-29 18:21 | XMS REPORT ---
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 8293071 Problem Neck pain M54.2 Active 43752885 Problem History of hepatitis C Z86.19 Active [id number] Problem Systemic lupus erythematosus, unspecified SLE type, unspecified organ involvement status M32.9 Active [id number] ALLERGIES No Information ENCOUNTERS Encounter Location Date Diagnosis [facility] [place] [id number] [place] [address] 44518- 8696 Aug, [facility] [id number] [place] [address] 10899- 2554 Jul, Neck pain M54.2 [facility] [id number] [place] [address] 38482- 8275 June, Neck pain M54.2 [facility] [id number] [place] [address] 19467- 3969 May, Neck pain M54.2 [facility] [id number] [place] [address] 84068- 2258 May, Systemic lupus erythematosus, unspecified SLE type, unspecified organ involvement status M32.9 and Neck pain M54.2 [facility] [id number] [place] [address] 62371- 1587 Apr, Neck pain M54.2 [facility] [id number] [place] [address] 07981- 6673 Apr, Neck pain M54.2 [facility] [id number] [place] [address] 53833- 2277 Mar, Neck pain M54.2 [facility] [id number] [place] [address] 53769- 9791 Feb, Neck pain M54.2 [facility] [id number] [place] [address] 77604- 7447 Feb, Neck pain M54.2 [facility] [id number] [place] [address] 57508- 6404 Feb, [facility] [id number] [place] [address] 14918- 7375 Feb, Cervical neuritis M54.12 [facility] [id number] [place] [address] 98827- 7130 Jan, Cervical neuritis M54.12 [facility] [id number] [place] [address] 33649- 9733 Jan, Cervical neuritis M54.12 [facility] [id number] [place] [address] 08617- 7337 Nov, [facility] [id number] [place] [address] 11005- 5816 Nov, 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 and Neck pain M54.2 [facility] [id number] [place] [address] 88514- 1422 Nov, [facility] [id number] [place] [address] 49610- 2201 Nov, Neck pain M54.2 [facility] [id number] [place] [address] 91554- 3170 Nov, [facility] [id number] [place] [address] 29787- 6043 Oct, Neck pain M54.2 and Cervical vertebral fusion M43.22 [facility] [id number] [place] [address] 53265- 4869 Sep, [facility] [id number] [place] [address] 87715- 8455 Aug, Systemic lupus erythematosus, unspecified SLE type, unspecified organ involvement status M32.9 and Cervical neuritis M54.12 [facility] [place] [id number] [place] [address] 07778- 9681 Jul, [facility] [address] 69161- 7469 Jul, [facility] [id number] [place] [address] 85573- 6035 June, Lupus M32.9 ; Encounter for screening for lipoid disorders Z13.220 and Neck pain M54.2 [facility] [id number] [place] [address] 10567- 4703 June, [facility] [address] 88333- 0079 Apr, History of hepatitis C Z86.19 [place] [id number] [place] [address] 98692- 4028 Nov, [facility] [place] [id number] [place] [address] 69793- 0446 June, Warts, genital A63.0 [facility] [place] [id number] [place] [address] 99056- 3266 June, Occasional tremors R25.1 ; Systemic lupus M32.9 and Anxiety about health F41.8 [facility] [place] [id number] [place] [address] 81586- 1170 June, Genital warts A63.0 [facility] [id number] [place] [address] 21822- 3437 May, Lupus M32.9 ; Polyneuropathy in diseases classified elsewhere G63 and Occasional tremors R25.1 [facility] [place] [id number] [place] [address] 66616- 8293 May, Genital warts A63.0 [facility] [id number] [place] [address] 48950- 6818 Apr, [facility] [id number] [place] [address] 59563- 4769 Mar, [facility] [id number] [place] [address] 31525- 4992 Mar, [facility] [id number] [place] [address] 68622- 7457 Mar, Lupus M32.9 [facility] [id number] [place] [address] 64630- 4838 Mar, Systemic lupus M32.9 and Neck pain M54.2 [facility] [id number] [place] [address] 70452- 6728 Feb, Systemic lupus M32.9 [facility] [id number] [place] [address] 24239- 3511 Feb, Systemic lupus erythematosus, organ or system involvement unspecified M32.10 ; Polyneuropathy in diseases classified elsewhere G63 and Hyperpigmented skin lesion L81.9 [facility] [address] [address]- 5033 Aug, Genital warts 078.11 [facility] [id number] [place] [address] 53305- 6876 05 Jul, 2014 Genital warts 078.11 [facility] [id number] [place] [address] 45511- 3942 Jul, [facility] [id number] [place] [address] 02281- 5342 14 May, 2014 [facility] [id number] [place] [address] 26786- 4972 13 May, 2014 [facility] [id number] [place] [address] 91855- 1217 Dec, [facility] [place] [facility] [address] [id number] [place] [address]- 3579 Dec, [facility] [place] [facility] [address] [id number] [place] [address]- 5899 Sep, [facility] [place] [facility] [address] [id number] [place] [address]- 6305 Sep, [facility] [place] [facility] [address] [id number] [place] [address]- 1737 Sep, [facility] [place] [facility] [address] [id number] [place] [address]- 1705 Sep, [facility] [place] [facility] [address] [id number] [place] [address]- 9799 Sep, [facility] [place] [facility] [address] [id number] [place] [address]- 9445 Sep, [facility] [place] [facility] [address] [id number] [place] [address]- 4128 Aug, [facility] [place] [facility] [address] [id number] [place] [address]- 2528 Aug, [facility] [place] [facility] [address] [id number] [place] [address]- 3784 Aug, [facility] [place] [facility] [address] [id number] [place] [address]- 4291 Aug, [facility] [place] [facility] [address] [id number] [place] [address]- 0503 Aug, [facility] [place] [facility] [address] [id number] [place] [address]- 0531 Aug, [facility] [place] [facility] [address] [id number] [place] [address]- 3741 Jul, [facility] [place] [facility] [address] [id number] [place] [address]- 9588 Jul, [facility] [place] [facility] [address] [id number] [place] [address]- 8381 16 Jul, 2013 [facility] [place] [facility] [address] [id number] [place] [address]- 9324 16 Jul, 2013 [facility] [place] [facility] [address] [id number] [place] [address]- 4975 16 Jul, 2013 [facility] [place] [facility] [address] [id number] [place] [address]- 1374 Jul, [facility] [place] [facility] [address] [id number] [place] [address]- 8363 Jul, [facility] [place] [facility] [address] [id number] [place] [address]- 3818 Jul, [facility] [place] [facility] [address] [id number] [place] [address]- 5841 Jul, [facility] [place] [facility] [address] [id number] [place] [address]- 8321 Jul, [facility] [place] [facility] [address] [id number] [place] [address]- 8558 Jul, [facility] [place] [facility] [address] [id number] [place] [address]- 9603 Jul, [facility] [place] [facility] [address] [id number] [place] [address]- 8631 05 Jul, 2013 [facility] [place] [facility] [address] [id number] [place] [address]- 1366 Jul, [facility] [place] [facility] [address] [id number] [place] [address]- 8486 05 Jul, 2013 [facility] [place] [facility] [address] [id number] [place] [address]- 3704 Jul, [facility] [place] [facility] [address] [id number] [place] [address]- 4470 04 Jul, 2013 [facility] [place] [facility] [address] [id number] [place] [address]- 3970 Jul, [facility] [place] [facility] [address] [id number] [place] [address]- 9132 June, [facility] [place] [facility] [address] [id number] [place] [address]- 5076 June, [facility] [place] [facility] [address] [id number] [place] [address]- 3177 June, [facility] [place] [facility] [address] [id number] [place] [address]- 6388 June, [facility] [place] [facility] [address] [id number] [place] [address]- 3086 May, [facility] [place] [facility] [address] [id number] [place] [address]- 7018 May, [facility] [place] [facility] [address] [id number] [place] [address]- 9526 May, [facility] [place] [facility] [address] [id number] [place] [address]- 2460 May, [facility] [place] [facility] [address] [id number] [place] [address]- 0037 May, [facility] [place] [facility] [address] [id number] [place] [address]- 8515 May, [facility] [place] [facility] [address] [id number] [place] [address]- 7685 May, [facility] [place] [facility] [address] [id number] [place] [address]- 7699 May, [facility] [place] [facility] [address] [id number] [place] [address]- 8066 May, [facility] [place] [facility] [address] [id number] [place] [address]- 8399 May, [facility] [place] [facility] [address] [id number] [place] [address]- 9984 Apr, [facility] [place] [facility] [address] [id number] [place] [address]- 9078 Apr, [facility] [place] [facility] [address] [id number] [place] [address]- 0449 Apr, [facility] [place] [facility] [address] [id number] [place] [address]- 7099 Apr, [facility] [place] [facility] [address] [id number] [place] [address]- 6591 Apr, [facility] [place] [facility] [address] [id number] [place] [address]- 2754 Apr, [facility] [place] [facility] [address] [id number] [place] [address]- 2857 Mar, [facility] [place] [facility] [address] [id number] [place] [address]- 8240 Mar, [facility] [place] [facility] [address] [id number] [place] [address]- 0420 Mar, [facility] [place] [facility] [address] [id number] [place] [address]- 5841 Mar, [facility] [place] [facility] [address] [id number] [place] [address]- 9801 Mar, [facility] [place] [facility] [address] [id number] [place] [address]- 0134 Mar, [facility] [place] [facility] [address] [id number] [place] [address]- 3276 Mar, [facility] [place] [facility] [address] [id number] [place] [address]- 7471 Mar, [facility] [place] [facility] [address] [id number] [place] 8465 Feb, [facility] [place] [facility] [address] [id number] [place] 1991 Feb, [facility] [place] [facility] [address] [id number] [place] [address]- 7209 Feb, [facility] [address] [id number] [place] [address]- 2974 Feb, [facility] [place] [facility] [address] [id number] [place] [address]- 9930 Feb, [facility] [place] [facility] [address] [id number] [place] [address]- 9030 Feb, [facility] [place] [facility] [address] [id number] [place] [address]- 8580 Feb, [facility] [place] [facility] [address] [id number] [place] [address]- 0164 Feb, [facility] [place] [facility] [address] [id number] [place] [address]- 2888 Feb, [facility] [place] [facility] [address] [id number] [place] [address]- 5739 Feb, [facility] [place] [facility] [address] [id number] [place] [address]- 2974 Feb, [facility] [place] [facility] [address] [id number] [place] [address]- 8074 Feb, [facility] [place] [facility] [address] [id number] [place] [address]- 5061 Feb, [facility] [place] [facility] [address] [id number] [place] [address]- 8258 Feb, [facility] [place] [facility] [address] [id number] [place] [address]- 6946 Feb, [facility] [place] [facility] [address] [id number] [place] [address]- 9668 Jan, [facility] [place] [facility] [address] [id number] [place] [address]- 0709 Jan, [facility] [place] [facility] [address] [id number] [place] [address]- 2149 Jan, [facility] [place] [facility] [address] [id number] [place] [address]- 4035 30 Jan, 2013 [facility] [address] [id number] [place] [address]- 6170 16 Jan, 2013 [facility] [place] [facility] [address] [id number] [place] [address]- 2902 16 Jan, 2013 [facility] [place] [facility] [address] [id number] [place] [address]- 8736 Dec, [facility] [place] [facility] [address] [id number] [place] [address]- 2503 Dec, [facility] [place] [facility] [address] [id number] [place] [address]- 4660 Dec, [facility] [place] [facility] [address] [id number] [place] [address]- 4819 Dec, [facility] [place] [facility] [address] [id number] [place] [address]- 6248 18 Dec, 2012 [facility] [place] [facility] [address] [id number] [place] [address]- 1034 Dec, [facility] [place] [facility] [address] [id number] [place] [address]- 3738 Dec, [facility] [place] [facility] [address] [facility] [id number] [place] [address]- 1598 Dec, [facility] [place] [facility] [address] [id number] [place] [address]- 5850 Dec, [facility] [place] [facility] [address] [id number] [address]- 6703 Dec, [facility] [place] [facility] [address] [id number] [place] [address]- 0413 Dec, [facility] [place] [facility] [address] [id number] [place] [address]- 9566 29 Nov, 2012 [facility] [place] [facility] [address] [id number], [place] [address]- 9356 28 Nov, 2012 [facility] [place] [facility] [address] [id number] [place] [address]- 8067 Nov, [facility] [place] [facility] [address] [id number] [place] [address]- 0235 Nov, [facility] [place] [facility] [address] [id number] [place] [address]- 3658 Nov, [facility] [place] [facility] [address] [id number] [place] [address]- 9892 Nov, [facility] [place] [facility] [address] [id number] [place] [address]- 4540 Nov, [facility] [place] [facility] [address] [id number] [place] [address]- 5587 Nov, [facility] [place] [facility] [address] [id number] [place] [address]- 6821 Nov, [facility] [place] [facility] [address] [id number] [place] [address]- 7701 Nov, [facility] [place] [facility] [address] [id number] [place] [address]- 6117 Nov, [facility] [place] [facility] [address] [id number] [place] [address]- 8413 Nov, [facility] [place] [facility] [address] [id number] [place] [address]- 5016 Nov, [facility] [place] [facility] [address] [id number] [place] [address]- 3788 Nov, [facility] [place] [facility] [address] [id number] [place] [address]- 9602 18 Oct, 2012 [facility] [place] [facility] [address] [id number] [place] [address]- 7772 17 Sep2012 [facility] [place] [facility] [address] [id number] [place] [address]- 7370 11 Oct, 2012 [facility] [place] [facility] [address] [id number] [place] [address]- 0746 Oct, [facility] [place] [facility] [address] [id number] [place] [address]- 5232 Sep, [facility] [place] [facility] [address] [id number] [place] [address]- 7837 Sep, [facility] [place] [facility] [address] [id number] [place] [address]- 4770 Sep, [facility] [place] [facility] [address] [id number] [place] [address]- 8547 Sep, [facility] [place] [facility] [address] [id number] [place] [address]- 9900 Sep, [facility] [place] [facility] [address] [id number] [place] [address]- 3712 Sep, [facility] [place] [facility] [address] [id number] [place] [address]- 5956 Sep, [facility] [place] [facility] [address] [id number] [place] [address]- 8498 Aug, [facility] [place] [facility] [address] [id number] [place] [address]- 1630 Aug, [facility] [place] [facility] [address] [id number] [place] [address]- 4407 Jul, [facility] [place] [facility] [address] [id number] [place] [address]- 3088 Jul, [facility] [place] [facility] [address] [id number] [place] [address]- 2880 Jul, [facility] [place] [facility] [address] [id number] [place] [address]- 5716 Jul, [facility] [place] [facility] [address] [id number] [place] [address]- 7841 Jul, [facility] [place] [facility] [address] [id number] [place] [address]- 4954 Jul, [facility] [place] [facility] [address] [id number] [place] [address]- 8804 Jul, [facility] [address] [id number] [place] [address]- 1988 June, [facility] [place] [facility] [address] [id number] [place] [address]- 5198 June, [facility] [place] [facility] [address] [id number] [place] [address]- 2007 29 May, 2012 [facility] [place] [facility] [address] [id number] [place] [address]- 7202 24 May, 2012 [facility] [place] [facility] [address] [id number] [place] [address]- 2997 May, [facility] [place] [facility] [address] [id number] [place] [address]- 7838 May, [facility] [place] [facility] [address] [facility] [id number] [place] [address]- 3652 May, [facility] [place] [facility] [address] [id number] [place] [address]- 7225 08 May, 2012 [facility] [place] [facility] [address] [id number] [place] [address] 05 May, 2012 [facility] [place] [facility] [address] [facility] [id number] [place] [address] May, [facility] [place] [facility] [address] [id number] [place] [address] May, [facility] [place] [facility] [address] [id number] [place] [address] Apr, [facility] [address] [id number] [place] [address] 27 Apr, 2012 [facility] [place] [facility] [address] [facility] [id number] [place] [address] Apr, [facility] [place] [facility] [address] [id number] [place] [address] Apr, IMMUNIZATIONS No Known Immunizations SOCIAL HISTORY Never Assessed REASON FOR VISIT Berta TRIVEDI PLAN OF CARE VITAL SIGNS MEDICATIONS Unknown Medications RESULTS Name Result Date Reference Range [employer] 2017-03-20 PROCEDURES Procedure Date Ordered Result Body Site No Charge Mar 20, 2017 INSTRUCTIONS MEDICATIONS ADMINISTERED No Known Medications MEDICAL (GENERAL) HISTORY Type Description Date Medical History hypertension Medical History neck pain - requires chronic pain management, on chronic narcotics Medical History lupus - sees patient financial counselor in [place] Medical History Chronic HCV, successfully treated by [...]
--- OUTSIDE RECORDS SUMMARY | 2018-04-29 18:21 | XMS REPORT ---
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 1784689 Problem Neck pain M54.2 Active 08726220 Problem History of hepatitis C Z86.19 Active [id number] Problem Systemic lupus erythematosus, unspecified SLE type, unspecified organ involvement status M32.9 Active [id number] ALLERGIES No Information ENCOUNTERS Encounter Location Date Diagnosis [place] [id number] [place] [address] 19251- 2108 Aug, [facility] [id number] [place] [address] 30590- 4035 Jul, Neck pain M54.2 [facility] [id number] [place] [address] 59898- 7461 June, Neck pain M54.2 [facility] [id number] [place] [address] 72117- 0598 May, Neck pain M54.2 [facility] [id number] [place] [address] 29874- 2569 May, Systemic lupus erythematosus, unspecified SLE type, unspecified organ involvement status M32.9 and Neck pain M54.2 [facility] [id number] [place] [address] 93865- 0687 Apr, Neck pain M54.2 [facility] [id number] [place] [address] 74582- 4542 Apr, Neck pain M54.2 [facility] [id number] [place] [address] 66122- 3590 Mar, Neck pain M54.2 [facility] [id number] [place] [address] 23769- 1134 Feb, Neck pain M54.2 [facility] [id number] [place] [address] 58528- 0436 Feb, Neck pain M54.2 [facility] [id number] [place] [address] 51379- 5078 Feb, [facility] [id number] [place] [address] 87791- 6242 Feb, Cervical neuritis M54.12 [facility] [id number] [place] [address] 52068- 3883 Jan, Cervical neuritis M54.12 [facility] [id number] [place] [address] 43646- 6021 Jan, Cervical neuritis M54.12 [facility] [id number] [place] [address] 57142- 8376 Nov, [facility] [id number] [place] [address] 25768- 8896 Nov, 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 and Neck pain M54.2 [facility] [id number] [place] [address] 56454- 4897 Nov, [facility] [id number] [place] [address] 72546- 9933 Nov, Neck pain M54.2 [facility] [id number] [place] [address] 12604- 2573 Nov, [facility] [id number] [place] [address] 46386- 9981 Oct, Neck pain M54.2 and Cervical vertebral fusion M43.22 [facility] [id number] [place] [address] 96079- 7862 Sep, [place] [id number] [place] [address] 85520- 1614 Aug, Systemic lupus erythematosus, unspecified SLE type, unspecified organ involvement status M32.9 and Cervical neuritis M54.12 [place] [id number] [place] [address] 16669- 6205 Jul, [place] [address] 46190- 9050 Jul, [place] [id number] [place] [address] 86317- 1087 June, Lupus M32.9 ; Encounter for screening for lipoid disorders Z13.220 and Neck pain M54.2 [place] [id number] [place] [address] 52254- 5447 June, [place] [address] 29191- 8971 Apr, History of hepatitis C Z86.19 [place] [id number] [place] [address] 09106- 9801 Nov, [place] [id number] [place] [address] 94467- 0448 June, Warts, genital A63.0 [place] [id number] [place] [address] 21554- 9742 June, Occasional tremors R25.1 ; Systemic lupus M32.9 and Anxiety about health F41.8 [place] [id number] [place] [address] 73881- 7305 June, Genital warts A63.0 [place] [id number] [place] [address] 77397- 0020 May, Lupus M32.9 ; Polyneuropathy in diseases classified elsewhere G63 and Occasional tremors R25.1 [place] [id number] [place] [address] 34348- 0696 May, Genital warts A63.0 [facility] [id number] [place] [address] 99564- 9287 Apr, [facility] [id number] [place] [address] 98808- 3246 Mar, [facility] [id number] [place] [address] 16874- 8775 Mar, [facility] [id number] [place] [address] 59348- 1558 Mar, Lupus M32.9 [facility] [id number] [place] [address] 27419- 8717 Mar, Systemic lupus M32.9 and Neck pain M54.2 [facility] [id number] [place] [address] 11712- 4551 Feb, Systemic lupus M32.9 [facility] [id number] [place] [address] 68337- 7197 Feb, Systemic lupus erythematosus, organ or system involvement unspecified M32.10 ; Polyneuropathy in diseases classified elsewhere G63 and Hyperpigmented skin lesion L81.9 [facility] [address] [address]- 2922 Aug, Genital warts 078.11 [facility] [id number] [place] [address] 58696- 6131 05 Jul, 2014 Genital warts 078.11 [facility] [id number] [place] [address] 24978- 6896 Jul, [facility] [id number] [place] [address] 46479- 3808 14 May, 2014 [facility] [id number] [place] [address] 80903- 8509 13 May, 2014 [facility] [id number] [place] [address] 74487- 3104 Dec, [facility] [place] [facility] [address] [id number] [place] [address]- 9197 Dec, [facility] [place] [facility] [address] [id number] [place] [address]- 0809 Sep, [facility] [place] [facility] [address] [id number] [place] [address]- 1903 Sep, [facility] [place] [facility] [address] [id number] [place] [address]- 5141 Sep, [facility] [place] [facility] [address] [id number] [place] [address]- 5025 Sep, [facility] [place] [facility] [address] [id number] [place] [address]- 6456 Sep, [facility] [place] [facility] [address] [id number] [place] [address]- 4798 Sep, [facility] [place] [facility] [address] [id number] [place] [address]- 3571 Aug, [facility] [place] [facility] [address] [id number] [place] [address]- 6379 Aug, [facility] [place] [facility] [address] [id number] [place] [address]- 3593 Aug, [facility] [place] [facility] [address] [id number] [place] [address]- 0524 Aug, [facility] [place] [facility] [address] [id number] [place] [address]- 6614 Aug, [facility] [place] [facility] [address] [id number] [place] [address]- 0892 Aug, [facility] [place] [facility] [address] [id number] [place] [address]- 2825 Jul, [facility] [place] [facility] [address] [id number] [place] [address]- 8799 Jul, [facility] [place] [facility] [address] [id number] [place] [address]- 0736 16 Jul, 2013 [facility] [place] [facility] [address] [id number] [place] [address]- 0740 16 Jul, 2013 [facility] [place] [facility] [address] [id number] [place] [address]- 3993 16 Jul, 2013 [facility] [place] [facility] [address] [id number] [place] [address]- 2693 Jul, [facility] [place] [facility] [address] [id number] [place] [address]- 1002 Jul, [facility] [place] [facility] [address] [id number] [place] [address]- 7088 Jul, [facility] [place] [facility] [address] [id number] [place] [address]- 7927 Jul, [facility] [place] [facility] [address] [id number] [place] [address]- 1777 Jul, [facility] [place] [facility] [address] [id number] [place] [address]- 7187 Jul, [facility] [place] [facility] [address] [id number] [place] [address]- 4548 Jul, [facility] [place] [facility] [address] [id number] [place] [address]- 7754 05 Jul, 2013 [facility] [place] [facility] [address] [id number] [place] [address]- 7717 Jul, [facility] [place] [facility] [address] [id number] [place] [address]- 6729 05 Jul, 2013 [facility] [place] [facility] [address] [id number] [place] [address]- 9399 Jul, [facility] [place] [facility] [address] [id number] [place] [address]- 7006 04 Jul, 2013 [facility] [place] [facility] [address] [id number] [place] [address]- 9962 Jul, [facility] [place] [facility] [address] [id number] [place] [address]- 3610 June, [facility] [place] [facility] [address] [id number] [place] [address]- 5816 June, [facility] [place] [facility] [address] [id number] [place] [address]- 7719 June, [facility] [place] [facility] [address] [id number] [place] [address]- 0973 June, [facility] [place] [facility] [address] [id number] [place] [address]- 0634 May, [facility] [place] [facility] [address] [id number] [place] [address]- 9975 May, [facility] [place] [facility] [address] [id number] [place] [address]- 4489 May, [facility] [place] [facility] [address] [id number] [place] [address]- 8828 May, [facility] [place] [facility] [address] [id number] [place] [address]- 5244 May, [facility] [place] [facility] [address] [id number] [place] [address]- 9884 May, [facility] [place] [facility] [address] [id number] [place] [address]- 5601 May, [facility] [place] [facility] [address] [id number] [place] [address]- 3761 May, [facility] [place] [facility] [address] [id number] [place] [address]- 2134 May, [facility] [place] [facility] [address] [id number] [place] [address]- 8781 May, [facility] [place] [facility] [address] [id number] [place] [address]- 3668 Apr, [facility] [place] [facility] [address] [id number] [place] [address]- 1573 Apr, [facility] [place] [facility] [address] [id number] [place] [address]- 8444 Apr, [facility] [place] [facility] [address] [id number] [place] [address]- 6824 Apr, [facility] [place] [facility] [address] [id number] [place] [address]- 3523 Apr, [facility] [place] [facility] [address] [id number] [place] [address]- 8803 Apr, [facility] [place] [facility] [address] [id number] [place] [address]- 8728 Mar, [facility] [place] [facility] [address] [id number] [place] [address]- 4611 Mar, [facility] [place] [facility] [address] [id number] [place] [address]- 8750 Mar, [facility] [place] [facility] [address] [id number] [place] [address]- 5441 Mar, [facility] [place] [facility] [address] [id number] [place] [address]- 4722 Mar, [facility] [place] [facility] [address] [id number] [place] [address]- 9236 Mar, [facility] [place] [facility] [address] [id number] [place] [address]- 6103 Mar, [facility] [place] [facility] [address] [id number] [place] [address]- 1109 Mar, [facility] [place] [facility] [address] [id number] [place] 4888 Feb, [facility] [place] [facility] [address] [id number] [place] 1105 Feb, [facility] [place] [facility] [address] [id number] [place] [address]- 8138 Feb, [facility] [address] [id number] [place] [address]- 3854 Feb, [facility] [place] [facility] [address] [id number] [place] [address]- 9663 Feb, [facility] [place] [facility] [address] [id number] [place] [address]- 5706 Feb, [facility] [place] [facility] [address] [id number] [place] [address]- 4970 Feb, [facility] [place] [facility] [address] [id number] [place] [address]- 9994 Feb, [facility] [place] [facility] [address] [id number] [place] [address]- 4314 Feb, [facility] [place] [facility] [address] [id number] [place] [address]- 4189 Feb, [facility] [place] [facility] [address] [id number] [place] [address]- 1318 Feb, [facility] [place] [facility] [address] [id number] [place] [address]- 4537 Feb, [facility] [place] [facility] [address] [id number] [place] [address]- 2385 Feb, [facility] [place] [facility] [address] [id number] [place] [address]- 6856 Feb, [facility] [place] [facility] [address] [id number] [place] [address]- 6956 Feb, [facility] [place] [facility] [address] [id number] [place] [address]- 0063 Jan, [facility] [place] [facility] [address] [id number] [place] [address]- 6919 Jan, [facility] [place] [facility] [address] [id number] [place] [address]- 7772 Jan, [facility] [place] [facility] [address] [id number] [place] [address]- 8680 30 Jan, 2013 [facility] [address] [id number] [place] [address]- 5396 16 Jan, 2013 [facility] [place] [facility] [address] [id number] [place] [address]- 9785 16 Jan, 2013 [facility] [place] [facility] [address] [id number] [place] [address]- 6688 Dec, [facility] [place] [facility] [address] [id number] [place] [address]- 3871 Dec, [facility] [place] [facility] [address] [id number] [place] [address]- 8002 Dec, [facility] [place] [facility] [address] [id number] [place] [address]- 2595 Dec, [facility] [place] [facility] [address] [id number] [place] [address]- 3069 18 Dec, 2012 [facility] [place] [facility] [address] [id number] [place] [address]- 7273 Dec, [facility] [place] [facility] [address] [id number] [place] [address]- 5245 Dec, [facility] [place] [facility] [address] [facility] [id number] [place] [address]- 8647 Dec, [facility] [place] [facility] [address] [id number] [place] [address]- 9625 Dec, [facility] [place] [facility] [address] [id number] [address]- 2027 Dec, [facility] [place] [facility] [address] [id number] [place] [address]- 8598 Dec, [facility] [place] [facility] [address] [id number] [place] [address]- 4322 29 Nov, 2012 [facility] [place] [facility] [address] [id number] [address]- 3442 28 Nov, 2012 [facility] [place] [facility] [address] [id number] [place] [address]- 1456 Nov, [facility] [place] [facility] [address] [id number] [place] [address]- 8062 Nov, [facility] [place] [facility] [address] [id number] [place] [address]- 2597 Nov, [facility] [place] [facility] [address] [id number] [place] [address]- 7874 Nov, [facility] [place] [facility] [address] [id number] [place] [address]- 6872 Nov, [facility] [place] [facility] [address] [id number] [place] [address]- 6998 Nov, [facility] [place] [facility] [address] [id number] [place] [address]- 6224 Nov, [facility] [place] [facility] [address] [id number] [place] [address]- 0488 Nov, [facility] [place] [facility] [address] [id number] [place] [address]- 8820 Nov, [facility] [place] [facility] [address] [id number] [place] [address]- 3565 Nov, [facility] [place] [facility] [address] [id number] [place] [address]- 7342 Nov, [facility] [place] [facility] [address] [id number] [place] [address]- 3062 Nov, [facility] [place] [facility] [address] [id number] [place] [address]- 2583 18 Oct, 2012 [facility] [place] [facility] [address] [id number] [place] [address]- 2098 17 Sep2012 [facility] [place] [facility] [address] [id number] [place] [address]- 9453 11 Oct, 2012 [facility] [place] [facility] [address] [id number] [place] [address]- 6401 Oct, [facility] [place] [facility] [address] [id number] [place] [address]- 4465 Sep, [facility] [place] [facility] [address] [id number] [place] [address]- 0312 Sep, [facility] [place] [facility] [address] [id number] [place] [address]- 9276 Sep, [facility] [place] [facility] [address] [id number] [place] [address]- 9013 Sep, [facility] [place] [facility] [address] [id number] [place] [address]- 4873 Sep, [facility] [place] [facility] [address] [id number] [place] [address]- 9304 Sep, [facility] [place] [facility] [address] [id number] [place] [address]- 2139 Sep, [facility] [place] [facility] [address] [id number] [place] [address]- 1387 Aug, [facility] [place] [facility] [address] [id number] [place] [address]- 8314 Aug, [facility] [place] [facility] [address] [id number] [place] [address]- 6762 Jul, [facility] [place] [facility] [address] [id number] [place] [address]- 7922 Jul, [facility] [place] [facility] [address] [id number] [place] [address]- 1528 Jul, [facility] [place] [facility] [address] [id number] [place] [address]- 2207 Jul, [facility] [place] [facility] [address] [id number] [place] [address]- 5029 Jul, [facility] [place] [facility] [address] [id number] [place] [address]- 0263 Jul, [facility] [place] [facility] [address] [id number] [place] [address] Jul, [facility] [address] [id number] [place] [address] June, [facility] [address] [id number] [place] [address] June, [facility] [address] [id number] [place] [address] 29 May, 2012 [facility] [address] [id number] [place] [address] 24 May, 2012 [facility] [address] [id number] [place] [address] May, [facility] [address] [id number] [place] [address] May, [facility] [address] [facility] [id number] [place] [address] May, [facility] [address] [id number] [place] [address] 08 May, 2012 [facility] [address] [id number] [place] [address] 05 May, 2012 [facility] [address] [facility] [id number] [place] [address] May, [facility] [address] [id number] [place] [address] May, [facility] [address] [id number] [place] [address] Apr, [facility] [address] [id number] [place] [address] 27 Apr, 2012 [facility] [address] [facility] [id number] [place] [address] Apr, [facility] [address] [id number] [place] [address] Apr, IMMUNIZATIONS No Known Immunizations SOCIAL HISTORY Never Assessed REASON FOR VISIT Percocet 03/20 PLAN OF CARE VITAL SIGNS MEDICATIONS Medication Instructions Dosage Frequency Start Date End Date Duration Status Percocet 7.5-325 MG Orally every 4 hours 1 tablet as needed 4h Feb, Mar, 28 days Active RESULTS No Results PROCEDURES No Known procedures INSTRUCTIONS MEDICATIONS ADMINISTERED No Known Medications MEDICAL (GENERAL) HISTORY Type Description Date Medical History hypertension Medical History neck pain - requires chronic pain management, on chronic narcotics Medical History lupus - 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
--- OUTSIDE RECORDS SUMMARY | 2018-04-29 18:22 | XMS REPORT ---
Author Author LIDIA DAHL [facility] Address [address] [place] [address] Care Team Providers Care Glassworker Name Role Phone LIDIA DAHL Unavailable PROBLEMS Type Condition ICD9-CM Code [id number] Code Onset Dates Condition Status SNOMED Code Problem Neck pain M54.2 Active 97740375 Problem History of hepatitis C Z86.19 Active 80330384556812 Problem Systemic lupus erythematosus, unspecified SLE type, unspecified organ involvement status M32.9 Active 29274823 ALLERGIES No Known Allergies SOCIAL HISTORY Never Assessed PLAN OF CARE Activity Details Follow Up prn Reason: VITAL SIGNS Height 69 in 2016-04-26 Weight 176.8 lbs 2016-04-26 Temperature 98.0 degrees Fahrenheit 2016-04-26 Heart Rate 78 bpm 2016-04-26 Respiratory Rate 22 2016-04-26 BMI 26.11 kg/m2 2016-04-26 Blood pressure systolic 122 mmHg 2016-04-26 Blood pressure diastolic 78 mmHg 2016-04-26 MEDICATIONS Medication Instructions Dosage Frequency Start Date End Date Duration Status Vitamin E 1000 UNIT Orally Once a day 1 capsule 24h Active Nitroglycerin by Sublingual route Apr, Active Aspirin 81 MG Orally Once a day take 1 tablet (81 mg) by oral route once daily sun,tues,thur,& fri 24h Apr, Active Baclofen 10 MG Orally Three times a day 1 tablet with food or milk 8h Active Mens Multi Vitamin & Mineral Active Percocet 7.5-500 MG Orally every 6 hrs 1 tablet as needed 6h Active Amitriptyline HCl 50 mg Orally Once a day 1.5 tablets 24h Active Fish Oil Concentrate 1000 mg 1 Capsule by Oral route 1 time per day Apr, Active Plaquenil 200 MG Orally 2 times a day 1 tablet with food or milk 12h Feb Active Gabapentin 800 MG Orally Three times a day 1 tablet 8h Active Mometasone Furoate 0.1 % Externally Once a day 1 application to affected area 24h Active RESULTS No Results PROCEDURES No Known procedures IMMUNIZATIONS No Known Immunizations MEDICAL (GENERAL) HISTORY Type Description Date Medical History hypertension Medical History neck pain - requires chronic pain management, on chronic narcotics Medical History lupus - 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
--- OUTSIDE RECORDS SUMMARY | 2018-04-29 18:22 | XMS REPORT ---
Author Author DONNA LIN [facility] eClinical[employer] Address Unknown Phone Unavailable Care Team Providers Care Data Engineer Name Role Phone DONNA LIN CP Unavailable Allergies, Adverse Reactions, Alerts Substance Reaction Event Type N.K.D.A. Info Not Available Non Drug Allergy Problems Problem Type Condition Code Onset Dates Condition Status Assessment Polyneuropathy in diseases classified elsewhere G63 Active Problem Cervicalgia 723.1 Active Assessment Systemic lupus erythematosus, organ or system involvement unspecified M32.10 Active Assessment Hyperpigmented skin lesion L81.9 Active Problem Essential hypertension, benign 401.1 Active Problem Essential and other specified forms of tremor 333.1 Active Problem Lupus erythematosus 695.4 Active Problem Unspecified disorder of skin and subcutaneous tissue 709.9 Active Problem Chronic hepatitis C without mention of hepatic coma 070.54 Active Problem Coronary atherosclerosis of unspecified type of vessel, council or graft 414.00 Active Problem Condyloma acuminatum 078.11 Active Medications Medication Code System Code Instructions Start Date End Date Status Dosage Mens Multi Vitamin & Mineral [facility] [address] Orally not defined Vitamin E [facility] [address]-00 1000 UNIT Orally Once a day 1 capsule Amitriptyline HCl [facility] [address]-50 50 MG Orally Once a day 1 tablet Fish Oil Concentrate [facility] [address] 1000 mg May 15, 2012 1 Capsule by Oral route 1 time per day Percocet [facility] [address]-61 7.5-500 MG Orally every 6 hrs 1 tablet as needed Gabapentin [facility] [address]-76 800 MG Orally Three times a day 1 tablet Nitroglycerin [facility] [address]-12 May 15, 2012 by Sublingual route Baclofen [facility] [address]-32 10 MG Orally Three times a day 1 tablet with food or milk Aspirin [facility] [address]-48 325 MG Orally twice weekly May 15, 2012 take 1 tablet (81 mg) by oral route once daily sun,tues,thur,& fri Procedures Procedure Coding System Code Date BIOPSY, SKIN ADD-ON CPT-4 12329 Mar 08, 2015 LAB NOT BILLED BY [facility] CPT-4 NOBLL Mar 08, 2015 BIOPSY OF SKIN LESION CPT-4 97251 Mar 08, 2015 Office Visit, Est Pt., Level 4 CPT-4 35652 Mar 08, 2015 [facility] VISIT ESTABLISHED PATIENT CPT-4 G0467 Mar 08, 2015 VENIPUNCT, ROUTINE* CPT-4 58369 Mar 08, 2015 Vital Signs Date/Time: Mar 08, 2015 Temperature 97.9 F Weight 175.8 lbs Height 69 in BMI 25.96 Index Blood Pressure Diastolic 75 mmHg Blood Pressure Systolic 135 mmHg Cardiac Monitoring Heart Rate 88 bpm Results No Known Results Summary Purpose eClinicalWorks Submission
--- OUTSIDE RECORDS SUMMARY | 2018-04-29 18:22 | XMS REPORT ---
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 2583934 Problem Neck pain M54.2 Active 70216211 Problem History of hepatitis C Z86.19 Active 51512837016639 Problem Systemic lupus erythematosus, unspecified SLE type, unspecified organ involvement status M32.9 Active [id number] ALLERGIES No Known Allergies ENCOUNTERS Encounter Location Date Diagnosis [place] [address] [address] May, [facility] [address] [address] Apr, Neck pain M54.2 [facility] [address] [address] Apr, Neck pain M54.2 [facility] [address] [place] [id number] [place] [address]33- 8815 Mar, Neck pain M54.2 [facility] [id number] [place] [address] 80059- 8642 Feb, Neck pain M54.2 [facility] [address] [address]- [address] Feb, Neck pain M54.2 [facility] [address] [place] [place] [id number] [place] [address] 71799- 3818 Feb, [facility] [address] [address]- [address] Feb, Cervical neuritis M54.12 [facility] [address] [id number] [address] Jan, Cervical neuritis M54.12 [facility] [address] [place] [id number] [place] [address] 56297- 7033 Jan, Cervical neuritis M54.12 [facility] [id number] [place] [address] 83251- 1857 Nov, [facility] [id number] [place] [address] 20134- 2760 Nov, 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 and Neck pain M54.2 [facility] [address] [place] [id number] [place] [address] 92055- 9373 Nov, [facility] [id number] [place] [address] 08144- 5613 Nov, Neck pain M54.2 [facility] [id number] [place] [address] 76293- 6713 Nov, [facility] [id number] [place] [address] 69157- 7759 Oct, Neck pain M54.2 and Cervical vertebral fusion M43.22 [facility] [id number] [place] [address] 99900- 5701 Sep, [facility] [address] [id number] [place] [address] 84536- 3974 Aug, Systemic lupus erythematosus, unspecified SLE type, unspecified organ involvement status M32.9 and Cervical neuritis M54.12 [facility] [id number] [place] [address] 80244- 0465 Jul, [facility] [id number] [place] [address] 62752- 8873 Jul, [facility] [address] [place] [id number] [place] [address] 79397- 3882 June, Lupus M32.9 ; Encounter for screening for lipoid disorders Z13.220 and Neck pain M54.2 [facility] [id number] [place] [address] 77168- 8377 June, [facility] [address] [id number] [place] [address] 37312- 7835 Apr, History of hepatitis C Z86.19 [facility] [id number] [place] [address] 86685- 8244 Nov, [facility] [id number] [place] [address] 95652- 9171 June, Warts, genital A63.0 [facility] [address] [id number] [place] [address] 37693- 1353 June, Occasional tremors R25.1 ; Systemic lupus M32.9 and Anxiety about health F41.8 [facility] [address] [place] [id number] [place] [address] 14291- 0860 June, Genital warts A63.0 [facility] [address] [place] [id number] [place] [address] 25020- 8009 May, Lupus M32.9 ; Polyneuropathy in diseases classified elsewhere G63 and Occasional tremors R25.1 [facility] [address] [place] [id number] [place] [address] 92897- 6800 May, Genital warts A63.0 [facility] [address] [place] [id number] [place] [address] 54351- 2939 Apr, [facility] [address] [place] [id number] [place] [address] 08807- 8825 Mar, [facility] [address] [place] [id number] [place] [address] 82492- 4984 Mar, [facility] [address] [place] [id number] [place] [address] 56524- 3277 Mar, Lupus M32.9 [facility] [address] [place] [address]- 9805 16 Mar, 2015 Systemic lupus M32.9 and Neck pain M54.2 [facility] [id number] [place] [address] 57018- 4077 Feb, Systemic lupus M32.9 [facility] [address] [id number] [place] [address] 69603- 4661 Feb, Systemic lupus erythematosus, organ or system involvement unspecified M32.10 ; Polyneuropathy in diseases classified elsewhere G63 and Hyperpigmented skin lesion L81.9 [facility] [address] [place] [id number] [place] [address] 97239- 1211 Aug, Genital warts 078.11 [facility] [address] [address] [id number] [place] [address] 12873- 1762 Jul, Genital warts 078.11 [facility] [id number] [place] [address] 14700- 2283 Jul, [facility] [address] [id number] [place] [address] 79575- 0636 May, [facility] [address] [place] [id number] [place] [address] 09486- 2113 May, [facility] [address] [place] [id number] [place] [address] 23466- 7229 Dec, [facility] [id number] [place] [address] 31865- 0704 Dec, [facility] [id number] [place] [address] 13649- 4521 Sep, [facility] [address] [place] [id number] [place] [address] 64674- 8832 Sep, [facility] [address] [id number] [place] [address] 94209- 8772 Sep, [facility] [id number] [place] [address] 40614- 1011 Sep, [facility] [place] [facility] [address] [id number] [place] [address]- 5529 Sep, [facility] [place] [facility] [address] [id number] [place] [address]- 9775 Sep, [facility] [place] [facility] [address] [id number] [place] [address]- 1552 Aug, [facility] [place] [facility] [address] [id number] [place] [address]- 4588 Aug, [facility] [place] [facility] [address] [id number] [place] [address]- 6735 Aug, [facility] [place] [facility] [address] [id number] [place] [address]- 6953 Aug, [facility] [place] [facility] [address] [id number] [place] [address]- 9292 Aug, [facility] [place] [facility] [address] [id number] [place] [address]- 6284 Aug, [facility] [place] [facility] [address] [id number] [place] [address]- 6907 Jul, [facility] [place] [facility] [address] [id number] [place] [address]- 8477 Jul, [facility] [place] [facility] [address] [id number] [place] [address]- 5535 Jul, [facility] [place] [facility] [address] [id number] [place] [address]- 1424 Jul, [facility] [place] [facility] [address] [id number] [place] [address]- 8626 Jul, [facility] [place] [facility] [address] [id number] [place] [address]- 7853 Jul, [facility] [place] [facility] [address] [id number] [place] [address]- 7552 Jul, [facility] [place] [facility] [address] [id number], [place] [address]- 8371 16 Jul, 2013 [facility] [place] [facility] [address] [id number] [place] [address]- 2129 Jul, [facility] [place] [facility] [address] [id number] [place] [address]- 6495 Jul, [facility] [place] [facility] [address] [id number] [place] [address]- 0226 Jul, [facility] [place] [facility] [address] [id number] [place] [address]- 9003 Jul, [facility] [place] [facility] [address] [id number] [place] [address]- 5497 Jul, [facility] [place] [facility] [address] [id number] [place] [address]- 1806 Jul, [facility] [place] [facility] [address] [id number] [place] [address]- 8250 Jul, [facility] [place] [facility] [address] [id number] [place] [address]- 9692 Jul, [facility] [place] [facility] [address] [id number] [place] [address]- 5995 Jul, [facility] [place] [facility] [address] [facility] [id number] [place] [address]- 2064 Jul, [facility] [place] [facility] [address] [id number] [place] [address]- 4166 June, [facility] [place] [facility] [address] [id number] [place] [address]- 9738 June, [facility] [place] [facility] [address] [id number] [place] [address]- 0487 June, [facility] [place] [facility] [address] [id number] [place] [address]- 6650 June, [facility] [place] [facility] [address] [id number] [place] [address]- 0974 May, [facility] [place] [facility] [address] [id number] [place] [address]- 9041 30 May, 2013 [facility] [place] [facility] [address] [id number] [place] 9436 May, [facility] [place] [facility] [address] [id number] [place] 3116 May, [facility] [place] [facility] [address] [id number] [place] [address]- 1656 May, [facility] [place] [facility] [address] [id number] [place] [address]- 4536 May, [facility] [place] [facility] [address] [id number] [place] [address]- 8471 May, [facility] [place] [facility] [address] [id number] [place] [address]- 4307 May, [facility] [place] [facility] [address] [id number] [place] [address]- 0521 May, [facility] [place] [facility] [address] [id number] [place] [address]- 0715 May, [facility] [place] [facility] [address] [id number] [place] [address]- 8665 Apr, [facility] [place] [facility] [address] [id number] [place] [address]- 9964 Apr, [facility] [place] [facility] [address] [id number] [place] [address]- 3512 Apr, [facility] [place] [facility] [address] [id number] [place] [address]- 9384 Apr, [facility] [place] [facility] [address] [id number] [place] [address]- 7336 Apr, [facility] [place] [facility] [address] [id number] [place] [address]- 1478 Apr, [facility] [place] [facility] [address] [id number] [place] [address]- 3776 Mar, [facility] [place] [facility] [address] [id number] [place] [address]- 3995 Mar, [facility] [place] [facility] [address] [id number] [place] [address]- 4146 Mar, [facility] [place] [facility] [address] [facility] [id number] [place] [address]- 2496 Mar, [facility] [place] [facility] [address] [id number] [place] [address]- 5994 Mar, [facility] [place] [facility] [address] [id number] [place] [address]- 7779 Mar, [facility] [place] [facility] [address] [facility] [id number] [place] [address]- 7155 Mar, [facility] [place] [facility] [address] [facility] [id number] [place] [address]- 0092 Mar, [facility] [place] [facility] [address] [facility] [id number] [place] [address]- 3510 Feb, [facility] [place] [facility] [address] [facility] [id number] [place] [address]- 8410 Feb, [facility] [place] [facility] [address] [facility] [id number] [place] [address]- 1060 Feb, [facility] [place] [facility] [address] [facility] [id number] [place] [address]- 2293 Feb, [facility] [place] [facility] [address] [facility] [id number] [place] [address]- 3577 Feb, [facility] [place] [facility] [address] [id number] [place] [address]- 0123 Feb, [facility] [place] [facility] [address] [facility] [id number] [place] [address]- 8579 Feb, [facility] [place] [facility] [address] [facility] [id number] [place] [address]- 5271 Feb, [facility] [place] [facility] [address] [id number] [place] [address]- 8468 Feb, [facility] [place] [facility] [address] [id number] [place] [address]- 3011 Feb, [facility] [place] [facility] [address] [id number] [place] [address]- 0024 Feb, [facility] [place] [facility] [address] [id number] [place] [address]- 6736 Feb, [facility] [place] [facility] [address] [id number] [place] [address]- 7540 Feb, [facility] [place] [facility] [address] [id number] [place] [address]- 5769 Feb, [facility] [place] [facility] [address] [id number] [place] [address]- 9486 Feb, [facility] [place] [facility] [address] [id number] [place] [address]- 9739 Jan, [facility] [place] [facility] [address] [id number] [place] [address]- 9150 Jan, [facility] [place] [facility] [address] [id number] [place] [address]- 2554 Jan, [facility] [place] [facility] [address] [id number] [place] 1843 30 Jan, 2013 [facility] [place] [facility] [address] [id number] [place] [address]- 1087 Jan, [facility] [place] [facility] [address] [id number] [place] [address]- 1538 Jan, [facility] [place] [facility] [address] [id number] [place] [address]- 6642 Dec, [facility] [place] [facility] [address] [id number] [place] [address]- 0446 Dec, [facility] [place] [facility] [address] [id number] [place] [address]- 3907 Dec, [facility] [place] [facility] [address] [id number] [place] [address]- 1373 Dec, [facility] [place] [facility] [address] [id number] [place] [address]- 5883 18 Dec, 2012 [facility] [place] [facility] [address] [id number] [place] [address]- 4979 Dec, [facility] [place] [facility] [address] [id number], [place] [address]- 7941 Dec, [facility] [place] [facility] [address] [id number] [place] [address]- 4044 Dec, [facility] [place] [facility] [address] [id number] [place] [address]- 8396 Dec, [facility] [place] [facility] [address] [id number] [place] [address]- 6266 Dec, [facility] [place] [facility] [address] [id number], [place] [address]- 7540 Dec, [facility] [place] [facility] [address] [id number], [place] [address]- 7188 Nov, [facility] [place] [facility] [address] [id number], [place] [address]- 9872 Nov, [facility] [place] [facility] [address] [id number], [place] [address]- 7858 Nov, [facility] [place] [facility] [address] [id number], [place] [address]- 8704 Nov, [facility] [place] [facility] [address] [id number], [place] [address]- 6797 Nov, [facility] [place] [facility] [address] [id number], [place] [address]- 1492 Nov, [facility] [place] [facility] [address] [id number], [place] [address]- 8621 Nov, [facility] [place] [facility] [address] [id number] [place] [address]- 3667 Nov, [facility] [place] [facility] [address] [id number] [place] [address]- 4424 Nov, [facility] [place] [facility] [address] [id number] [place] [address]- 1237 Nov, [facility] [place] [facility] [address] [id number] [place] [address]- 5066 Nov, [facility] [place] [facility] [address] [id number] [place] [address]- 0209 Nov, [facility] [place] [facility] [address] [id number] [place] [address]- 0286 Nov, [facility] [place] [facility] [address] [id number] [place] [address]- 8200 Nov, [facility] [place] [facility] [address] [id number] [place] [address]- 7647 18 Oct, 2012 [facility] [place] [facility] [address] [id number] [place] [address]- 0414 17 Oct, 2012 [facility] [place] [facility] [address] [id number] [place] [address]- 0544 11 Oct, 2012 [facility] [place] [facility] [address] [id number] [place] [address]- 8281 03 Oct, 2012 [facility] [place] [facility] [address] [id number] [place] [address]- 9916 28 Sep, 2012 [facility] [place] [facility] [address] [id number] [place] [address]- 2541 23 Sep, 2012 [facility] [place] [facility] [address] [id number] [place] [address]- 7793 22 Sep, 2012 [facility] [place] [facility] [address] [id number] [place] [address]- 9371 15 Sep, 2012 [facility] [place] [facility] [address] [id number] [place] [address]- 9028 14 Sep, 2012 [facility] [place] [facility] [address] [id number] [place] [address]- 6781 Sep, [facility] [address] [id number] [place] [address]- 3864 Sep, [facility] [place] [facility] [address] [id number] [place] [address]- 8024 Aug, [facility] [address] [id number] [place] [address]- 5908 Aug, [facility] [address] [id number] [place] [address]- 1108 Jul, [facility] [address] [id number] [place] [address]- 7800 Jul, [facility] [address] [id number] [place] [address]- 9641 Jul, [facility] [address] [id number] [place] [address]- 5315 Jul, [facility] [address] [id number] [place] [address]- 3139 Jul, [facility] [address] [id number] [place] [address]- 0028 Jul, [facility] [place] [facility] [address] [id number] [place] [address] Jul, [facility] [place] [facility] [address] [id number] [place] [address] June, [facility] [place] [facility] [address] [id number] [place] [address] June, [facility] [place] [facility] [address] [id number] [place] [address] May, [facility] [place] [facility] [address] [id number] [place] [address] May, [facility] [place] [facility] [address] [id number], [place] [address] May, [facility] [address] [id number] [address] May, [facility] [address] [facility] [id number][place] [address] May, [facility] [id number] [address] May, [facility] [address] [facility] [id number], [place] [address] May, [facility] [id number], [place] [address] May, [facility] [id number], [place] [address] May, [facility] [id number] [address] Apr, [facility] [id number], [place] [address] Apr, [facility] [address] [id number], [place] [address] Apr, [facility] [address] [id number], [place] [address] Apr, IMMUNIZATIONS No Known Immunizations SOCIAL HISTORY Never Assessed REASON FOR VISIT Wart assessment, genital area that has returned- Gissel TRIVEDI PLAN OF CARE VITAL SIGNS Height 69 in 2016-09-23 Weight 181.7 lbs 2016-09-23 Temperature 98.1 degrees Fahrenheit 2016-09-23 Heart Rate 82 bpm 2016-09-23 Respiratory Rate 18 2016-09-23 BMI 26.83 kg/m2 2016-09-23 Blood pressure systolic 104 mmHg 2016-09-23 Blood pressure diastolic 78 mmHg 2016-09-23 MEDICATIONS Medication Instructions Dosage Frequency Start Date End Date Duration Status Percocet 7.5-325 mg Orally 4 times a day 1 tablet as needed 6h Aug, Active Plaquenil 200 MG Orally 2 times a day 1 tablet with food or milk 12h Feb Active Amitriptyline HCl 75 MG Orally Once a day at bedtime 1 tablet Active Fish Oil Concentrate 1000 mg 1 Capsule by Oral route 1 time per day Apr, Active Lipitor 20 mg Orally Once a day 1 tablet 24h Jul, 30 day(s) Active Aspirin 81 MG Orally Once a day take 1 tablet (81 mg) by oral route once daily sun,tues,thur,& fri 24h Apr, Active Mens Multi Vitamin & Mineral Active Baclofen 10 MG Orally Three times a day 1 tablet with food or milk 8h Active Vitamin E 1000 UNIT Orally Once a day 1 capsule 24h Active Gabapentin 800 MG Orally Three times a day 1 tablet 8h Active RESULTS No Results PROCEDURES Procedure Date Ordered Result Body Site [facility] VISIT ESTABLISHED PATIENT September 23, 2016 INSTRUCTIONS MEDICATIONS ADMINISTERED No Known Medications MEDICAL (GENERAL) HISTORY Type Description Date Medical History hypertension Medical History neck pain - requires chronic pain management, on chronic narcotics Medical History lupus - 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
--- OUTSIDE RECORDS SUMMARY | 2018-04-29 18:22 | XMS REPORT ---
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 2858173 Problem Neck pain M54.2 Active 98330818 Problem History of hepatitis C Z86.19 Active [id number] Problem Systemic lupus erythematosus, unspecified SLE type, unspecified organ involvement status M32.9 Active [id number] ALLERGIES No Known Allergies ENCOUNTERS Encounter Location Date Diagnosis [place] [id number] [place] [address] 19925- 5371 June, Neck pain M54.2 [facility] [id number] [place] [address] 99877- 4711 May, Neck pain M54.2 [facility] [id number] [place] [address] 68380- 1127 May, Systemic lupus erythematosus, unspecified SLE type, unspecified organ involvement status M32.9 and Neck pain M54.2 [facility] [id number] [place] [address] 74773- 9207 Apr, Neck pain M54.2 [facility] [id number] [place] [address] 90116- 3158 Apr, Neck pain M54.2 [facility] [id number] [place] [address] 47819- 5479 Mar, Neck pain M54.2 [facility] [id number] [place] [address] 16482- 7698 Feb, Neck pain M54.2 [place] [id number], [place] [address] 7143 Feb, Neck pain M54.2 [facility] [id number] [place] [address] 37756- 3266 Feb, [facility] [id number] [place] [address] 23607- 9440 Feb, Cervical neuritis M54.12 [facility] [id number] [place] [address] 31385- 6375 Jan, Cervical neuritis M54.12 [facility] [id number] [place] [address] 32094- 8027 Jan, Cervical neuritis M54.12 [facility] [id number] [place] [address] 18778- 3767 Nov, [facility] [id number] [place] [address] 61447- 4694 Nov, 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 and Neck pain M54.2 [facility] [id number] [place] [address] 01445- 6068 Nov, [facility] [id number] [place] [address] 21182- 0966 Nov, Neck pain M54.2 [facility] [id number] [place] [address] 56039- 5818 Nov, [facility] [id number] [place] [address] 54497- 1057 Oct, Neck pain M54.2 and Cervical vertebral fusion M43.22 [facility] [id number] [place] [address] 44439- 4015 Sep, [facility] [id number] [place] [address] 62017- 3012 Aug, Systemic lupus erythematosus, unspecified SLE type, unspecified organ involvement status M32.9 and Cervical neuritis M54.12 [place] [id number] [place] [address] 04356- 4118 Jul, [place] [address] 01078- 6478 Jul, [place] [id number] [place] [address] 09247- 5027 June, Lupus M32.9 ; Encounter for screening for lipoid disorders Z13.220 and Neck pain M54.2 [place] [address] 13439- 8438 June, [place] [address] 90458- 8722 Apr, History of hepatitis C Z86.19 [place] [address] 14457- 0593 Nov, [place] [address] 36066- 8544 June, Warts, genital A63.0 [place] [id number] [place] [address] 71196- 6487 June, Occasional tremors R25.1 ; Systemic lupus M32.9 and Anxiety about health F41.8 [place] [id number] [place] [address] 46712- 9292 June, Genital warts A63.0 [place] [id number] [place] [address] 20657- 9153 May, Lupus M32.9 ; Polyneuropathy in diseases classified elsewhere G63 and Occasional tremors R25.1 [place] [id number] [place] [address] 68441- 4416 May, Genital warts A63.0 [place] [id number] [place] [address] 04039- 3990 Apr, [place] [id number] [place] [address] 60712- 9391 Mar, [facility] [address], [place] [address]- 2602 Mar, [facility] [id number] [place] [address] 45270- 1220 Mar, Lupus M32.9 [facility] [id number] [place] [address] 45405- 3228 Mar, Systemic lupus M32.9 and Neck pain M54.2 [facility] [id number] [place] [address] 79134- 5731 Feb, Systemic lupus M32.9 [facility] [id number] [place] [address] 73371- 9100 Feb, Systemic lupus erythematosus, organ or system involvement unspecified M32.10 ; Polyneuropathy in diseases classified elsewhere G63 and Hyperpigmented skin lesion L81.9 [facility] [address], [place] [address]- 1124 Aug, Genital warts 078.11 [facility] [id number] [place] [address] 72726- 7352 Jul, Genital warts 078.11 [facility] [id number] [place] [address] 24404- 2653 Jul, [facility] [address], [place] [address]- 1419 May, [facility] [id number] [place] [address] 99892- 3549 May, [facility] [id number] [place] [address] 36030- 6519 Dec, [facility] [id number] [place] [address] 88023- 0055 Dec, [facility] [id number] [place] [address] 66472- 0722 Sep, [facility] [place] [facility] [address] [id number] [place] [address]- 3470 Sep, [facility] [place] [facility] [address] [id number] [place] [address]- 8138 Sep, [facility] [place] [facility] [address] [id number] [place] [address]- 4888 Sep, [facility] [place] [facility] [address] [id number] [place] [address]- 4026 Sep, [facility] [place] [facility] [address] [id number] [place] [address]- 4530 Sep, [facility] [place] [facility] [address] [id number] [place] [address]- 6514 Aug, [facility] [place] [facility] [address] [id number] [place] [address]- 7472 Aug, [facility] [place] [facility] [address] [id number] [place] [address]- 1325 Aug, [facility] [place] [facility] [address] [id number] [place] [address]- 7086 Aug, [facility] [place] [facility] [address] [id number] [place] [address]- 4008 Aug, [facility] [place] [facility] [address] [id number] [place] [address]- 4777 Aug, [facility] [place] [facility] [address] [id number] [place] [address]- 2518 Jul, [facility] [place] [facility] [address] [id number] [place] [address]- 9870 Jul, [facility] [place] [facility] [address] [id number] [place] [address]- 3863 Jul, [facility] [place] [facility] [address] [id number] [place] [address]- 7699 Jul, [facility] [place] [facility] [address] [id number] [place] [address]- 0268 16 Jul, 2013 [facility] [place] [facility] [address] [id number] [place] [address]- 9538 Jul, [facility] [place] [facility] [address] [id number] [place] [address]- 0477 Jul, [facility] [place] [facility] [address] [id number] [place] [address]- 3766 Jul, [facility] [place] [facility] [address] [id number] [place] [address]- 2072 Jul, [facility] [place] [facility] [address] [id number] [place] [address]- 3781 Jul, [facility] [place] [facility] [address] [id number] [place] [address]- 0560 Jul, [facility] [place] [facility] [address] [id number] [place] [address]- 0271 Jul, [facility] [place] [facility] [address] [id number] [place] [address]- 3934 Jul, [facility] [place] [facility] [address] [id number] [place] [address]- 2878 Jul, [facility] [place] [facility] [address] [id number] [place] [address]- 3970 Jul, [facility] [place] [facility] [address] [id number] [place] [address]- 4472 Jul, [facility] [place] [facility] [address] [id number] [place] [address]- 9897 Jul, [facility] [place] [facility] [address] [id number] [place] [address]- 8073 Jul, [facility] [place] [facility] [address] [id number] [place] [address]- 3878 June, [facility] [place] [facility] [address] [id number] [place] [address]- 3542 June, [facility] [place] [facility] [address] [id number] [place] [address]- 9702 June, [facility] [place] [facility] [address] [id number] [place] [address]- 3066 June, [facility] [place] [facility] [address] [id number] [place] [address]- 1043 May, [facility] [place] [facility] [address] [id number] [place] [address]- 5350 May, [facility] [place] [facility] [address] [id number] [place] [address]- 9704 May, [facility] [place] [facility] [address] [id number] [place] [address]- 2233 May, [facility] [place] [facility] [address] [id number] [place] [address]- 7207 May, [facility] [place] [facility] [address] [id number] [place] [address]- 8397 May, [facility] [place] [facility] [address] [id number] [place] [address]- 8617 May, [facility] [place] [facility] [address] [id number] [place] [address]- 4758 May, [facility] [place] [facility] [address] [id number] [place] [address]- 0407 May, [facility] [place] [facility] [address] [id number] [place] [address]- 7486 May, [facility] [place] [facility] [address] [id number] [place] [address]- 0138 Apr, [facility] [place] [facility] [address] [id number] [place] [address]- 4101 Apr, [facility] [place] [facility] [address] [id number] [place] [address]- 0893 Apr, [facility] [place] [facility] [address] [id number] [place] [address]- 9996 Apr, [facility] [place] [facility] [address] [id number] [place] [address]- 9979 Apr, [facility] [place] [facility] [address] [id number] [place] [address]- 0521 Apr, [facility] [place] [facility] [address] [id number] [place] [address]- 5958 Mar, [facility] [place] [facility] [address] [id number] [place] [address]- 4314 Mar, [facility] [place] [facility] [address] [id number] [place] [address]- 3598 Mar, [facility] [place] [facility] [address] [id number] [place] [address]- 8746 Mar, [facility] [place] [facility] [address] [id number] [place] [address]- 5269 Mar, [facility] [place] [facility] [address] [id number] [place] [address]- 4913 Mar, [facility] [place] [facility] [address] [id number] [place] [address]- 4561 Mar, [facility] [place] [facility] [address] [facility] [id number] [place] [address]- 7446 Mar, [facility] [place] [facility] [address] [id number] [place] [address]- 7988 Feb, [facility] [place] [facility] [address] [id number] [place] [address]- 5340 Feb, [facility] [place] [facility] [address] [id number] [place] [address]- 1029 Feb, [facility] [place] [facility] [address] [id number] [place] [address]- 6247 Feb, [facility] [place] [facility] [address] [id number] [place] [address]- 0649 Feb, [facility] [place] [facility] [address] [id number] [place] [address]- 2343 Feb, [facility] [address] [id number] [place] [address]- 7902 Feb, [facility] [address] [id number] [place] [address]- 7094 Feb, [facility] [address] [id number] [place] [address]- 7154 Feb, [facility] [address] [id number] [place] [address]- 9413 Feb, [facility] [address] [id number] [place] [address]- 2279 Feb, [facility] [address] [id number] [place] [address]- 6633 Feb, [facility] [address] [id number] [place] [address]- 0734 Feb, [facility] [address] [id number] [place] [address]- 5653 Feb, [facility] [address] [id number] [place] [address]- 9988 Feb, [facility] [address] [id number] [place] [address]- 9200 Jan, [facility] [place] [facility] [address] [id number] [place] [address]- 0647 31 Jan, 2013 [facility] [place] [facility] [address] [id number] [place] [address]- 6144 Jan, [facility] [place] [facility] [address] [id number] [place] [address]- 9940 30 Jan, 2013 [facility] [place] [facility] [address] [id number] [place] [address]- 2292 16 Jan, 2013 [facility] [place] [facility] [address] [id number], [place] [address]- 2931 16 Jan, 2013 [facility] [place] [facility] [address] [id number] [place] [address]- 5388 Dec, [facility] [place] [facility] [address] [id number], [place] [address]- 3625 Dec, [facility] [place] [facility] [address] [id number] [place] [address]- 8978 Dec, [facility] [place] [facility] [address] [id number], [place] [address]- 3408 Dec, [facility] [place] [facility] [address] [id number] [place] [address]- 6973 Dec, [facility] [place] [facility] [address] [id number], [place] [address]- 7983 Dec, [facility] [place] [facility] [address] [id number], [place] [address]- 6033 Dec, [facility] [place] [facility] [address] [id number], [place] [address]- 7958 Dec, [facility] [place] [facility] [address] [id number], [place] [address]- 0378 Dec, [facility] [place] [facility] [address] [id number], [place] [address]- 4103 Dec, [facility] [place] [facility] [address] [id number], [place] [address]- 0722 Dec, [facility] [place] [facility] [address] [id number], [place] [address]- 0581 29 Nov, 2012 [facility] [place] [facility] [address] [id number], [place] [address]- 3396 Nov, [facility] [place] [facility] [address] [id number], [place] [address]- 0295 Nov, [facility] [place] [facility] [address] [id number], [place] [address]- 6363 Nov, [facility] [place] [facility] [address] [id number] [place] [address]- 6654 Nov, 2012 [facility] [address] [id number] [place] [address]- 1905 Nov, [facility] [place] [facility] [address] [id number] [place] [address]- 7499 Nov, 2012 [facility] [address] [id number] [place] 5032 Nov, 2012 [facility] [place] [facility] [address] [id number] [place] [address]- 1990 Nov, [facility] [address] [id number] [place] 9424 Nov, [facility] [address] [id number] [place] [address]- 2556 Nov, [facility] [place] [facility] [address] [id number] [place] [address]- 7196 Nov, [facility] [address] [id number] [place] [address]- 8519 Nov, [facility] [place] [facility] [address] [id number] [place] [address]- 9633 Nov, [facility] [address] [id number] [place] [address]- 7372 18 Oct, 2012 [facility] [place] [facility] [address] [id number] [place] [address]- 2848 17 Oct, 2012 [facility] [place] [facility] [address] [id number] [place] [address]- 6670 11 Oct, 2012 [facility] [place] [facility] [address] [id number] [place] 4429 03 Oct, 2012 [facility] [place] [facility] [address] [id number] [place] [address]- 2918 Sep, [facility] [place] [facility] [address] [id number] [place] 8603 Sep, [facility] [place] [facility] [address] [id number] [place] [address]- 7222 Sep, [facility] [place] [facility] [address] [id number] [place] [address]- 6176 Sep, [facility] [place] [facility] [address] [id number] [place] [address]- 7810 Sep, [facility] [place] [facility] [address] [id number] [place] [address]- 2293 Sep, [facility] [place] [facility] [address] [id number] [place] [address]- 7553 Sep, [facility] [place] [facility] [address] [id number] [place] [address]- 8989 Aug, [facility] [place] [facility] [address] [id number] [place] [address]- 8084 Aug, [facility] [place] [facility] [address] [id number] [place] [address]- 9376 Jul, [facility] [place] [facility] [address] [id number] [place] [address]- 1902 Jul, [facility] [place] [facility] [address] [id number] [place] [address]- 1705 Jul, [facility] [place] [facility] [address] [id number] [place] [address]- 0508 Jul, [facility] [place] [facility] [address] [id number] [place] [address]- 2615 Jul, [facility] [place] [facility] [address] [id number] [place] [address]- 6341 Jul, [facility] [place] [facility] [address] [id number] [place] [address]- 6549 Jul, [facility] [place] [facility] [address] [id number] [place] [address]- 4171 June, [facility] [place] [facility] [address] [id number], [place] [address]- 0983 June, [facility] [id number] 2113 May, [facility] [id number] 1746 May, [facility] [id number] 6992 May, [facility] [id number] 0415 May, [facility] [id number], [place] [address]- 6407 May, [facility] [id number] [address] 8887 May, [facility] [id number], [place] [address]- 1236 May, [facility] [id number], [place] [address]- 5558 May, [facility] [id number] 4596 May, [facility] [id number], [place] [address]- 3446 Apr, [facility] [id number], [place] [address] Apr, [facility] [id number], [place] [address] Apr, [facility] [address] [id number] [address] Apr, IMMUNIZATIONS No Known Immunizations SOCIAL HISTORY Never Assessed REASON FOR VISIT Transition of Care, PT is still in a lot of pain from his multiple neck and back surgeries. PT also has skin cancer in multiple locations and lupus is currently active-[facility] PLAN OF CARE VITAL SIGNS Height 69 in 2017-02-03 Weight 177.5 lbs 2017-02-03 Temperature 98.0 degrees Fahrenheit 2017-02-03 Heart Rate 84 bpm 2017-02-03 Respiratory Rate 18 2017-02-03 BMI 26.21 kg/m2 2017-02-03 Blood pressure systolic 142 mmHg 2017-02-03 Blood pressure diastolic 86 mmHg 2017-02-03 MEDICATIONS Medication Instructions Dosage Frequency Start Date End Date Duration Status Vitamin E 1000 UNIT Orally Once a day 1 capsule 24h Active Baclofen 10 MG Orally Three times a day 1 tablet with food or milk 8h Active Fish Oil Concentrate 1000 mg 1 Capsule by Oral route 1 time per day Apr, Active Mens Multi Vitamin & Mineral Active Aspirin 81 MG Orally Once a day take 1 tablet (81 mg) by oral route once daily sun,tues,thur,& fri 24h Apr, Active Amitriptyline HCl 75 MG Orally Once a day at bedtime 1 tablet Active Lipitor 20 mg Orally Once a day 1 tablet 24h Jul, 30 day(s) Active Gabapentin 800 MG Orally Three times a day 1 tablet 8h Active Nitroglycerin by Sublingual route Apr, Active Plaquenil 200 mg Orally 2 times a day 1 tablet with food or milk 12h Feb 90 days Active Percocet 7.5-325 MG Orally every 4 hours 1 tablet as needed 4h Jan, Active RESULTS No Results PROCEDURES Procedure Date Ordered Result Body Site [facility] VISIT ESTABLISHED PATIENT Feb 03, 2017 INSTRUCTIONS MEDICATIONS ADMINISTERED No Known Medications MEDICAL (GENERAL) HISTORY Type Description Date Medical History hypertension Medical History neck pain - requires chronic pain management, on chronic narcotics Medical History lupus - sees heel scorer in [place] Medical History Chronic HCV, successfully treated by [...]
--- OUTSIDE RECORDS SUMMARY | 2018-04-29 18:23 | XMS REPORT ---
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 3940139 Problem Systemic lupus erythematosus, unspecified SLE type, unspecified organ involvement status M32.9 Active 66108016 Problem Neck pain M54.2 Active 23271224 Problem History of hepatitis C Z86.19 Active [id number] ALLERGIES No Information ENCOUNTERS Encounter Location Date Diagnosis [place] [id number] [place] [address] 72698- 2860 Oct, Systemic lupus erythematosus, unspecified SLE type, unspecified organ involvement status M32.9 and 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 [place] [address] 88902- 6862 Sep, 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 [place] [id number] [place] [address] 35955- 9177 Aug, 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 [facility] [id number] [place] [address] 94102- 8518 Aug, [facility] [id number] [place] [address] 75604- 2980 Aug, Cervicalgia M54.2 and Skin cancer C44.90 [facility] [id number] [place] [address] 73426- 3296 Jul, Neck pain M54.2 [place] [address] 25889- 2831 June, Neck pain M54.2 [facility] [id number] [place] [address] 92013- 7429 May, Neck pain M54.2 [facility] [id number] [place] [address] 46827- 1094 May, Systemic lupus erythematosus, unspecified SLE type, unspecified organ involvement status M32.9 and Neck pain M54.2 [facility] [id number] [place] [address] 32802- 7462 Apr, Neck pain M54.2 [facility] [id number] [place] [address] 94373- 0637 Apr, Neck pain M54.2 [facility] [id number] [place] [address] 96497- 6286 Mar, Neck pain M54.2 [facility] [id number] [place] [address] 31257- 3899 Feb, Neck pain M54.2 [facility] [id number] [place] [address] 93970- 4938 Feb, Neck pain M54.2 [facility] [id number] [place] [address] 45673- 6717 Feb, [facility] [id number] [place] [address] 21049- 0130 Feb, Cervical neuritis M54.12 [facility] [id number] [place] [address] 36926- 8480 Jan, Cervical neuritis M54.12 [facility] [id number] [place] [address] 73802- 9783 Jan, Cervical neuritis M54.12 [facility] [id number] [place] [address] 43316- 1563 Nov, [facility] [id number] [place] [address] 23114- 7303 Nov, 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 and Neck pain M54.2 [facility] [id number] [place] [address] 62406- 9426 Nov, [facility] [id number] [place] [address] 49830- 5562 Nov, Neck pain M54.2 [facility] [address] 40723- 1712 Nov, [facility] [id number] [place] [address] 66863- 0093 Oct, Neck pain M54.2 and Cervical vertebral fusion M43.22 [facility] [id number] [place] [address] 86953- 2533 Sep, [facility] [id number] [place] [address] 57591- 5764 Aug, Systemic lupus erythematosus, unspecified SLE type, unspecified organ involvement status M32.9 and Cervical neuritis M54.12 [facility] [id number] [place] [address] 38897- 5202 Jul, [facility] [id number] [place] [address] 83966- 7378 Jul, [facility] [id number] [place] [address] 10857- 6978 June, Lupus M32.9 ; Encounter for screening for lipoid disorders Z13.220 and Neck pain M54.2 [facility] [id number] [place] [address] 71796- 3145 June, [facility] [address] 53784- 6741 Apr, History of hepatitis C Z86.19 [facility] [id number] [place] [address] 78272- 1519 Nov, [facility] [address] [place] [address]- 4087 June, Warts, genital A63.0 [facility] [id number] [place] [address] 17960- 3370 June, Occasional tremors R25.1 ; Systemic lupus M32.9 and Anxiety about health F41.8 [facility] [id number] [place] [address] 07783- 6250 June, Genital warts A63.0 [facility] [id number] [place] [address] 01363- 9418 May, Lupus M32.9 ; Polyneuropathy in diseases classified elsewhere G63 and Occasional tremors R25.1 [facility] [id number] [place] [address] 01360- 0443 May, Genital warts A63.0 [facility] [address] 49347- 7604 Apr, [facility] [id number] [place] [address] 96589- 2270 Mar, [facility] [address] 40511- 9975 Mar, [facility] [id number] [place] [address] 79539- 6078 Mar, Lupus M32.9 [facility] [id number] [place] [address] 89900- 8458 Mar, Systemic lupus M32.9 and Neck pain M54.2 [facility] [id number] [place] [address] 70855- 0475 Feb, Systemic lupus M32.9 [facility] [id number] [place] [address] 73178- 4776 Feb, Systemic lupus erythematosus, organ or system involvement unspecified M32.10 ; Polyneuropathy in diseases classified elsewhere G63 and Hyperpigmented skin lesion L81.9 [facility] [address] [id number] [place] [address]- 2441 Aug, Genital warts 078.11 [facility] [address] [id number] [place] [address]- 1410 Jul, Genital warts 078.11 [facility] [address] [facility] [id number] [place] [address]- 4572 Jul, [facility] [address] [id number] [place] [address]- 5538 May, [facility] [address] [id number] [place] [address]- 3409 May, [facility] [address] [id number] [place] [address]- 7001 Dec, [facility] [address] [facility] [id number] [place] [address]- 1811 Dec, [facility] [address] [id number] [place] [address]- 0340 Sep, [facility] [address] [id number] [place] [address]- 2265 Sep, [facility] [address] [facility] [id number] [place] [address]- 6600 Sep, [facility] [address] [id number] [place] [address]- 9317 Sep, [facility] [address] [facility] [id number] [place] [address]- 5403 Sep, [facility] [address] [id number] [place] [address]- 4673 Sep, [facility] [address] [facility] [id number] [place] [address]- 5684 Aug, [facility] [address] [facility] [id number] [place] [address]- 5845 Aug, [facility] [place] [facility] [address] [id number] [place] [address]- 8465 15 Aug, 2013 [facility] [place] [facility] [address] [id number] [place] [address]- 5615 15 Aug, 2013 [facility] [place] [facility] [address] [id number] [place] [address]- 5779 10 Aug, 2013 [facility] [place] [facility] [address] [id number] [place] [address]- 4366 Aug, [facility] [place] [facility] [address] [id number] [place] [address]- 6811 27 Jul, 2013 [facility] [place] [facility] [address] [id number] [place] [address]- 2134 27 Jul, 2013 [facility] [place] [facility] [address] [id number] [place] [address]- 3406 16 Jul, 2013 [facility] [place] [facility] [address] [id number] [place] [address]- 7205 16 Jul, 2013 [facility] [place] [facility] [address] [id number] [place] [address]- 4530 16 Jul, 2013 [facility] [place] [facility] [address] [id number] [place] [address]- 4845 Jul, [facility] [place] [facility] [address] [id number] [place] [address]- 3905 16 Jul, 2013 [facility] [place] [facility] [address] [id number] [place] [address]- 3851 16 Jul, 2013 [facility] [place] [facility] [address] [id number] [place] [address]- 0122 10 Jul, 2013 [facility] [place] [facility] [address] [id number] [place] [address]- 7200 Jul, [facility] [place] [facility] [address] [id number] [place] [address]- 2998 Jul, [facility] [place] [facility] [address] [id number] [place] [address]- 7373 Jul, [facility] [place] [facility] [address] [id number] [place] [address]- 5224 Jul, [facility] [place] [facility] [address] [id number] [place] [address]- 0587 Jul, [facility] [place] [facility] [address] [id number] [place] [address]- 8092 Jul, [facility] [place] [facility] [address] [id number] [place] [address]- 3672 Jul, [facility] [place] [facility] [address] [id number] [place] [address]- 7717 Jul, [facility] [place] [facility] [address] [id number] [place] [address]- 9641 Jul, [facility] [place] [facility] [address] [id number] [place] [address]- 5558 June, [facility] [place] [facility] [address] [id number] [place] [address]- 8659 June, [facility] [place] [facility] [address] [id number] [place] [address]- 9481 June, [facility] [place] [facility] [address] [id number] [place] [address]- 9045 June, [facility] [place] [facility] [address] [id number] [place] [address]- 7133 May, [facility] [place] [facility] [address] [id number] [place] [address]- 9266 30 May, 2013 [facility] [place] [facility] [address] [id number] [place] [address]- 0998 May, [facility] [place] [facility] [address] [id number] [place] [address]- 9744 May, [facility] [place] [facility] [address] [id number] [place] [address]- 1658 16 May, 2013 [facility] [place] [facility] [address] [id number] [place] [address]- 0956 16 May, 2013 [facility] [place] [facility] [address] [id number] [place] [address]- 7374 May, [facility] [place] [facility] [address] [id number] [place] [address]- 9530 May, [facility] [place] [facility] [address] [id number] [place] [address]- 9755 May, [facility] [place] [facility] [address] [id number] [place] [address]- 9149 May, [facility] [place] [facility] [address] [id number] [place] [address]- 2909 Apr, [facility] [place] [facility] [address] [id number] [place] [address]- 5845 Apr, [facility] [place] [facility] [address] [id number] [place] [address]- 2845 Apr, [facility] [place] [facility] [address] [id number] [place] [address]- 5164 Apr, [facility] [place] [facility] [address] [id number] [place] [address]- 8521 Apr, [facility] [place] [facility] [address] [facility] [id number] [place] [address]- 9789 Apr, [facility] [place] [facility] [address] [id number] [place] [address]- 4443 Mar, [facility] [place] [facility] [address] [id number] [place] [address]- 6198 Mar, [facility] [place] [facility] [address] [id number] [place] [address]- 6996 Mar, [facility] [place] [facility] [address] [id number] [place] [address]- 8754 Mar, [facility] [place] [facility] [address] [id number] [place] [address]- 2429 Mar, [facility] [address] [id number] [place] [address]- 7770 Mar, [facility] [place] [facility] [address] [id number] [place] [address]- 2207 Mar, [facility] [place] [facility] [address] [id number] [place] [address]- 2633 Mar, [facility] [place] [facility] [address] [id number] [place] [address]- 9568 Feb, [facility] [place] [facility] [address] [id number] [place] [address]- 1500 Feb, [facility] [place] [facility] [address] [id number] [place] [address]- 6323 Feb, [facility] [place] [facility] [address] [id number] [place] [address]- 6859 Feb, [facility] [place] [facility] [address] [id number] [place] [address]- 0634 Feb, [facility] [place] [facility] [address] [id number] [place] [address]- 6103 Feb, [facility] [place] [facility] [address] [id number] [place] [address]- 7844 Feb, [facility] [place] [facility] [address] [id number] [place] [address]- 0816 Feb, [facility] [place] [facility] [address] [id number] [place] [address]- 7665 Feb, [facility] [place] [facility] [address] [id number] [place] [address]- 6788 Feb, [facility] [place] [facility] [address] [id number] [place] [address]- 8978 Feb, [facility] [place] [facility] [address] [id number] [place] [address]- 3436 Feb, [facility] [place] [facility] [address] [id number] [place] [address]- 0752 Feb, [facility] [address] [id number] [place] [address]- 5819 Feb, [facility] [place] [facility] [address] [id number] [place] [address]- 1084 Feb, [facility] [address] [id number] [place] [address]- 5666 Jan, [facility] [place] [facility] [address] [id number] [place] [address]- 6906 Jan, [facility] [place] [facility] [address] [id number] [place] [address]- 5223 Jan, [facility] [place] [facility] [address] [id number] [place] [address]- 7085 Jan, [facility] [address] [id number] [place] [address]- 6218 Jan, [facility] [place] [facility] [address] [id number] [place] [address]- 8614 Jan, [facility] [place] [facility] [address] [id number] [place] [address]- 1507 Dec, [facility] [place] [facility] [address] [facility] [id number] [place] [address]- 2731 Dec, [facility] [place] [facility] [address] [id number] [place] [address]- 6742 Dec, [facility] [place] [facility] [address] [id number] [place] [address]- 4385 19 Dec, 2012 [facility] [place] [facility] [address] [id number] [place] [address]- 8473 18 Dec, 2012 [facility] [place] [facility] [address] [id number] [place] [address]- 7949 13 Dec, 2012 [facility] [place] [facility] [address] [facility] [id number] [place] [address]- 6016 Dec, [facility] [place] [facility] [address] [id number] [place] [address]- 5886 Dec, [facility] [place] [facility] [address] [id number] [place] [address]- 4471 Dec, [facility] [place] [facility] [address] [id number] [place] [address]- 0848 Dec, [facility] [place] [facility] [address] [id number] [place] [address]- 9392 Dec, [facility] [place] [facility] [address] [id number] [place] [address]- 6600 Nov, [facility] [place] [facility] [address] [id number] [place] [address]- 2851 Nov, [facility] [place] [facility] [address] [id number] [place] [address]- 3576 Nov, [facility] [place] [facility] [address] [id number] [place] [address]- 8797 Nov, [facility] [place] [facility] [address] [id number] [place] [address]- 5138 Nov, [facility] [place] [facility] [address] [id number] [place] [address]- 5456 Nov, [facility] [place] [facility] [address] [id number] [place] [address]- 4899 Nov, [facility] [place] [facility] [address] [id number] [place] [address]- 8765 Nov, [facility] [place] [facility] [address] [id number] [place] [address]- 6026 Nov, [facility] [place] [facility] [address] [id number] [place] [address]- 1638 Nov, [facility] [place] [facility] [address] [id number] [place] [address]- 2087 Nov, [facility] [place] [facility] [address] [id number] [place] [address]- 8955 Nov, [facility] [place] [facility] [address] [id number] [place] [address]- 5279 Nov, [facility] [place] [facility] [address] [id number] [place] [address]- 7899 Nov, [facility] [place] [facility] [address] [id number] [place] [address]- 3191 18 Oct, 2012 [facility] [place] [facility] [address] [id number] [place] [address]- 2900 17 Oct, 2012 [facility] [place] [facility] [address] [id number] [place] [address]- 1461 Oct, [facility] [place] [facility] [address] [id number] [place] [address]- 2843 Oct, [facility] [place] [facility] [address] [id number] [place] [address]- 7842 Sep, [facility] [place] [facility] [address] [id number] [place] [address]- 4936 Sep, [facility] [place] [facility] [address] [id number] [place] [address]- 0400 Sep, [facility] [place] [facility] [address] [id number] [place] [address]- 7781 Sep, [facility] [place] [facility] [address] [id number] [place] [address]- 4764 Sep, [facility] [place] [facility] [address] [id number] [place] [address]- 7563 Sep, [facility] [place] [facility] [address] [id number] [place] [address]- 7968 Sep, [facility] [place] [facility] [address] [id number] [place] [address]- 2787 Aug, [facility] [place] [facility] [address] [id number] [place] [address]- 1891 Aug, [facility] [place] [facility] [address] [id number] [place] [address]- 1234 25 Jul, 2012 [facility] [address] [id number] [place] [address]- 2324 13 Jul, 2012 [facility] [address] [id number] [place] [address]- 4778 10 Jul, 2012 [facility] [address] [id number] [place] [address]- 4738 08 Jul, 2012 [facility] [address] [id number] [place] [address]- 4165 06 Jul, 2012 [facility] [address] [id number] [place] [address]- 7148 04 Jul, 2012 [facility] [address] [id number] [place] [address]- 2180 Jul, [facility] [address] [id number] [place] [address]- 9785 June, [facility] [address] [id number] [place] [address]- 4807 16 Jun, 2012 [facility] [address] [id number] [place] [address]- 7290 29 May, 2012 [facility] [address] [id number] [place] [address]- 3859 24 May, 2012 [facility] [address] [id number] [place] [address] 22 May, 2012 [facility] [address] [id number] [place] [address] 19 May, 2012 [facility] [address] [id number] [place] [address] 10 May, 2012 [facility] [address] [id number] [place] [address] 08 May, 2012 [facility] [address] [id number] [place] [address] May, [facility] [address] [facility] [id number] [address] May, [facility] [address] [id number], [place] [address] May, [facility] [address] [id number], [place] [address] Apr, [facility] [id number], [place] [address] Apr, [facility] [address] [facility] [id number] [address] Apr, [facility] [address] [id number], [place] [address] Apr, IMMUNIZATIONS No Known Immunizations SOCIAL HISTORY Never Assessed REASON FOR VISIT Controlled Med Refill 10/29/17 PLAN OF CARE VITAL SIGNS MEDICATIONS Medication Instructions Dosage Frequency Start Date End Date Duration Status Percocet 7.5-325 MG Orally 4 times a day 1 tablet as needed 6h Oct, 28 days Active Amitriptyline HCl 75 MG Orally Once a day at bedtime 1 tablet 30 days Active RESULTS No Results PROCEDURES No Known procedures INSTRUCTIONS MEDICATIONS ADMINISTERED No Known Medications MEDICAL (GENERAL) HISTORY Type Description Date Medical History hypertension Medical History neck pain - requires chronic pain management, on chronic narcotics Medical History lupus - 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
--- OUTSIDE RECORDS SUMMARY | 2018-04-29 18:23 | XMS REPORT ---
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 1638268 Problem Neck pain M54.2 Active 99009865 Problem History of hepatitis C Z86.19 Active [id number] Problem Systemic lupus erythematosus, unspecified SLE type, unspecified organ involvement status M32.9 Active [id number] ALLERGIES No Information ENCOUNTERS Encounter Location Date Diagnosis [facility] [id number] [place] [address] 02940- 7347 May, Neck pain M54.2 [facility] [id number] [place] [address] 18105- 0178 May, Systemic lupus erythematosus, unspecified SLE type, unspecified organ involvement status M32.9 and Neck pain M54.2 [facility] [id number] [place] [address] 13663- 7344 Apr, Neck pain M54.2 [facility] [id number] [place] [address] 88880- 3527 Apr, Neck pain M54.2 [facility] [id number] [place] [address] 23148- 6511 Mar, Neck pain M54.2 [facility] [id number] [place] [address] 28025- 3710 Feb, Neck pain M54.2 [facility] [id number] [place] [address] 95771- 4062 Feb, Neck pain M54.2 [facility] [address], [place] [address] 1725 Feb, [facility] [id number] [place] [address] 46823- 8953 Feb, Cervical neuritis M54.12 [facility] [id number] [place] [address] 71904- 7521 Jan, Cervical neuritis M54.12 [facility] [id number] [place] [address] 51092- 1939 Jan, Cervical neuritis M54.12 [facility] [id number] [place] [address] 66304- 3202 Nov, [facility] [id number] [place] [address] 51996- 0136 Nov, 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 and Neck pain M54.2 [facility] [id number] [place] [address] 98885- 9785 Nov, [facility] [id number] [place] [address] 15278- 6498 Nov, Neck pain M54.2 [facility] [id number] [place] [address] 45652- 6813 Nov, [facility] [id number] [place] [address] 05397- 9874 Oct, Neck pain M54.2 and Cervical vertebral fusion M43.22 [facility] [address], [place] [address]- 1883 Sep, [facility] [id number] [place] [address] 32561- 2711 Aug, Systemic lupus erythematosus, unspecified SLE type, unspecified organ involvement status M32.9 and Cervical neuritis M54.12 [facility] [address], [place] [address]- 2636 Jul, [facility] [id number] [place] [address] 73516- 4652 Jul, [place] [address] 57143- 7374 June, Lupus M32.9 ; Encounter for screening for lipoid disorders Z13.220 and Neck pain M54.2 [place] [address] 14952- 6476 June, [place] [address] 83288- 4119 Apr, History of hepatitis C Z86.19 [place] [address] 63421- 3612 Nov, [place] [address] 02887- 8305 June, Warts, genital A63.0 [place] [address] 26897- 5609 June, Occasional tremors R25.1 ; Systemic lupus M32.9 and Anxiety about health F41.8 [place] [address] 15070- 8839 June, Genital warts A63.0 [place] [id number] [place] [address] 47954- 9740 May, Lupus M32.9 ; Polyneuropathy in diseases classified elsewhere G63 and Occasional tremors R25.1 [place] [id number] [place] [address] 01977- 7038 May, Genital warts A63.0 [place] [id number] [place] [address] 44197- 7586 Apr, [place] [id number] [place] [address] 24222- 2223 Mar, [place] [address] 55453- 0052 Mar, [facility] [address], [place] [address]- 9322 Mar, Lupus M32.9 [facility] [id number] [place] [address] 30840- 2932 Mar, Systemic lupus M32.9 and Neck pain M54.2 [facility] [id number] [place] [address] 90525- 2185 Feb, Systemic lupus M32.9 [facility] [id number] [place] [address] 51751- 1740 Feb, Systemic lupus erythematosus, organ or system involvement unspecified M32.10 ; Polyneuropathy in diseases classified elsewhere G63 and Hyperpigmented skin lesion L81.9 [facility] [id number] [place] [address] 91895- 9180 Aug, Genital warts 078.11 [facility] [id number] [place] [address] 84161- 0354 Jul, Genital warts 078.11 [facility] [id number] [place] [address] 54659- 8853 Jul, [facility] [id number] [place] [address] 78599- 5204 May, [facility] [id number] [place] [address] 59344- 7137 May, [facility] [id number] [place] [address] 73238- 0292 Dec, [facility] [id number] [place] [address] 76861- 9087 Dec, [facility] [address], [place] [address]- 8415 Sep, [facility] [id number] [place] [address] 10342- 6663 Sep, [facility] [place] [facility] [address] [id number] [place] [address]- 6769 Sep, [facility] [place] [facility] [address] [id number] [place] [address]- 8759 Sep, [facility] [place] [facility] [address] [id number] [place] [address]- 9619 Sep, [facility] [place] [facility] [address] [id number] [place] [address]- 2251 Sep, [facility] [place] [facility] [address] [id number] [place] [address]- 3531 Aug, [facility] [place] [facility] [address] [id number] [place] [address]- 7758 Aug, [facility] [place] [facility] [address] [id number] [place] [address]- 8404 Aug, [facility] [place] [facility] [address] [id number] [place] [address]- 7483 Aug, [facility] [place] [facility] [address] [id number] [place] [address]- 6432 Aug, [facility] [place] [facility] [address] [id number] [place] [address]- 4185 Aug, [facility] [place] [facility] [address] [id number] [place] [address]- 9707 Jul, [facility] [place] [facility] [address] [id number] [place] [address]- 7090 Jul, [facility] [place] [facility] [address] [id number] [place] [address]- 7726 Jul, [facility] [place] [facility] [address] [id number] [place] [address]- 5003 Jul, [facility] [place] [facility] [address] [id number] [place] 2110 Jul, [facility] [place] [facility] [address] [id number] [place] [address]- 4811 Jul, [facility] [place] [facility] [address] [id number] [place] [address]- 6181 Jul, [facility] [place] [facility] [address] [id number] [place] [address]- 8689 Jul, [facility] [place] [facility] [address] [id number] [place] [address]- 0041 Jul, [facility] [place] [facility] [address] [id number] [place] [address]- 7205 Jul, [facility] [place] [facility] [address] [id number] [place] [address]- 4190 Jul, [facility] [place] [facility] [address] [id number] [place] [address]- 2580 Jul, [facility] [place] [facility] [address] [id number] [place] [address]- 8110 Jul, [facility] [place] [facility] [address] [id number] [place] [address]- 0611 Jul, [facility] [place] [facility] [address] [id number] [place] [address]- 3939 Jul, [facility] [place] [facility] [address] [id number] [place] [address]- 9159 Jul, [facility] [place] [facility] [address] [id number] [place] [address]- 8970 Jul, [facility] [place] [facility] [address] [id number] [place] [address]- 9844 Jul, [facility] [place] [facility] [address] [id number] [place] [address]- 1695 June, [facility] [place] [facility] [address] [id number] [place] [address]- 1964 June, [facility] [place] [facility] [address] [id number] [place] [address]- 3548 June, [facility] [place] [facility] [address] [id number] [place] [address]- 1864 June, [facility] [place] [facility] [address] [id number] [place] [address]- 3370 May, [facility] [place] [facility] [address] [id number] [place] [address]- 3388 May, [facility] [place] [facility] [address] [id number] [place] [address]- 1345 May, [facility] [place] [facility] [address] [id number] [place] [address]- 4658 May, [facility] [place] [facility] [address] [id number] [place] [address]- 0825 May, [facility] [place] [facility] [address] [id number] [place] [address]- 3329 May, [facility] [place] [facility] [address] [id number] [place] [address]- 3102 May, [facility] [place] [facility] [address] [id number] [place] [address]- 6124 May, [facility] [place] [facility] [address] [id number] [place] [address]- 2189 May, [facility] [place] [facility] [address] [id number] [place] [address]- 6329 May, [facility] [place] [facility] [address] [id number] [place] [address]- 4337 Apr, [facility] [place] [facility] [address] [id number] [place] [address]- 4516 Apr, [facility] [place] [facility] [address] [id number] [place] [address]- 2437 Apr, [facility] [place] [facility] [address] [id number] [place] [address]- 6531 Apr, [facility] [place] [facility] [address] [id number] [place] [address]- 2683 Apr, [facility] [place] [facility] [address] [id number] [place] [address]- 7164 Apr, [facility] [place] [facility] [address] [id number] [place] [address]- 1142 Mar, [facility] [place] [facility] [address] [id number] [place] [address]- 3715 Mar, [facility] [place] [facility] [address] [id number] [place] [address]- 6593 Mar, [facility] [place] [facility] [address] [id number] [place] [address]- 0287 Mar, [facility] [place] [facility] [address] [id number] [place] [address]- 2965 Mar, [facility] [place] [facility] [address] [id number] [place] [address]- 1169 Mar, [facility] [place] [facility] [address] [id number] [place] [address]- 1889 Mar, [facility] [place] [facility] [address] [id number] [place] [address]- 4583 Mar, [facility] [place] [facility] [address] [id number] [place] [address]- 5840 Feb, [facility] [place] [facility] [address] [id number] [place] [address]- 7280 Feb, [facility] [place] [facility] [address] [id number] [place] [address]- 2515 Feb, [facility] [place] [facility] [address] [id number] [place] [address]- 9768 Feb, [facility] [place] [facility] [address] [id number] [place] [address]- 3629 Feb, [facility] [place] [facility] [address] [id number] [place] [address]- 2162 Feb, [facility] [place] [facility] [address] [id number] [place] [address]- 5080 Feb, [facility] [address] [id number] [place] [address]- 6389 Feb, [facility] [place] [facility] [address] [id number] [place] [address]- 0658 Feb, [facility] [address] [id number] [place] [address]- 7774 Feb, [facility] [place] [facility] [address] [id number] [place] [address]- 3020 Feb, [facility] [place] [address] [id number] [place] [address]- 8553 Feb, [facility] [address] [id number] [place] [address]- 5479 Feb, [facility] [address] [id number] [place] [address]- 3486 Feb, [facility] [address] [id number] [place] [address]- 8340 Feb, [facility] [address] [id number] [place] [address]- 2074 Jan, [facility] [address] [id number] [place] [address]- 5468 31 Jan, 2013 [facility] [place] [facility] [address] [id number] [place] [address]- 2955 30 Jan, 2013 [facility] [place] [facility] [address] [id number] [place] [address]- 1307 30 Jan, 2013 [facility] [place] [facility] [address] [id number] [place] [address]- 0476 Jan, [facility] [place] [facility] [address] [id number] [place] [address]- 6706 Jan, [facility] [place] [facility] [address] [id number] [place] [address]- 2249 Dec, [facility] [place] [facility] [address] [id number] [place] [address]- 5052 Dec, [facility] [place] [facility] [address] [id number] [place] [address]- 7991 Dec, [facility] [place] [facility] [address] [id number] [place] [address]- 2821 Dec, [facility] [place] [facility] [address] [id number] [place] [address]- 0715 Dec, [facility] [place] [facility] [address] [id number] [place] [address]- 5379 Dec, [facility] [place] [facility] [address] [id number], [place] [address]- 4480 Dec, [facility] [place] [facility] [address] [id number] [place] [address]- 7155 Dec, [facility] [place] [facility] [address] [id number], [place] [address]- 8128 Dec, [facility] [place] [facility] [address] [id number] [place] [address]- 5054 Dec, [facility] [place] [facility] [address] [id number], [place] [address]- 5228 Dec, [facility] [place] [facility] [address] [id number], [place] [address]- 0296 Nov, [facility] [place] [facility] [address] [id number], [place] [address]- 6987 Nov, [facility] [place] [facility] [address] [id number], [place] [address]- 5996 Nov, [facility] [place] [facility] [address] [id number], [place] [address]- 3792 Nov, [facility] [place] [facility] [address] [id number], [place] [address]- 1813 Nov, [facility] [place] [facility] [address] [id number] [place] [address]- 4514 Nov, [facility] [place] [facility] [address] [id number] [place] [address]- 8951 Nov, [facility] [place] [facility] [address] [id number] [place] [address]- 5215 Nov, [facility] [place] [facility] [address] [id number] [place] [address]- 6753 Nov, [facility] [place] [facility] [address] [id number] [place] [address]- 1793 Nov, [facility] [place] [facility] [address] [id number] [place] [address]- 5385 Nov, [facility] [place] [facility] [address] [id number] [place] [address]- 5531 Nov, [facility] [place] [facility] [address] [id number] [place] [address]- 0610 Nov, [facility] [place] [facility] [address] [id number] [place] [address]- 4644 Nov, [facility] [place] [facility] [address] [id number] [place] [address]- 4613 18 Oct, 2012 [facility] [place] [facility] [address] [id number] [place] [address]- 2984 17 Oct, 2012 [facility] [place] [facility] [address] [id number] [place] [address]- 0822 11 Oct, 2012 [facility] [place] [facility] [address] [id number] [place] [address]- 0296 Oct, [facility] [place] [facility] [address] [id number] [place] [address]- 6701 Sep, [facility] [place] [facility] [address] [id number] [place] [address]- 4517 Sep, [facility] [place] [facility] [address] [id number] [place] [address]- 5968 Sep, [facility] [place] [facility] [address] [id number] [place] [address]- 9961 Sep, [facility] [place] [facility] [address] [id number] [place] [address]- 7485 Sep, [facility] [place] [facility] [address] [id number] [place] [address]- 3964 Sep, [facility] [place] [facility] [address] [id number] [place] [address]- 1797 Sep, [facility] [place] [facility] [address] [id number] [place] [address]- 0072 Aug, [facility] [place] [facility] [address] [id number] [place] [address]- 5680 Aug, [facility] [place] [facility] [address] [id number] [place] [address]- 0890 Jul, [facility] [place] [facility] [address] [id number] [place] [address]- 2173 Jul, [facility] [place] [facility] [address] [id number] [place] [address]- 8177 Jul, [facility] [place] [facility] [address] [id number] [place] [address]- 3702 Jul, [facility] [place] [facility] [address] [id number] [place] [address]- 7235 Jul, [facility] [place] [facility] [address] [id number] [place] [address]- 9044 Jul, [facility] [place] [facility] [address] [id number] [place] [address]- 4224 Jul, [facility] [place] [facility] [address] [id number] [place] [address]- 1571 June, [facility] [place] [facility] [address] [id number] [place] [address]- 5199 June, [facility] [place] [facility] [address] [id number] [place] [address]- 9325 May, [facility] [address] [address]- 9458 May, [facility] [address], [place] [address]- 3255 May, [facility] [address], [place] [address]- 9599 May, [facility] [address] [id number] [address]- 5814 May, [facility] [address], [place] [address]- 3664 May, [facility] [id number] [place] [address] 61359- 5347 May, [facility] [address], [place] [address]- 3226 May, [facility] [address], [place] [address]- 0084 May, [facility] [address], [place] [address]- 3892 Apr, [facility] [address], [place] [address]- 8101 Apr, [facility] [address], [place] [address]- 2116 Apr, [facility] [address], [place] [address]- 7025 Apr, IMMUNIZATIONS No Known Immunizations SOCIAL HISTORY Never Assessed REASON FOR VISIT PLAN OF CARE VITAL SIGNS MEDICATIONS Unknown Medications RESULTS No Results PROCEDURES No Known procedures INSTRUCTIONS MEDICATIONS ADMINISTERED No Known Medications MEDICAL (GENERAL) HISTORY Type Description Date Medical History hypertension Medical History neck pain - requires chronic pain management, on chronic narcotics Medical History lupus - sees ux consultant in [place] Medical History Chronic HCV, successfully treated by [...]
--- OUTSIDE RECORDS SUMMARY | 2018-04-29 18:24 | XMS REPORT ---
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 5584504 Problem Neck pain M54.2 Active 38733521 Problem History of hepatitis C Z86.19 Active 50771002931447 Problem Systemic lupus erythematosus, unspecified SLE type, unspecified organ involvement status M32.9 Active [id number] ALLERGIES No Known Allergies ENCOUNTERS Encounter Location Date Diagnosis [facility] [id number] [place] [address] 91310- 3096 May, Neck pain M54.2 [facility] [id number] [place] [address] 50419- 8461 May, Systemic lupus erythematosus, unspecified SLE type, unspecified organ involvement status M32.9 and Neck pain M54.2 [facility] [id number] [place] [address] 93435- 9118 Apr, Neck pain M54.2 [facility] [id number] [place] [address] 01492- 5435 Apr, Neck pain M54.2 [facility] [id number] [place] [address] 96840- 0585 Mar, Neck pain M54.2 [facility] [id number] [place] [address] 27966- 8228 Feb, Neck pain M54.2 [facility] [id number] [place] [address] 01978- 5090 Feb, Neck pain M54.2 [place] [id number] [address] 8943 Feb, [facility] [id number] [place] [address] 94678- 6184 Feb, Cervical neuritis M54.12 [facility] [id number] [place] [address] 59768- 1966 Jan, Cervical neuritis M54.12 [facility] [id number] [place] [address] 01680- 1907 Jan, Cervical neuritis M54.12 [facility] [id number] [place] [address] 43980- 6925 Nov, [facility] [id number] [place] [address] 66927- 6449 Nov, 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 and Neck pain M54.2 [facility] [id number] [place] [address] 90515- 5269 Nov, [facility] [id number] [place] [address] 22036- 5247 Nov, Neck pain M54.2 [facility] [id number] [place] [address] 50761- 8224 Nov, [facility] [id number] [place] [address] 48279- 9501 Oct, Neck pain M54.2 and Cervical vertebral fusion M43.22 [facility] [id number] [place] [address] 42503- 9065 Sep, [facility] [id number] [place] [address] 62839- 9583 Aug, Systemic lupus erythematosus, unspecified SLE type, unspecified organ involvement status M32.9 and Cervical neuritis M54.12 [facility] [id number] [place] [address] 58023- 5334 Jul, [facility] [id number] [place] [address] 56513- 5062 Jul, [place] [address] 97236- 2787 June, Lupus M32.9 ; Encounter for screening for lipoid disorders Z13.220 and Neck pain M54.2 [place] [address] 88766- 6416 June, [facility] [address] 46065- 0612 Apr, History of hepatitis C Z86.19 [place] [address] 73405- 6098 Nov, [place] [address] 66364- 0776 June, Warts, genital A63.0 [place] [address] 47444- 3900 June, Occasional tremors R25.1 ; Systemic lupus M32.9 and Anxiety about health F41.8 [place] [id number] [place] [address] 62243- 3255 June, Genital warts A63.0 [place] [id number] [place] [address] 29428- 6818 May, Lupus M32.9 ; Polyneuropathy in diseases classified elsewhere G63 and Occasional tremors R25.1 [place] [id number] [place] [address] 11568- 9439 May, Genital warts A63.0 [place] [id number] [place] [address] 76625- 2567 Apr, [place] [id number] [place] [address] 77223- 8024 Mar, [place] [address] 71237- 5837 Mar, [facility] [id number] [place] [address] 27262- 2655 Mar, Lupus M32.9 [facility] [id number] [place] [address] 15143- 6880 Mar, Systemic lupus M32.9 and Neck pain M54.2 [facility] [id number] [place] [address] 54679- 9271 Feb, Systemic lupus M32.9 [facility] [id number] [place] [address] 16103- 2505 Feb, Systemic lupus erythematosus, organ or system involvement unspecified M32.10 ; Polyneuropathy in diseases classified elsewhere G63 and Hyperpigmented skin lesion L81.9 [facility] [id number] [place] [address] 89306- 3429 Aug, Genital warts 078.11 [facility] [id number] [place] [address] 61418- 9360 Jul, Genital warts 078.11 [facility] [id number] [place] [address] 70439- 5424 Jul, [facility] [id number] [place] [address] 76794- 4004 May, [facility] [id number] [place] [address] 26627- 7730 May, [facility] [id number] [place] [address] 01697- 0734 Dec, [facility] [id number] [place] [address] 55128- 7589 Dec, [facility] [id number] [place] [address] 38705- 1685 Sep, [facility] [id number] [place] [address] 04155- 7669 Sep, [facility] [place] [facility] [address] [id number] [place] [address]- 6837 Sep, [facility] [place] [facility] [address] [id number] [place] [address]- 0303 Sep, [facility] [place] [facility] [address] [id number] [place] [address]- 8095 Sep, [facility] [place] [facility] [address] [id number] [place] [address]- 1597 Sep, [facility] [place] [facility] [address] [id number] [place] [address]- 4543 Aug, [facility] [place] [facility] [address] [id number] [place] [address]- 6418 Aug, [facility] [place] [facility] [address] [id number] [place] [address]- 7218 Aug, [facility] [place] [facility] [address] [id number] [place] [address]- 7359 Aug, [facility] [place] [facility] [address] [id number] [place] [address]- 1663 Aug, [facility] [place] [facility] [address] [id number] [place] [address]- 4415 Aug, [facility] [place] [facility] [address] [id number] [place] [address]- 4780 Jul, [facility] [place] [facility] [address] [id number] [place] [address]- 5254 Jul, [facility] [place] [facility] [address] [id number] [place] [address]- 6799 Jul, [facility] [place] [facility] [address] [id number] [place] [address]- 4454 Jul, [facility] [place] [facility] [address] [id number] [place] [address]- 2827 Jul, [facility] [place] [facility] [address] [id number] [place] [address]- 9245 Jul, [facility] [place] [facility] [address] [id number] [place] [address]- 7071 Jul, [facility] [place] [facility] [address] [id number] [place] [address]- 8427 Jul, [facility] [place] [facility] [address] [id number] [place] [address]- 1517 Jul, [facility] [place] [facility] [address] [id number] [place] [address]- 5220 Jul, [facility] [place] [facility] [address] [id number] [place] [address]- 1513 Jul, [facility] [place] [facility] [address] [id number] [place] [address]- 9972 Jul, [facility] [place] [facility] [address] [id number] [place] [address]- 2275 Jul, [facility] [place] [facility] [address] [id number] [place] [address]- 7925 Jul, [facility] [place] [facility] [address] [id number] [place] [address]- 2080 Jul, [facility] [place] [facility] [address] [id number] [place] [address]- 6520 Jul, [facility] [place] [facility] [address] [id number] [place] [address]- 6406 Jul, [facility] [place] [facility] [address] [id number] [place] [address]- 8164 Jul, [facility] [place] [facility] [address] [id number] [place] [address]- 4981 June, [facility] [place] [facility] [address] [id number] [place] [address]- 6537 June, [facility] [place] [facility] [address] [id number] [place] [address]- 0573 June, [facility] [place] [facility] [address] [id number] [place] [address]- 9967 June, [facility] [place] [facility] [address] [id number] [place] [address]- 5774 May, [facility] [place] [facility] [address] [id number] [place] [address]- 7151 May, [facility] [place] [facility] [address] [id number] [place] [address]- 9946 May, [facility] [place] [facility] [address] [id number] [place] [address]- 1195 May, [facility] [place] [facility] [address] [id number] [place] [address]- 3078 May, [facility] [place] [facility] [address] [id number] [place] [address]- 8999 May, [facility] [place] [facility] [address] [id number] [place] [address]- 2276 May, [facility] [place] [facility] [address] [id number] [place] [address]- 6707 May, [facility] [place] [facility] [address] [id number] [place] [address]- 8765 May, [facility] [place] [facility] [address] [id number] [place] [address]- 3095 May, [facility] [place] [facility] [address] [id number] [place] [address]- 1919 Apr, [facility] [place] [facility] [address] [id number] [place] [address]- 5551 Apr, [facility] [place] [facility] [address] [id number] [place] [address]- 2227 Apr, [facility] [place] [facility] [address] [id number] [place] [address]- 9011 Apr, [facility] [place] [facility] [address] [id number] [place] [address]- 5307 Apr, [facility] [place] [facility] [address] [id number] [place] [address]- 4146 Apr, [facility] [place] [facility] [address] [id number] [place] [address]- 4782 Mar, [facility] [place] [facility] [address] [facility] [id number] [place] [address]- 1029 Mar, [facility] [place] [facility] [address] [id number] [place] [address]- 2491 Mar, [facility] [place] [facility] [address] [id number] [place] [address]- 8564 Mar, [facility] [place] [facility] [address] [facility] [id number] [place] [address]- 2090 Mar, [facility] [place] [facility] [address] [facility] [id number] [place] [address]- 5732 Mar, [facility] [place] [facility] [address] [id number] [place] [address]- 3573 Mar, [facility] [place] [facility] [address] [id number] [place] [address]- 0330 Mar, [facility] [place] [facility] [address] [facility] [id number] [place] [address]- 3472 Feb, [facility] [place] [facility] [address] [id number] [place] [address]- 5389 Feb, [facility] [place] [facility] [address] [id number] [place] [address]- 5212 Feb, [facility] [place] [facility] [address] [id number] [place] [address]- 8674 Feb, [facility] [place] [facility] [address] [facility] [id number] [place] [address]- 7743 Feb, [facility] [place] [facility] [address] [facility] [id number] [place] [address]- 6907 Feb, [facility] [place] [facility] [address] [id number] [place] [address]- 8561 Feb, [facility] [place] [facility] [address] [id number] [place] [address]- 2626 Feb, [facility] [place] [facility] [address] [id number] [place] [address]- 1281 Feb, [facility] [place] [facility] [address] [id number] [place] [address]- 3561 Feb, [facility] [place] [facility] [address] [id number] [place] [address]- 5217 Feb, [facility] [place] [facility] [address] [id number] [place] [address]- 7824 Feb, [facility] [place] [facility] [address] [id number] [place] [address]- 3720 Feb, [facility] [place] [facility] [address] [id number] [place] [address]- 1604 Feb, [facility] [place] [facility] [address] [id number] [place] [address]- 0755 Feb, [facility] [place] [facility] [address] [id number] [place] [address]- 2628 Jan, [facility] [place] [facility] [address] [id number] [place] 1132 31 Jan, 2013 [facility] [place] [facility] [address] [id number] [place] [address]- 4716 30 Jan, 2013 [facility] [place] [facility] [address] [id number] [place] [address]- 0623 30 Jan, 2013 [facility] [place] [facility] [address] [id number] [place] [address]- 4936 Jan, [facility] [place] [facility] [address] [id number] [place] [address]- 9826 Jan, [facility] [place] [facility] [address] [id number] [place] [address]- 3851 Dec, [facility] [place] [facility] [address] [id number] [place] [address]- 1350 Dec, [facility] [place] [facility] [address] [id number] [place] [address]- 9357 Dec, [facility] [place] [facility] [address] [id number] [place] [address]- 3799 Dec, [facility] [place] [facility] [address] [id number] [address]- 8620 Dec, [facility] [place] [facility] [address] [id number] [place] [address]- 5004 Dec, [facility] [place] [facility] [address] [id number] [place] [address]- 5244 Dec, [facility] [place] [facility] [address] [id number] [place] [address]- 8125 Dec, [facility] [place] [facility] [address] [id number] [address]- 8614 Dec, [facility] [place] [facility] [address] [id number] [place] [address]- 8664 Dec, [facility] [place] [facility] [address] [id number] [place] [address]- 0246 Dec, [facility] [place] [facility] [address] [id number] [place] [address]- 0730 Nov, [facility] [place] [facility] [address] [id number] [place] [address]- 5032 Nov, [facility] [place] [facility] [address] [id number] [place] [address]- 9070 Nov, [facility] [place] [facility] [address] [id number] [place] [address]- 2823 Nov, [facility] [place] [facility] [address] [id number] [place] [address]- 4036 Nov, [facility] [place] [facility] [address] [id number] [place] [address]- 7832 Nov, [facility] [place] [facility] [address] [id number] [place] [address]- 1292 Nov, [facility] [place] [facility] [address] [id number] [place] [address]- 5489 Nov, [facility] [place] [facility] [address] [id number] [place] [address]- 7803 Nov, [facility] [place] [facility] [address] [id number] [place] [address]- 8461 Nov, [facility] [place] [facility] [address] [id number] [place] [address]- 3472 Nov, [facility] [place] [facility] [address] [id number] [place] [address]- 3897 Nov, [facility] [place] [facility] [address] [id number] [place] [address]- 3256 Nov, [facility] [place] [facility] [address] [id number] [place] [address]- 7881 Nov, [facility] [place] [facility] [address] [id number] [place] [address]- 3321 18 Oct, 2012 [facility] [place] [facility] [address] [id number] [place] [address]- 1322 17 Oct, 2012 [facility] [place] [facility] [address] [id number] [place] [address]- 9513 11 Oct, 2012 [facility] [place] [facility] [address] [id number] [place] [address]- 4250 Oct, [facility] [place] [facility] [address] [id number] [place] [address]- 9186 Sep, [facility] [place] [facility] [address] [id number] [place] [address]- 0954 Sep, [facility] [place] [facility] [address] [id number] [place] [address]- 6766 Sep, [facility] [place] [facility] [address] [id number] [place] [address]- 3499 Sep, [facility] [place] [facility] [address] [id number] [place] [address]- 5249 Sep, [facility] [place] [facility] [address] [id number] [place] [address]- 4686 Sep, [facility] [place] [facility] [address] [id number] [place] [address]- 8832 Sep, [facility] [place] [facility] [address] [id number] [place] [address]- 7445 Aug, [facility] [place] [facility] [address] [id number] [place] [address]- 4068 Aug, [facility] [place] [facility] [address] [id number] [place] [address]- 0564 Jul, [facility] [place] [facility] [address] [id number] [place] [address]- 2083 Jul, [facility] [place] [facility] [address] [id number] [place] [address]- 0723 Jul, [facility] [place] [facility] [address] [id number] [place] [address]- 8639 Jul, [facility] [place] [facility] [address] [id number] [place] [address]- 6012 Jul, [facility] [place] [facility] [address] [id number] [place] [address]- 5688 Jul, [facility] [place] [facility] [address] [id number] [place] [address]- 2628 Jul, [facility] [place] [facility] [address] [id number] [place] [address]- 0349 June, [facility] [place] [facility] [address] [id number] [place] [address]- 8093 June, [facility] [place] [facility] [address] [id number] [place] [address] May, [facility] [address] [id number] [address] May, 2012 [facility] [address] [address] May, [facility] [address] [address] May, [facility] [address] [address] May, [facility] [address] [address] May, [facility] [address] [address] May, [facility] [address] [address] May, [facility] [address] [address] May, [facility] [address] [address] Apr, [facility] [address] [address] Apr, [facility] [address] [id number] [address] Apr, [facility] [address] [address] Apr, IMMUNIZATIONS No Known Immunizations SOCIAL HISTORY Never Assessed REASON FOR VISIT Pain Management--[facility] PLAN OF CARE VITAL SIGNS Height 69 in 2016-10-31 Weight 180.5 lbs 2016-10-31 Temperature 98.0 degrees Fahrenheit 2016-10-31 Heart Rate 84 bpm 2016-10-31 Respiratory Rate 18 2016-10-31 BMI 26.65 kg/m2 2016-10-31 Blood pressure systolic 138 mmHg 2016-10-31 Blood pressure diastolic 72 mmHg 2016-10-31 MEDICATIONS Medication Instructions Dosage Frequency Start Date End Date Duration Status Gabapentin 800 MG Orally Three times a day 1 tablet 8h Active Amitriptyline HCl 75 MG Orally Once a day at bedtime 1 tablet Active Nitroglycerin by Sublingual route Apr, Active Vitamin E 1000 UNIT Orally Once a day 1 capsule 24h Active Percocet 7.5-325 mg Orally 4 times a day 1 tablet as needed 6h Oct, Active Plaquenil 200 mg Orally 2 times a day 1 tablet with food or milk 12h Feb Active Fish Oil Concentrate 1000 mg 1 Capsule by Oral route 1 time per day Apr, Active Lipitor 20 mg Orally Once a day 1 tablet 24h Jul, 30 day(s) Active Baclofen 10 MG Orally Three times a day 1 tablet with food or milk 8h Active Mens Multi Vitamin & Mineral Active Aspirin 81 MG Orally Once a day take 1 tablet (81 mg) by oral route once daily sun,tues,thur,& fri 24h Apr, Active RESULTS No Results PROCEDURES Procedure Date Ordered Result Body Site [facility] VISIT ESTABLISHED PATIENT Oct 31, 2016 INSTRUCTIONS MEDICATIONS ADMINISTERED No Known Medications MEDICAL (GENERAL) HISTORY Type Description Date Medical History hypertension Medical History neck pain - requires chronic pain management, on chronic narcotics Medical History lupus - sees brake lining maker in [place] Medical History Chronic HCV, successfully treated by [...]
--- OUTSIDE RECORDS SUMMARY | 2018-04-29 18:24 | XMS REPORT ---
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 7894526 Problem Neck pain M54.2 Active 33609983 Problem History of hepatitis C Z86.19 Active [id number] Problem Systemic lupus erythematosus, unspecified SLE type, unspecified organ involvement status M32.9 Active [id number] ALLERGIES No Information ENCOUNTERS Encounter Location Date Diagnosis [place] [id number] [place] [address] 96215- 0666 June, Neck pain M54.2 [facility] [id number] [place] [address] 36608- 0679 May, Neck pain M54.2 [facility] [id number] [place] [address] 59908- 1402 May, Systemic lupus erythematosus, unspecified SLE type, unspecified organ involvement status M32.9 and Neck pain M54.2 [facility] [id number] [place] [address] 62503- 8731 Apr, Neck pain M54.2 [facility] [id number] [place] [address] 04699- 6967 Apr, Neck pain M54.2 [facility] [id number] [place] [address] 82389- 7101 Mar, Neck pain M54.2 [facility] [id number] [place] [address] 12207- 4524 Feb, Neck pain M54.2 [place] [address] [address] 0669 Feb, Neck pain M54.2 [facility] [id number] [place] [address] 96282- 9551 Feb, [facility] [id number] [place] [address] 02043- 4635 Feb, Cervical neuritis M54.12 [facility] [id number] [place] [address] 20714- 0772 Jan, Cervical neuritis M54.12 [facility] [id number] [place] [address] 05472- 2908 Jan, Cervical neuritis M54.12 [facility] [id number] [place] [address] 40987- 4104 Nov, [facility] [id number] [place] [address] 07379- 9502 Nov, 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 and Neck pain M54.2 [facility] [id number] [place] [address] 76052- 7949 Nov, [facility] [id number] [place] [address] 84980- 2999 Nov, Neck pain M54.2 [facility] [id number] [place] [address] 39677- 7410 Nov, [facility] [id number] [place] [address] 48392- 0623 Oct, Neck pain M54.2 and Cervical vertebral fusion M43.22 [facility] [id number] [place] [address] 94480- 7374 Sep, [facility] [id number] [place] [address] 01269- 1886 Aug, Systemic lupus erythematosus, unspecified SLE type, unspecified organ involvement status M32.9 and Cervical neuritis M54.12 [facility] [id number] [place] [address] 02406- 9646 Jul, [place] [address] 72515- 0284 Jul, [facility] [id number] [place] [address] 01040- 6185 June, Lupus M32.9 ; Encounter for screening for lipoid disorders Z13.220 and Neck pain M54.2 [place] [address] 23876- 0580 June, [place] [address] 31893- 1531 Apr, History of hepatitis C Z86.19 [place] [address] 25256- 1286 Nov, [place] [id number] [place] [address] 61142- 5709 June, Warts, genital A63.0 [place] [id number] [place] [address] 94837- 6287 June, Occasional tremors R25.1 ; Systemic lupus M32.9 and Anxiety about health F41.8 [place] [id number] [place] [address] 52595- 5522 June, Genital warts A63.0 [place] [id number] [place] [address] 87118- 7469 May, Lupus M32.9 ; Polyneuropathy in diseases classified elsewhere G63 and Occasional tremors R25.1 [place] [id number] [place] [address] 12227- 8386 May, Genital warts A63.0 [place] [id number] [place] [address] 01158- 8260 Apr, [place] [id number] [place] [address] 01056- 0547 Mar, [facility] [address] [address]- 6116 Mar, [facility] [id number] [place] [address] 89761- 5576 Mar, Lupus M32.9 [facility] [id number] [place] [address] 11059- 1507 Mar, Systemic lupus M32.9 and Neck pain M54.2 [facility] [id number] [place] [address] 52707- 9294 Feb, Systemic lupus M32.9 [facility] [address] [place] [address] 32572- 1439 Feb, Systemic lupus erythematosus, organ or system involvement unspecified M32.10 ; Polyneuropathy in diseases classified elsewhere G63 and Hyperpigmented skin lesion L81.9 [facility] [address] [address]- 7795 Aug, Genital warts 078.11 [facility] [id number] [place] [address] 69718- 8008 Jul, Genital warts 078.11 [facility] [address] [address]- 2744 Jul, [facility] [address] [address]- 8760 May, [facility] [id number] [place] [address] 25778- 7458 May, [facility] [id number] [place] [address] 79797- 3001 Dec, [facility] [address] [address]- 7634 Dec, [facility] [id number] [place] [address] 37472- 8106 Sep, [facility] [place] [facility] [address] [id number] [place] [address]- 1081 Sep, [facility] [place] [facility] [address] [id number] [place] [address]- 0256 Sep, [facility] [place] [facility] [address] [id number] [place] [address]- 9698 Sep, [facility] [place] [facility] [address] [id number] [place] [address]- 1499 Sep, [facility] [place] [facility] [address] [id number] [place] [address]- 2269 Sep, [facility] [place] [facility] [address] [id number] [place] [address]- 8240 Aug, [facility] [place] [facility] [address] [id number] [place] [address]- 2496 Aug, [facility] [place] [facility] [address] [id number] [place] [address]- 9396 Aug, [facility] [place] [facility] [address] [id number] [place] [address]- 9896 Aug, [facility] [place] [facility] [address] [id number] [place] [address]- 5674 Aug, [facility] [place] [facility] [address] [id number] [place] [address]- 0520 Aug, [facility] [place] [facility] [address] [id number] [place] [address]- 1179 Jul, [facility] [place] [facility] [address] [id number] [place] [address]- 6168 Jul, [facility] [place] [facility] [address] [id number] [place] [address]- 9674 Jul, [facility] [place] [facility] [address] [id number] [place] [address]- 3804 Jul, [facility] [place] [facility] [address] [id number] [place] [address]- 9051 16 Jul, 2013 [facility] [place] [facility] [address] [id number] [place] [address]- 8442 Jul, [facility] [place] [facility] [address] [id number] [place] [address]- 5281 Jul, [facility] [place] [facility] [address] [id number] [place] [address]- 0169 Jul, [facility] [place] [facility] [address] [id number] [place] [address]- 1053 Jul, [facility] [place] [facility] [address] [id number] [place] [address]- 8791 Jul, [facility] [place] [facility] [address] [id number] [place] [address]- 7332 Jul, [facility] [place] [facility] [address] [id number] [place] [address]- 7636 Jul, [facility] [place] [facility] [address] [id number] [place] [address]- 7305 Jul, [facility] [place] [facility] [address] [id number] [place] [address]- 9182 Jul, [facility] [place] [facility] [address] [id number] [place] [address]- 2097 Jul, [facility] [place] [facility] [address] [id number] [place] [address]- 1597 Jul, [facility] [place] [facility] [address] [id number] [place] [address]- 0583 Jul, [facility] [place] [facility] [address] [id number] [place] [address]- 1945 Jul, [facility] [place] [facility] [address] [id number] [place] [address]- 4882 June, [facility] [place] [facility] [address] [id number] [place] [address]- 3885 June, [facility] [place] [facility] [address] [id number] [place] [address]- 4845 June, [facility] [place] [facility] [address] [id number] [place] [address]- 1418 June, [facility] [place] [facility] [address] [id number] [place] [address]- 6559 May, [facility] [place] [facility] [address] [id number] [place] [address]- 6661 May, [facility] [place] [facility] [address] [id number] [place] [address]- 8050 May, [facility] [place] [facility] [address] [id number] [place] [address]- 9980 May, [facility] [place] [facility] [address] [id number] [place] [address]- 0663 May, [facility] [place] [facility] [address] [id number] [place] [address]- 2354 May, [facility] [place] [facility] [address] [id number] [place] [address]- 2747 May, [facility] [place] [facility] [address] [id number] [place] [address]- 5561 May, [facility] [place] [facility] [address] [id number] [place] [address]- 4633 May, [facility] [place] [facility] [address] [id number] [place] [address]- 9775 May, [facility] [place] [facility] [address] [id number] [place] [address]- 6054 Apr, [facility] [place] [facility] [address] [id number] [place] [address]- 9317 Apr, [facility] [place] [facility] [address] [id number] [place] [address]- 4385 Apr, [facility] [place] [facility] [address] [id number] [place] [address]- 2697 Apr, [facility] [place] [facility] [address] [id number] [place] [address]- 4817 Apr, [facility] [place] [facility] [address] [id number] [place] [address]- 3846 Apr, [facility] [place] [facility] [address] [facility] [id number] [place] [address]- 0799 Mar, [facility] [place] [facility] [address] [id number] [place] [address]- 9549 Mar, [facility] [place] [facility] [address] [id number] [place] [address]- 8887 Mar, [facility] [place] [facility] [address] [id number] [place] [address]- 5552 Mar, [facility] [place] [facility] [address] [facility] [id number] [place] [address]- 5093 Mar, [facility] [place] [facility] [address] [id number] [place] [address]- 6247 Mar, [facility] [place] [facility] [address] [id number] [place] [address]- 3417 Mar, [facility] [place] [facility] [address] [facility] [id number] [place] [address]- 7245 Mar, [facility] [place] [facility] [address] [facility] [id number] [place] [address]- 7270 Feb, [facility] [place] [facility] [address] [id number] [place] [address]- 5662 Feb, [facility] [place] [facility] [address] [id number] [place] [address]- 4431 Feb, [facility] [place] [facility] [address] [facility] [id number] [place] [address]- 3162 Feb, [facility] [place] [facility] [address] [facility] [id number] [place] [address]- 9847 Feb, [facility] [place] [facility] [address] [id number] [place] [address]- 8890 Feb, [facility] [address] [id number] [place] [address]- 9751 Feb, [facility] [address] [id number] [place] [address]- 8927 Feb, [facility] [address] [id number] [place] [address]- 9701 Feb, [facility] [address] [id number] [place] [address]- 6080 Feb, [facility] [address] [id number] [place] [address]- 9239 Feb, [facility] [address] [id number] [place] [address]- 7924 Feb, [facility] [address] [id number] [place] [address]- 1368 Feb, [facility] [address] [id number] [place] [address]- 4099 Feb, [facility] [address] [id number] [place] [address]- 4471 Feb, [facility] [address] [id number] [place] [address]- 8526 Jan, [facility] [place] [facility] [address] [id number] [place] [address]- 2143 31 Jan, 2013 [facility] [place] [facility] [address] [id number] [place] [address]- 1183 Jan, [facility] [place] [facility] [address] [id number] [place] [address]- 5767 30 Jan, 2013 [facility] [place] [facility] [address] [id number] [place] [address]- 8148 16 Jan, 2013 [facility] [place] [facility] [address] [id number] [place] [address]- 1063 16 Jan, 2013 [facility] [place] [facility] [address] [id number] [place] [address]- 9660 Dec, [facility] [place] [facility] [address] [id number] [place] [address]- 8344 Dec, [facility] [place] [facility] [address] [id number] [place] [address]- 3572 Dec, [facility] [place] [facility] [address] [id number] [place] [address]- 2713 Dec, [facility] [place] [facility] [address] [id number] [place] [address]- 2638 Dec, [facility] [place] [facility] [address] [id number] [place] [address]- 1141 Dec, [facility] [place] [facility] [address] [id number] [place] [address]- 6037 Dec, [facility] [place] [facility] [address] [id number] [place] [address]- 2546 Dec, [facility] [place] [facility] [address] [id number] [place] [address]- 3051 Dec, [facility] [place] [facility] [address] [id number] [place] [address]- 3308 Dec, [facility] [place] [facility] [address] [id number] [place] [address]- 2575 Dec, [facility] [place] [facility] [address] [id number] [place] [address]- 3192 29 Nov, 2012 [facility] [place] [facility] [address] [id number] [place] [address]- 0975 Nov, [facility] [place] [facility] [address] [id number] [place] [address]- 3085 Nov, [facility] [place] [facility] [address] [id number] [place] [address]- 9310 Nov, [facility] [place] [facility] [address] [id number] [place] [address]- 0777 Nov, 2012 [facility] [address] [id number] [place] [address]- 7863 Nov, [facility] [place] [facility] [address] [id number] [place] [address]- 1665 Nov, [facility] [address] [id number] [place] [address]- 4314 Nov, [facility] [place] [facility] [address] [id number] [place] [address]- 3769 Nov, [facility] [address] [id number] [place] [address] Nov, [facility] [address] [id number] [place] [address]- 3123 Nov, [facility] [place] [facility] [address] [id number] [place] [address]- 3128 Nov, [facility] [address] [id number] [place] [address]- 9369 Nov, [facility] [place] [facility] [address] [id number] [place] [address]- 4578 Nov, [facility] [address] [id number] [place] [address]- 6755 18 Oct, 2012 [facility] [place] [facility] [address] [id number] [place] [address]- 3609 17 Oct, 2012 [facility] [place] [facility] [address] [id number] [place] [address]- 7552 11 Oct, 2012 [facility] [place] [facility] [address] [id number] [place] [address]- 9409 03 Oct, 2012 [facility] [place] [facility] [address] [id number] [place] [address]- 7743 Sep, [facility] [place] [facility] [address] [id number] [place] 5467 Sep, [facility] [place] [facility] [address] [id number] [place] [address]- 7475 Sep, [facility] [place] [facility] [address] [id number] [place] [address]- 7224 Sep, [facility] [place] [facility] [address] [id number] [place] [address]- 2781 Sep, [facility] [place] [facility] [address] [id number] [place] [address]- 6096 Sep, [facility] [place] [facility] [address] [id number] [place] [address]- 1587 Sep, [facility] [place] [facility] [address] [id number] [place] [address]- 2068 Aug, [facility] [place] [facility] [address] [id number] [place] [address]- 1432 Aug, [facility] [place] [facility] [address] [id number] [place] [address]- 6433 Jul, [facility] [place] [facility] [address] [id number] [place] [address]- 4353 Jul, [facility] [place] [facility] [address] [id number] [place] [address]- 4165 Jul, [facility] [place] [facility] [address] [id number] [place] [address]- 2539 Jul, [facility] [place] [facility] [address] [id number] [place] [address]- 5359 Jul, [facility] [place] [facility] [address] [id number] [place] [address]- 2629 Jul, [facility] [place] [facility] [address] [id number] [place] [address]- 6048 Jul, [facility] [place] [facility] [address] [id number] [place] [address]- 9333 June, [facility] [place] [facility] [address] [id number] [place] [address]- 0786 June, [facility] [address] [address]- 8174 May, [facility] [id number] [address]- 2621 May, [facility] [id number] [address]- 5913 May, [facility] [id number] [address] May, [facility] [id number] [address] May, [facility] [id number] [place] [address] May, [facility] [id number] [place] [address] May, [facility] [id number] [place] [address] May, [facility] [id number] [address] May, [facility] [id number] [place] [address] Apr, [facility] [id number] [place] [address] Apr, [facility] [id number] [address] Apr, [facility] [id number] [place] [address] Apr, IMMUNIZATIONS No Known Immunizations SOCIAL HISTORY Never Assessed REASON FOR VISIT Controlled Refill Request PLAN OF CARE VITAL SIGNS MEDICATIONS Medication Instructions Dosage Frequency Start Date End Date Duration Status Plaquenil 200 mg Orally 2 times a day 1 tablet with food or milk 12h Feb 90 days Active Percocet 7.5-325 MG Orally every 4 hours 1 tablet as needed 4h Jan, Active RESULTS No Results PROCEDURES No Known procedures INSTRUCTIONS MEDICATIONS ADMINISTERED No Known Medications MEDICAL (GENERAL) HISTORY Type Description Date Medical History hypertension Medical History neck pain - requires chronic pain management, on chronic narcotics Medical History lupus - 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
--- OUTSIDE RECORDS SUMMARY | 2018-04-29 18:24 | XMS REPORT ---
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 2936055 Problem Neck pain M54.2 Active 37783438 Problem History of hepatitis C Z86.19 Active 86362244769944 Problem Systemic lupus erythematosus, unspecified SLE type, unspecified organ involvement status M32.9 Active [id number] ALLERGIES No Information SOCIAL HISTORY Never Assessed PLAN OF CARE VITAL SIGNS MEDICATIONS Medication Instructions Dosage Frequency Start Date End Date Duration Status Lipitor 20 mg Orally Once a day 1 tablet 24h Jul, 30 day(s) Active RESULTS No Results PROCEDURES No Known procedures IMMUNIZATIONS No Known Immunizations MEDICAL (GENERAL) HISTORY Type Description Date Medical History hypertension Medical History neck pain - requires chronic pain management, on chronic narcotics Medical History lupus - 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
--- OUTSIDE RECORDS SUMMARY | 2018-04-29 18:27 | XMS REPORT | Continuity of Care Document ---
Author Author [facility] Address Unknown Phone Unavailable Allergies Active Description Code Type Severity Reaction Onset Reported/Identified Relationship to Patient Clinical Status Yes NKANo Known Allergies NKA Miscellaneous Allergy Unknown N/A 04/30/2006 Medications There is no data. Problems Date Dx Coded Attending Type Code Diagnosis Diagnosed By 05/28/2010 Ot 840.4 05/28/2010 Ot E000.8 05/28/2010 Ot E849.0 05/28/2010 Ot E885.9 04/17/2011 Ot 070.70 UNSPECIFIED VIRAL HEPATITIS C WITHOUT HE 04/17/2011 Ot 272.4 HYPERLIPIDEMIA NEC/NOS 04/17/2011 Ot 305.1 TOBACCO USE DISORDER 04/17/2011 Ot 401.9 HYPERTENSION NOS 04/17/2011 Ot 414.01 CORONARY ATHEROSCLEROSIS OF [place] CORON 04/17/2011 Ot 786.05 SHORTNESS OF BREATH 04/17/2011 Ot V45.82 PERCUTANEOUS TRANSLUM CORON ANGIOPLASTY 09/04/2011 Ot 922.1 CONTUSION OF CHEST WALL 09/04/2011 Ot 959.11 OTH INJURY OF CHEST WALL 09/04/2011 Ot E000.8 OTHER EXTERNAL CAUSE STATUS 09/04/2011 Ot E849.0 ACCIDENT IN HOME 09/04/2011 Ot E880.9 FALL ON STAIR/STEP NEC 02/06/2012 Ot 070.70 UNSPECIFIED VIRAL HEPATITIS C WITHOUT HE 02/06/2012 Ot 272.4 HYPERLIPIDEMIA NEC/NOS 02/06/2012 Ot 305.1 TOBACCO USE DISORDER 02/06/2012 Ot 414.01 CORONARY ATHEROSCLEROSIS OF [place] CORON 02/06/2012 Ot 780.4 DIZZINESS AND GIDDINESS 02/06/2012 Ot V45.82 PERCUTANEOUS TRANSLUM CORON ANGIOPLASTY 05/15/2012 070.54 HEPATITIS, C VIRUS - CHRONIC 05/15/2012 078.11 WARTS GENITAL 05/15/2012 414.00 CORONARY ARTERY DISEASE 05/15/2012 709.9 DERMATOLOGY - NON-INFECTIOUS 05/15/2012 723.1 neck pain 05/15/2012 780.4 dizziness 05/15/2012 MAGGIE JACKSON MD 070.54 HEPATITIS, C VIRUS - CHRONIC 05/15/2012 MAGGIE JACSKON MD 078.11 WARTS GENITAL 05/15/2012 MAGGIE JACKSON MD 414.00 CORONARY ARTERY DISEASE 05/15/2012 MAGGIE JACKSON MD 709.9 DERMATOLOGY - NON-INFECTIOUS 05/15/2012 MAGGIE JACKSON MD 723.1 neck pain 05/15/2012 MAGGIE JACKSON MD 780.4 dizziness 05/15/2012 070.54 HEPATITIS, C VIRUS - CHRONIC 05/15/2012 078.11 WARTS GENITAL 05/15/2012 414.00 CORONARY ARTERY DISEASE 05/15/2012 709.9 DERMATOLOGY - NON-INFECTIOUS 05/15/2012 723.1 neck pain 05/15/2012 780.4 dizziness 05/15/2012 070.54 HEPATITIS, C VIRUS - CHRONIC 05/15/2012 078.11 WARTS GENITAL 05/15/2012 414.00 CORONARY ARTERY DISEASE 05/15/2012 709.9 DERMATOLOGY - NON-INFECTIOUS 05/15/2012 723.1 neck pain 05/15/2012 780.4 dizziness 05/15/2012 070.54 HEPATITIS, C VIRUS - CHRONIC 05/15/2012 078.11 WARTS GENITAL 05/15/2012 414.00 CORONARY ARTERY DISEASE 05/15/2012 709.9 DERMATOLOGY - NON-INFECTIOUS 05/15/2012 723.1 neck pain 05/15/2012 780.4 dizziness 05/15/2012 070.54 HEPATITIS, C VIRUS - CHRONIC 05/15/2012 078.11 WARTS GENITAL 05/15/2012 414.00 CORONARY ARTERY DISEASE 05/15/2012 709.9 DERMATOLOGY - NON-INFECTIOUS 05/15/2012 723.1 neck pain 05/15/2012 780.4 dizziness 05/15/2012 070.54 HEPATITIS, C VIRUS - CHRONIC 05/15/2012 078.11 WARTS GENITAL 05/15/2012 414.00 CORONARY ARTERY DISEASE 05/15/2012 709.9 DERMATOLOGY - NON-INFECTIOUS 05/15/2012 723.1 neck pain 05/15/2012 780.4 dizziness 05/15/2012 070.54 HEPATITIS, C VIRUS - CHRONIC 05/15/2012 078.11 WARTS GENITAL 05/15/2012 414.00 CORONARY ARTERY DISEASE 05/15/2012 709.9 DERMATOLOGY - NON-INFECTIOUS 05/15/2012 723.1 neck pain 05/15/2012 780.4 dizziness 05/15/2012 070.54 HEPATITIS, C VIRUS - CHRONIC 05/15/2012 078.11 WARTS GENITAL 05/15/2012 414.00 CORONARY ARTERY DISEASE 05/15/2012 709.9 DERMATOLOGY - NON-INFECTIOUS 05/15/2012 723.1 neck pain 05/15/2012 780.4 dizziness 05/15/2012 070.54 HEPATITIS, C VIRUS - CHRONIC 05/15/2012 078.11 WARTS GENITAL 05/15/2012 414.00 CORONARY ARTERY DISEASE 05/15/2012 709.9 DERMATOLOGY - NON-INFECTIOUS 05/15/2012 723.1 neck pain 05/15/2012 780.4 dizziness 05/15/2012 070.54 HEPATITIS, C VIRUS - CHRONIC 05/15/2012 078.11 WARTS GENITAL 05/15/2012 414.00 CORONARY ARTERY DISEASE 05/15/2012 709.9 DERMATOLOGY - NON-INFECTIOUS 05/15/2012 723.1 neck pain 05/15/2012 780.4 dizziness 05/15/2012 070.54 HEPATITIS, C VIRUS - CHRONIC 05/15/2012 078.11 WARTS GENITAL 05/15/2012 414.00 CORONARY ARTERY DISEASE 05/15/2012 709.9 DERMATOLOGY - NON-INFECTIOUS 05/15/2012 723.1 neck pain 05/15/2012 780.4 dizziness 05/15/2012 DANA TIPTON DO K 070.54 HEPATITIS, C VIRUS - CHRONIC 05/15/2012 SOHEILA TIPTON DOA K 078.11 WARTS GENITAL 05/15/2012 SAEED WANG DANA K 414.00 CORONARY ARTERY DISEASE 05/15/2012 SOHEILA TIPTON DOA K 709.9 DERMATOLOGY - NON-INFECTIOUS 05/15/2012 SOHEILA TIPTON DOA K 723.1 neck pain 05/15/2012 SOHEILA TIPTON DOA K 780.4 dizziness 05/15/2012 MAGGIE JACKSON MD 070.54 HEPATITIS, C VIRUS - CHRONIC 05/15/2012 MAGGIE JACKSON MD 078.11 WARTS GENITAL 05/15/2012 MAGGIE JACKSON MD 414.00 CORONARY ARTERY DISEASE 05/15/2012 MAGGIE JACKSON MD 709.9 DERMATOLOGY - NON-INFECTIOUS 05/15/2012 MAGGIE JACKSON MD 723.1 neck pain 05/15/2012 MAGGIE JACKSON MD 780.4 dizziness 05/15/2012 TIPTON SOHEILA WANGA K 070.54 HEPATITIS, C VIRUS - CHRONIC 05/15/2012 TIPTON DO DANA K 078.11 WARTS GENITAL 05/15/2012 TIPTON DO DANA K 414.00 CORONARY ARTERY DISEASE 05/15/2012 ITPTON DO DANA K 709.9 DERMATOLOGY - NON-INFECTIOUS 05/15/2012 TIPTON DO DANA K 723.1 neck pain 05/15/2012 DANA TIPTON DO K 780.4 dizziness 05/15/2012 MAGGIE JACKSON MD 070.54 HEPATITIS, C VIRUS - CHRONIC 05/15/2012 MAGGIE JACKSON MD 078.11 WARTS GENITAL 05/15/2012 MAGGIE JACKSON MD 414.00 CORONARY ARTERY DISEASE 05/15/2012 MAGGIE JACKSON MD 709.9 DERMATOLOGY - NON-INFECTIOUS 05/15/2012 MAGGIE JACKSON MD 723.1 neck pain 05/15/2012 MAGGIE JACKSON MD 780.4 dizziness 05/15/2012 070.54 HEPATITIS, C VIRUS - CHRONIC 05/15/2012 078.11 WARTS GENITAL 05/15/2012 414.00 CORONARY ARTERY DISEASE 05/15/2012 709.9 DERMATOLOGY - NON-INFECTIOUS 05/15/2012 723.1 neck pain 05/15/2012 780.4 dizziness 05/15/2012 MAGGIE JACKSON MD 070.54 HEPATITIS, C VIRUS - CHRONIC 05/15/2012 MAGGIE JACKSON MD 078.11 WARTS GENITAL 05/15/2012 MAGGIE JACKSON MD 414.00 CORONARY ARTERY DISEASE 05/15/2012 MAGGIE JACKSON MD 709.9 DERMATOLOGY - NON-INFECTIOUS 05/15/2012 MAGGIE JACKSON MD 723.1 neck pain 05/15/2012 MAGGIE JACKSON MD 780.4 dizziness 05/15/2012 JENNIFER DDS, SOLO Steve 070.54 HEPATITIS, C VIRUS - CHRONIC 05/15/2012 JENNIFER DDS, SOLO Wilson 078.11 WARTS GENITAL 05/15/2012 JENNIFER DDS, SOLO Wilson 414.00 CORONARY ARTERY DISEASE 05/15/2012 JENNIFER DDS, SOLO Steve 709.9 DERMATOLOGY - NON-INFECTIOUS 05/15/2012 JENNIFER DDS, SOLO Steve 723.1 neck pain 05/15/2012 JENNIFER DDS, SOLO Steve 780.4 dizziness 05/15/2012 TIPTON DO, DANA K 070.54 HEPATITIS, C VIRUS - CHRONIC 05/15/2012 TIPTON DO, DANA K 078.11 WARTS GENITAL 05/15/2012 TIPTON DO, DANA K 414.00 CORONARY ARTERY DISEASE 05/15/2012 TIPTON DO, DANA K 709.9 DERMATOLOGY - NON-INFECTIOUS 05/15/2012 TIPTON DO, DANA K 723.1 neck pain 05/15/2012 TIPTON DO, DANA K 780.4 dizziness 05/15/2012 DANTE ALVAREZ APRN 070.54 HEPATITIS, C VIRUS - CHRONIC 05/15/2012 DANTE ALVAREZ APRN 078.11 WARTS GENITAL 05/15/2012 DANTE ALVAREZ APRN 414.00 CORONARY ARTERY DISEASE 05/15/2012 DANTE ALVAREZ APRN 709.9 DERMATOLOGY - NON-INFECTIOUS 05/15/2012 DANTE ALVAREZ APRN 723.1 neck pain 05/15/2012 DANTE ALVAREZ APRN 780.4 dizziness 05/15/2012 070.54 HEPATITIS, C VIRUS - CHRONIC 05/15/2012 078.11 WARTS GENITAL 05/15/2012 414.00 CORONARY ARTERY DISEASE 05/15/2012 709.9 DERMATOLOGY - NON-INFECTIOUS 05/15/2012 723.1 neck pain 05/15/2012 780.4 dizziness 05/15/2012 LIDIA DAHL MD 070.54 HEPATITIS, C VIRUS - CHRONIC 05/15/2012 LIDIA DAHL MD 078.11 WARTS GENITAL 05/15/2012 LIDIA DAHL MD 414.00 CORONARY ARTERY DISEASE 05/15/2012 LIDIA DAHL MD 709.9 DERMATOLOGY - NON-INFECTIOUS 05/15/2012 LIDIA DAHL MD 723.1 neck pain 05/15/2012 LIDIA DAHL MD 780.4 dizziness 05/15/2012 LIDIA DAHL MD 070.54 HEPATITIS, C VIRUS - CHRONIC 05/15/2012 LIDIA DAHL MD 078.11 WARTS GENITAL 05/15/2012 LIDIA DAHL MD 414.00 CORONARY ARTERY DISEASE 05/15/2012 LIDIA DAHL MD 709.9 DERMATOLOGY - NON-INFECTIOUS 05/15/2012 LIDIA DAHL MD 723.1 neck pain 05/15/2012 LIDIA DAHL MD 780.4 dizziness 05/15/2012 MAGGIE JACKSON MD 070.54 HEPATITIS, C VIRUS - CHRONIC 05/15/2012 MAGGIE JACKSON MD 078.11 WARTS GENITAL 05/15/2012 MAGGIE JACKSON MD 414.00 CORONARY ARTERY DISEASE 05/15/2012 MAGGIE JACKSON MD 709.9 DERMATOLOGY - NON-INFECTIOUS 05/15/2012 MAGGIE JACKSON MD 723.1 neck pain 05/15/2012 MAGGIE JACKSON MD 780.4 dizziness 05/15/2012 MAGGIE JACKSON MD 070.54 HEPATITIS, C VIRUS - CHRONIC 05/15/2012 MAGGIE JACKSON MD 078.11 WARTS GENITAL 05/15/2012 MAGGIE JACKSON MD 414.00 CORONARY ARTERY DISEASE 05/15/2012 MAGGIE JACKSON MD 709.9 DERMATOLOGY - NON-INFECTIOUS 05/15/2012 MAGGIE JACKSON MD 723.1 neck pain 05/15/2012 MAGGIE JACKSON MD 780.4 dizziness 05/15/2012 DANTE ALVAREZ APRN 070.54 HEPATITIS, C VIRUS - CHRONIC 05/15/2012 DANTE ALVAREZ APRN 078.11 WARTS GENITAL 05/15/2012 DANTE ALVAREZ APRN 414.00 CORONARY ARTERY DISEASE 05/15/2012 DANTE ALVAREZ APRN 709.9 DERMATOLOGY - NON-INFECTIOUS 05/15/2012 DANTE ALVAREZ APRN 723.1 neck pain 05/15/2012 DANTE ALVAREZ APRN 780.4 dizziness 05/15/2012 LIDIA DAHL MD 070.54 HEPATITIS, C VIRUS - CHRONIC 05/15/2012 LIDIA DAHL MD 078.11 WARTS GENITAL 05/15/2012 LIDIA DAHL MD 414.00 CORONARY ARTERY DISEASE 05/15/2012 LIDIA DAHL MD 709.9 DERMATOLOGY - NON-INFECTIOUS 05/15/2012 LIDIA DAHL MD 723.1 neck pain 05/15/2012 LIDIA DAHL MD 780.4 DIZZINESS 05/15/2012 DANTE ALVAREZ APRN 070.54 HEPATITIS, C VIRUS - CHRONIC 05/15/2012 DANTE ALVAREZ APRN 078.11 WARTS GENITAL 05/15/2012 DANTE ALVAREZ APRN 414.00 CORONARY ARTERY DISEASE 05/15/2012 DANTE ALVAREZ APRN 709.9 DERMATOLOGY - NON-INFECTIOUS 05/15/2012 DANTE ALVAREZ APRN 723.1 neck pain 05/15/2012 DANTE ALVAREZ APRN 780.4 DIZZINESS 05/15/2012 SUNNY WALKER APRN 070.54 HEPATITIS, C VIRUS - CHRONIC 05/15/2012 DENISSE SUNNY TEIXEIRA 078.11 WARTS GENITAL 05/15/2012 SUNNY WALKER APRN 414.00 CORONARY ARTERY DISEASE 05/15/2012 DENISSE SUNNY TEIXEIRA 709.9 DERMATOLOGY - NON-INFECTIOUS 05/15/2012 SUNNY WALKER APRN 723.1 neck pain 05/15/2012 SUNNY WALKER APRN 780.4 DIZZINESS 05/15/2012 DANTE ALVAREZ APRN 070.54 HEPATITIS, C VIRUS - CHRONIC 05/15/2012 DANTE ALVAREZ APRN 078.11 WARTS GENITAL 05/15/2012 DANTE ALVAREZ APRN 414.00 CORONARY ARTERY DISEASE 05/15/2012 DANTE ALVAREZ APRN 709.9 DERMATOLOGY - NON-INFECTIOUS 05/15/2012 DANTE ALVAREZ APRN 723.1 neck pain 05/15/2012 DANTE ALVAREZ APRN 780.4 DIZZINESS 05/15/2012 TIPTON DO DANA K 070.54 HEPATITIS, C VIRUS - CHRONIC 05/15/2012 TIPTON DO DANA K 078.11 WARTS GENITAL 05/15/2012 TIPTON DO, DANA K 414.00 CORONARY ARTERY DISEASE 05/15/2012 TIPTON DO DANA K 709.9 DERMATOLOGY - NON-INFECTIOUS 05/15/2012 TIPTON DO, DANA K 723.1 neck pain 05/15/2012 TIPTON DO, DANA K 780.4 DIZZINESS 05/15/2012 WHITE DDS, UNIQUE D 070.54 HEPATITIS, C VIRUS - CHRONIC 05/15/2012 WHITE DDS, UNIQUE D 078.11 WARTS GENITAL 05/15/2012 WHITE DDS, UNIQUE D 414.00 CORONARY ARTERY DISEASE 05/15/2012 WHITE DDS, UNIQUE D 709.9 DERMATOLOGY - NON-INFECTIOUS 05/15/2012 WHITE DDS, UNIQUE D 723.1 neck pain 05/15/2012 WHITE DDS, UNIQUE D 780.4 DIZZINESS 05/15/2012 TIPTON DO, DANA K 070.54 HEPATITIS, C VIRUS - CHRONIC 05/15/2012 TIPTON DO, DANA K 078.11 WARTS GENITAL 05/15/2012 TIPTON DO, DANA K 414.00 CORONARY ARTERY DISEASE 05/15/2012 TIPTON DO, DANA K 709.9 DERMATOLOGY - NON-INFECTIOUS 05/15/2012 TIPTON DO DANA K 723.1 neck pain 05/15/2012 TIPTON SOHEILA WANGA K 780.4 DIZZINESS 05/15/2012 MADL CUSTOMER OPERATIONS INTERN, SUNNY L 070.54 HEPATITIS, C VIRUS - CHRONIC 05/15/2012 MADL CUSTOMER OPERATIONS INTERN, SUNNY L 078.11 WARTS GENITAL 05/15/2012 MADL CUSTOMER OPERATIONS INTERN, SUNNY L 414.00 CORONARY ARTERY DISEASE 05/15/2012 MADL CUSTOMER OPERATIONS INTERN, SUNNY L 709.9 DERMATOLOGY - NON-INFECTIOUS 05/15/2012 MADL CUSTOMER OPERATIONS INTERN, SUNNY L 723.1 neck pain 05/15/2012 MADL CUSTOMER OPERATIONS INTERN, SUNNY L 780.4 DIZZINESS 07/13/2012 333.1 TREMOR, BENIGN ESSENTIAL 07/13/2012 333.1 TREMOR, BENIGN ESSENTIAL 07/13/2012 333.1 TREMOR, BENIGN ESSENTIAL 07/13/2012 333.1 FAMILIAL ( BENIGN ESSENTIAL) TREMOR 07/13/2012 333.1 FAMILIAL ( BENIGN ESSENTIAL) TREMOR 07/13/2012 333.1 FAMILIAL ( BENIGN ESSENTIAL) TREMOR 07/13/2012 333.1 FAMILIAL ( BENIGN ESSENTIAL) TREMOR 07/13/2012 DANA TIPTON DO 333.1 FAMILIAL (BENIGN ESSENTIAL) TREMOR 07/13/2012 MANUEL MAGGIE GABRIEL 333.1 FAMILIAL (BENIGN ESSENTIAL) TREMOR 07/13/2012 TIPTON DO, DANA K 333.1 FAMILIAL (BENIGN ESSENTIAL) TREMOR 07/13/2012 MAGGIE JACKSON MD 333.1 FAMILIAL (BENIGN ESSENTIAL) TREMOR 07/13/2012 333.1 FAMILIAL ( BENIGN ESSENTIAL) TREMOR 07/13/2012 MAGGIE JACKSON MD 333.1 FAMILIAL (BENIGN ESSENTIAL) TREMOR 07/13/2012 SOLO RODRIGUEZ DDS 333.1 FAMILIAL (BENIGN ESSENTIAL) TREMOR 07/13/2012 TIPTON DO, DANA K 333.1 FAMILIAL (BENIGN ESSENTIAL) TREMOR 07/13/2012 DANTE ALVAREZ APRN 333.1 FAMILIAL (BENIGN ESSENTIAL) TREMOR 07/13/2012 333.1 FAMILIAL ( BENIGN ESSENTIAL) TREMOR 07/13/2012 LIDIA DAHL MD 333.1 FAMILIAL (BENIGN ESSENTIAL) TREMOR 07/13/2012 LIDIA DAHL MD 333.1 FAMILIAL (BENIGN ESSENTIAL) TREMOR 07/13/2012 MAGGIE JACKSON MD 333.1 TREMOR 07/13/2012 MAGGIE JACKSON MD 333.1 TREMOR 07/13/2012 DANTE ALVAREZ APRN 333.1 TREMOR 07/13/2012 LIDIA DAHL MD 333.1 TREMOR 07/13/2012 DANTE ALVAREZ APRN 333.1 TREMOR 07/13/2012 DENISE TEIXEIRA, SUNNY L 333.1 TREMOR 07/13/2012 DANTE ALVAREZ APRN T 333.1 TREMOR 07/13/2012 TIPTON DO, DANA K 333.1 TREMOR 07/13/2012 UNIQUE FELDMAN DDS 333.1 TREMOR 07/13/2012 TIPTON DO, DANA K 333.1 TREMOR 07/13/2012 DENISE TEIXEIRA, SUNNY L 333.1 TREMOR 08/26/2012 786.2 COUGH 08/26/2012 786.2 COUGH 08/26/2012 786.2 COUGH 08/26/2012 786.2 COUGH 08/26/2012 TIPTON DO, DANA K 786.2 COUGH 08/26/2012 MAGGIE JACKSON MD 786.2 COUGH 08/26/2012 TIPTON DO, DANA K 786.2 COUGH 08/26/2012 MAGGIE JACKSON MD 786.2 COUGH 08/26/2012 786.2 COUGH 08/26/2012 MAGGIE JACKSON MD 786.2 COUGH 08/26/2012 JENNIFER DUVALL, SOLO Wilson 786.2 COUGH 08/26/2012 TIPTON DO, DANA K 786.2 COUGH 08/26/2012 ANTONIO CUSTOMER OPERATIONS INTERN, DANTE T 786.2 COUGH 08/26/2012 786.2 COUGH 08/26/2012 NABILA GABRIEL, LIDIA 786.2 COUGH 08/26/2012 NABILA GABRIEL, LIDIA 786.2 COUGH 08/26/2012 MANUEL GABRIEL, MAGGIE Wilson 786.2 COUGH 08/26/2012 MANUEL GABRIEL, MAGGIE Wilson 786.2 COUGH 08/26/2012 ANTONIO CUSTOMER OPERATIONS INTERN, DANTE T 786.2 COUGH 08/26/2012 NABILA GABRIEL, LIDIA 786.2 COUGH 08/26/2012 ANTONIO CUSTOMER OPERATIONS INTERN, DANTE T 786.2 COUGH 08/26/2012 MADKanu CUSTOMER OPERATIONS INTERN, SUNNY L 786.2 COUGH 08/26/2012 ANTONIO TEIXEIRA, DANTE T 786.2 COUGH 08/26/2012 TIPTON DO, DANA K 786.2 COUGH 08/26/2012 GASTON DUVALL, UNIQUE Chamberlain 786.2 COUGH 08/26/2012 TIPTON DO, DANA K 786.2 COUGH 08/26/2012 MADL CUSTOMER OPERATIONS INTERN, SUNNY L 786.2 COUGH 09/25/2012 782.1 skin: a rash [as Sx] 09/25/2012 782.1 skin: a rash [as Sx] 09/25/2012 782.1 skin: a rash [as Sx] 09/25/2012 DANA TIPTON DO 782.1 skin: a rash [as Sx] 09/25/2012 MAGGIE JACKSON MD 782.1 skin: a rash [as Sx] 09/25/2012 DANA TIPTON DO 782.1 skin: a rash [as Sx] 09/25/2012 MAGGIE JACKSON MD 782.1 skin: a rash [as Sx] 09/25/2012 782.1 skin: a rash [as Sx] 09/25/2012 MAGGIE JACKSON MD 782.1 skin: a rash [as Sx] 09/25/2012 JENNIFER DUVALL, SOLO Wilson 782.1 skin: a rash [as Sx] 09/25/2012 DANA TIPTON DO 782.1 skin: a rash [as Sx] 09/25/2012 DANTE ALVAREZ APRN 782.1 skin: a rash [as Sx] 09/25/2012 782.1 skin: a rash [as Sx] 09/25/2012 LIDIA DAHL MD 782.1 skin: a rash [as Sx] 09/25/2012 LIDIA DAHL MD 782.1 skin: a rash [as Sx] 09/25/2012 MAGGIE JACKSON MD 782.1 skin: a rash [as Sx] 09/25/2012 MAGGIE JACKSON MD 782.1 skin: a rash [as Sx] 09/25/2012 DANTE ALVAREZ APRN 782.1 skin: a rash [as Sx] 09/25/2012 LIDIA DAHL MD 782.1 SKIN: A RASH [ SX] 09/25/2012 DANTE ALVAREZ APRN 782.1 SKIN: A RASH [ SX] 09/25/2012 SUNNY WALKER APRN 782.1 SKIN: A RASH [ SX] 09/25/2012 DANTE ALVAREZ APRN 782.1 SKIN: A RASH [ SX] 09/25/2012 DANA TIPTON DO 782.1 SKIN: A RASH [ SX] 09/25/2012 UNIQUE FELDMAN DDS 782.1 SKIN: A RASH [ SX] 09/25/2012 DANA TIPTON DO 782.1 SKIN: A RASH [ SX] 09/25/2012 SUNNY WALKER APRN 782.1 SKIN: A RASH [ SX] 12/18/2012 MAGGIE JACKSON MD V05.3 [place] DX 12/18/2012 DANA TIPTON DO V05.3 [place] DX 12/18/2012 MAGGIE JACKSON MD V05.3 [place] DX 12/18/2012 V05.3 [place] DX 12/18/2012 MAGGIE JACKSON MD V05.3 [place] DX 12/18/2012 SOLO RODRIGUEZ DDS V05.3 [place] DX 12/18/2012 SOHEILA TIPTON DOA K V05.3 [place] DX 12/18/2012 ANTONIO TEIXEIRA, DANTE Miramontes V05.3 [place] DX 12/18/2012 V05.3 [place] DX 12/18/2012 NABILA GABRIEL, LIDIA V05.3 [place] DX 12/18/2012 NABILA GABRIEL, LIDIA V05.3 [place] DX 12/18/2012 MANUEL GABRIEL, MAGGIE Wilson V05.3 [place] DX 12/18/2012 MANUEL GABRIEL, MAGGIE Wilson V05.3 [place] DX 12/18/2012 ANTONIO TEIXEIRA, DANTE Miramontes V05.3 [place] DX 12/18/2012 NABILA GABRIEL, LIDIA V05.3 [place] DX 12/18/2012 DANTE ALVAREZ APRN V05.3 [place] DX 12/18/2012 DENISE TEIXEIRA, SUNNY Bobby V05.3 [place] DX 12/18/2012 DANTE ALVAREZ APRN V05.3 [place] DX 12/18/2012 TIPTON DO, DANA K V05.3 [place] DX 12/18/2012 GASTON DDSUNIQUE V05.3 [place] DX 12/18/2012 TIPTON DO, DANA K V05.3 [place] DX 12/18/2012 DENISE TEIXEIRA, SUNNY Bobby V05.3 [place] DX 03/23/2013 NABILA GABRIEL, LIDIA 461.9 ACUTE SINUSITIS UNSPECIFIED 03/23/2013 NABILA GABRIEL, LIDIA 461.9 ACUTE SINUSITIS UNSPECIFIED 03/23/2013 MAGGIE JACKSON MD 461.9 ACUTE SINUSITIS UNSPECIFIED 03/23/2013 MAGGIE JACKSON MD 461.9 ACUTE SINUSITIS UNSPECIFIED 03/23/2013 DANTE ALVAREZ APRN 461.9 ACUTE SINUSITIS UNSPECIFIED 03/23/2013 LIDIA DAHL MD 461.9 ACUTE SINUSITIS UNSPECIFIED 03/23/2013 DANTE ALVAREZ APRN 461.9 ACUTE SINUSITIS UNSPECIFIED 03/23/2013 SUNNY WALKER APRN 461.9 ACUTE SINUSITIS UNSPECIFIED 03/23/2013 DANTE ALVAREZ APRN 461.9 ACUTE SINUSITIS UNSPECIFIED 03/23/2013 DANA TIPTON DO K 461.9 ACUTE SINUSITIS UNSPECIFIED 03/23/2013 UNIQUE FELDMAN DDS 461.9 ACUTE SINUSITIS UNSPECIFIED 03/23/2013 SAEED WANGDANA K 461.9 ACUTE SINUSITIS UNSPECIFIED 03/23/2013 SUNNY WALKER APRN L 461.9 ACUTE SINUSITIS UNSPECIFIED 07/16/2013 TERESA FELDMAN MD Ot 723.1 CERVICALGIA 07/16/2013 TERESA FELDMAN MD Ot V57.1 PHYSICAL THERAPY NEC 08/03/2013 SUNNY WALKER APRN L 695.4 LUPUS ERYTHEMATOSUS 08/03/2013 DANTE ALVAREZ APRN 695.4 LUPUS ERYTHEMATOSUS 08/03/2013 SAEED WANGDANA K 695.4 LUPUS ERYTHEMATOSUS 08/03/2013 UNIQUE FELDMAN DDS 695.4 LUPUS ERYTHEMATOSUS 08/03/2013 SAEED DANA WANG K 695.4 LUPUS ERYTHEMATOSUS 08/03/2013 SUNNY WALKER APRN 695.4 LUPUS ERYTHEMATOSUS 08/06/2013 TERESA FELDMAN MD Ot 721.0 CERVICAL SPONDYLOSIS 08/06/2013 TERESA FELDMAN MD Ot 722.4 CERVICAL DISC DEGEN 08/06/2013 TERSEA FELDMAN MD Ot 723.8 CERVICAL SYNDROME NEC 08/06/2013 TERESA FELDMAN MD Ot 729.1 MYALGIA AND MYOSITIS NOS 08/06/2013 TERESA FELDMAN MD Ot V58.69 OTH MED,LT,CURRENT USE 08/13/2013 TERESA FELDMAN MD Ot 721.0 CERVICAL SPONDYLOSIS 09/28/2013 JOVANNA RANDALL MD Ot 305.1 TOBACCO USE DISORDER 09/28/2013 JOVANNA RANDALL MD Ot 401.9 HYPERTENSION NOS 09/28/2013 JOVANNA RANDALL MD Ot 414.01 CORONARY ATHEROSCLEROSIS OF [place] CORON 09/28/2013 JOVANNA RANDALL MD Ot 710.0 SYST LUPUS ERYTHEMATOSIS 09/28/2013 JOVANNA RANDALL MD Ot 722.4 CERVICAL DISC DEGEN 09/28/2013 JOVANNA RANDALL MD Ot 723.0 CERVICAL SPINAL STENOSIS 09/28/2013 JOVANNA RANDALL MD Ot 723.4 BRACHIAL NEURITIS NOS 09/28/2013 JOVANNA RANDALL MD Ot 918.2 SUPERFIC INJ CONJUNCTIVA 09/28/2013 JOVANNA RANDALL MD Ot E000.8 OTHER EXTERNAL CAUSE STATUS 09/28/2013 JOVANNA RANDALL MD Ot E928.9 ACCIDENT NOS 09/28/2013 JOVANNA RANDALL MD Ot V12.69 PERSONAL HISTORY, OTHER DISEASES OF RESP 09/28/2013 JOVANNA RANDALL MD Ot V45.82 PERCUTANEOUS TRANSLUM CORON ANGIOPLASTY 01/12/2014 SUNNY WALKER APRN L 401.1 HYPERTENSION, BENIGN ESSENTIAL 02/03/2014 LIZETH SILVER MD Ot 305.1 TOBACCO USE DISORDER 02/03/2014 LIZETH SILVER MD Ot 414.01 CORONARY ATHEROSCLEROSIS OF [place] CORON 02/03/2014 LIZETH SILVER MD Ot 721.1 CERV SPONDYL W MYELOPATH 02/03/2014 LIZETH SILVER MD Ot 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 02/03/2014 LIZETH SILVER MD Ot V12.09 PERSONAL HISTORY OT SPEC INFECT VANESA 02/03/2014 LIZETH SILVER MD Ot V45.4 ARTHRODESIS STATUS 02/03/2014 LIZETH SILVER MD Ot V45.82 PERCUTANEOUS TRANSLUM CORON ANGIOPLASTY 02/14/2014 LIZETH SILVER MD Ot 723.0 02/23/2014 LIZETH SILVER MD Ot 723.0 02/23/2014 LIZETH SILVER MD Ot 723.4 02/23/2014 LIZETH SILVER MD Ot 996.40 02/23/2014 LIZETH SILVER MD Ot V72.63 02/23/2014 LIZETH SILVER MD Ot V74.8 03/16/2014 LIZETH SILVER MD Ot 723.0 03/16/2014 LIZETH SILVER MD Ot 723.4 03/16/2014 LIZETH SILVER MD Ot 996.40 03/16/2014 LIZETH SILVER MD Ot V72.63 03/16/2014 LIZETH SILVER MD, Ot V74.8 03/21/2014 Ot 401.9 03/21/2014 Ot 414.00 03/21/2014 Ot 401.9 03/21/2014 Ot 414.00 03/21/2014 Ot 070.70 03/21/2014 Ot 789.01 03/21/2014 Ot 070.70 03/21/2014 Ot 562.10 03/21/2014 Ot 789.01 03/21/2014 Ot 789.03 03/21/2014 Ot 785.6 03/21/2014 Ot 780.4 03/21/2014 MAGGIE JACKSON MD Ot 338.29 03/21/2014 MAGGIE JACKSON MD Ot 723.1 03/21/2014 TERESA FELDMAN MD Ot 721.0 03/21/2014 TERESA FELDMAN MD Ot 722.4 03/21/2014 TERESA FELDMAN MD Ot 723.8 03/21/2014 TERESA FELDMAN MD Ot 729.1 03/21/2014 TERESA FELDMAN MD Ot V58.69 03/21/2014 JOVANNA RANDALL MD Ot 723.0 03/21/2014 JOVANNA RANDALL MD Ot V72.63 03/21/2014 JOVANNA RANDALL MD Ot V72.81 03/21/2014 JOVANNA RANDALL MD Ot V74.8 03/21/2014 JOVANNA RANDALL MD Ot 787.20 03/21/2014 LIZETH SILVER MD Ot 723.0 03/21/2014 LIZETH SILVER MD Ot 723.0 03/21/2014 LIZETH SILVER MD Ot 723.4 03/21/2014 LIZETH SILVER MD Ot 996.40 03/21/2014 LIZETH SILVER MD Ot V72.63 03/21/2014 LIZETH SILVER MD Ot V74.8 03/22/2014 LIZETH SILVER MD Ot 723.0 03/30/2014 LIZETH SILEVR MD Ot V45.4 03/30/2014 LIZETH SILVER MD Ot V57.1 03/30/2014 LIZETH SILVER MD Ot V58.49 03/31/2014 LIZETH SILVER MD Ot V45.4 ARTHRODESIS STATUS 03/31/2014 LIZETH SILVER MD Ot V57.1 PHYSICAL THERAPY NEC 03/31/2014 LIZETH SILVER MD Ot V58.49 OTHER SPECIFIED AFTERCARE FOLLOWING SURG 05/17/2014 LIZETH SILVER MD Ot V45.4 05/17/2014 LIZETH SILVER MD Ot V57.1 05/25/2014 LIZETH SILVER MD Ot V45.4 05/25/2014 LIZETH SILVER MD Ot V57.1 05/25/2014 LIZETH SILVER MD Ot V45.4 05/25/2014 LIZETH SILVER MD Ot V57.1 06/16/2014 LIZETH SILVER MD Ot V45.4 ARTHRODESIS STATUS 06/16/2014 LIZETH SILVER MD Ot V57.1 PHYSICAL THERAPY NEC 10/19/2014 Ot 401.9 10/19/2014 Ot 414.00 10/19/2014 Ot 401.9 10/19/2014 Ot 414.00 10/19/2014 Ot 070.70 10/19/2014 Ot 789.01 10/19/2014 Ot 070.70 10/19/2014 Ot 562.10 10/19/2014 Ot 789.01 10/19/2014 Ot 789.03 10/19/2014 Ot 785.6 10/19/2014 Ot 780.4 10/19/2014 MAGGIE JACKSON MD Ot 338.29 10/19/2014 MAGGIE JACKSON MD Ot 723.1 10/19/2014 TERESA FELDMAN MD Ot 721.0 10/19/2014 TERESA FELDMAN MD Ot 722.4 10/19/2014 TERESA FELDMAN MD Ot 723.8 10/19/2014 TERESA FELDMAN MD Ot 729.1 10/19/2014 TERESA FELDMAN MD Ot V58.69 10/19/2014 JOVANNA RANDALL MD Ot 723.0 10/19/2014 JOVANNA RANDALL MD Ot V72.63 10/19/2014 JOVANNA RANDALL MD Ot V72.81 10/19/2014 JOVANNA RANDALL MD Ot V74.8 10/19/2014 JOVANNA RANDALL MD Ot 787.20 10/19/2014 LIZETH SILVER MD Ot 723.0 10/19/2014 LIZETH SILVER MD Ot 723.0 10/19/2014 LIZETH SILVER MD Ot 723.4 10/19/2014 LIZETH SILVER MD Ot 996.40 10/19/2014 LIZETH SILVER MD Ot V72.63 10/19/2014 LIZETH SILVER MD Ot V74.8 11/08/2014 LIZETH SILVER MD Ot 729.2 11/08/2014 LIZETH SILVER MD Ot V45.4 11/18/2014 LIZETH SILVER MD Ot 729.2 11/18/2014 LIZETH SILVER MD Ot V45.4 04/19/2015 DONNA LIN MD Ot M54.2 CERVICALGIA 01/30/2016 Ot 401.9 HYPERTENSION NOS 01/30/2016 Ot 414.00 CORON ATHEROSCLER NOS TYPE VESSEL, NATIV 01/30/2016 Ot 401.9 HYPERTENSION NOS 01/30/2016 Ot 414.00 CORON ATHEROSCLER NOS TYPE VESSEL, NATIV 01/30/2016 Ot 070.70 UNSPECIFIED VIRAL HEPATITIS C WITHOUT HE 01/30/2016 Ot 789.01 ABDOMINAL PAIN, RIGHT UPPER QUADRANT 01/30/2016 Ot 070.70 UNSPECIFIED VIRAL HEPATITIS C WITHOUT HE 01/30/2016 Ot 562.10 DIVERTICULOSIS COLON (W/O MENT OF HEMORR 01/30/2016 Ot 789.01 ABDOMINAL PAIN, RIGHT UPPER QUADRANT 01/30/2016 Ot 789.03 ABDOMINAL PAIN, RIGHT LOWER QUADRANT 01/30/2016 Ot 785.6 ENLARGEMENT LYMPH NODES 01/30/2016 Ot 780.4 DIZZINESS AND GIDDINESS 01/30/2016 MAGGIE JACKSON MD Ot 338.29 OTHER CHRONIC PAIN 01/30/2016 MAGGIE JACKSON MD Ot 723.1 CERVICALGIA 01/30/2016 TERESA FELDMAN MD Ot 721.0 CERVICAL SPONDYLOSIS 01/30/2016 TERESA FELDMAN MD Ot 722.4 CERVICAL DISC DEGEN 01/30/2016 TERESA FELDMAN MD Ot 723.8 CERVICAL SYNDROME NEC 01/30/2016 TERESA FELDMAN MD Ot 729.1 MYALGIA AND MYOSITIS NOS 01/30/2016 TERESA FELDMAN MD Ot V58.69 OT MED,LT,CURRENT USE 01/30/2016 JOVANNA RANDALL MD Ot 723.0 CERVICAL SPINAL STENOSIS 01/30/2016 OJVANNA RANDALL MD Ot V72.63 PRE-PROCEDURAL LABORATORY EXAMINATION 01/30/2016 JOVANNA RANDALL MD Ot V72.81 TULX-ZYN-ORABNIRVF CARDIOVASCULAR 01/30/2016 TONIA GABRIEL, JOVANNA Chamberlain Ot V74.8 SCREEN-BACTERIAL DIS NEC 01/30/2016 TONIA GABRIEL, JOVANNA Chamberlain Ot 787.20 DYSPHAGIA, UNSPECIFIED 01/30/2016 LIZETH SILVER MD Ot 723.0 CERVICAL SPINAL STENOSIS 01/30/2016 LIZETH SILVER MD Ot 723.0 CERVICAL SPINAL STENOSIS 01/30/2016 LIZETH SILVER MD Ot 723.4 BRACHIAL NEURITIS NOS 01/30/2016 LIZETH SILVER MD Ot 996.40 UNSP [facility] COMPL OF INTERNAL ORTHOPEDIC D 01/30/2016 LIZETH SILVER MD Ot V72.63 PRE-PROCEDURAL LABORATORY EXAMINATION 01/30/2016 LIZETH SILVER MD Ot V74.8 SCREEN-BACTERIAL DIS NEC 01/30/2016 LIZETH SILVER MD Ot 729.2 NEURALGIA/NEURITIS NOS 01/30/2016 LIZETH SILVER MD Ot V45.4 ARTHRODESIS STATUS 01/31/2016 BISI NAVARROP Ot Z51.81 ENCOUNTER FOR THERAPEUTIC DRUG LEVEL MON 01/31/2016 BISI NAVARRO Ot Z79.899 OTHER PREMIUM NOTE INTEREST CALCULATOR CLERK (CURRENT) DRUG THERAPY 02/22/2016 BISI NAVARROP Ot Z51.81 ENCOUNTER FOR THERAPEUTIC DRUG LEVEL MON 02/22/2016 BISI NAVARRO OUTBOUND TELEMARKETER Ot Z79.899 OTHER ASSISTED (CURRENT) DRUG THERAPY 09/30/2016 BISI NAVARROP Ot L93.0 DISCOID LUPUS ERYTHEMATOSUS 10/19/2016 MELANIEBISI Bobby OUTBOUND TELEMARKETER Ot L93.0 DISCOID LUPUS ERYTHEMATOSUS 04/02/2017 MELANIEBISI Bobby OUTBOUND TELEMARKETER Ot B86 SCABIES 04/02/2017 MELANIEBISI BobbyP Ot L90.5 SCAR CONDITIONS AND FIBROSIS OF SKIN 04/02/2017 BISI NAVARROP Ot L93.0 DISCOID LUPUS ERYTHEMATOSUS 04/24/2017 MELANIEBISI BobbyP Ot B86 SCABIES 04/24/2017 BISI NAVARROP Ot L90.5 SCAR CONDITIONS AND FIBROSIS OF SKIN 04/24/2017 BISI NAVARRO OUTBOUND TELEMARKETER Ot L93.0 DISCOID LUPUS ERYTHEMATOSUS Procedures Code [place] [address] URINE DRUG SCREEN (IN-HOUSE ) 05/15/2012 44308 ROUTINE VENIPUNCTURE 05/20/2012 69920 A1C (IN-HOUSE) 05/20/2012 73408 ESR/SED RATE 05/20/2012 24831 LIPID PANEL 05/20/2012 16657 CMP 05/20/2012 0845251 GFR CALC (RESULT ONLY) 05/20/2012 54441 CBC 05/20/2012 73396 CRP 05/20/2012 14541 AMMONIA 05/20/2012 24875 HEPATITIS PROFILE 05/20/2012 61854 HIV ANTIBODIES (RML) 05/20/2012 9247244 HCV INDEX (RESULT ONLY) 05/21/2012 00912 SYPHILIS TEST 05/21/2012 ANAANA OSCAR ANALYZER (SCREEN) 05/21/2012 80555 MRA HEAD W/O CONTRAST 05/22/2012 Cardiolog Isabell Jasso 05/26/2012 58831 HEP C PCR QUANT W/JELENA 05/26/2012 74583 GENOTYPE DNA HEPATITIS C 06/01/2012 [facility] [place] 06/03/2012 59377 BIOPSY SKIN LESION (SINGLE) 06/03/2012 06663 WART DESTRUCT 1-14 ([facility]) 06/03/2012 75030 ROUTINE VENIPUNCTURE 08/18/2012 14557 CBC 08/18/2012 92818 CMP 08/18/2012 6026226 GFR CALC (RESULT ONLY) 08/18/2012 62694 URINE DRUG SCREEN (IN-HOUSE ) 08/26/2012 54548 ROUTINE VENIPUNCTURE 10/21/2012 04145 CBC 10/21/2012 65327 CMP 10/21/2012 3336580 GFR CALC (RESULT ONLY) 10/21/2012 79896 ROUTINE VENIPUNCTURE 11/04/2012 78290 CMP 11/04/2012 1101017 GFR CALC (RESULT ONLY) 11/04/2012 25895 CBC 11/04/2012 15954 HEP C PCR QUANT (SERIAL) 11/10/2012 80058 CBC 11/27/2012 78683 CMP 11/27/2012 5479231 GFR CALC (RESULT ONLY) 11/27/2012 67701 ROUTINE VENIPUNCTURE 12/18/2012 68549 CBC 12/18/2012 96145 CMP 12/18/2012 2352776 GFR CALC (RESULT ONLY) 12/18/2012 51402 PT/INR 12/18/2012 21980 DIFFERENTIAL WBC COUNT (CBC DIFF RESULT) 12/19/2012 86962 THERAPUTIC INJ SQ/IM 12/21/2012 J1040 DEPO MEDROL 80 MG INJ 12/21/2012 91508 HEP C PCR QUANT (SERIAL) 12/22/2012 16030 ROUTINE VENIPUNCTURE 01/05/2013 50846 ESR/SED RATE 01/05/2013 01784 THERAPUTIC INJ SQ/IM 01/05/2013 J2930 SOLUMEDROL INJ 01/05/2013 1593830 GFR CALC (RESULT ONLY) 01/05/2013 78655 CMP 01/05/2013 02474 CBC 01/05/2013 31433 CRP 01/05/2013 53724 ROUTINE VENIPUNCTURE 02/26/2013 29560 CBC 02/26/2013 8807256 GFR CALC (RESULT ONLY) 02/26/2013 73002 CMP 02/26/2013 45627 PT/INR 02/26/2013 43187 TSH 02/26/2013 76288 HEP C PCR QUANT (SERIAL) 03/02/2013 74368 BIOPSY SKIN LESION (SINGLE) 03/16/2013 44960 ROUTINE VENIPUNCTURE 03/23/2013 71559 CRP 03/23/2013 92305 URIC ACID 03/23/2013 55958 ASO 03/24/2013 31566 RA FACTOR 03/24/2013 91205 ESR/SED RATE 03/24/2013 ANAANA OSCAR ANALYZER (SCREEN) 03/24/2013 78770 ROUTINE VENIPUNCTURE 04/21/2013 17252 XRAY CERVICAL SPINE, 2 OR 3 VIEWS 04/21/2013 01997 MRI SPINE (CERVICAL) W/O CONTRAST 04/21/2013 Dermatolo Julián Laird 04/21/2013 2737419 GFR CALC (RESULT ONLY) 04/21/2013 33035 CMP 04/21/2013 97325 CBC 04/21/2013 30180 TSH 04/21/2013 89593 AMMONIA 04/21/2013 25325 CRYOTHERAPY OF SKIN 06/23/2013 37131 WART DESTRUCT 1-14 ([facility]) 07/07/2013 06165 WART DESTRUCT 1-14 (CR[facility]) 07/28/2013 77.79 EXCISE BONE FOR GFT NEC 09/27/2013 80.99 EXCISION OF JOINT NEC 09/27/2013 81.02 OTH CERVICAL FUSION OF ANTERIOR COLUMN, 09/27/2013 81.63 FUSION/REFUS OF 4-8 VERTEBRAE 09/27/2013 84.51 INSERTION OF INTERBODY SPINAL FUSION DEV 09/27/2013 03.09 SPINAL CANAL EXPLOR NEC 01/31/2014 77.79 EXCISE BONE FOR GFT NEC 01/31/2014 78.99 INSERT BONE GROWTH SIMULATOR , NEC 01/31/2014 81.03 OTH CERVICAL FUSION OF POSTERIOR COLUMN, 01/31/2014 81.33 REFUSION OF OTH CERVICAL SPINE, POSTERIO 01/31/2014 81.63 FUSION/REFUS OF 4-8 VERTEBRAE 01/31/2014 84.51 INSERTION OF INTERBODY SPINAL FUSION DEV 01/31/2014 Results Test Result Range Complete blood count (CBC) with automated white blood cell (WBC) differential - 01/30/16 09:01 Blood leukocytes automated count (number/volume) 7.9 10*3/uL 4.3-11.0 Blood erythrocytes automated count (number/volume) 5.70 10*6/uL 4.35-5.85 Venous blood hemoglobin measurement (mass/volume) 16.8 g/dL 13.3-17.7 Blood hematocrit (volume fraction) 50 % 40-54 Automated erythrocyte mean corpuscular volume 88 [foz_us] 80-99 Automated erythrocyte mean corpuscular hemoglobin (mass per erythrocyte) 30 pg 25-34 Automated erythrocyte mean corpuscular hemoglobin concentration measurement ( mass/volume) 34 g/dL 32-36 Automated erythrocyte distribution width ratio 12.9 % 10.0-14.5 Automated blood platelet count (count/volume) 219 10*3/uL 130-400 Automated blood platelet mean volume measurement 9.5 [foz_us] 7.4-10.4 Automated blood neutrophils/100 leukocytes 69 % 42-75 Automated blood lymphocytes/100 leukocytes 22 % 12-44 Blood monocytes/100 leukocytes 8 % 0-12 Automated blood eosinophils/100 leukocytes 1 % 0-10 Automated blood basophils/100 leukocytes 0 % 0-10 Blood neutrophils automated count (number/volume) 5.4 10*3 1.8-7.8 Blood lymphocytes automated count (number/volume) 1.7 10*3 1.0-4.0 Blood monocytes automated count (number/volume) 0.6 10*3 0.0-1.0 Automated eosinophil count 0.1 10*3/uL 0.0-0.3 Automated blood basophil count (count/volume) 0.0 10*3/uL 0.0-0.1 Comprehensive metabolic panel - 01/30/16 09:01 Serum or plasma sodium measurement (moles/volume) 139 mmol/L 135-145 Serum or plasma potassium measurement (moles/volume) 4.4 mmol/L 3.6-5.0 Serum or plasma chloride measurement (moles/volume) 104 mmol/L 98-107 Carbon dioxide 27 mmol/L 21-32 Serum or plasma anion gap determination (moles/volume) 8 mmol/L 5-14 Serum or plasma urea nitrogen measurement (mass/volume) 7 mg/dL 7-18 Serum or plasma creatinine measurement (mass/volume) 0.92 mg/dL 0.60-1.30 Serum or plasma urea nitrogen/creatinine mass ratio 8 NRG Serum or plasma creatinine measurement with calculation of estimated glomerular filtration rate > NRG Serum or plasma glucose measurement (mass/volume) 87 mg/dL 70-105 Serum or plasma calcium measurement (mass/volume) 9.1 mg/dL 8.5-10.1 Serum or plasma total bilirubin measurement (mass/volume) 0.6 mg/dL 0.1-1.0 Serum or plasma alkaline phosphatase measurement (enzymatic activity/volume) 96 U/L 40-136 Serum or plasma aspartate aminotransferase measurement (enzymatic activity/ volume) 24 U/L 5-34 Serum or plasma alanine aminotransferase measurement (enzymatic activity/volume ) 29 U/L 0-55 Serum or plasma protein measurement (mass/volume) 8.0 g/dL 6.4-8.2 Serum or plasma albumin measurement (mass/volume) 4.4 g/dL 3.2-4.5 CBC With Differential/Platelet - 07/23/16 10:42 WBC 8.8 x10E3/uL 3.4-10.8 RBC 5.45 x10E6/uL 4.14-5.80 Hemoglobin 16.1 g/dL 12.6-17.7 Hematocrit 47.9 % 37.5-51.0 MCV 88 fL 79-97 MCH 29.5 pg 26.6-33.0 MCHC 33.6 g/dL 31.5-35.7 RDW 13.5 % 12.3-15.4 Platelets 240 x10E3/uL 150-379 Neutrophils 75 % Lymphs 17 % Monocytes 7 % Eos 1 % Basos 0 % Neutrophils (Absolute) 6.6 x10E3/uL 1.4-7.0 Lymphs (Absolute) 1.5 x10E3/uL 0.7-3.1 Monocytes(Absolute) 0.6 x10E3/uL 0.1-0.9 Eos (Absolute) 0.1 x10E3/uL 0.0-0.4 Baso (Absolute) 0.0 x10E3/uL 0.0-0.2 Immature Granulocytes 0 % Immature Grans (Abs) 0.0 x10E3/uL 0.0-0.1 Comp. Metabolic Panel (14) - 07/23/16 10:42 Glucose, Serum 88 mg/dL 65-99 BUN 8 mg/dL 8-27 Creatinine, Serum 0.93 mg/dL 0.76-1.27 eGFR If NonAfricn Am 88 mL/min/1.73 >59 eGFR If Africn Am 102 mL/min/1.73 >59 BUN/Creatinine Ratio 9 10-24 Sodium, Serum 137 mmol/L 134-144 Potassium, Serum 4.8 mmol/L 3.5-5.2 Chloride, Serum 96 mmol/L 96-106 Carbon Dioxide, Total 22 mmol/L 18-29 Calcium, Serum 9.1 mg/dL 8.6-10.2 Protein, Total, Serum 8.2 g/dL 6.0-8.5 Albumin, Serum 4.9 g/dL 3.6-4.8 Globulin, Total 3.3 g/dL 1.5-4.5 A/G Ratio 1.5 1.2-2.2 Bilirubin, Total 0.6 mg/dL 0.0-1.2 Alkaline Phosphatase, S 96 IU/L 39-117 AST (SGOT) 20 IU/L 0-40 ALT (SGPT) 18 IU/L 0-44 Lipid Panel - 07/23/16 10:42 Cholesterol, Total 187 mg/dL 100-199 Triglycerides 149 mg/dL 0-149 HDL Cholesterol 28 mg/dL >39 VLDL Cholesterol Bertrand 30 mg/dL 5-40 LDL Cholesterol Calc 129 mg/dL 0-99 TSH - 07/23/16 10:42 TSH 3.050 uIU/mL 0.450-4.500 Sedimentation Rate-Westergren - 07/23/16 10:42 Sedimentation Rate-Westergren 10 mm/hr 0-30 C-Reactive Protein, Quant - 07/23/16 10:42 C-Reactive Protein, Quant 10.7 mg/L 0.0-4.9 Complete blood count (CBC) with automated white blood cell (WBC) differential - 09/27/16 10:15 Blood leukocytes automated count (number/volume) 5.7 10*3/uL 4.3-11.0 Blood erythrocytes automated count (number/volume) 5.23 10*6/uL 4.35-5.85 Venous blood hemoglobin measurement (mass/volume) 15.6 g/dL 13.3-17.7 Blood hematocrit (volume fraction) 47 % 40-54 Automated erythrocyte mean corpuscular volume 90 [foz_us] 80-99 Automated erythrocyte mean corpuscular hemoglobin (mass per erythrocyte) 30 pg 25-34 Automated erythrocyte mean corpuscular hemoglobin concentration measurement ( mass/volume) 33 g/dL 32-36 Automated erythrocyte distribution width ratio 13.5 % 10.0-14.5 Automated blood platelet count (count/volume) 191 10*3/uL 130-400 Automated blood platelet mean volume measurement 9.1 [foz_us] 7.4-10.4 Automated blood neutrophils/100 leukocytes 62 % 42-75 Automated blood lymphocytes/100 leukocytes 28 % 12-44 Blood monocytes/100 leukocytes 8 % 0-12 Automated blood eosinophils/100 leukocytes 2 % 0-10 Automated blood basophils/100 leukocytes 0 % 0-10 Blood neutrophils automated count (number/volume) 3.5 10*3 1.8-7.8 Blood lymphocytes automated count (number/volume) 1.6 10*3 1.0-4.0 Blood monocytes automated count (number/volume) 0.5 10*3 0.0-1.0 Automated eosinophil count 0.1 10*3/uL 0.0-0.3 Automated blood basophil count (count/volume) 0.0 10*3/uL 0.0-0.1 Comprehensive metabolic panel - 09/27/16 10:15 Serum or plasma sodium measurement (moles/volume) 138 mmol/L 135-145 Serum or plasma potassium measurement (moles/volume) 4.2 mmol/L 3.6-5.0 Serum or plasma chloride measurement (moles/volume) 101 mmol/L 98-107 Carbon dioxide 26 mmol/L 21-32 Serum or plasma anion gap determination (moles/volume) 11 mmol/L 5-14 Serum or plasma urea nitrogen measurement (mass/volume) 8 mg/dL 7-18 Serum or plasma creatinine measurement (mass/volume) 0.81 mg/dL 0.60-1.30 Serum or plasma urea nitrogen/creatinine mass ratio 10 NRG Serum or plasma creatinine measurement with calculation of estimated glomerular filtration rate > NRG Serum or plasma glucose measurement (mass/volume) 128 mg/dL 70-105 Serum or plasma calcium measurement (mass/volume) 9.0 mg/dL 8.5-10.1 Serum or plasma total bilirubin measurement (mass/volume) 0.5 mg/dL 0.1-1.0 Serum or plasma alkaline phosphatase measurement (enzymatic activity/volume) 92 U/L 40-136 Serum or plasma aspartate aminotransferase measurement (enzymatic activity/ volume) 17 U/L 5-34 Serum or plasma alanine aminotransferase measurement (enzymatic activity/volume ) 15 U/L 0-55 Serum or plasma protein measurement (mass/volume) 7.5 g/dL 6.4-8.2 Serum or plasma albumin measurement (mass/volume) 4.0 g/dL 3.2-4.5 Complete blood count (CBC) with automated white blood cell (WBC) differential - 04/01/17 10:16 Blood leukocytes automated count (number/volume) 6.0 10*3/uL 4.3-11.0 Blood erythrocytes automated count (number/volume) 4.89 10*6/uL 4.35-5.85 Venous blood hemoglobin measurement (mass/volume) 15.1 g/dL 13.3-17.7 Blood hematocrit (volume fraction) 45 % 40-54 Automated erythrocyte mean corpuscular volume 92 [foz_us] 80-99 Automated erythrocyte mean corpuscular hemoglobin (mass per erythrocyte) 31 pg 25-34 Automated erythrocyte mean corpuscular hemoglobin concentration measurement ( mass/volume) 33 g/dL 32-36 Automated erythrocyte distribution width ratio 12.9 % 10.0-14.5 Automated blood platelet count (count/volume) 220 10*3/uL 130-400 Automated blood platelet mean volume measurement 8.9 [foz_us] 7.4-10.4 Automated blood neutrophils/100 leukocytes 67 % 42-75 Automated blood lymphocytes/100 leukocytes 20 % 12-44 Blood monocytes/100 leukocytes 11 % 0-12 Automated blood eosinophils/100 leukocytes 2 % 0-10 Automated blood basophils/100 leukocytes 0 % 0-10 Blood neutrophils automated count (number/volume) 4.0 10*3 1.8-7.8 Blood lymphocytes automated count (number/volume) 1.2 10*3 1.0-4.0 Blood monocytes automated count (number/volume) 0.7 10*3 0.0-1.0 Automated eosinophil count 0.1 10*3/uL 0.0-0.3 Automated blood basophil count (count/volume) 0.0 10*3/uL 0.0-0.1 Comprehensive metabolic panel - 04/01/17 10:16 Serum or plasma sodium measurement (moles/volume) 137 mmol/L 135-145 Serum or plasma potassium measurement (moles/volume) 4.5 mmol/L 3.6-5.0 Serum or plasma chloride measurement (moles/volume) 101 mmol/L 98-107 Carbon dioxide 27 mmol/L 21-32 Serum or plasma anion gap determination (moles/volume) 9 mmol/L 5-14 Serum or plasma urea nitrogen measurement (mass/volume) 7 mg/dL 7-18 Serum or plasma creatinine measurement (mass/volume) 0.86 mg/dL 0.60-1.30 Serum or plasma urea nitrogen/creatinine mass ratio 8 NRG Serum or plasma creatinine measurement with calculation of estimated glomerular filtration rate > NRG Serum or plasma glucose measurement (mass/volume) 97 mg/dL 70-105 Serum or plasma calcium measurement (mass/volume) 9.4 mg/dL 8.5-10.1 Serum or plasma total bilirubin measurement (mass/volume) 0.5 mg/dL 0.1-1.0 Serum or plasma alkaline phosphatase measurement (enzymatic activity/volume) 69 U/L 40-136 Serum or plasma aspartate aminotransferase measurement (enzymatic activity/ volume) 21 U/L 5-34 Serum or plasma alanine aminotransferase measurement (enzymatic activity/volume ) 16 U/L 0-55 Serum or plasma protein measurement (mass/volume) 8.0 g/dL 6.4-8.2 Serum or plasma albumin measurement (mass/volume) 4.1 g/dL 3.2-4.5 Encounters ACCT No. Visit Date/Time Discharge Status Pt. Type Provider Facility Loc./Unit Complaint [id number] 01/12/2014 12:53:00 01/12/2014 23:59:59 CLS Outpatient MADSUNNY Bobby APRN [id number] 10/01/2013 15:11:00 10/01/2013 23:59:59 CLS Outpatient DANA TIPTON DO [id number] 09/15/2013 09:36:00 09/15/2013 23:59:59 CLS Outpatient UNIQUE FELDMAN DDS [id number] 09/02/2013 09:37:00 09/02/2013 23:59:59 CLS Outpatient DANA TIPTON DO [id number] 08/03/2013 14:22:00 08/03/2013 23:59:59 CLS Outpatient SUNNY WALKER APRN Kanu [id number] 07/28/2013 12:09:00 07/28/2013 23:59:59 CLS Outpatient DANTE ALVAREZ APRN [id number] 07/28/2013 12:09:00 07/28/2013 23:59:59 CLS Outpatient DANTE ALVAREZ APRN [id number] 07/07/2013 14:59:00 07/07/2013 23:59:59 CLS Outpatient LIDIA DAHL MD [id number] 06/23/2013 12:02:00 06/23/2013 23:59:59 CLS Outpatient DANTE ALVAREZ APRN [id number] 04/21/2013 08:02:00 04/21/2013 23:59:59 CLS Outpatient MAGGIE JACKSON MD [id number] 04/21/2013 08:02:00 04/21/2013 23:59:59 CLS Outpatient MAGGIE JACKSON MD [id number] 03/23/2013 14:45:00 03/23/2013 23:59:59 CLS Outpatient LIDIA DAHL MD [id number] 03/23/2013 14:45:00 03/23/2013 23:59:59 CLS Outpatient LIDIA DAHL MD [id number] 03/19/2013 06:09:00 03/19/2013 23:59:59 CLS Outpatient [id number] 03/16/2013 15:04:00 03/16/2013 23:59:59 CLS Outpatient DANTE ALVAREZ APRN [id number] 02/26/2013 10:30:00 02/26/2013 23:59:59 CLS Outpatient DANA ITPTON DO [id number] 02/11/2013 15:23:00 02/11/2013 23:59:59 CLS Outpatient SOLO RODRIGUEZ DDS [id number] 01/08/2013 08:32:00 01/08/2013 23:59:59 CLS Outpatient [id number] 01/05/2013 13:47:00 01/05/2013 23:59:59 CLS Outpatient MAGGIE JACKSON MD [id number] 01/05/2013 13:47:00 01/05/2013 23:59:59 CLS Outpatient MAGGIE JACKSON MD [id number] 12/21/2012 10:59:00 12/21/2012 23:59:59 CLS Outpatient DANA TIPTON DO [id number] 12/18/2012 10:49:00 12/18/2012 23:59:59 CLS Outpatient MAGGIE JACKSON MD [id number] 11/27/2012 09:50:00 11/27/2012 23:59:59 CLS Outpatient DANA TIPTON DO [id number] 06/03/2012 15:38:00 06/03/2012 23:59:59 CLS Outpatient [id number] 05/20/2012 09:06:00 05/20/2012 23:59:59 CLS Outpatient MAGGIE JACKSON MD [id number] 05/15/2012 15:33:00 05/15/2012 23:59:59 CLS Outpatient [id number] 09/25/2012 10:00:00 Document Registration [id number] 09/25/2012 10:00:00 Document Registration [id number] 08/26/2012 08:51:00 Document Registration [id number] 08/26/2012 08:51:00 Document Registration [id number] 08/18/2012 13:05:00 Document Registration [id number] 07/28/2012 09:20:00 Document Registration [id number] 07/13/2012 10:59:00 Document Registration [id number] 06/03/2012 15:38:00 Document Registration [id number] 05/15/2012 15:33:00 Document Registration [id number] 04/23/2018 15:00:00 04/23/2018 23:59:59 CLS Outpatient DANTE ALVAREZ APRN [facility] [place] [id number] 04/01/2017 10:06:00 04/01/2017 23:59:59 CLS Outpatient BISI NAVARRO [facility] LAB L90.5 B86 L93.0 [id number] 09/27/2016 10:01:00 09/27/2016 23:59:59 CLS Outpatient BISI NAVARRO OUTBOUND TELEMARKETER [facility] LAB L93.0 [id number] 01/30/2016 08:49:00 01/30/2016 23:59:59 CLS Outpatient BISI NAVARRO OUTBOUND TELEMARKETER [facility] LAB OTHER PREMIUM NOTE INTEREST CALCULATOR CLERK DR THERAPY [id number] 04/19/2015 08:51:00 04/19/2015 18:19:00 DIS Outpatient DONNA LIN MD [facility] RAD NECK PAIN [id number] 10/19/2014 07:56:00 10/19/2014 23:59:59 CLS Outpatient LIZETH SILVER MD [facility] RAD RADICULOPATHY [id number] 06/10/2014 13:07:00 06/16/2014 08:35:00 DIS Outpatient LIZETH SILVER MD [facility] REHAB CERVICAL FUSION [id number] 03/29/2014 13:09:00 03/31/2014 10:05:00 DIS Outpatient LIZETH SILVER MD [facility] REHAB CERVICAL FUSION [id number] 01/31/2014 06:48:00 02/03/2014 16:30:00 DIS Inpatient LIZETH SILVER MD [facility] SURGICAL CERVICAL STENOSIS [id number] 01/24/2014 11:50:00 01/24/2014 23:59:59 CLS Outpatient LIZETH SILVER MD [facility] PREOP STENOSIS [id number] 12/17/2013 07:54:00 12/17/2013 23:59:59 CLS Outpatient LIZETH SILVER MD [facility] RAD STENOSIS [id number] 11/05/2013 09:59:00 11/05/2013 23:59:59 CLS Outpatient JOVANNA RANDALL MD [facility] RAD DSYPHAGIA [id number] 09/27/2013 10:29:00 09/28/2013 11:38:00 DIS Inpatient JOVANNA RANDALL MD [facility] SURGICAL CERVICAL STENOSIS [id number] 09/22/2013 10:21:00 09/22/2013 23:59:59 CLS Outpatient JOVANNA RANDALL MD [facility] PREOP CERVICAL STENOSIS [id number] 08/13/2013 07:04:00 08/13/2013 08:02:00 DIS Outpatient TERESA FELDMAN MD [facility] CARD CERVICAL SPONDYLOSIS [id number] 08/06/2013 07:34:00 08/06/2013 08:12:00 DIS Outpatient TERESA FELDMAN MD [facility] CARD CERVICAL SPONDYLOSIS [id number] 15:07:00 07/16/2013 14:19:00 DIS Outpatient TERESA FELDMAN MD [facility] REHAB CERVICALGIA [id number] 05/17/2013 12:29:00 05/17/2013 23:59:59 CLS Outpatient TERESA FELDMAN MD [facility] CARD DDD CERVICAL [id number] 04/30/2013 14:48:00 04/30/2013 23:59:59 CLS Outpatient MAGGIE JACKSON MD [facility] RAD NECK PAIN [id number] 04/29/2018 18:07:00 ACT Emergency QUINTIN HONG DO [facility] ER SYNCOPAL EPISODE,HIT HEAD ON DESK [id number] 03/21/2014 09:55:00 Document Registration [id number] 03/21/2014 09:55:00 Document Registration [id number] 03/21/2014 09:55:00 Document Registration [id number] 05/22/2012 12:56:00 Document Registration [id number] 03/02/2012 09:18:00 Document Registration [id number] 02/05/2012 15:10:00 Document Registration [id number] 09/04/2011 17:42:00 Document Registration [id number] 04/17/2011 11:39:00 Document Registration [id number] 11/08/2010 11:55:00 Document Registration [id number] 11/07/2010 14:35:00 Document Registration [id number] 10/03/2010 06:50:00 Document Registration [id number] 10/01/2010 09:05:00 Document Registration [id number] 09/21/2010 07:03:00 Document Registration [id number] 08/20/2010 09:30:00 Document Registration [id number] 05/28/2010 15:31:00 Document Registration [id number] 07/24/2016 13:05:00 Document Registration [id number] 10/19/2014 09:57:32 ACT Document Registration
--- NOTE | 2018-04-29 18:29 | ED General ---
General Stated Complaint: SYNCOPAL EPISODE,HIT HEAD ON DESK Source of Information: Patient History of Present Illness Date Seen by Provider: Apr 29, 2018 Time Seen by Provider: 18:15 Initial Comments PT ARRIVES VIA POV FROM HOME--DROVE SELF HERE, BUT HAS AN ADULT MALE WITH HIM PT STATES HE HAS BEEN SICK SINCE Friday04/27/18 WITH COUGH, CONGESTION, CLEAR RUNNY NOSE STATES TODAY HE WAS HAVING A "COUGHING FIT" AND STOOD UP AND PASSED OUT, HITTING HIS HEAD ON THE DESK--WAS NOT WITNESSED. NOT SURE HOW LONG HE WAS OUT C/O PAIN TO LEFT FOREHEAD NO VISION CHANGES NO NAUSEA/VOMITING NO PARESTHESIAS OR MOTOR DEFICITS C/O SLIGHT DIZZINESS NO INCREASE IN CHRONIC NECK OR BACK PAIN PT STATES HE HAS HAD SUBJECTIVE FEVER/SWEATS/CHILLS--HAS NOT TAKEN ANYTHING FOR SYMPTOMS COUGH IS NON-PRODUCTIVE--HAS NOT TAKEN ANYTHING FOR SYMPTOMS C/O SHORTNESS OF BREATH ONLY WHEN HE HAS A "COUGHING FIT" NO CHEST PAIN DENIES HISTORY OF RESPIRATORY PROBLEMS, BUT PT CONTINUES TO SMOKE 1 PPD NO KNOWN SICK CONTACTS WITH [facility] HAS NOT SOUGHT CARE FOR THESE SYMPTOMS PT STATES HE HAS LUPUS AND WAS ON PREDNISONE APPROXIMATELY A MONTH AGO FOR FLARE PT IS ON PERCOCET DAILY FOR CHRONIC NECK AND BACK PAIN ,BUT HAS NOT TAKEN ANY TODAY LAST TETANUS SHOT IN LAST YEAR HAD FLU VACCINE 12/2017 PCP: BRIONNA SIMON SECURITY CONTROLS ASSESSOR: DR. YOST Allergies and Home Medications Allergies Coded Allergies: NKANo Known Allergies (Verified Allergy, Unknown, 04/30/06) Home Medications Amitriptyline HCl 50 Mg Tablet, 50 MG PO HS Prescribed by: MINGO MARIE on 04/19/15 1003 Ascorbic Acid 500 Mg Tablet, 500 MG PO DAILY, (Reported) Escitalopram Oxalate 10 Mg Tablet, 10 MG PO DAILY, (Reported) Fish Oil/Dha/Epa 1 Each Capsule, 1 EACH PO DAILY, (Reported) Gabapentin 800 Mg Tablet, 800 MG PO TID Prescribed by: MINGO MARIE on 04/19/15 1003 Hydroxychloroquine Sulfate 200 Mg Tablet, 200 MG PO BID Prescribed by: MINGO MARIE on 04/19/15 1003 Multivitamins 1 Each Capsule, 1 EACH PO DAILY, (Reported) Oxycodone HCl/Acetaminophen 1 Each Tablet, 1 TAB PO Q6H Prescribed by: MINGO MARIE on 04/19/15 1003 Review of Systems Review of Systems Constitutional: see HPI, chills, diaphoresis, dizziness, fever, malaise, weakness EENTM: see HPI, nose congestion, other (CLEAR RUNNY NOSE) Respiratory: see HPI, cough; No phlegm; short of breath; No wheezing Cardiovascular: see HPI; No chest pain, No palpitations; syncope Gastrointestinal: no symptoms reported Musculoskeletal: see HPI Skin: other (ABRASION LEFT FOREHEAD) Psychiatric/Neurological: See HPI, Headache; Denies Numbness, Denies Paresthesia, Denies Tingling Hematologic/Lymphatic: No Symptoms Reported Immunological/Allergic: see HPI (ON PLAQUENIL ) Past Ziyeatk-[id number]-Prvdtr Hx Patient Social History Alcohol Use: Occasionally Uses (HISTORY OF HEAVY/REGULAR USE, NOW ONLY "OCCASIONALLY" DRINKS) Recreational Drug Use: No Smoking Status: Current Everyday Smoker (1 PPD) Type Used: Cigarettes (1 PPD) Recent Foreign Travel: No Contact w/Someone Who Travel: No Immunizations Up To Date Tetanus Booster (TDap): Unknown PED Vaccines UTD: Yes Date of Pneumonia Vaccine: Nov 24, 2010 Date of Influenza Vaccine: Feb 06, 2012 Past Medical History Surgeries: Yes (CERVICAL AND LUMBAR SPINE SURGERY; LIVER BIOPSY; MULTIPLE CARDIAC CATHS--STENTS X 5) Appendectomy, Cardiac, Coronary Stent, Orthopedic Respiratory: No (PT DENIES BUT SMOKES 1 PPD) Cardiac: Yes (MULTIPLE CARDIAC CATHS--STENTS X 5) Coronary Artery Disease, High Cholesterol, Hypertension Neurological: No Reproductive Disorders: No Sexually Transmitted Disease: No Genitourinary: No Gastrointestinal: Yes (HEPTAITIS C--S/P TREATMENT; S/P LIVER BIOPSY) Hepatitis Musculoskeletal: Yes (CHRONIC NECK AND BACK PAIN; GENERALIZED PAIN; LUPUS) Degenerate Disk Disease, Chronic Back Pain Endocrine: Yes Lupus HEENT: No Cancer: No Psychosocial: No Integumentary: No Blood Disorders: No Adverse Reaction/Blood Tranf: No Family Medical History Cancer 19 FATHER, 19 MOTHER, G8 SISTER Family history: Cardiovascular disease G8 BROTHER Physical Exam Vital Signs Vital Signs - First Documented 04/29/18 18:13 Temp 100.0 Pulse 88 Resp 18 B/P (MAP) 170/82 (111) Pulse Ox 97 O2 Delivery Room Air Capillary Refill : Height, Weight, BMI Height: 5'9.00" Weight: 175lbs. 13.0oz. [id number]; 25.84 BMI Method:Stated General Appearance: No Apparent Distress, Other (VERY DRAMATIC; OCCASIONAL FORCED [id number]) HEENT: PERRL/EOMI, Other (SUPERFICIAL ABASIONS TO LEFT FOREHEAD) Neck: Full Range of Motion, Normal Inspection, Non Tender, Supple Respiratory: Normal Breath Sounds, No Accessory Muscle Use, No Respiratory Distress Cardiovascular: Regular Rate, Rhythm, No Edema, No JVD, No Murmur, Normal Peripheral Pulses Gastrointestinal: Non Tender, Soft Back: No CVA Tenderness, No Vertebral Tenderness Extremity: Normal Inspection, Normal Range of Motion, Non Tender, No Calf Tenderness, No Pedal Edema Neurologic/Psychiatric: Alert, Oriented x3, No Motor/Sensory Deficits, physician coder II- XII Norm as Tested Skin: Normal Color, Warm/Dry, Other (FOREHEAD ABRASION) Focused Exam Lactate Level 04/29/18 18:27: Lactic Acid Level 1.13 Lactic Acid Level Laboratory Tests Test 04/29/18 18:27 Lactic Acid Level 1.13 MMOL/L (0.50-2.00) Progress/Results/Core Measures Suspected Sepsis SIRS Temperature: Pulse: Respiratory Rate: Laboratory Tests 04/29/18 18:27: White Blood Count 6.4 Blood Pressure / Mean: 04/29/18 18:27: Lactic Acid Level 1.13 Laboratory Tests 04/29/18 18:27: Creatinine 0.94, INR Comment 1.0, Platelet Count 207, Total Bilirubin 0.4 Results/Orders Lab Results Laboratory Tests Test 04/29/18 18:27 Range/Units White Blood Count 6.4 4.3-11.0 10^3/uL Red Blood Count 5.15 4.35-5.85 10^6/uL Hemoglobin 15.1 13.3-17.7 G/DL Hematocrit 45 40-54 % Mean Corpuscular Volume 86 80-99 FL Mean Corpuscular Hemoglobin 29 25-34 PG Mean Corpuscular Hemoglobin Concent 34 32-36 G/DL Red Cell Distribution Width 13.4 10.0-14.5 % Platelet Count 207 130-400 10^3/uL Mean Platelet Volume 9.0 7.4-10.4 FL Neutrophils (%) (Auto) 77 H 42-75 % Lymphocytes (%) (Auto) 12 12-44 % Monocytes (%) (Auto) 11 0-12 % Eosinophils (%) (Auto) 0 0-10 % Basophils (%) (Auto) 1 0-10 % Neutrophils # (Auto) 5.0 1.8-7.8 X 10^3 Lymphocytes # (Auto) 0.8 L 1.0-4.0 X 10^3 Monocytes # (Auto) 0.7 0.0-1.0 X 10^3 Eosinophils # (Auto) 0.0 0.0-0.3 10^3/uL Basophils # (Auto) 0.0 0.0-0.1 10^3/uL Prothrombin Time 13.6 12.2-14.7 SEC INR Comment 1.0 0.8-1.4 Activated Partial Thromboplast Time 35 24-35 SEC Sodium Level 131 L 135-145 MMOL/L Potassium Level 4.4 3.6-5.0 MMOL/L Chloride Level 96 L 98-107 MMOL/L Carbon Dioxide Level 25 21-32 MMOL/L Anion Gap 10 5-14 MMOL/L Blood Urea Nitrogen 9 7-18 MG/DL Creatinine 0.94 0.60-1.30 MG/DL Estimat Glomerular Filtration Rate > 60 BUN/Creatinine Ratio 10 Glucose Level 92 70-105 MG/DL Lactic Acid Level 1.13 0.50-2.00 MMOL/L Calcium Level 9.2 8.5-10.1 MG/DL Corrected Calcium 9.0 8.5-10.1 MG/DL Magnesium Level 1.9 1.8-2.4 MG/DL Total Bilirubin 0.4 0.1-1.0 MG/DL Aspartate Amino Transf (AST/SGOT) 32 5-34 U/L Alanine Aminotransferase (ALT/SGPT) 28 0-55 U/L Alkaline Phosphatase 69 40-136 U/L Troponin I < 0.028 <0.028 NG/ML Total Protein 8.0 6.4-8.2 GM/DL Albumin 4.3 3.2-4.5 GM/DL Serum Alcohol < 10 <10 MG/DL Micro Results Microbiology 04/29/18 Influenza Types A,B Antigen (LIZBET) - Final, Complete My Orders Orders - QUINTIN HONG DO Saline Lock/Iv-Start (04/29/18 18:22) Ekg Tracing (04/29/18 18:22) Monitor-Rhythm Ecg Trace Only (04/29/18 18:22) Ct Head/Face/Cervical Wo (04/29/18 18:22) Alcohol (04/29/18 18:22) Cbc With Automated Diff (04/29/18 18:22) Comprehensive Metabolic Panel (04/29/18 18:22) Drug Screen Stat (Urine) (04/29/18 18:22) Lactic Acid Analyzer (04/29/18:22) Magnesium (04/29/18 18:22) Protime With Inr (04/29/18 18:22) Partial Thromboplastin Time (04/29/18 18:22) Troponin I (04/29/18 18:22) Ua Culture If Indicated (04/29/18:) Blood Culture (04/29/18 18:22) Influenza A And B Antigens (04/29/18 18:22) Chest Pa/Lat (2 View) (04/29/18 18:22) Rx-Oseltamivir Caps (Rx-Tamiflu Caps) (04/29/18 19:23) Benzonatate Capsule (Tessalon Perles) (04/29/18 19:30) Vital Signs/I&O 04/29/18 18:13 Temp 100.0 Pulse 88 Resp 18 B/P (MAP) 170/82 (111) Pulse Ox 97 O2 Delivery Room Air Capillary Refill : Departure Impression Primary Impression: Influenza A Additional Impressions: Cough syncope HEAD CONTUSION AND ABRASION CERVICAL SPINE STRAIN Disposition: 01 HOME, SELF-CARE Condition: Stable Departure-Patient Inst. Referrals: LIDIA DAHL MD (PCP) Primary Care Physician DANTE ALVAREZ (Family) Primary Care Physician Patient Instructions: Cervical Muscle Strain (DC), Flu, Adult (DC), Minor Head Injury (DC), Skin Abrasions (DC), Vasovagal Response (DC) Add. Discharge Instructions: TAKE TAMIFLU TWICE A DAY FOR 5 DAYS LOTS OF CLEAR LIQUIDS--WATER, BROTH, JELLO, GATORADE TYLENOL 1 GRAM / MOTRIN 800 MG 4 TIMES A DAY FOR PAIN OR FEVER CONTINUE YOUR REGULAR MEDICATIONS PRESCRIBED FOLLOW UP WITH YOUR DR IN 3-4 DAYS IF NO BETTER, RETURN TO ER IF WORSE Scripts Benzonatate (TESSALON PERLES) 100 Mg Capsule 1-2 TAB PO TID for Cough, #30 CAP Prov: QUINTIN HONG DO 04/29/18 D-Methorphan Hb/Prometh HCl (Promethazine-Dm Syrup) 118 Ml Syrup 1-2 TSP PO Q4H for Cough, #120 ML Prov: QUINTIN HONG DO 04/29/18 Methylprednisolone (Medrol) 4 Mg Tab.ds.pk 4 MG PO UD, #1 PKG Prov: QUINTIN HONG DO 04/29/18 QUINTIN HONG DO Apr 29, 2018 18:29
[2018-04-29 18:38] LABS: BASOPHILS % (AUTO) 1 % (0-10); EOSINOPHILS % (AUTO) 0 % (0-10); HEMATOCRIT 45 % (40-54); HEMOGLOBIN 15.1 G/DL (13.3-17.7); LYMPHOCYTES # (AUTO) 0.8 X 10^3 (1.0-4.0); LYMPHOCYTES % (AUTO) 12 % (12-44); MEAN CORPUSCULAR HEMOGLOBIN 29 PG (25-34); MEAN CORPUSCULAR HGB CONC 34 G/DL (32-36); MEAN CORPUSCULAR VOLUME 86 FL (80-99); MONOCYTES # (AUTO) 0.7 X 10^3 (0.0-1.0); MONOCYTES % (AUTO) 11 % (0-12); NEUTROPHILS % (AUTO) 77 % (42-75); PLATELET COUNT 207 10^3/uL (130-400); RED CELL DISTRIBUTION WIDTH 13.4 % (10.0-14.5); WHITE BLOOD COUNT 6.4 10^3/uL (4.3-11.0)
[2018-04-29 18:53] LABS: PROTHROMBIN TIME PATIENT 13.6 SEC (12.2-14.7)
[2018-04-29] MEDS ORDERED: CYCL10TA9 (18:54)
[2018-04-29 18:56] LABS: ALANINE AMINOTRANSFERASE 28 U/L (0-55); ALBUMIN 4.3 GM/DL (3.2-4.5); ALKALINE PHOSPHATASE 69 U/L (40-136); BILIRUBIN,TOTAL 0.4 MG/DL (0.1-1.0); BUN/CREATININE RATIO 10; CALCIUM 9.2 MG/DL (8.5-10.1); CARBON DIOXIDE 25 MMOL/L (21-32); CHLORIDE 96 MMOL/L (98-107); CREATININE SERUM 0.94 MG/DL (0.60-1.30); GFR ESTIMATED > 60; GLUCOSE 92 MG/DL (70-105); MAGNESIUM 1.9 MG/DL (1.8-2.4); POTASSIUM 4.4 MMOL/L (3.6-5.0); SODIUM 131 MMOL/L (135-145)
[2018-04-29] MEDS ORDERED: HYDR200T46 (18:56)
--- NOTE | 2018-04-29 19:03 | Diagnostic Imaging Report ---
INDICATION: Cough, flu-like symptoms. COMPARISON: 02/05/2012. FINDINGS: No focal consolidation. No effusion or pneumothorax. There is no failure pattern. There is no free air beneath the diaphragms. IMPRESSION: No acute-appearing abnormality and no change from prior. Dictated by: Dictated on workstation # [id number]
--- NOTE | 2018-04-29 19:20 | Diagnostic Imaging Report ---
PROCEDURE: CT head, face, and cervical spine without contrast. TECHNIQUE: Multiple contiguous axial images were obtained through the head, neck, and facial bones without the use of intravenous contrast. Sagittal and coronal reformations through the cervical spine and facial bones were also performed. INDICATION: Syncopal episode, fall, striking the forehead, bruising and swelling. Study compared to 04/19/2015. Head: There is no intracranial hemorrhage and there are no abnormal extra-axial fluid collections. No focal or generalized edema. No hydrocephalus. No displaced or depressed calvarial fracture deformity. No pneumocephalus. No paranasal sinus air-fluid level. CT cervical spine: Postsurgical changes of ACDF and partial corpectomies C3 through C6 unchanged. No evidence for failure of the fusion mass. Multilevel posterior fusion with laminar screws and vertical rods C3 through C7 also unchanged. The alignment is stable. No substantial canal stenosis. No cervical fracture. No paravertebral hematoma. Vascular calcifications chronic. CT facial bones: Nasal bones and bony nasal septum intact. The bony orbital hendrickson intact. The maxillary hendrickson intact. Hard palate and pterygoid plates intact. The anterior and posterior hendrickson of the frontal sinus is intact. Zygomatic arches and mandible intact. No facial fracture or hemo-sinus identified. Orbital contents and sphenoid sinuses unremarkable. IMPRESSION: CT head: No hemorrhage or acute finding. CT cervical spine: Stable extensive postoperative changes without fracture or traumatic malalignment. No hardware disruption. CT facial bones: No facial fracture or hemo-sinus demonstrated. Dictated by: Dictated on workstation # [id number]
[2018-04-29] MEDS ORDERED: RX-OSELTAMIVIR 75 MG (TAMIFLU) BOX OF 10 PO STA (19:23)
[2018-04-29] MEDS ORDERED: BENZONATATE 100 MG (TESSALON) CAPSULE PO SCH (19:30)
[2018-04-29] MEDS ORDERED: D-ME118S7 PO (19:41)
[2018-04-29] MEDS ORDERED: METH4TAB PO (19:41)
[2018-04-29] MEDS ORDERED: BENZ100C18 PO (19:41)
[2018-04-29 20:13] VITALS: BP 137/77
== END 2018-04-29 20:08 | disposition home or self-care (01) ==
LOC: EDUNIT# 18:05 → ER 18:07
DX: S16.1XXA Strain of muscle, fascia and tendon at neck level, initial encounter (principal); S00.83XA Contusion of other part of head, initial encounter; J10.1 Influenza due to other identified influenza virus with other respiratory manifestations; I25.10 Atherosclerotic heart disease of native coronary artery without angina pectoris; E78.00 Pure hypercholesterolemia, unspecified; I10 Essential (primary) hypertension; B19.20 Unspecified viral hepatitis C without hepatic coma; M32.9 Systemic lupus erythematosus, unspecified; F17.210 Nicotine dependence, cigarettes, uncomplicated; Z90.49 Acquired absence of other specified parts of digestive tract; Z95.5 Presence of coronary angioplasty implant and graft; Z82.49 Family history of ischemic heart disease and other diseases of the circulatory system; Z98.890 Other specified postprocedural states; W22.03XA Walked into furniture, initial encounter
CPT/HCPCS: 70450; 70486; 71046; 72125; 80053; 80320; 83605; 83735; 84484; 85610; 85730; 87040; 87804; 93005; 93041

== ENCOUNTER → 2020-05-12 | Outpatient (CLI) | payer MEDICARE ==
[~2020-05-12] MED LIST changes: +BENZ100C18 PO; +CYCL10TA9; +HYDR200T46; +PROM118S5 PO
--- NOTE | 2020-05-12 09:16 | Diagnostic Imaging Report ---
PROCEDURE: CT head without contrast. TECHNIQUE: Multiple contiguous axial images were obtained through the brain without the use of intravenous contrast. Auto Exposure Controls were utilized during the CT exam to meet ALARA standards for radiation dose reduction. INDICATION: Dizziness CT head without contrast The ventricles are normal in size, shape and position. There are no masses or hemorrhages. There are no extra-axial fluid collections. IMPRESSION: Negative CT head. Dictated by: Dictated on workstation # [id number]
== END ==
LOC: RAD 08:58
PROVIDERS: ATTEND Nurse Practitioner Family
DX: R42 Dizziness and giddiness (principal)
CPT/HCPCS: 70450

== ENCOUNTER → 2020-06-19 | Outpatient (CLI) | payer MEDICARE ==
--- NOTE | 2020-06-19 12:47 | Diagnostic Imaging Report ---
CLINICAL INDICATION: Patient with history of previous cervical spine surgery in 2017. Patient has cervical spine pain. EXAM: MRI of the cervical spine performed without IV contrast. Sequences include sagittal T1, sagittal T2, sagittal T2 fat-sat, sagittal STIR, and axial T2. COMPARISON: CT scan of the cervical spine without contrast dated 04/29/2018. FINDINGS: There are postoperative changes to the cervical spine again seen with C3-C6 anterior cervical disk fusion with the appearance of strut graft at the C5 vertebral body region. Posterior spinal fusion hardware is also seen from the C3-T1 vertebra. Susceptibility hardware artifact from the hardware is noted. Hardware is better seen on comparison CT scan. There is scarring and architectural distortion of the soft tissue in the region of the nuchal ligament and posterior cervicothoracic soft tissue. There is solid bony bridging/fusion seen from the C3 through T1 levels involving the posterior elements at C3-C7 levels of the vertebra. Limited visualization of the posterior fossa shows no significant abnormality. Cervical spinal cord has normal cord caliber with no abnormal signal. C1-C2: There are degenerative spurs involving the atlantoodontoid interval anteriorly. There is no significant central canal narrowing. C2-C3: There is mild bilateral facet arthropathy. There is no significant central spinal canal or neural foramen narrowing. C3-C4: There is no significant central spinal canal or neural foramen narrowing. C4-C5: There is no significant central spinal canal or neural foramen narrowing. C5-C6: There is mild left neural foramen narrowing from vertebral body bony structures. There is no significant central spinal canal or neural foramen narrowing. C6-C7: There is no significant central spinal canal or neural foramen narrowing. C7-T1: Stable subtle grade 1 anterolisthesis of C7 on T1. There is no significant central spinal canal or neural foramen narrowing. Visualized upper thoracic spine: There is a small right paracentral disk herniation at the T2-T3 level with no significant central canal or neural foramen narrowing. IMPRESSION: 1: There is extensive 360 degree fusion of the cervical spine which is described above. There is solid bony bridging/fusion seen from the C3-T1 level. There is no paraspinal fluid collection. 2: There is no significant central canal or neural foramen narrowing. Dictated by: Dictated on workstation # [id number]
== END ==
LOC: RAD 11:00
PROVIDERS: ATTEND Nurse Practitioner Family
DX: M43.22 Fusion of spine, cervical region (principal); M47.812 Spondylosis without myelopathy or radiculopathy, cervical region; M48.02 Spinal stenosis, cervical region; M43.13 Spondylolisthesis, cervicothoracic region; M51.24 Other intervertebral disc displacement, thoracic region; Z98.890 Other specified postprocedural states
CPT/HCPCS: 72141

== ENCOUNTER → 2020-06-20 | Outpatient (CLI) | payer MEDICARE ==
--- NOTE | 2020-06-20 18:18 | Diagnostic Imaging Report ---
EXAM: MRI thoracic spine without contrast. DATE: June 20, 2020. INDICATION: 65-year-old male, neck and mid back pain. COMPARISON: MRI cervical spine June 19, 2020. TECHNIQUE: Multiple noncontrast MRI sequences of the thoracic spine were obtained. FINDINGS: The alignment of the thoracic spine is grossly unremarkable. There is no evidence of a diffuse marrow infiltrating or replacing process. There is no identified focal concerning bone lesion. There is a 3 mm benign vertebral body hemangioma on axial T2 sequence image 53. There is no compression deformity or other fracture. There is no identified abnormal cord signal. There is no identified thoracic disc protrusion or extrusion. There is no spinal stenosis at the thoracic spine levels. IMPRESSION: 1. Grossly unremarkable MRI of the thoracic spine. Dictated by: Dictated on workstation # [id number]
== END ==
LOC: RAD 14:00
PROVIDERS: ATTEND Nurse Practitioner Family
DX: M54.6 Pain in thoracic spine (principal); M54.2 Cervicalgia
CPT/HCPCS: 72146

== ENCOUNTER → 2020-10-16 | Outpatient (CLI) | payer MEDICARE ==
[~2020-10-16] MED LIST changes: -OXYC-464 PO; +OXYC1TAB15 PO
--- NOTE | 2020-10-16 12:11 | Diagnostic Imaging Report ---
PROCEDURE: CT cervical spine without contrast. TECHNIQUE: Multiple contiguous axial images were obtained through the cervical spine without the use of intravenous contrast. Sagittal and coronal reformations were then performed. Auto Exposure Controls were utilized during the CT exam to meet ALARA standards for radiation dose reduction. INDICATION: Prior cervical spine surgery. Chronic bilateral pain. History of skin cancer. COMPARISON: MRI cervical spine without contrast 06/19/2020. FINDINGS: Normal alignment. Vertebral body heights preserved. No fractures. There are postoperative findings of an anterior fusion with interbody grafting at C3-C4 and interbody strut graft at C4-C6. There is also posterior instrumentation at C3-T1. Hardware components are intact. No evidence of loosening. No high-grade spinal canal stenosis is evident on soft tissue windows. No substantial osseous neural foraminal narrowing. Abandoned unidentified wire in the posterior soft tissues at the level of C7-T2 may be remnants of a prior cerclage wire. Paraseptal emphysema in the lung apices. IMPRESSION: 1. Anterior fusion at C3-C6 with interbody graft at C3-C4 and strut graft at C4-C6. Posterior instrumentation at C3-T1. No evidence hardware failure. 2. No high-grade spinal canal or neural foraminal narrowing is evident. 3. No acute CT findings. Dictated by: Dictated on workstation # [id number]
== END ==
LOC: RAD 09:48
PROVIDERS: ATTEND Physician Assistant
DX: M54.12 Radiculopathy, cervical region (principal); Z98.1 Arthrodesis status; Z85.828 Personal history of other malignant neoplasm of skin
CPT/HCPCS: 72125

== ENCOUNTER → 2021-10-19 | Outpatient (CLI) | payer MEDICARE, MEDICAID ==
[~2021-10-19] MED LIST changes: +CYCL10TA25; -CYCL10TA9
== END ==
LOC: CARD 10:36
PROVIDERS: ATTEND Internal Medicine Cardiovascular Disease
DX: I10 Essential (primary) hypertension (principal)
CPT/HCPCS: 93306

== ENCOUNTER → 2021-11-07 | Outpatient (CLI) | payer MEDICARE, MEDICAID ==
[~2021-11-07] MED LIST changes: +CATHETER FLUSH 10 ML SYR IVP PRN; +REGADENOSON 0.4 MG/5 ML SYR (LEXISCAN) IV ONE
[2021-11-07 09:12] VITALS: BP 141/71
--- NOTE | 2021-11-07 14:53 | Cardiology Stress Test Report ---
Stress Test Report Date of Procedure/Referring: Date of Procedure: Nov 07, 2021 PCP William Cline MD Admitting Physician Admitting Physician: Attending Physician: Shandra Jasso MD Indications: HTN Baseline Heart Rate: 67 Baseline Blood Pressure: Blood Pressure Systolic: 141 Blood Pressure Diastolic: 71 Baseline Vitals Vital Signs Date Time Temp Pulse Resp B/P (MAP) Pulse Ox O2 Delivery O2 Flow Rate FiO2 11/07/21 09:12 79 18 141/71 (94) 97 Room Air Baseline EKG: Baseline EKG: NSR Summary After explaining the procedure to the patient, he signed a consent and then brought to the stress nuclear laboratory. Patient received 0.4 mg Lexiscan for stress test, ECG, heart rate and blood pressure were monitored continuously. Resting and stress dose of radio tracer were injected, imaging was acquired and reviewed in short axis, horizontal long axis and vertical long axis views. TID: 0.92 SSS: 8 SDS: 7 EF: 68 1. Patient tolerated Lexiscan well 2. Reversible ischemia involving the anterior apical segment and anterolateral wall and inferoapical segment 3. Normal left ventricular size, ejection fraction 68% Copy Copies To 1: [facility] [place] SHANDRA JASSO MD Nov 07, 2021 14:53
== END ==
LOC: CARD 07:45
PROVIDERS: ATTEND Internal Medicine Cardiovascular Disease
DX: I10 Essential (primary) hypertension (principal); I25.10 Atherosclerotic heart disease of native coronary artery without angina pectoris
CPT/HCPCS: 78452; 93017; A9502

== ENCOUNTER 2021-11-14 10:51 | Day surgery (SDC) | payer MEDICARE, MEDICAID ==
[~2021-11-14] VITALS: Ht 177.8 cm; Wt 77.1 kg
[~2021-11-14 10:51] MED LIST changes: -CATHETER FLUSH 10 ML SYR IVP PRN; -HYDR200T46; +HYDR200T46 PO; -REGADENOSON 0.4 MG/5 ML SYR (LEXISCAN) IV ONE
[2021-11-14] MEDS ORDERED: NS IV 1000 ML 1,000 ML ONE (10:57)
[2021-11-14] MEDS ORDERED: HEParin (CATH LAB) 2,000 ML IV ONE (10:57)
[2021-11-14] MEDS ORDERED: LIDOCAINE 1% INJ 20 ML VIAL ONE (10:57)
[2021-11-14] MEDS ORDERED: NS IV 1000 ML 1,000 ML IV SCH ×2 (11:00→15:00)
[2021-11-14 11:12] VITALS: BP 134/89
[2021-11-14 11:21] LABS: HEMATOCRIT 48 % (40-54); HEMOGLOBIN 16.3 g/dL (13.3-17.7); MEAN CORPUSCULAR HEMOGLOBIN 30 pg (25-34); MEAN CORPUSCULAR HGB CONC 34 g/dL (32-36); MEAN CORPUSCULAR VOLUME 89 fL (80-99); MEAN PLATELET VOLUME 9.3 fL (9.0-12.2); PLATELET COUNT 216 10^3/uL (130-400); WHITE BLOOD COUNT 7.7 10^3/uL (4.3-11.0)
[2021-11-14 11:21] LABS: BILIRUBIN,URINE NEGATIVE (NEGATIVE); CLARITY,URINE CLEAR; COLOR,URINE YELLOW; GLUCOSE, URINE (UA) NEGATIVE (NEGATIVE); KETONES,URINE NEGATIVE (NEGATIVE); LEUKOCYTE ESTERASE ,URINE NEGATIVE (NEGATIVE); NITRITE,URINE NEGATIVE (NEGATIVE); PROTEIN,URINE NEGATIVE (NEGATIVE)
--- NOTE | 2021-11-14 11:28 | Diagnostic Imaging Report ---
INDICATION: Chest pain Portable chest 11:08 AM Heart size and pulmonary vascularity are normal. Lungs are clear. There are no effusions or pneumothoraces. IMPRESSION: No acute abnormalities of the chest. Dictated by: Dictated on workstation # [id number]
[2021-11-14 11:40] LABS: PROTHROMBIN TIME PATIENT 13.6 SEC (12.2-14.7)
[2021-11-14 11:45] LABS: BACTERIA,URINE NEGATIVE /HPF
[2021-11-14 11:46] LABS: ALBUMIN 4.4 GM/DL (3.2-4.5); BILIRUBIN,TOTAL 0.6 MG/DL (0.1-1.0); CALCIUM 9.3 MG/DL (8.5-10.1); CREATININE SERUM 0.91 MG/DL (0.60-1.30); POTASSIUM 4.4 MMOL/L (3.6-5.0); TOTAL PROTEIN 8.2 GM/DL (6.4-8.2)
[2021-11-14] MEDS ORDERED: OXYC-556 PO (12:01)
[2021-11-14] MEDS ORDERED: GABA800T10 PO (12:01)
[2021-11-14] MEDS ORDERED: AMIT100T2 PO (12:01)
[2021-11-14] MEDS ORDERED: OMG1KC PO (12:01)
[2021-11-14] MEDS ORDERED: ASPI-1238 PO ×2 (12:01→14:55)
[2021-11-14] MEDS ORDERED: ATOR40TA70 PO (12:01)
[2021-11-14] MEDS ORDERED: PRIM50TA33 PO (12:01)
[2021-11-14] MEDS ORDERED: SAW450CA7 PO (12:01)
[2021-11-14] MEDS ORDERED: MULT-1136 PO (12:01)
[2021-11-14] MEDS ORDERED: MECL-149 PO (12:01)
[2021-11-14] MEDS ORDERED: VERAPAMIL 5 MG/2 ML (CALAN) VIAL IV ONE (14:04)
[2021-11-14] MEDS ORDERED: MIDAZOLAM 2 MG/2 ML (VERSED) VIAL ONE ×2 (14:04→14:23)
[2021-11-14] MEDS ORDERED: fentaNYL INJ 100 MCG/2 ML AMP ONE (14:04)
[2021-11-14] MEDS ORDERED: HEParin 1000 UNIT/ML (10ML VIAL) FOR BOLUS ONE (14:05)
[2021-11-14] MEDS ORDERED: NITRO DRIP 25000 MCG/D5W 250 ML IV ONE (14:05)
--- NOTE | 2021-11-14 14:06 | Cardiac Procedure Note-CS/ASA ---
Pre-Procedure Note Pre-Op Procedure Note Date of Available H&P: Nov 06, 2021 Date H&P Reviewed: Nov 14, 2021 Time H&P Reviewed: 14:06 History & Physical: H&P Reviewed, Patient Examed, No changes noted Pre-Operative Diagnosis: CAD Conscious Sedation Pre-Proced Time 14:06 ASA Score 3 For ASA 3 and 4: Consider anesthesia and medical clearance. Also, for patients with a history of failed moderate sedation consider anesthesia. Airway Lungs Heart ASA score ASA 1: a normal healthy patient ASA 2: a patient with a mild systemic disease (mid diabetes, controlled hypertension, obesity ASA 3: a patient with a severe systemic disease that limits activity (angina, COPD, prior Myocardial infarction) ASA 4: a patient with an incapacitating disease that is a constant threat to life (CHF, renal failure) ASA 5: a moribund patient not expected to survive 24 hrs. (ruptured aneurysm) ASA 6: a declared brain- patient whose organs are being harvested. For emergent operations, add the letter E after the classification Mallampati Classification Grade 3 Sedation Plan Analgesia, Amnesia, Plan communicated to team members, Discussed options with patient/fam, Discussed risks with patient/fam The patient is an appropriate candidate to undergo the planned procedure, sedation, and anesthesia. The patient immediately re-assessed prior to indication. SHANDRA YOST MD Nov 14, 2021 14:06
[2021-11-14] MEDS ORDERED: ASPIRIN 325 MG (5 GR) TABLET ONE (14:51)
[2021-11-14] MEDS ORDERED: CLOPIDOGREL 300 MG (PLAVIX) TABLET PO ONE (14:52)
[2021-11-14] MEDS ORDERED: CLOP75TA69 PO (14:55)
--- NOTE | 2021-11-14 14:55 | Discharge Inst-Post CATH ---
Discharge Inst-CATH/EP Problems Reviewed?: Yes Post Cardiac Cath/EP D/C Inst Follow Up/Plan Appointment with Dr. Jasso's office in 2 weeks <b>CARDIAC CATH/EP PROCEDURE DISCHARGE INSTRUCTIONS</b> ACTIVITY * Go Home directly and rest. * Limit activity of the leg (or wrist if it was used) for 7 days including aerobics, swimming, jogging, bicycling, etc. * Restrict stair-climbing for 7 days if possible, if not, climb up with your non-cath leg, then bring together on the same step. * Avoid lifting, pushing, pulling or excessive movement of the affected extremity for 7 days. * Customary sexual activity may be resumed after 2 days-use caution not to use a position that strains or causes pain to the affected extremity. * No driving for 24 hours. * NO SMOKING. * Avoid straining for bowel movements for 7 days. * Gentle walking on level ground is allowed. * Returning to work will depend on the type of procedure and the results. Your doctor will discuss this with you. CALL YOUR DOCTOR FOR ANY OF THE FOLLOWING: *If bleeding from the puncture site occurs- Apply gentle pressure to site with clean cloth and call your doctor or EMS. * If a knot or lump forms under the skin, increases in size, or causes pain. * If bruising appears to be worsening or moving further down your leg instead of disappearing. * Temperature above 101 F. CARE OF YOUR GROIN INCISION; * Bruising or purple discoloration of the skin near the puncture site is common. * You may shower only, no bathtub bathing for 5 days. Be careful to avoid slipping as your leg may feel stiff. * If a closure device was used on your femoral artery, please see the attached guide regarding care of the device and your leg. * Leave dressing on FOR 24 hours. CARE OF YOUR WRIST INCISION; * Bruising or purple discoloration of the skin near the puncture site is common. * You may shower. * DO NOT submerge wrist. * Leave dressing on FOR 24 hours. SHANDRA JASSO MD Nov 14, 2021 14:55
--- NOTE | 2021-11-14 14:59 | Cardiac Cath Report ---
Cardiac Cath Report Physician (s)/Dispute Specialist (s) Physician SHANDRA YOST MD Pre-Procedure Diagnosis Pre-Procedure Diagnosis: CAD Post-Procedure Note Procedure Start Date: Nov 14, 2021 Name of Procedure: Left heart catheterization Balloon angioplasty to the right coronary artery Findings/Procedure Note PROCEDURE NOTE: 66 years old gentleman with history of coronary artery disease multiple stenting in the past of the right coronary artery, having an abnormal stress test, scheduled for cardiac catheterization possible PTCA. After explaining the procedure to the patient, all pros and cons were explained, all questions were answered. The patient signed the consent and then he was placed on the cardiac catheterization laboratory. Groin was prepped SL fashion local anesthesia was used. Sheath placed in the right radial artery, Paulina catheter was advanced through the sheath to the left ventricular cavity, pressure was measured, pullback LV to aorta was done, engage the right and left coronary system, multiple views were obtained. Patient has severe in-stent restenosis at multiple segment in the mid and distal right coronary artery, given a total of 6000 units of heparin, Danny right guide was advanced and BMW wire was advanced and parked distally. Balloon dilatation using NC trek 3 x 25 mm with multiple inflation up to 15 lyndon with excellent results At the end of the procedure the sheath was removed. Vascular band was used FINDINGS: Hemodynamics LV 85/6, end-diastolic pressure of 6 Aorta 83/55 mean of 54 ANATOMY: Left Main is free of obstructive disease Left Anterior Descending has mild disease in the proximal and midportion nonobstructive disease Left Circumflex has mild disease in the midportion nonobstructive disease Right Coronary Artery had multiple overlapping stent extending from the proximal to distal portion, mid right coronary artery has 90% stenosis distally has 70% stenosis at multiple segment, successful balloon angioplasty using NC trek 3 x 25 mm with excellent results LV Gram was not done, pressure was measured CONCLUSION: 1. Severe in-stent restenosis in the mid and distal right coronary artery with successful balloon angioplasty using NC trek 3 x 25 mm with excellent results 2. Mild to moderate disease in the mid and distal LAD and mid circumflex artery 3. Normal left ventricular end-diastolic pressure DISCUSSION AND RECOMMENDATION: Patient was loaded with aspirin and Plavix. Continue to monitor Anesthesia Type: Conscious Sedation Estimated blood loss (mL): 20 ml Contrast Amount: 48 ml Total Radiation Dose: 471 mGy Post-Procedure Diagnosis Post-operative diagnosis: Chest pain Coronary artery disease Hypertension Hyperlipidemia SHANDRA YOST MD Nov 14, 2021 14:59
[2021-11-14 15:25] VITALS: BP 102/62
[2021-11-14 18:00] VITALS: BP 107/63
[2021-11-15] MEDS ORDERED: CLOPIDOGREL 75 MG (PLAVIX) TABLET PO SCH (09:00)
[2021-11-15] MEDS ORDERED: ASPIRIN E.C. 81 MG (ECOTRIN) TAB PO SCH (09:00)
== END 2021-11-14 18:30 | disposition home or self-care (01) ==
LOC: CATH 10:51 → CSD 15:34 → CATH 18:30
PROVIDERS: ATTEND Internal Medicine Cardiovascular Disease
DX: I25.10 Atherosclerotic heart disease of native coronary artery without angina pectoris (principal); I10 Essential (primary) hypertension; E78.5 Hyperlipidemia, unspecified; J44.9 Chronic obstructive pulmonary disease, unspecified; F17.290 Nicotine dependence, other tobacco product, uncomplicated; I65.23 Occlusion and stenosis of bilateral carotid arteries; Z85.828 Personal history of other malignant neoplasm of skin; M32.9 Systemic lupus erythematosus, unspecified; Z79.899 Other long term (current) drug therapy
CPT/HCPCS: 71045; 80053; 80061; 81000; 85027; 85347; 85610; 85730; 87081; 92920; 93005; 93458; C1725; C1769; C1887; C1894; 36415